=== PATIENT | female | born 1930 | race Caucasian/White ===

== ENCOUNTER 2018-01-08 12:49 | Emergency (ER) | payer OTHER ==
--- NOTE | 2018-01-08 13:39 | RAD REPORT ---
EXAM DESCRIPTION: CT - Head Brain Wo Cont - 01/08/2018 1:32 pm CLINICAL HISTORY: Possible seizure, history of Alzheimer's disease, dementia and hypertension COMPARISON: CT study January 2017 TECHNIQUE: Axial 5 mm thick images of the head were obtained without IV contrast. All CT scans are performed using dose optimization technique as appropriate and may include automated exposure control or mA/KV adjustment according to patient size. FINDINGS: No intracranial hemorrhage, mass, edema or shift of mid-line structures. No acute cortical based infarction identified. Moderate atrophy and chronic ischemic changes are present. Ventricles d o appear to be somewhat out of proportion to the amount of volume loss. 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 No extra-axial fluid collections. Intracranial findings are not substantially differ ent from comparison. Physiologic and arterial calcifications are present. Mastoid air cells and visualized portions of the paranasal sinuses are clear. No acute bony findings. IMPRESSION: No hemorrhage, mass or acute intracranial finding. Prominent atrophy and chronic ischemic change similar to January 2017. The ventricles do appear to be somewhat out of proportion to the amount of volume loss and correlatio n is needed to determine if the patient's symptoms may be related to normal pressure hydrocephalus.
--- NOTE | 2018-01-08 13:51 | RAD REPORT ---
EXAM DESCRIPTION: RAD - Chest Single View - 01/08/2018 1:35 pm CLINICAL HISTORY: Seizure, shortness of breath COMPARISON: September 2012 TECHNIQUE: AP portable chest image was obtained 1318 hours . FINDINGS: Mild chronic interstitial lung disease is present. Pericardial fat pads are present. An ac [place] infiltrate is not seen. No mass, failure or volume overload suspected. Heart size and vasculature within normal limits. No measurable pleural effusion and no pneumothorax. No gross bony abnormality seen. No acute aortic findings suspected. IMPRESSION: No acute cardiopulmonary process.
[2018-01-08 14:00] LABS: Absolute Lymphocytes (CBC) 1.9 K/uL (0.7-4.9); Absolute Monocytes 0.6 K/uL (0.1-1.3); Absolute Neutrophil 5.8 K/uL (1.8-8.0); Eosinophils % 2.1 % (0-4.4); Hematocrit 41.4 % (36.0-45.0); Lymphocytes % 21.7 % (15.3-44.8); MCH 27.9 pg (27.0-35.0); MCV 86.5 fL (80-100); MPV 7.6 fL (7.6-11.3); Monocytes % 6.8 % (3.3-12.3); RBC Red Blood Cell Count 4.79 M/uL (3.86-4.86)
[2018-01-08 14:01] LABS: Potassium 4.2 mEq/L (3.6-5.0)
[2018-01-08 14:04] LABS: Protime INR 0.96
[2018-01-08 14:07] LABS: Albumin 4.2 g/dL (3.2-5.5); Bilirubin Direct 0.1 mg/dL (0-0.2); Bilirubin Total 0.3 mg/dL (0.3-1.2); Magnesium 2.4 mg/dL (1.8-2.5); Protein, Total 7.8 g/dL (6.0-8.3)
--- NOTE | 2018-01-08 16:06 | ER ---
Nurse's Notes [facility] Name: Anel Gauthier Age: 87 yrs Sex: Female : 1930 Arrival Date: 01/08/2018 Time: 12:55 Bed 2 Private MD: Diagnosis: Suspected seizure Presentation: 01/08 12:55 Presenting complaint: Daughter reports "We were eating lunch and she went stiff, eyes jl7 were open and she was staring off, nose was running, she felt cold then got clammy and sweaty.". Transition of care: patient was not received from another setting of care. Onset of symptoms was January 08, 2018. Initial Sepsis Screen: Does the patient meet any 2 criteria? No. Patient's initial sepsis screen is negative. Does the patient have a suspected source of infection? No. Patient's initial sepsis screen is negative. Care prior to arrival: IV initiated. 20 GA, in the right antecubital area. 12:55 Method Of Arrival: EMS: [facility] jl7 12:55 Acuity: JAMES 2 jl7 Triage Assessment: 13:01 General: Appears in no apparent distress. comfortable, Behavior is calm, cooperative, jl7 appropriate for age. Pain: Denies pain. EENT: No signs and/or symptoms were reported regarding the EENT system. Neuro: Level of Consciousness is awake, alert, obeys commands, Oriented to person, place, time, situation, Linotyper are equal bilaterally Moves all extremities. Speech is normal, Facial symmetry appears normal, Reports none. Cardiovascular: Patient's skin is warm and dry. Respiratory: Airway is patent Respiratory effort is even, unlabored, Respiratory pattern is regular, symmetrical. GI: No signs and/or symptoms were reported involving the gastrointestinal system. : No signs and/or symptoms were reported regarding the genitourinary system. Derm: Skin is pink, warm \\T\\ dry. Musculoskeletal: No signs and/or symptoms reported regarding the musculoskeletal system. Historical: - Allergies: 13:01 Eggs; jl7 13:01 Sulfa (Sulfonamide Antibiotics); jl7 - PMHx: 13:01 Alzheimers; Arthritis; Dementia; Hyperlipidemia; Hypertension; TIA; jl7 - Immunization history:: Adult Immunizations up to date. - Social history:: Smoking status: Patient/guardian denies using tobacco, Patient uses alcohol, 2 glasses of wine per day. Screenin:06 Abuse screen: Denies threats or abuse. Denies injuries from another. Nutritional jl7 screening: No deficits noted. Tuberculosis screening: No symptoms or risk factors identified. Fall Risk IV access (20 points). Total Puentes Fall Scale indicates No Risk (0-24 pts). Assessment: 13:06 General: See triage assessment. jl7 13:56 Reassessment: Patient appears in no apparent distress at this time. No changes from [facility] previously documented assessment. Pt laying in bed, denies discomfort, daughter remains at bedside. 15:00 Reassessment: Patient appears in no apparent distress at this time. Patient and/or jl7 family updated on plan of care and expected duration. Pain level reassessed. Patient is alert, oriented x 3, equal unlabored respirations, skin warm/dry/pink. 16:00 Reassessment: provider at bedside discussing plan of care. [facility] Vital Signs: 13:01 BP 129 / 66; Pulse 61; Resp 16 S; Temp 97.7(O); Pulse Ox 97% on R/A; Weight 72.57 kg jl7 (R); Height 5 ft. 1 in. (154.94 cm) (R); Pain 0/10; 13:30 BP 131 / 46; Pulse 57; Resp 16; Pulse Ox 96% ; jl7 13:56 BP 122 / 61; Pulse 55; Resp 19; Pulse Ox 96% ; jl7 15:43 BP 125 / 55; Pulse 65; Resp 16; Pulse Ox 96% on R/A; ae1 16:00 BP 114 / 53; Pulse 53; Resp 16 S; Pulse Ox 97% on R/A; jl7 13:01 Body Mass Index 30.23 (72.57 kg, 154.94 cm) jl7 NIH Stroke Scale Scores: 13:37 NIHSS Score: 0 [facility] ED Course: 12:55 Patient arrived in ED. jl7 12:56 Zion Brady PA is PHCP. jr8 12:56 Srinivasa Roper MD is Attending Physician. 8 13:00 Triage completed. jl7 13:01 Arm band placed on right wrist. jl7 13:06 Patient has correct armband on for positive identification. Bed in low position. Call [facility] light in reach. Side rails up X2. playground attendant on. Pulse ox on. NIBP on. 13:06 Maintain EMS IV. Dressing intact. Good blood return noted. Site clean \\T\\ dry. Gauge \\T\\ jl 7 site: 20 R AC. 13:10 Dank Miller RN is Primary Nurse. jl7 13:31 CT completed. Patient tolerated procedure well. Patient moved back from CT. bq 13:32 CT Head Brain wo Cont In Process Unspecified. EDMS 13:34 X-ray completed. Portable x-ray completed in exam room. Patient tolerated procedure bb2 well. 13:35 XRAY Chest (1 view) In Process Unspecified. EDMS 16:05 Eze Esquivel MD is Referral Physician. jr8 16:17 No provider procedures requiring assistance completed. IV discontinued, intact, jl7 bleeding controlled, No redness/swelling at site. Pressure dressing applied. Administered Medications: No medications were administered Point of Care Testing: Blood Glucose: 13:01 Blood Glucose: 124 mg/dL; jl7 Ranges: Outcome: 16:05 Discharge ordered by . jr8 16:17 Discharged to home via wheelchair, with family. jl7 16:17 Condition: stable 16:17 Discharge instructions given to patient, family, Instructed on discharge instructions, follow up and referral plans. Demonstrated understanding of instructions, follow-up care. 16:24 Patient left the ED. jl7 NIH Stroke Scale - NIH Stroke Score Date: 01/08/2018 Time: 13:37 Total Score = 0 1a. Level of Consciousness (LOC) - 0(Alert) 1b. Level of Consciousness (LOC) (Year \\T\\ Age) - 0(Both) 1c. LOC Commands (Open \\T\\ Closes Eyes/Cost Reduction Engineer) - 0(Both) 2. Best Gaze (Lateral Gaze Paresis) - 0(Normal) 3. Visual Field Loss - 0(No visual loss) 4. Facial Palsy - 0(Normal) 5a. Left Arm: Motor (10-second hold) - 0(No drift) 5b. Right Arm: Motor (10-second hold) - 0(No drift) 6a. Left Leg: Motor (5-second hold - always test supine) - 0(No drift) 6b. Right Leg: Motor (5-second hold - always test supine) - 0(No drift) 7. Limb Ataxia (finger/nose \\T\\ heel/escobar - test with eyes open) - 0(Absent) 8. Sensory Loss (pinprick arms/legs/face) - 0(Normal) 9. Best Language: Aphasia (description/naming/reading) - 0(No aphasia) 10. Dysarthria (speech clarity - read or repeat words) - 0(Normal) 11. Extinction and Inattention (visual/tactile/auditory/spatial/personal) - 0(No abnormality) Initials: jr8 Signatures: Dispatcher [employer] EDPat Ricardo Josh, PA PA jr8 Ramiro Jacobs, RN RN ae1 Dank Miller RN RN jl7 Tonya Mcneal bb2
--- NOTE | 2018-01-08 16:07 | EDPHYS ---
Physician Documentation [facility] Name: Anel Gauthier Age: 87 yrs Sex: Female : 1930 Arrival Date: 01/08/2018 Time: 12:55 Bed 2 Private MD: ED Physician Srinivasa Roper HPI: 01/08 13:37 This 87 yrs old Female presents to ER via EMS with complaints of Probable jr8 Seizure. 13:37 The patient presents after having a single isolated seizure, that lasted 2 minute(s). jr8 Seizure onset: just prior to arrival. Context: the seizure(s) was witnessed, by family, occurred at a intermediate or assisted living facility, occurred while the patient was at rest, sitting, Contributing factors: unknown. Seizure Hx: the patient has no previous seizure history. Associated injury: The patient did not suffer any apparent associated injury. Current symptoms: headache, that is mild. The patient has not experienced similar symptoms in the past. The patient has not recently seen a physician. Daughter of patient stated that they were sitting and eating. Mother had all of a sudden stiffened up and her eyes were fixed. Lasted approximately 2 min. Patient upon arrival A\T\O x3. Complains of mild headache and fatigue feeling . Historical: - Allergies: 13:01 Eggs; jl7 13:01 Sulfa (Sulfonamide Antibiotics); jl7 - PMHx: 13:01 Alzheimers; Arthritis; Dementia; Hyperlipidemia; Hypertension; TIA; jl7 - Immunization history:: Adult Immunizations up to date. - Social history:: Smoking status: Patient/guardian denies using tobacco, Patient uses alcohol, 2 glasses of wine per day. ROS: 13:37 Eyes: Negative for injury, pain, redness, and discharge, ENT: Negative for injury, jr8 pain, and discharge, Neck: Negative for injury, pain, and swelling, Cardiovascular: Negative for chest pain, palpitations, and edema, Respiratory: Negative for shortness of breath, cough, wheezing, and pleuritic chest pain, Abdomen/GI: Negative for abdominal pain, nausea, vomiting, diarrhea, and constipation, Back: Negative for injury and pain, MS/Extremity: Negative for injury and deformity, Skin: Negative for injury, rash, and discoloration. 13:37 Neuro: Positive for headache, Negative for altered mental status, dizziness, gait disturbance, hearing loss, loss of consciousness, numbness, seizure activity, speech changes, syncope, near syncope, tingling, tinnitus, tremor, visual changes, weakness. Exam: 13:37 Head/Face: Normocephalic, atraumatic. Eyes: Pupils equal round and reactive to light, jr8 extra-ocular motions intact. Lids and lashes normal. Conjunctiva and sclera are non-icteric and not injected. Cornea within normal limits. Periorbital areas with no swelling, redness, or edema. ENT: Nares patent. No nasal discharge, no septal abnormalities noted. Tympanic membranes are normal and external auditory canals are clear. Oropharynx with no redness, swelling, or masses, exudates, or evidence of obstruction, uvula midline. Mucous membranes moist. Neck: Trachea midline, no thyromegaly or masses palpated, and no cervical lymphadenopathy. Supple, full range of motion without nuchal rigidity, or vertebral point tenderness. No Meningismus. Cardiovascular: Regular rate and rhythm with a normal S1 and S2. No gallops, murmurs, or rubs. Normal PMI, no JVD. No pulse deficits. Respiratory: Lungs have equal breath sounds bilaterally, clear to auscultation and percussion. No rales, rhonchi or wheezes noted. No increased work of breathing, no retractions or nasal flaring. Abdomen/GI: Soft, non-tender, with normal bowel sounds. No distension or tympany. No guarding or rebound. No evidence of tenderness throughout. Back: No spinal tenderness. No costovertebral tenderness. Full range of motion. Skin: Warm, dry with normal turgor. Normal color with no rashes, no lesions, and no evidence of cellulitis. MS/ Extremity: Pulses equal, no cyanosis. Neurovascular intact. Full, normal range of motion. Neuro: Awake and alert, GCS 15, oriented to person, place, time, and situation. Cranial nerves II-XII grossly intact. Motor strength 5/5 in all extremities. Sensory grossly intact. Cerebellar exam normal. Normal gait. Vital Signs: 13:01 BP 129 / 66; Pulse 61; Resp 16 S; Temp 97.7(O); Pulse Ox 97% on R/A; Weight 72.57 kg jl7 (R); Height 5 ft. 1 in. (154.94 cm) (R); Pain 0/10; 13:30 BP 131 / 46; Pulse 57; Resp 16; Pulse Ox 96% ; jl7 13:56 BP 122 / 61; Pulse 55; Resp 19; Pulse Ox 96% ; jl7 15:43 BP 125 / 55; Pulse 65; Resp 16; Pulse Ox 96% on R/A; ae1 16:00 BP 114 / 53; Pulse 53; Resp 16 S; Pulse Ox 97% on R/A; jl7 13:01 Body Mass Index 30.23 (72.57 kg, 154.94 cm) jl7 NIH Stroke Scale Scores: 13:37 NIHSS Score: 0 jr8 MDM: 12:56 Patient medically screened. jr8 15:44 ED course: Dr. Read called at 15:30 for possible consult. Left message. Awaiting 8 call back . 16:02 Data reviewed: vital signs, nurses notes, lab test result(s), EKG, radiologic studies, jr8 CT scan, plain films. Data interpreted: Pulse oximetry: on room air is 96 %. Interpretation: normal. Counseling: I had a detailed discussion with the patient and/or guardian regarding: the historical points, exam findings, and any diagnostic results supporting the discharge/admit diagnosis, lab results, radiology results. ED course: Cannot get a hold of Dr. Read to see if he is around for consult. Discussed with family that it is my opinion that she should be admitted for observation for neurology and medicine to insure cardiac rhythm remains normal along with labs and to insure neurology sees her for suspected seizure. Family was in agreement but does not want to be transferred since we do not have neurology on. Discussed with family that since patient has remained stable and asymptomatic here that we can let them go home but strict return precautions given to come back if patient has another episode. Patient patient and family happy with this. Family otherwise if patient remains stable with f/u with Dr. Esquivel on Wednesday . 01/08 13:09 Order name: CPK; Complete Time: 14: 01/08 13:09 Order name: Basic Metabolic Panel; Complete Time: 14:01/08 13:09 Order name: BNP; Complete Time: 14:01/08 13:09 Order name: CBC with Diff; Complete Time: 14:03 01/08 13:09 Order name: LFT's; Complete Time: 14:26 01/08 13:09 Order name: Magnesium; Complete Time: 14:01/08 13:09 Order name: PT-INR; Complete Time: 14:01/08 13:09 Order name: Ptt, Activated; Complete Time: 14:26 01/08 13:09 Order name: Troponin (emerg Dept Use Only); Complete Time: 14:10 01/08 13:09 Order name: XRAY Chest (1 view); Complete Time: 14:00 01/08 13:09 Order name: EKG; Complete Time: 13:09 01/08 13:09 Order name: Cardiac monitoring; Complete Time: 13:01/08 13:09 Order name: EKG - Nurse/Tech; Complete Time: 13:56 01/08 13:09 Order name: CT Head Brain wo Cont; Complete Time: 13:41 01/08 13:09 Order name: IV Saline Lock; Complete Time: 13:01/08 13:09 Order name: Labs collected and sent; Complete Time: 13:56 01/08 13:09 Order name: O2 Per Protocol; Complete Time: 13:01/08 13:09 Order name: O2 Sat Monitoring; Complete Time: 13:55 Administered Medications: No medications were administered Point of Care Testing: Blood Glucose: 13:01 Blood Glucose: 124 mg/dL; jl7 Ranges: Critical Glucose Levels:Adult <50 mg/dl or >400 mg/dl <40 mg/dl or >180 mg/dl Disposition: 18:54 Co-signature as Attending Physician, Srinivasa Roper MD. Disposition: 01/08/18 16:05 Discharged to Home. Impression: Suspected seizure . - Condition is Stable. - Discharge Instructions: Nonepileptic Seizures, Seizure, Adult. - Medication Reconciliation Form, Thank You Letter, Antibiotic Education, Prescription Opioid Use form. - Follow up: Eze Esquivel MD; When: 1 - 2 days; Reason: Recheck today's complaints, Continuance of care, Re-evaluation by your physician. - Problem is new. - Symptoms are resolved. NIH Stroke Scale - NIH Stroke Score Date: 01/08/2018 Time: 13:37 Total Score = 0 1a. Level of Consciousness (LOC) - 0(Alert) 1b. Level of Consciousness (LOC) (Year \T\ Age) - 0(Both) 1c. LOC Commands (Open \T\ Closes Eyes/Chute Tapper) - 0(Both) 2. Best Gaze (Lateral Gaze Paresis) - 0(Normal) 3. Visual Field Loss - 0(No visual loss) 4. Facial Palsy - 0(Normal) 5a. Left Arm: Motor (10-second hold) - 0(No drift) 5b. Right Arm: Motor (10-second hold) - 0(No drift) 6a. Left Leg: Motor (5-second hold - always test supine) - 0(No drift) 6b. Right Leg: Motor (5-second hold - always test supine) - 0(No drift) 7. Limb Ataxia (finger/nose \T\ heel/escobar - test with eyes open) - 0(Absent) 8. Sensory Loss (pinprick arms/legs/face) - 0(Normal) 9. Best Language: Aphasia (description/naming/reading) - 0(No aphasia) 10. Dysarthria (speech clarity - read or repeat words) - 0(Normal) 11. Extinction and Inattention (visual/tactile/auditory/spatial/personal) - 0(No abnormality) Initials: tina Signatures: Dispatcher [employer] EDMS Zion Brady PA PA jr8 Dank Miller RN RN jl7 Srinivasa Roper MD MD gs Corrections: (The following items were deleted from the chart) 16:24 16:05 01/08/2018 16:05 Discharged to Home. Impression: Suspected seizure . jl7 Condition is Stable. Forms are Medication Reconciliation Form, Thank You Letter, Antibiotic Education, Prescription Opioid Use. Follow up: Eze Esquivel; When: 1 - 2 days; Reason: Recheck today's complaints, Continuance of care, Re-evaluation by your physician. Problem is new. Symptoms are resolved. jr8
[2018-01-08 16:30] VITALS: TEMP 97.7
[2018-01-08 16:35] VITALS: BP 114/53; O2SAT 97
--- NOTE | 2018-01-09 10:42 | EKG ---
Test Date: 2018-01-08 Test Time: 12:54:10 Fire Sprinkler Service Technician: JAMIE MEASUREMENT RESULTS: Intervals: Rate: 58 DE: QRSD: 76 QT: 420 QTc: 412 [place]: P: DE: QRS: -40 T: 147 INTERPRETIVE STATEMENTS: Atrial fibrillation with slow ventricular response Left axis deviation Septal infarct, age undetermined ST & T wave abnormality, consider lateral ischemia Abnormal ECG Compared to ECG 10/13/2012 18:53:45 Left-axis deviation now present ST (T wave) deviation now present Sinus tachycardia no longer present Electronically Signed On 01-09-18 10:42:17 CDT by Ben Sharp
== END 2018-01-08 16:24 | disposition home or self-care (01) ==
LOC: ER 12:49
DX: R56.9 Unspecified convulsions (principal); I10 Essential (primary) hypertension; Z88.2 Allergy status to sulfonamides; Z91.012 Allergy to eggs
CPT/HCPCS: 36415; 70450; 71045; 80048; 80076; 82550; 82962; 83735; 83880; 84484; 85025; 85610; 85730; 93005; 99285

== ENCOUNTER 2018-01-22 13:14 | Observation (INO) | payer OTHER ==
--- NOTE | 2018-01-22 13:53 | RAD REPORT ---
EXAM DESCRIPTION: CT - [id number] - 01/22/2018 1:42 pm CLINICAL HISTORY: Fall, syncope, posterior skull injury COMPARISON: December 2016 TECHNIQUE: Axial 5 mm thick images of the head were obtained. Axial 2 mm thick images of the cervic al spine were obtained with sagittal and coronal reconstruction images generated and reviewed. All CT scans are performed using dose optimization technique as appropriate and may include automated exposure control or mA/KV adjustment according to patient size. FINDINGS: No intracranial hemorrhage, mass, edema or acute intracranial finding. No acute cortical b ased infarction. Moderate atrophy and advanced chronic ischemic changes are present. Ventricular size is in proportion to the volume loss. Arterial calcifications are present. No extra-axial fluid colle ctions. Mastoid air cells and paranasal sinuses are clear. No globe or orbit abnormality seen. Intrac ranial findings are similar to comparison. Small left occipital scalp hematoma is present. No foreign body. Cervical bodies are normal in height. No fracture or acute cervical body finding. Slight anterior sub luxation of C4 on C5 noted secondary to facet degenerative change. C3-4 and see 5-6 disc space narrow ing present. Bilateral bony foraminal encroachment present at C4-5. Left foraminal encroachment prese nt at C3-4. C2-3 disc space is narrowed. No pathologic bone process. No paraspinal mass or hematoma. IMPRESSION: Prominent atrophy and chronic ischemic change similar to comparison. No acute finding. Prominent cervical spine degenerative change similar to comparison. No acute finding.
[2018-01-22] MEDS ORDERED: NA CHLORIDE 0.9% 1,000 ML ONE (14:10)
[2018-01-22 14:16] LABS: Protime INR 0.96
[2018-01-22 14:23] LABS: Potassium 4.4 mEq/L (3.6-5.0)
[2018-01-22 14:41] LABS: Absolute Lymphocytes (CBC) 1.9 K/uL (0.7-4.9); Absolute Monocytes 0.5 K/uL (0.1-1.3); Absolute Neutrophil 5.1 K/uL (1.8-8.0); Eosinophils % 2.3 % (0-4.4); Hematocrit 44.8 % (36.0-45.0); Lymphocytes % 24.7 % (15.3-44.8); MCH 27.2 pg (27.0-35.0); MCV 87.4 fL (80-100); MPV 8.3 fL (7.6-11.3); Monocytes % 6.7 % (3.3-12.3); RBC Red Blood Cell Count 5.13 M/uL (3.86-4.86)
--- NOTE | 2018-01-22 15:16 | RAD REPORT ---
EXAM DESCRIPTION: RAD - Chest Single View - 01/22/2018 1:56 pm CLINICAL HISTORY: Fall, chest pain, shortness of breath COMPARISON: January 08 TECHNIQUE: AP portable chest image was obtained 1342 hours . FINDINGS: No pulmonary contusion or pneumothorax. No focal lung parenchymal process. Heart size is u pper normal. Vasculature within normal limits. No measurable pleural effusion and no pneumothorax. No gross bony abnormality seen. No acute aortic findings suspected. IMPRESSION: No acute cardiopulmonary process. Chest is not significantly different from comparison.
--- NOTE | 2018-01-22 16:23 | ER ---
Nurse's Notes [facility] Name: Anel Gauthier Age: 87 yrs Sex: Female : 1930 Arrival Date: 01/22/2018 Time: 13:15 Bed 3 Private MD: Diagnosis: Syncope and collapse;Hypotension due to drugs Presentation: 01/22 13:17 Presenting complaint: EMS states: Had just finished eating in dining room and had a ph syncopal episode, fell from standing position, denies memory of event, "apricot" sized hematoma palpated in occipital area, no bleeding noted, no AMS, pt denies use of blood thinners, seen here recently for similar complaint, BGL 143, heart rate sinus caroline w/ 1st degree block \\T\\ 48 bpm. Transition of care: patient was received from another setting of care (long-term care facility), [facility]. Onset of symptoms was January 22, 2018. Risk Assessment: Do you want to hurt yourself or someone else? Patient reports no desire to harm self or others. Initial Sepsis Screen: Does the patient meet any 2 criteria? No. Patient's initial sepsis screen is negative. Does the patient have a suspected source of infection? No. Patient's initial sepsis screen is negative. Care prior to arrival: IV initiated. 20 GA, in the right forearm, Glucose check: 143. 13:17 Method Of Arrival: EMS: [facility] 13:17 Acuity: JAMES 3 ph 13:17 Mechanism of Injury: Fall from standing position. Trauma event details: Injury occurred ss in the [facility], Injury occurred: at home. Injury occurred: January 22, 2018. 14:07 Acuity: JAMES 2 ph Trauma Activation: Alert Physician: ED Physician; Name: Dr. Roper; Notified At: 13:07; Arrived At: 13:07 Physician: General Surgeon; Name: ; Notified At: 13:07; Arrived At: Specialty not needed Physician: Radiology; Name: Valentine (XRAY)Pat (CT); Notified At: 13:07; Arrived At: 13:07 Physician: Respiratory; Name: ; Notified At: 13:07; Arrived At: Specialty not needed Physician: Lab; Name: ; Notified At: 13:07; Arrived At: Specialty not needed Historical: - Allergies: 13:26 Eggs; ph 13:26 Sulfa (Sulfonamide Antibiotics); ph - Home Meds: 13:26 amlodipine 10 mg tab 1 tab once daily [Active]; aspirin 81 mg Oral chew 1 tab once ph daily [Active]; atenolol 100 mg Oral tab 1 tab once daily [Active]; donepezil 10 mg Oral tab 1 tab once daily [Active]; lisinopril 30 mg Oral tab 1 tab once daily [Active]; Myrbetriq 25 mg Oral Tb24 1 tab once daily [Active]; omeprazole 20 mg Oral cpDR 1 cap once daily [Active]; venlafaxine 75 mg Oral cp24 1 cap once daily [Active]; - PMHx: 13:26 Alzheimers; Arthritis; Dementia; Hyperlipidemia; Hypertension; TIA; ph - Immunization history:: Adult Immunizations up to date. - Social history:: Smoking status: Patient/guardian denies using tobacco. - Immunization history: Last tetanus immunization:. - Ebola Screening: : No symptoms or risks identified at this time. Screenin:20 Abuse screen: Denies threats or abuse. Denies injuries from another. Nutritional ph screening: No deficits noted. Tuberculosis screening: No symptoms or risk factors identified. Fall Risk Fall in past 12 months (25 points). Secondary diagnosis (15 points) Alzheimer's, IV access (20 points). Ambulatory Aid- Crutches/Cane/Walker (15 pts). Gait- Weak (10 pts.). Mental Status- Oriented to own ability (0 pts). Total Puentes Fall Scale indicates High Risk Score (45 or more points). Fall prevention measures have been instituted. Side Rails Up X 2 Placed Close to Nursing Station Frequent Obs/Assessments Occuring Family Present and informed to notify staff if the need to leave the bedside As available patient and family educated on Fall Prevention Program and Strategies. Primary Survey: 13:25 A: Airway: patent. ph 13:25 Breathing/Chest: Respiratory pattern: regular, Respiratory effort: spontaneous, ph unlabored. Circulation: Cardiac rhythm: sinus bradycardia Pulses: palpable right radial artery and left radial artery. Skin color: pink, Skin temperature: warm, dry. Disability Alert. 14:15 Reassessment Airway Airway Patent Breathing/Chest Respiratory pattern Regular hb Respiratory effort Spontaneous Unlabored Chest inspection Symmetrical Circulation Color Backus Temperature Warm Dry Disability Alert. 15:15 Reassessment Airway Airway Patent Breathing/Chest Respiratory pattern Regular hb Respiratory effort Spontaneous Unlabored Chest inspection Symmetrical Circulation Color Backus Temperature Warm Dry Disability Alert. 16:15 Reassessment Airway Airway Patent Breathing/Chest Respiratory pattern Regular hb Respiratory effort Spontaneous Unlabored Chest inspection Symmetrical Circulation Color Backus Temperature Warm Dry Disability Alert. 17:15 Reassessment Airway Airway Patent Breathing/Chest Respiratory pattern Regular hb Respiratory effort Spontaneous Unlabored Chest inspection Symmetrical Circulation Color Backus Temperature Warm Dry Disability Alert. 18:15 Reassessment Airway Airway Patent Breathing/Chest Respiratory pattern Regular hb Respiratory effort Spontaneous Unlabored Chest inspection Symmetrical Circulation Color Backus Temperature Warm Dry Disability Alert. Secondary Survey: 13:25 HEENT: Head Other hematoma noted to occipital area. Gastrointestinal: No deficits ph noted. Musculoskeletal: No deficits noted. Injury Description: hematoma to back of head. Assessment: 13:30 General: Appears in no apparent distress. uncomfortable, Behavior is calm, cooperative, ph appropriate for age. Pain: Complains of pain in back of head Pain currently is 5 out of 10 on a pain scale. Neuro: Level of Consciousness is awake, alert, obeys commands, Oriented to person, place, situation, hx of dementia, daughter reports that pt is at baseline mental status. Reports headache occipital area, Denies blurred vision diplopia. Cardiovascular: Reports lightheadedness, syncope, Denies chest pain, nausea, shortness of breath, vomiting, Capillary refill < 3 seconds Patient's skin is warm and dry. Rhythm is sinus bradycardia. Respiratory: Airway is patent Respiratory effort is even, unlabored, Respiratory pattern is regular, symmetrical. GI: No signs and/or symptoms were reported involving the gastrointestinal system. Patient currently denies nausea, vomiting. Derm: Skin is intact, is fragile, is thin, Skin is pink, warm \\T\\ dry. Musculoskeletal: Circulation, motion, and sensation intact. Range of motion: intact in all extremities. 14:15 Reassessment: Patient appears in no apparent distress at this time. Patient and/or ph family updated on plan of care and expected duration. Pain level reassessed. Patient is alert, oriented x 3, equal unlabored respirations, skin warm/dry/pink. BP noted to be low at 94/43, pt reports "feeling fuzzy", ERP notified, see MAR. 15:00 Reassessment: Patient appears in no apparent distress at this time. Patient and/or ph family updated on plan of care and expected duration. Pain level reassessed. Patient is alert, oriented x 3, equal unlabored respirations, skin warm/dry/pink. 16:10 Reassessment: Patient appears in no apparent distress at this time. Patient and/or ph family updated on plan of care and expected duration. Pain level reassessed. Patient is alert, oriented x 3, equal unlabored respirations, skin warm/dry/pink. Pt resting quietly, BP remains low, 90s/40s, ERP aware of vitals, pt currently receiving IV fluid bolus, awaiting room assignment Patient denies pain at this time. 16:35 Reassessment: Patient appears in no apparent distress at this time. No changes from hb previously documented assessment. Patient and/or family updated on plan of care and expected duration. Pain level reassessed. Patient is alert, oriented x 3, equal unlabored respirations, skin warm/dry/pink. 17:25 Reassessment: Patient appears in no apparent distress at this time. Patient and/or ph family updated on plan of care and expected duration. Pain level reassessed. Patient is alert, oriented x 3, equal unlabored respirations, skin warm/dry/pink. Pt resting quietly at this time, assisted onto bedpan w/ no difficulty, urine sample obtained, awaiting room assignment. 18:15 Reassessment: Patient appears in no apparent distress at this time. Patient and/or hb family updated on plan of care and expected duration. Pain level reassessed. Patient is alert, oriented x 3, equal unlabored respirations, skin warm/dry/pink. Admission ordered, awaiting room assignment at this time. Family remains at bedside. 19:04 Reassessment: Patient appears in no apparent distress at this time. Patient and/or ph family updated on plan of care and expected duration. Pain level reassessed. Patient is alert, oriented x 3, equal unlabored respirations, skin warm/dry/pink. PCP at bedside. Vital Signs: 13:23 BP 133 / 47; Pulse 50; Resp 16; Temp 97.9; Pulse Ox 99% on R/A; Weight 72.57 kg; Height ph 5 ft. 1 in. (154.94 cm); Pain 5/10; 14:07 BP 94 / 43; Pulse 52; Resp 12; Pulse Ox 100% on R/A; ph 14:47 BP 93 / 42; Pulse 59; Resp 16; Pulse Ox 98% on R/A; ph 15:05 BP 99 / 59; Pulse 54; Resp 14; Pulse Ox 99% on R/A; ph 15:43 BP 99 / 42; Pulse 53; Resp 16; Pulse Ox 99% on R/A; ph 16:21 BP 93 / 37; Pulse 54; Resp 14; Pulse Ox 97% on R/A; hb 17:26 BP 99 / 36; Pulse 55; Resp 18; Pulse Ox 97% on R/A; ph 17:46 BP 100 / 45; Pulse 56; Resp 17; Pulse Ox 98% on R/A; dh3 18:25 BP 118 / 46; Pulse 67; Resp 14; Temp 97.8(TE); Pulse Ox 100% on R/A; ph 19:04 BP 111 / 35; Pulse 14; Resp 67; Pulse Ox 99% on R/A; ph 19:31 BP 111 / 35; Pulse 74; Resp 16; Pulse Ox 99% on R/A; Pain 0/10; ao 13:23 Body Mass Index 30.23 (72.57 kg, 154.94 cm) ph [place] Coma Score: 13:23 Eye Response: spontaneous(4). Verbal Response: oriented(5). Motor Response: obeys ph commands(6). Total: 15. 14:47 Eye Response: spontaneous(4). Verbal Response: oriented(5). Motor Response: obeys ph commands(6). Total: 15. 15:43 Eye Response: spontaneous(4). Verbal Response: oriented(5). Motor Response: obeys ph commands(6). Total: 15. 18:25 Eye Response: spontaneous(4). Verbal Response: oriented(5). Motor Response: obeys ph commands(6). Total: 15. Trauma Score (Adult): 13:23 Eye Response: spontaneous(1); Verbal Response: oriented(1); Motor Response: obeys ph commands(2); Systolic BP: > 89 mm Hg(4); Respiratory Rate: 10 to 29 per min(4); [place] Score: 15; Trauma Score: 12 14:00 Eye Response: spontaneous(1); Verbal Response: oriented(1); Motor Response: obeys hb commands(2); Systolic BP: > 89 mm Hg(4); Respiratory Rate: 10 to 29 per min(4); Rosie Score: 15; Trauma Score: 12 14:47 Eye Response: spontaneous(1); Verbal Response: oriented(1); Motor Response: obeys ph commands(2); Systolic BP: > 89 mm Hg(4); Respiratory Rate: 10 to 29 per min(4); [place] Score: 15; Trauma Score: 12 15:43 Eye Response: spontaneous(1); Verbal Response: oriented(1); Motor Response: obeys ph commands(2); Systolic BP: > 89 mm Hg(4); Respiratory Rate: 10 to 29 per min(4); Rosie Score: 15; Trauma Score: 12 16:30 Eye Response: spontaneous(1); Verbal Response: oriented(1); Motor Response: obeys hb commands(2); Systolic BP: > 89 mm Hg(4); Respiratory Rate: 10 to 29 per min(4); Rosie Score: 15; Trauma Score: 12 17:30 Eye Response: spontaneous(1); Verbal Response: oriented(1); Motor Response: obeys hb commands(2); Systolic BP: > 89 mm Hg(4); Respiratory Rate: 10 to 29 per min(4); [place] Score: 15; Trauma Score: 12 18:25 Eye Response: spontaneous(1); Verbal Response: oriented(1); Motor Response: obeys ph commands(2); Systolic BP: > 89 mm Hg(4); Respiratory Rate: 10 to 29 per min(4); Rosie Score: 15; Trauma Score: 12 ED Course: 13:15 Patient arrived in ED. em1 13:20 Srinivasa Roper MD is Attending Physician. gs 13:22 Triage completed. ph 13:24 EKG done, by ED staff, reviewed by Srinivasa Roper MD. dh3 13:26 Arm band placed on. ph 13:41 CT completed. Patient moved to CT via stretcher. Patient moved back from CT. cw1 13:42 CT Head C Spine In Process Unspecified. EDMS 13:55 X-ray completed. Patient tolerated procedure well. Patient moved back from radiology. kc2 13:56 XRAY Chest (1 view) In Process Unspecified. EDMS 14:02 Amberly Desai, RN is Primary Nurse. ph 14:24 Patient has correct armband on for positive identification. Placed in gown. Bed in low ph position. Call light in reach. Side rails up X2. manager monitoring on. Pulse ox on. NIBP on. Warm blanket given. 14:25 Patient maintains SpO2 saturation greater than 95% on room air. Thermoregulation: warm ph blanket given to patient. 14:25 Maintain EMS IV. Dressing intact. Good blood return noted. Site clean \\T\\ dry. Gauge \\T\\ ph site: 20 RFA. 16:09 No provider procedures requiring assistance completed. Patient admitted, IV remains in ph place. 16:22 Ned Eastman MD is Hospitalizing Provider. gs Administered Medications: 14:16 Drug: NS 0.9% 500 ml Route: IV; Rate: bolus; Site: right forearm; ph 19:06 Follow up: Response: No adverse reaction; Blood pressure is unchanged; IV Status: ph Completed infusion 14:45 Drug: NS 0.9% 500 ml Route: IV; Rate: bolus; Site: right forearm; ph 19:07 Follow up: Response: No adverse reaction; Blood pressure is unchanged; IV Status: ph Completed infusion 15:45 Drug: NS 0.9% 500 ml Route: IV; Rate: bolus; Site: right forearm; ph 19:08 Follow up: Response: No adverse reaction; IV Status: Completed infusion ph Intake: 14:47 IV: 500ml (IV Fluid); Total: 500ml. ph 15:43 IV: 500ml (IV Fluid); Total: 1000ml. ph 18:25 IV: 500ml (IV Fluid); Total: 1500ml. ph 19:48 PO: 0ml; Total: 1500ml. ao Output: 18:25 Urine: 900ml (Voided); Total: 900ml. ph Outcome: 16:22 Decision to Hospitalize by Provider. gs 18:27 Patient's length of stay in the Emergency Department was greater than 2 hours. pt ph admitted for observation r/t low BPPatient's length of stay extended due to 18:30 Patient's length of stay in the Emergency Department was greater than 2 hours. hb Admission ordered, awaiting room assignment Patient's length of stay extended due to 18:32 Condition: stable ph 18:32 Instructed on the need for admit. 19:47 Admitted to Med/surg accompanied by tech, room 202, with chart, Report called to angel Baker LVN 19:48 Patient left the ED. angel Signatures: Dispatcher [employer] EDKraig Patel em1 Jayne Page RN RN ss Woodley, Clotilde cw1 Amberly Desai RN RN Abdoul Zaragoza RN RN ao Baxter, Heather, RN RN Valentine Wu [facility] Kelly Montoya 3 Srinivasa Roper MD MD Corrections: (The following items were deleted from the chart) 13:33 13:17 Acuity: JAMES 3 ph ph 14:19 14:17 A: Airway: patent, ph ph 18:29 16:21 [place] Score=15, Trauma Score=12, hb hb
--- NOTE | 2018-01-22 16:24 | EDPHYS ---
Physician Documentation [facility] Name: Anel Gauthier Age: 87 yrs Sex: Female : 1930 Arrival Date: 01/22/2018 Time: 13:15 Bed 3 Private MD: ED Physician Srinivasa Roper HPI: 01/22 16:18 This 87 yrs old Female presents to ER via EMS with complaints of Fall Injury. gs 16:18 The patient has experienced syncope, became unresponsive, collapsed. Onset: The gs symptoms/episode began/occurred acutely, just prior to arrival. Duration: This was a single episode. Associated injury: Head/face: Neck:. Associated signs and symptoms: Pertinent negatives: agitation, ataxia, blurred vision, chest pain. Current symptoms: Currently, the patient is not experiencing any symptoms, the patient feels back to baseline. The patient has experienced similar episodes in the past, a few times. Historical: - Allergies: 13:26 Eggs; ph 13:26 Sulfa (Sulfonamide Antibiotics); ph - Home Meds: 13:26 amlodipine 10 mg tab 1 tab once daily [Active]; aspirin 81 mg Oral chew 1 tab once ph daily [Active]; atenolol 100 mg Oral tab 1 tab once daily [Active]; donepezil 10 mg Oral tab 1 tab once daily [Active]; lisinopril 30 mg Oral tab 1 tab once daily [Active]; Myrbetriq 25 mg Oral Tb24 1 tab once daily [Active]; omeprazole 20 mg Oral cpDR 1 cap once daily [Active]; venlafaxine 75 mg Oral cp24 1 cap once daily [Active]; - PMHx: 13:26 Alzheimers; Arthritis; Dementia; Hyperlipidemia; Hypertension; TIA; ph - Immunization history:: Adult Immunizations up to date. - Social history:: Smoking status: Patient/guardian denies using tobacco. - Immunization history: Last tetanus immunization:. - Ebola Screening: : No symptoms or risks identified at this time. ROS: 16:18 All other systems are negative. gs Exam: 16:18 Head/Face: Normocephalic, atraumatic. Eyes: Pupils equal round and reactive to light, gs extra-ocular motions intact. Lids and lashes normal. Conjunctiva and sclera are non-icteric and not injected. Cornea within normal limits. Periorbital areas with no swelling, redness, or edema. ENT: Nares patent. No nasal discharge, no septal abnormalities noted. Tympanic membranes are normal and external auditory canals are clear. Oropharynx with no redness, swelling, or masses, exudates, or evidence of obstruction, uvula midline. Mucous membranes moist. Chest/axilla: Normal chest wall appearance and motion. Nontender with no deformity. No lesions are appreciated. Cardiovascular: Regular rate and rhythm with a normal S1 and S2. No gallops, murmurs, or rubs. Normal PMI, no JVD. No pulse deficits. Respiratory: Lungs have equal breath sounds bilaterally, clear to auscultation and percussion. No rales, rhonchi or wheezes noted. No increased work of breathing, no retractions or nasal flaring. Abdomen/GI: Soft, non-tender, with normal bowel sounds. No distension or tympany. No guarding or rebound. No evidence of tenderness throughout. Back: No spinal tenderness. No costovertebral tenderness. Full range of motion. Skin: Warm, dry with normal turgor. Normal color with no rashes, no lesions, and no evidence of cellulitis. MS/ Extremity: Pulses equal, no cyanosis. Neurovascular intact. Full, normal range of motion. Neuro: Awake and alert, GCS 15, oriented to person, place, time, and situation. Cranial nerves II-XII grossly intact. Motor strength 5/5 in all extremities. Sensory grossly intact. Cerebellar exam normal. Normal gait. 16:18 Neck: C-spine: C-collar placed [employer]. Vital Signs: 13:23 BP 133 / 47; Pulse 50; Resp 16; Temp 97.9; Pulse Ox 99% on R/A; Weight 72.57 kg; Height ph 5 ft. 1 in. (154.94 cm); Pain 5/10; 14:07 BP 94 / 43; Pulse 52; Resp 12; Pulse Ox 100% on R/A; ph 14:47 BP 93 / 42; Pulse 59; Resp 16; Pulse Ox 98% on R/A; ph 15:05 BP 99 / 59; Pulse 54; Resp 14; Pulse Ox 99% on R/A; ph 15:43 BP 99 / 42; Pulse 53; Resp 16; Pulse Ox 99% on R/A; ph 16:21 BP 93 / 37; Pulse 54; Resp 14; Pulse Ox 97% on R/A; hb 17:26 BP 99 / 36; Pulse 55; Resp 18; Pulse Ox 97% on R/A; ph 17:46 BP 100 / 45; Pulse 56; Resp 17; Pulse Ox 98% on R/A; dh3 18:25 BP 118 / 46; Pulse 67; Resp 14; Temp 97.8(TE); Pulse Ox 100% on R/A; ph 19:04 BP 111 / 35; Pulse 14; Resp 67; Pulse Ox 99% on R/A; ph 19:31 BP 111 / 35; Pulse 74; Resp 16; Pulse Ox 99% on R/A; Pain 0/10; ao 13:23 Body Mass Index 30.23 (72.57 kg, 154.94 cm) ph [place] Coma Score: 13:23 Eye Response: spontaneous(4). Verbal Response: oriented(5). Motor Response: obeys ph commands(6). Total: 15. 14:47 Eye Response: spontaneous(4). Verbal Response: oriented(5). Motor Response: obeys ph commands(6). Total: 15. 15:43 Eye Response: spontaneous(4). Verbal Response: oriented(5). Motor Response: obeys ph commands(6). Total: 15. 18:25 Eye Response: spontaneous(4). Verbal Response: oriented(5). Motor Response: obeys ph commands(6). Total: 15. Trauma Score (Adult): 13:23 Eye Response: spontaneous(1); Verbal Response: oriented(1); Motor Response: obeys ph commands(2); Systolic BP: > 89 mm Hg(4); Respiratory Rate: 10 to 29 per min(4); Rosie Score: 15; Trauma Score: 12 14:00 Eye Response: spontaneous(1); Verbal Response: oriented(1); Motor Response: obeys hb commands(2); Systolic BP: > 89 mm Hg(4); Respiratory Rate: 10 to 29 per min(4); Rosie Score: 15; Trauma Score: 12 14:47 Eye Response: spontaneous(1); Verbal Response: oriented(1); Motor Response: obeys ph commands(2); Systolic BP: > 89 mm Hg(4); Respiratory Rate: 10 to 29 per min(4); [place] Score: 15; Trauma Score: 12 15:43 Eye Response: spontaneous(1); Verbal Response: oriented(1); Motor Response: obeys ph commands(2); Systolic BP: > 89 mm Hg(4); Respiratory Rate: 10 to 29 per min(4); Rosie Score: 15; Trauma Score: 12 16:30 Eye Response: spontaneous(1); Verbal Response: oriented(1); Motor Response: obeys hb commands(2); Systolic BP: > 89 mm Hg(4); Respiratory Rate: 10 to 29 per min(4); Rosie Score: 15; Trauma Score: 12 17:30 Eye Response: spontaneous(1); Verbal Response: oriented(1); Motor Response: obeys hb commands(2); Systolic BP: > 89 mm Hg(4); Respiratory Rate: 10 to 29 per min(4); Rosie Score: 15; Trauma Score: 12 18:25 Eye Response: spontaneous(1); Verbal Response: oriented(1); Motor Response: obeys ph commands(2); Systolic BP: > 89 mm Hg(4); Respiratory Rate: 10 to 29 per min(4); [place] Score: 15; Trauma Score: 12 MDM: 13:20 Patient medically screened. 16:18 Differential Diagnosis: cardiac arrhythmia, drug effect, idiopathic syncope, vasovagal gs episode. Data reviewed: vital signs, nurses notes. Physician consultation: Ned Eastman MD and will see patient in inpatient room. 01/22 13:30 Order name: Basic Metabolic Panel 01/22 13:30 Order name: CBC with Diff 01/22 13:30 Order name: PT-INR 01/22 13:30 Order name: Troponin (emerg Dept Use Only); Complete Time: 15:50 01/22 13:31 Order name: Basic Metabolic Panel; Complete Time: 15:50 EDMS 01/22 13:31 Order name: CBC with Automated Diff; Complete Time: 15:50 EDMS 01/22 13:30 Order name: XRAY Chest (1 view); Complete Time: 15:50 01/22 13:30 Order name: EKG; Complete Time: 13:31 01/22 13:30 Order name: CT Head C Spine; Complete Time: 15:50 01/22 13:31 Order name: Protime (+INR); Complete Time: 15:50 EDWV 01/22 16:45 Order name: Urine Dipstick--Ancillary (enter results) em1 01/22 13:30 Order name: Cardiac monitoring; Complete Time: 14:16 01/22 13:30 Order name: EKG - Nurse/Tech; Complete Time: 14:17 01/22 13:30 Order name: IV Saline Lock; Complete Time: 14:17 01/22 13:30 Order name: Labs collected and sent; Complete Time: 14:16 01/22 13:30 Order name: O2 Per Protocol; Complete Time: 14:16 01/22 13:30 Order name: O2 Sat Monitoring; Complete Time: 14:16 01/22 13:30 Order name: Urine Dipstick-Ancillary (obtain specimen); Complete Time: 16:44 01/22 18:08 Order name: Diet Heart Healthy; Complete Time: 18:09 ph Administered Medications: 14:16 Drug: NS 0.9% 500 ml Route: IV; Rate: bolus; Site: right forearm; ph 19:06 Follow up: Response: No adverse reaction; Blood pressure is unchanged; IV Status: ph Completed infusion 14:45 Drug: NS 0.9% 500 ml Route: IV; Rate: bolus; Site: right forearm; ph 19:07 Follow up: Response: No adverse reaction; Blood pressure is unchanged; IV Status: ph Completed infusion 15:45 Drug: NS 0.9% 500 ml Route: IV; Rate: bolus; Site: right forearm; ph 19:08 Follow up: Response: No adverse reaction; IV Status: Completed infusion ph Disposition: 01/22/18 16:22 Hospitalization ordered by Ned Eastman for Observation. Preliminary diagnosis are Syncope and collapse, Hypotension due to drugs. - Bed requested for Telemetry/MedSurg (observation). - Status is Observation. ao - Condition is Stable. - Problem is new. - Symptoms have improved. UTI on Admission? No Signatures: Dispatcher [employer] EDMS Rosamaria Garrett RN RN kl Hall, Patricia, RN RN ph Ortiz, Alex, RN RN ao Starr, Gregory, MD MD Corrections: (The following items were deleted from the chart) 18:52 16:22 Hospitalization Ordered by Ned Eastman MD for Observation. Preliminary diagnosis kl is Syncope and collapse; Hypotension due to drugs. Bed requested for Telemetry/MedSurg (observation). Status is Observation. Condition is Stable. Problem is new. Symptoms have improved. UTI on Admission? No. gs 19:48 18:52 01/22/2018 16:22 Hospitalization Ordered by Ned Eastman MD for Observation. ao Preliminary diagnosis is Syncope and collapse; Hypotension due to drugs. Bed requested for Telemetry/MedSurg (observation). Status is Observation. Condition is Stable. Problem is new. Symptoms have improved. UTI on Admission? No. kl
[2018-01-22 17:02] LABS: Urine Blood NEGATIVE (NEG); Urine Glucose NEGATIVE (NEG); Urine Protein NEGATIVE (NEG); Urine Specific Gravity <1.005 (1.005-1.030); Urine pH 5.5 (5.0-7.0)
[2018-01-22 20:49] VITALS: BMI 30.1
[2018-01-22] MEDS: NA CHLORIDE 0.9% 1,000 ML IV SCH (20:53)
--- NOTE | 2018-01-22 21:11 | P.HP ---
Certification for Inpatient Patient admitted to: Observation With expected LOS: <2 Midnights Practitioner: I am a practitioner with admitting privileges, knowledge of patient current condition, hospital course, and medical plan of care. Services: Services provided to patient in accordance with Admission requirements found in Title 42 Section 412.3 of the Code of Federal Regulations Patient History Date of Service: 01/22/18 Reason for admission: PASSED OUT AND FELL BACKWARDS History of Present Illness: MS. RICHARD WHILE AT DINIING TABLE, STANDING , PASSED OUT AND FELL BACKWARDS. SHE HAS NO CHEST PAIN, NAUSEA OR VOMITING. THIS HAPPEND A FEW DAYS AGO ALSO. Allergies egg Allergy (Unknown, Verified 10/13/12 17:49) UNKNOWN Sulfa (Sulfonamide Antibiotics) Allergy (Unknown, Verified 10/13/12 17:49) UNKNOWN Eggs Allergy (Uncoded 01/05/17 06:00) Unknown Home Medications: Cholecalciferol (Vitamin D3) [Vitamin D 1000 Iu Tab] 2,000 unit PO DAILY Docusate Sodium 1 cap PO DAILY 10/14/12 Donepezil HCl 1 tab PO DAILY 10/14/12 Hydrocodone Bit/Acetaminophen [Hydrocodon-Acetaminophen 5-325] 1 tab PO Q8HR PRN 10/14/12 Lumigan 0.01% Jennie A 1 drop EACHEYE BEDTIME 10/14/12 Potassium Cloride Micro 1 tab PO DAILY 10/14/12 Amlodipine [Norvasc*] 10 mg PO DAILY WITH BREAKFAST 03/31/13 Atenolol 50 mg PO DAILY WITH BREAKFAST 03/31/13 Atenolol [Tenormin] 100 mg PO DAILY WITH BREAKFAST 03/31/13 Brimonidine Tartrate 15 ml OP BID 03/31/13 Calcium 500 mg PO DAILY 03/31/13 Cetirizine HCl [Zyrtec] 10 mg PO DAILY 03/31/13 Folic Acid [Folic Acid*] 1 mg PO DAILY 03/31/13 Lisinopril [Prinivil*] 30 mg PO BID 03/31/13 Mometasone Furoate [Elocon] 60 ml TP DAILY 03/31/13 Pantoprazole [Protonix Tab*] 40 mg PO DAILY 03/31/13 Hydrocodone 5/APAP 325 [[place] 5/325*] 1 tab PO Q4HP PRN #20 tab 04/10/13 - Past Medical/Surgical History Has patient received pneumonia vaccine in the past: No Diabetic: No -: htn -: hysterectomy -: colostomy 09/2012 -: appy - Social History Smoking Status: Never smoker Alcohol use: Yes CD- Drugs: No Caffeine use: Yes Place of Residence: Home Review of Systems 10-point ROS is otherwise unremarkable (SCALP HEMATOMA IN THE BACK) Physical Examination - Vital Signs Temperature: 97.8 F Blood Pressure: 111/35 Pulse: 74 Respirations: 16 - Physical Exam General: Alert, Acute distress, Moderate distress HEENT: Atraumatic, PERRLA, Mucous membr. moist/pink, EOMI, Sclerae nonicteric Neck: Supple, 2+ carotid pulse no bruit, No LAD, Without JVD or thyroid abnormality Respiratory: Clear to auscultation bilaterally, Normal air movement Cardiovascular: Regular rate/rhythm, Normal S1 S2 Gastrointestinal: Normal bowel sounds, No tenderness Musculoskeletal: No tenderness Integumentary: No rashes Neurological: Normal gait, Normal speech, Normal strength at 5/5 x4 extr, Normal tone, Normal affect Lymphatics: No axilla or inguinal lymphadenopathy - Studies Laboratory Data (last 24 hrs) 01/22/18 14:00: PT 11.3, INR 0.96 01/22/18 14:00: WBC 7.8, Hgb 14.0, Hct 44.8, Plt Count 344 01/22/18 14:00: Sodium 135, Potassium 4.4, BUN 19, Creatinine 1.14 H, Glucose 112 Assessment and Plan - Problems (Diagnosis) (1) Syncope and collapse Current Visit: Yes Status: Acute Plan: MOST LIKELY FROM HYPOTENSION- ORTHOSTATIC I WILL REDUCE ATENOLOL AT THIS AGE SHE MAY GET TOO BRADYCARDIC. STOP LISINOPRIL FOR NOW. FU AMBUALTE IN AM. - Advance Directives Does patient have a Living Will: Yes Does patient have a Durable POA for Healthcare: Yes
[2018-01-23] MEDS: NA CHLORIDE 0.9% 1,000 ML IV SCH (04:00)
[2018-01-23] MEDS ORDERED: DONEPEZIL HCL 5 MG TAB PO SCH ×3 (09:00→21:00)
[2018-01-23] MEDS ORDERED: BRIMONIDINE TARTRATE OP SCH (09:00)
[2018-01-23] MEDS: DOCUSATE NA 100 MG CAP PO SCH (09:11)
[2018-01-23] MEDS: ATENOLOL 50 MG TAB PO SCH (09:11)
[2018-01-23] MEDS: FOLIC ACID 1 MG TABLET PO SCH (09:12)
--- NOTE | 2018-01-23 09:51 | P.PN ---
Subjective Date of Service: 01/23/18 Chief Complaint: PASSED OUT AND FELL BACKWARDS Subjective: Improving (NO CHEST PAIN, NO COMPLAINTS) Review of Systems 10-point ROS is otherwise unremarkable Musculoskeletal: Other (WALKS WITH WALKER , NO PAIN, NO TENDERNESS) Physical Examination - Vital Signs Temperature: 97.4 F Blood Pressure: 162/63 Pulse: 59 Respirations: 18 Pulse Ox (%): 96 - Physical Exam General: Alert HEENT: Atraumatic, PERRLA, EOMI Neck: Supple, JVD not distended Respiratory: Clear to auscultation bilaterally, Normal air movement Cardiovascular: Regular rate/rhythm, Normal S1 S2 Gastrointestinal: Normal bowel sounds, No tenderness Musculoskeletal: Other ( ABOVE) Integumentary: No rashes Neurological: Normal speech, Normal tone, Normal affect Lymphatics: No axilla or inguinal lymphadenopathy - Studies Laboratory Data (last 24 hrs) 01/22/18 14:00: PT 11.3, INR 0.96 01/22/18 14:00: WBC 7.8, Hgb 14.0, Hct 44.8, Plt Count 344 01/22/18 14:00: Sodium 135, Potassium 4.4, BUN 19, Creatinine 1.14 H, Glucose 112 Medications List Reviewed: Yes Assessment And Plan - Current Problems (Diagnosis) (1) Syncope and collapse Current Visit: Yes Status: Acute Plan: MOST LIKELY FROM HYPOTENSION- ORTHOSTATIC I WILL REDUCE ATENOLOL AT THIS AGE SHE MAY GET TOO BRADYCARDIC. STOP LISINOPRIL FOR NOW. FU AMBUALTE IN AM. CHECK BP ORTHOSTATICS REDUCED DOSE OF ATENOLOL WATCH TEMELETRY RHYTHM SO FAR OKAY.
--- NOTE | 2018-01-23 10:43 | EKG ---
Test Date: 2018-01-22 Test Time: 13:18:18 Textile Screen Printer: [place] MEASUREMENT RESULTS: Intervals: Rate: 48 SC: 210 QRSD: 82 QT: 470 QTc: 419 Henderson: P: 82 SC: 210 QRS: -32 T: 106 INTERPRETIVE STATEMENTS: Sinus bradycardia with 1st degree AV block Left axis deviation Left ventricular hypertrophy with repolarization abnormality Cannot rule out Septal infarct, age undetermined Abnormal ECG Compared to ECG 01/08/2018 12:54:10 First degree AV block now present Left ventricular hypertrophy now present Atrial fibrillation no longer present yocardial infarct finding still present Electronically Signed On 01-23-18 10:42:53 CDT by Ben Sharp
[2018-01-23] MEDS: ASPIRIN 81 MG CHEWABLE TABLET PO SCH (12:00)
[2018-01-23] MEDS: LISINOPRIL 20 MG TAB PO SCH (13:24)
[2018-01-23] MEDS: AMLODIPINE 10 MG TAB PO SCH (13:24)
[2018-01-23] MEDS ORDERED: BIMATOPROST 0.01% EACHEYE SCH (21:00)
[2018-01-24 06:14] VITALS: O2SAT 94
[2018-01-24] MEDS ORDERED: PANTOPRAZOLE 40MG TABLET PO SCH (07:30)
[2018-01-24 08:16] VITALS: BP 133/59; TEMP 97.5
[2018-01-24] MEDS: DOCUSATE NA 100 MG CAP PO SCH (08:19)
[2018-01-24] MEDS: AMLODIPINE 10 MG TAB PO SCH (08:19)
[2018-01-24] MEDS: FOLIC ACID 1 MG TABLET PO SCH (08:19)
[2018-01-24] MEDS: ASPIRIN 81 MG CHEWABLE TABLET PO SCH (08:19)
[2018-01-24] MEDS: ATENOLOL 50 MG TAB PO SCH (08:19)
[2018-01-24] MEDS: LISINOPRIL 20 MG TAB PO SCH (08:20)
[2018-01-24] MEDS ORDERED: HOME MED 1 EA UNK (Donepezil Hcl [Donepezil Hcl] 10 MG) PO SCH (09:00)
[2018-01-24] MEDS ORDERED: HOME MED 1 EA UNK (Omeprazole [Omeprazole] 20 MG) PO SCH (09:00)
[2018-01-24] MEDS ORDERED: HOME MED 1 EA UNK (Mirabegron [Myrbetriq] 25 MG) PO SCH (09:00)
[2018-01-24] MEDS ORDERED: HOME MED 1 EA UNK (Lisinopril [Lisinopril] 30 MG) PO SCH (09:00)
[2018-01-24] MEDS ORDERED: VENLAFAXINE HCL 75 MG TABLET PO SCH (13:00)
== END 2018-01-24 10:13 | disposition home or self-care (01) ==
LOC: ER 13:14 → ERHOLD 16:22 → 2ND 19:28
PROVIDERS: ADMIT Internal Medicine; ATTEND Internal Medicine
DX: R55 Syncope and collapse (principal); I10 Essential (primary) hypertension; S00.03XA Contusion of scalp, initial encounter; W18.39XA Other fall on same level, initial encounter; Y92.009 Unspecified place in unspecified non-institutional (private) residence as the place of occurrence of the external cause; Z91.012 Allergy to eggs; Z88.2 Allergy status to sulfonamides
CPT/HCPCS: 36415; 70450; 71045; 72125; 80048; 81003; 84484 ×4; 85025; 85610; 93005; 96360; 96361; 97163; 99285; G0378 ×2; J7030 ×3

== ENCOUNTER 2018-05-12 12:14 | Observation (INO) | payer OTHER ==
[2018-05-12] MEDS ORDERED: ALBUTEROL 2.5 MG/3 ML NEB SOL IH PRN (13:24)
[2018-05-12 13:59] VITALS: BMI 29.6
[2018-05-12] MEDS ORDERED: ONDANSETRON 4 MG/2 ML VIAL IV PRN (14:00)
[2018-05-12] MEDS ORDERED: ACETAMINOPHEN 325 MG TABLET PO PRN (14:00)
[2018-05-12] MEDS ORDERED: NACHLORIDE 0.45% 1,000 ML IV SCH (14:00)
[2018-05-12] MEDS ORDERED: IPRATROPIUM BROM 0.5MG/2.5ML IH SCH (14:00)
[2018-05-12] MEDS ORDERED: LOPERAMIDE HCL 2 MG CAPSULE PO PRN (14:00)
[2018-05-12] MEDS ORDERED: DIPHENHYDRAMINE 25 MG TAB/CAP PO PRN (14:00)
[2018-05-12] MEDS ORDERED: POLYETHYL GLY 3350 17 GM/DOSE PO PRN (14:00)
[2018-05-12] MEDS ORDERED: LEVALBUTEROL 1.25 MG/3 ML NEB IH SCH (14:00)
[2018-05-12] MEDS ORDERED: ONDANSETRON 4 MG (ODT) TAB PO PRN (14:00)
[2018-05-12 14:25] LABS: Absolute Lymphocytes (CBC) 2.1 K/uL (0.7-4.9); Absolute Monocytes 0.5 K/uL (0.1-1.3); Absolute Neutrophil 4.5 K/uL (1.8-8.0); Basophils % 1.1 % (0-1.3); Eosinophils % 1.8 % (0-4.4); Hematocrit 38.9 % (36.0-45.0); Lymphocytes % 28.9 % (15.3-44.8); MCH 29.3 pg (27.0-35.0); MPV 7.4 fL (7.6-11.3); Monocytes % 7.4 % (3.3-12.3); RBC Red Blood Cell Count 4.42 M/uL (3.86-4.86)
[2018-05-12 14:39] LABS: Protime INR 1.02
--- NOTE | 2018-05-12 14:47 | RAD REPORT ---
EXAM DESCRIPTION: David Espinal (2 Views)05/12/2018 2:28 pm CLINICAL HISTORY: Shortness of breath COMPARISON: January 2018 FINDINGS: The lungs appear clear of acute infiltrate. The heart is normal size IMPRESSION: No acute abnormalities displayed
[2018-05-12 15:00] LABS: ALT/SGPT 17 U/L (12-78); AST/SGOT 16 U/L (15-37); Albumin 3.6 g/dL (3.4-5.0); Alkaline Phosphatase 99 U/L (45-117); BUN Blood Urea Nitrogen 18 mg/dL (7-18); Bicarbonate 28 mmol/L (21-32); Bilirubin Direct < 0.1 mg/dL (0-0.2); Bilirubin Total 0.3 mg/dL (0.2-1.0); Glucose Level 107 mg/dL (74-106); Magnesium 2.1 mg/dL (1.8-2.4); Phosphorus 3.6 mg/dL (2.5-4.9); Potassium 4.6 mmol/L (3.5-5.1); Protein, Total 7.4 g/dL (6.4-8.2); Sodium Level 139 mmol/L (136-145)
[2018-05-12 15:25] VITALS: O2SAT 96
[2018-05-12 16:22] LABS: Urine Appearance CLEAR; Urine Bilirubin NEGATIVE (NEG); Urine Blood NEGATIVE (NEG); Urine Color YELLOW; Urine Glucose NEGATIVE (NEG); Urine Protein NEGATIVE (NEG); Urine Specific Gravity 1.015 (1.005-1.030); Urine Urobilinogen 0.2 mg/dL (0.2-1.0); Urine pH 5.5 (5.0-7.0)
[2018-05-12] MEDS ORDERED: ENOXAPARIN 40 MG/0.4 ML SQ SCH (17:00)
[2018-05-12 17:02] LABS: Urine Microscopic Reflex ORDER UMIC; Urine RBC <5 /HPF (NONE SEEN)
[2018-05-12 17:03] LABS: Urine Bacteria 20-50 /HPF (<20)
[2018-05-12 17:04] LABS: Urine Culture Reflex Order NOT NEEDED
--- NOTE | 2018-05-12 20:07 | RAD REPORT ---
EXAM DESCRIPTION: MRI - Brain W/Wo Cont - 05/12/2018 7:42 pm CLINICAL HISTORY: Vision loss COMPARISON: 2010 TECHNIQUE: Axial, sagittal, and coronal magnetic resonance images of the brain were obtained. 16 cc Magnevist administered intravenously FINDINGS: 4.5 centimeter area of abnormal signal within the left occipital lobe has the appearance o f cystic encephalomalacia secondary to an old infarction. Moderate to marked abnormal signal within periventricular, deep and subcortical white matter likely r epresents ischemic changes secondary to small vessel disease. A venous angioma is present within the right cerebellum without evidence of prior bleed. Diffusion-weighted/ADC mapping does not reveal evidence of acute infarction. The ventricles are normal caliber. An extra-axial fluid collection is not present The sinuses and mastoids are clear. 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
--- NOTE | 2018-05-12 20:14 | RAD REPORT ---
EXAM DESCRIPTION: MRI - MRA Head Wo Cont - 05/12/2018 7:42 pm CLINICAL HISTORY: Vision loss COMPARISON: None. TECHNIQUE: Magnetic resonance angiogram of the head was performed. 3D MIPS reconstruction was performed FINDINGS: There is signal void within a short segment of the distal left vertebral artery. Narrowing involves the distal basilar artery. Areas of narrowing involves right and left posterior cerebral artery. Anterior cerebral, middle cerebral and internal carotid arteries appear unremarkable IMPRESSION: Signal void within a short segment to the distal left vertebral artery of indeterminate age. Given the lack of an acute abnormality on the MRI brain this is probably more likely to be chron ic Short segment narrowing of the distal basilar artery Mild areas of narrowing involving the posterior cerebral artery likely are chronic
--- NOTE | 2018-05-12 20:18 | RAD REPORT ---
EXAM DESCRIPTION: MRI - MRA Neck W/Wo Cont - 05/12/2018 7:41 pm CLINICAL HISTORY: Vision loss COMPARISON: None. TECHNIQUE: Magnetic resonance angiogram of the neck was performed. 16 cc MultiHance was administered intravenously. . 3D MIPS reconstruction was performed FINDINGS: Mild plaque is present within common carotid, internal carotid and external carotid arteri es An aneurysm is not seen. The proximal and mid vertebral arteries are codominant without visualization of an abnormality. Short segment signal void involves the distal left vertebral artery. Short segment narrowing involves the distal basilar artery IMPRESSION: Short-segment signal void within the distal left vertebral artery. The age is indetermin ate. However given the lack of an acute abnormality on the MRI brain this more likely to be chronic Short segment narrowing of the distal basilar artery probably is chronic.
--- NOTE | 2018-05-12 21:00 | RAD REPORT ---
EXAM DESCRIPTION: USCarotid Artery Bilateral05/12/2018 8:19 pm CLINICAL HISTORY: TIA COMPARISON: None FINDINGS: The velocity of the right internal carotid artery equals 114 cm/sec. The right ICA/CCA rat io 1.2 The velocity of the left internal carotid artery equals 86 cm/sec. The left ICA/CCA ratio point Mild plaque is present within the carotid arteries. The vertebral arteries demonstrate antegrade flow IMPRESSION: Mild plaque within the carotid arteries without evidence of a hemodynamically significan t stenosis
[2018-05-13 05:09] LABS: Absolute Monocytes 0.7 K/uL (0.1-1.3); Absolute Neutrophil 4.1 K/uL (1.8-8.0); Basophils % 0.9 % (0-1.3); Eosinophils % 2.1 % (0-4.4); Lymphocytes % 28.2 % (15.3-44.8); MCH 29.1 pg (27.0-35.0); MCV 86.3 fL (80-100); MPV 7.1 fL (7.6-11.3); Monocytes % 10.6 % (3.3-12.3); RBC Red Blood Cell Count 4.16 M/uL (3.86-4.86)
[2018-05-13 05:25] LABS: Magnesium 2.2 mg/dL (1.8-2.4); Potassium 3.7 mmol/L (3.5-5.1)
--- NOTE | 2018-05-13 06:56 | EKG ---
Test Date: 2018-05-12 Test Time: 14:06:06 Occupational Therapy Aides Teacher: SHWETA MEASUREMENT RESULTS: Intervals: Rate: 73 NC: 192 QRSD: 72 QT: 398 QTc: 438 Bernard: P: 45 NC: 192 QRS: -42 T: 117 INTERPRETIVE STATEMENTS: Normal sinus rhythm Left axis deviation Minimal voltage criteria for LVH, may be normal variant Septal infarct, age undetermined T wave abnormality, consider lateral ischemia Abnormal ECG Compared to ECG 01/22/2018 13:18:18 T-wave abnormality now present Possible ischemia now present Sinus bradycardia no longer present First degree AV block no longer present Early repolarization no longer present Myocardial infarct finding still present Electronically Signed On 05-13-18 06:54:42 CDT by Angel Luis Dawson
[2018-05-13] MEDS ORDERED: POTASSIUM CL SA 10 MEQ TAB PO ONE (07:00)
[2018-05-13] MEDS ORDERED: CLOPIDOGREL 75 MG TABLET PO SCH (09:00)
[2018-05-13 13:45] VITALS: BP 135/61; TEMP 98.1
--- NOTE | 2018-05-14 23:28 | DS ---
Date of Discharge: 05/13/2018 Final Diagnoses: Transient ischemic attack, amaurosis fugax. Secondary Diagnoses: Dementia; history of stroke in the past, occipital region. Hospital Course: Patient is an 87-year-old demented lady who knows that she has dementia, so she has moderate dementia. She is taken care by the son, lives alone. Came to office, was sent by Dr. Carlos abdullahi's office as she had amaurosis fugax about 24 hours ago. I admitted her for further workup on this. An MRI of the brain did not show any new stroke. There is an old right occipital stroke with cysti c changes, which is indicative of old stroke. Carotid Doppler and MR angiogram were negative, except some plaquing. She is discharged home in stable condition. I have added Plavix and discontinued as pirin; everything else remains the same. The patient's son understands this very well. The patient does not want any further intervention, to which he is agreeable. She has significant dementia. She says "I am ready to go and I am ready to go home." In any case, she is stable and comfortable at dis charge. YOSLEYN/MARINA Voice ID: [id number] Report ID: [id number]
== END 2018-05-13 14:20 | disposition home or self-care (01) ==
LOC: 4TH 13:01
PROVIDERS: ADMIT Internal Medicine; ATTEND Internal Medicine
DX: G45.3 Amaurosis fugax (principal); F03.90 Unspecified dementia, unspecified severity, without behavioral disturbance, psychotic disturbance, mood disturbance, and anxiety; Z86.73 Personal history of transient ischemic attack (TIA), and cerebral infarction without residual deficits; I10 Essential (primary) hypertension; E78.5 Hyperlipidemia, unspecified; Z88.2 Allergy status to sulfonamides; Z91.012 Allergy to eggs
CPT/HCPCS: 36415; 70544; 70549; 70553; 71046; 80048; 80076; 81003; 81015; 82306; 82607; 83735; 84100; 84443; 85025; 85610; 85730; 87086; 87088; 93005; 93880; 94640; A9577; G0378; G0379; J1650

== ENCOUNTER 2018-08-06 21:20 | Inpatient (IN) | payer OTHER ==
--- NOTE | 2018-08-06 21:49 | RAD REPORT ---
EXAM DESCRIPTION: CT - Head Brain Wo Cont - 08/06/2018 9:42 pm CLINICAL HISTORY: Slurred speech COMPARISON: April 2018 TECHNIQUE: Computed axial tomography of the head was obtained. IV contrast was not requested. All CT scans are performed using dose optimization technique as appropriate and may include automated exposure control or mA/KV adjustment according to patient size. FINDINGS: An intracranial bleed is not seen . The ventricles are normal in caliber. No extra-axial fluid collection is noted. Old left occipital lobe infarct. Mild to moderate low-density areas within periventricular, deep and subcortical white matter consiste nt with ischemic changes secondary to small vessel disease Fluid within the sinuses/ mastoids is not seen. IMPRESSION: No acute intracranial abnormality is seen. If patient's symptoms persist MRI of the bra in would be recommended.
[2018-08-06 22:00] LABS: Absolute Lymphocytes (CBC) 1.8 K/uL (0.7-4.9); Absolute Monocytes 0.6 K/uL (0.1-1.3); Absolute Neutrophil 4.5 K/uL (1.8-8.0); Basophils % 0.8 % (0-1.3); Eosinophils % 2.4 % (0-4.4); Hematocrit 35.9 % (36.0-45.0); Lymphocytes % 25.4 % (15.3-44.8); MCH 29.1 pg (27.0-35.0); MCV 88.5 fL (80-100); MPV 7.2 fL (7.6-11.3); Monocytes % 8.1 % (3.3-12.3); RBC Red Blood Cell Count 4.05 M/uL (3.86-4.86)
[2018-08-06 22:03] LABS: Protime INR 1.01
[2018-08-06 22:23] LABS: ALT/SGPT 19 U/L (12-78); AST/SGOT 15 U/L (15-37); Albumin 3.2 g/dL (3.4-5.0); Alkaline Phosphatase 98 U/L (45-117); BUN Blood Urea Nitrogen 21 mg/dL (7-18); Bicarbonate 26 mmol/L (21-32); Bilirubin Direct < 0.1 mg/dL (0-0.2); Bilirubin Total 0.2 mg/dL (0.2-1.0); Glucose Level 126 mg/dL (74-106); Magnesium 2.5 mg/dL (1.8-2.4); NT PRO-BNP 135 pg/mL (<450); Potassium 4.4 mmol/L (3.5-5.1); Protein, Total 6.8 g/dL (6.4-8.2); Sodium Level 139 mmol/L (136-145)
[2018-08-06] MEDS ORDERED: NA CHLORIDE 0.9% 1,000 ML ONE (22:30)
--- NOTE | 2018-08-06 22:47 | RAD REPORT ---
EXAM DESCRIPTION: David Single View08/06/2018 10:04 pm CLINICAL HISTORY: Chest pain COMPARISON: April 2018 FINDINGS: The lungs appear clear of acute infiltrate. The heart is normal size IMPRESSION: No acute abnormalities displayed
--- NOTE | 2018-08-06 23:13 | ER ---
Nurse's Notes [facility] Name: Anel Gauthier Age: 87 yrs Sex: Female : 1930 Arrival Date: 08/06/2018 Time: 21:21 Bed 13 Private MD: Diagnosis: Slurred speech;Weakness Presentation: 08/06 21:21 Presenting complaint: EMS states: Pt was complaining of slurred speech and inability to jb4 walk. The slurred speech comes and goes. Facial droop is noted to the left of the face. Weakness is noted to the left side of the body. Child states: She went to bed last night at 2200 (08/05/18) , when she woke up she was having slurred speech and trouble walking. 21:21 Transition of care: patient was not received from another setting of care. Onset of jb4 symptoms was August 06, 2018. Risk Assessment: Do you want to hurt yourself or someone else? Patient reports no desire to harm self or others. Initial Sepsis Screen: Does the patient meet any 2 criteria? No. Patient's initial sepsis screen is negative. Does the patient have a suspected source of infection? No. Patient's initial sepsis screen is negative. Care prior to arrival: Glucose check: 126. 21:21 Method Of Arrival: EMS: [facility] jb4 21:21 Acuity: JAMES 2 jb4 Historical: - Allergies: 21:21 Eggs; jb4 21:21 Sulfa (Sulfonamide Antibiotics); jb4 - Home Meds: 21:21 lisinopril 30 mg Oral tab 1 tab once daily [Active]; amlodipine 10 mg tab 1 tab once jb4 daily [Active]; aspirin 81 mg Oral chew 1 tab once daily [Active]; atenolol 100 mg Oral tab 1 tab once daily [Active]; donepezil 10 mg Oral tab 1 tab once daily [Active]; Myrbetriq 25 mg Oral Tb24 1 tab once daily [Active]; omeprazole 20 mg Oral cpDR 1 cap once daily [Active]; venlafaxine 75 mg Oral cp24 1 cap once daily [Active]; - PMHx: 21:21 Alzheimers; Arthritis; Dementia; Hyperlipidemia; Hypertension; TIA; jb4 - PSHx: 21:21 colonoscopy; Hysterectomy; Eye surgery; Colostomy; jb4 - Immunization history:: Adult Immunizations up to date. - Social history:: Smoking status: Patient/guardian denies using tobacco, Patient uses alcohol, 2 glasses of wine per day. - Ebola Screening: : No symptoms or risks identified at this time. Screenin:21 Abuse screen: Denies threats or abuse. Nutritional screening: No deficits noted. jb4 Tuberculosis screening: No symptoms or risk factors identified. Fall Risk Secondary diagnosis (15 points) TIA, impaired mobility, IV access (20 points). Total Puentes Fall Scale indicates Low Risk Score (25-44 pts). Fall prevention measures have been instituted. Side Rails Up X 2 Placed close to Nursing Station Frequent Obs/Assesments occuring Family Present and informed to notify staff if they need to leave bedside. Assessment: 21:21 General: Appears in no apparent distress. comfortable, Behavior is calm, cooperative, jb4 appropriate for age. Pain: Denies pain. Neuro: Level of Consciousness is awake, alert, obeys commands, Oriented to person, place, time, Ball Maker are weak on left Moves all extremities. Full function Weakness in left hand(s) arm(s) leg(s) foot/feet Speech is slurred, Facial droop on left, Pupils are PERRLA, Intact. Cardiovascular: Heart tones S1 S2 present Patient's skin is warm and dry. Respiratory: Airway is patent Respiratory effort is even, unlabored, Respiratory pattern is regular, symmetrical, Breath sounds are clear bilaterally. GI: No signs and/or symptoms were reported involving the gastrointestinal system. : No signs and/or symptoms were reported regarding the genitourinary system. EENT: No signs and/or symptoms were reported regarding the EENT system. Derm: Skin is intact, Skin is pink, warm \T\ dry. Musculoskeletal: Circulation, motion, and sensation intact. 22:30 Reassessment: Patient appears in no apparent distress at this time. Patient and/or jb4 family updated on plan of care and expected duration. Pain level reassessed. Patient is alert, oriented x 3, equal unlabored respirations, skin warm/dry/pink. 23:30 Reassessment: Patient appears in no apparent distress at this time. Patient and/or jb4 family updated on plan of care and expected duration. Pain level reassessed. Patient is alert, oriented x 3, equal unlabored respirations, skin warm/dry/pink. 12/16 00:30 Reassessment: Patient appears in no apparent distress at this time. Patient and/or jb4 family updated on plan of care and expected duration. Pain level reassessed. Patient is alert, oriented x 3, equal unlabored respirations, skin warm/dry/pink. Vital Signs: 08/06 21:21 BP 139 / 51; Pulse 82; Resp 16; Temp 99.6(O); Pulse Ox 96% on R/A; Weight 70.76 kg (R); jb4 Height 5 ft. 1 in. (154.94 cm) (R); Pain 0/10; 22:30 BP 135 / 51; Pulse 80; Resp 16; Pulse Ox 95% on R/A; jb4 23:30 BP 125 / 50; Pulse 81; Resp 16; Pulse Ox 95% ; jb4 08/07 00:30 BP 103 / 40; Pulse 82; Resp 16; Pulse Ox 95% ; jb4 01:00 BP 128 / 55; Pulse 83; Resp 16; Temp 98.2; Pulse Ox 94% on R/A; jb4 08/06 21:21 Body Mass Index 29.48 (70.76 kg, 154.94 cm) jb4 NIH Stroke Scale Scores: 08/06 21:21 NIHSS Score: 8 jb4 21:36 NIHSS Score: 1 sn ED Course: 21:21 Patient arrived in ED. al2 21:21 Arm band placed on right wrist. jb4 21:21 Patient has correct armband on for positive identification. Bed in low position. Call [facility] light in reach. Side rails up X 1. Pulse ox on. NIBP on. 21:25 Klarissa Ramos FNP-C is PHCP. snw 21:25 Maurice Hooks MD is Attending Physician. snw 21:41 CT Head Brain wo Cont In Process Unspecified. EDMS 21:51 Vince Stovall, RN is Primary Nurse. jb4 21:55 Initial lab(s) drawn, by me, sent to lab. Inserted saline lock: 22 gauge in right jb4 antecubital area, using aseptic technique. Blood collected. 22:05 XRAY Chest (1 view) In Process Unspecified. EDMS 22:30 Triage completed. jb4 22:50 Urine collected: straight cath specimen, clear, saba colored, Amount Returned: 100mL. jp3 23:06 Urine Microscopic Only Sent. jp3 23:06 Urine Culture Sent. jp3 23:06 Urine Dipstick--Ancillary (enter results) Sent. jp3 23:06 Urine Culture Sent. jp3 23:06 Urine Microscopic Only Sent. jp3 23:11 Ned Eastman MD is Hospitalizing Provider. formerly [facility], [facility] 08/07 00:42 No provider procedures requiring assistance completed. 4 01:44 Patient admitted, IV remains in place. jb4 Administered Medications: 08/06 22:30 Drug: NS 0.9% 1000 ml Route: IV; Rate: 75 ml/hr; Site: right antecubital; 4 08/07 01:45 Follow up: Response: No adverse reaction; IV Status: Infusion continued upon admission jb4 00:10 Drug: Rocephin 1 grams Route: IV; Rate: calculated rate; Site: right antecubital; jb4 00:26 Follow up: Response: No adverse reaction; IV Status: Completed infusion; Given IVP per [facility] pharmacy protocol. 00:10 Drug: Tylenol 1000 mg Route: PO; jb4 01:45 Follow up: Response: No adverse reaction; Temperature is decreased; Pain is decreased [facility] Point of Care Testing: Blood Glucose: 08/06 22:28 Blood Glucose: 140 mg/dL; [facility] Ranges: Intake: Outcome: 23:12 Decision to Hospitalize by Provider. formerly [facility], [facility] 08/07 01:43 Admitted to Tele accompanied by nurse, via stretcher, room 408, with chart, Report [facility] called to GERMAIN Danielson Condition: stable Discharge instructions given to patient, family, Instructed on the need for admit, Demonstrated understanding of instructions. 01:46 Patient left the ED. jb4 NIH Stroke Scale - NIH Stroke Score Date: 08/06/2018 Time: 21:21 Total Score = 8 1a. Level of Consciousness (LOC) - 0(Alert) 1b. Level of Consciousness (LOC) (Year \T\ Age) - 0(Both) 1c. LOC Commands (Open \T\ Closes Eyes/Farm Labor Contractor) - 0(Both) 2. Best Gaze (Lateral Gaze Paresis) - 0(Normal) 3. Visual Field Loss - 3(Bilateral hemianopia) 4. Facial Palsy - 1(Minor Paralysis) 5a. Left Arm: Motor (10-second hold) - 1(Drift) 5b. Right Arm: Motor (10-second hold) - 0(No drift) 6a. Left Leg: Motor (5-second hold - always test supine) - 1(Drift) 6b. Right Leg: Motor (5-second hold - always test supine) - 0(No drift) 7. Limb Ataxia (finger/nose \T\ heel/escobar - test with eyes open) - 0(Absent) 8. Sensory Loss (pinprick arms/legs/face) - 0(Normal) 9. Best Language: Aphasia (description/naming/reading) - 1(Mild to moderate aphasia) 10. Dysarthria (speech clarity - read or repeat words) - 1(Mild to Moderate) 11. Extinction and Inattention (visual/tactile/auditory/spatial/personal) - 0(No abnormality) Initials: jb4 NIH Stroke Scale - NIH Stroke Score Date: 08/06/2018 Time: 21:36 Total Score = 1 1a. Level of Consciousness (LOC) - 0(Alert) 1b. Level of Consciousness (LOC) (Year \T\ Age) - 0(Both) 1c. LOC Commands (Open \T\ Closes Eyes/Farm Labor Contractor) - 0(Both) 2. Best Gaze (Lateral Gaze Paresis) - 0(Normal) 3. Visual Field Loss - 0(No visual loss) 4. Facial Palsy - 0(Normal) 5a. Left Arm: Motor (10-second hold) - 0(No drift) 5b. Right Arm: Motor (10-second hold) - 0(No drift) 6a. Left Leg: Motor (5-second hold - always test supine) - 1(Drift) 6b. Right Leg: Motor (5-second hold - always test supine) - 0(No drift) 7. Limb Ataxia (finger/nose \T\ heel/escobar - test with eyes open) - 0(Absent) 8. Sensory Loss (pinprick arms/legs/face) - 0(Normal) 9. Best Language: Aphasia (description/naming/reading) - 0(No aphasia) 10. Dysarthria (speech clarity - read or repeat words) - 0(Normal) 11. Extinction and Inattention (visual/tactile/auditory/spatial/personal) - 0(No abnormality) Initials: snw Signatures: Dispatcher [employer] EDMS Klarissa Ramos FNP-C WELFARE INTERVIEWER-Csnw Vince Stovall, RN RN jb4 Jessika Tiwari al2 Braxton Smith jp3 Corrections: (The following items were deleted from the chart) :08/06 21:21 BP 139 / 51; Pulse 82bpm; Resp 16bpm; Pulse Ox 96% RA; 70.76 kg jb4 Reported; Height 5 ft. 1 in. Reported; BMI: 29.4; Pain 0/10; jb4 08/07 01:13 08/06 21:21 Care prior to arrival: None. jb4 jb4
--- NOTE | 2018-08-06 23:13 | EDPHYS ---
Physician Documentation [facility] Name: Anel Gauthier Age: 87 yrs Sex: Female : 1930 Arrival Date: 08/06/2018 Time: 21:21 Bed 13 Private MD: ED Physician Maurice Hooks HPI: 08/06 21:36 This 87 yrs old Female presents to ER via Unassigned with complaints of snw transient slurred speech. 21:36 The patient's problem is reported as difficulty walking, off balance, transient slurred snw speech. Onset: The symptoms/episode began/occurred suddenly, 6 hour(s) ago. Duration: The episodes are intermittent. Context: the episode(s) was witnessed, by family, daughter, symptoms became apparent on August 06, 2018, at 15:30. occurred at home. The symptoms are alleviated by nothing. The symptoms are aggravated by nothing. Patient's baseline: Neuro: alert and fully oriented, Motor: no deficits, Ambulation: walks with assist only, uses walker, Speech: normal, The patient has a previous history of TIA. The patient has experienced similar episodes in the past. It is unknown whether or not the patient has recently seen a physician. Sees Dr. Eastman. Historical: - Allergies: 21:21 Eggs; jb4 21:21 Sulfa (Sulfonamide Antibiotics); jb4 - Home Meds: 21:21 lisinopril 30 mg Oral tab 1 tab once daily [Active]; amlodipine 10 mg tab 1 tab once jb4 daily [Active]; aspirin 81 mg Oral chew 1 tab once daily [Active]; atenolol 100 mg Oral tab 1 tab once daily [Active]; donepezil 10 mg Oral tab 1 tab once daily [Active]; Myrbetriq 25 mg Oral Tb24 1 tab once daily [Active]; omeprazole 20 mg Oral cpDR 1 cap once daily [Active]; venlafaxine 75 mg Oral cp24 1 cap once daily [Active]; - PMHx: 21:21 Alzheimers; Arthritis; Dementia; Hyperlipidemia; Hypertension; TIA; jb4 - PSHx: 21:21 colonoscopy; Hysterectomy; Eye surgery; Colostomy; jb4 - Immunization history:: Adult Immunizations up to date. - Social history:: Smoking status: Patient/guardian denies using tobacco, Patient uses alcohol, 2 glasses of wine per day. - Ebola Screening: : No symptoms or risks identified at this time. ROS: 21:36 Constitutional: Negative for fever, chills, and weight loss, Eyes: Negative for injury, snw pain, redness, and discharge, ENT: Negative for injury, pain, and discharge, Neck: Negative for injury, pain, and swelling, Cardiovascular: Negative for chest pain, palpitations, and edema, Respiratory: Negative for shortness of breath, cough, wheezing, and pleuritic chest pain, Abdomen/GI: Negative for abdominal pain, nausea, vomiting, diarrhea, and constipation, Back: Negative for injury and pain, : Negative for injury, bleeding, discharge, and swelling, MS/Extremity: Negative for injury and deformity, Skin: Negative for injury, rash, and discoloration, Neuro: Negative for headache, weakness, numbness, tingling, and seizure, intermittent slurred speech Exam: 21:36 Constitutional: This is a well developed, well nourished patient who is awake, alert, snw and in no acute distress. Head/Face: Normocephalic, atraumatic. Eyes: Pupils equal round and reactive to light, extra-ocular motions intact. Lids and lashes normal. Conjunctiva and sclera are non-icteric and not injected. Cornea within normal limits. Periorbital areas with no swelling, redness, or edema. ENT: Nares patent. No nasal discharge, no septal abnormalities noted. Tympanic membranes are normal and external auditory canals are clear. Oropharynx with no redness, swelling, or masses, exudates, or evidence of obstruction, uvula midline. Mucous membranes moist. Neck: Trachea midline, no thyromegaly or masses palpated, and no cervical lymphadenopathy. Supple, full range of motion without nuchal rigidity, or vertebral point tenderness. No Meningismus. Chest/axilla: Normal chest wall appearance and motion. Nontender with no deformity. No lesions are appreciated. Cardiovascular: Regular rate and rhythm with a normal S1 and S2. No gallops, murmurs, or rubs. Normal PMI, no JVD. No pulse deficits. Respiratory: Lungs have equal breath sounds bilaterally, clear to auscultation and percussion. No rales, rhonchi or wheezes noted. No increased work of breathing, no retractions or nasal flaring. Abdomen/GI: Soft, non-tender, with normal bowel sounds. No distension or tympany. No guarding or rebound. No evidence of tenderness throughout. Back: No spinal tenderness. No costovertebral tenderness. Full range of motion. Skin: Warm, dry with normal turgor. Normal color with no rashes, no lesions, and no evidence of cellulitis. MS/ Extremity: Pulses equal, no cyanosis. Neurovascular intact. Full, normal range of motion. Neuro: Awake and alert, GCS 15, oriented to person, place, time, and situation. Cranial nerves II-XII grossly intact. Motor strength 5/5 in all extremities. Sensory grossly intact. Cerebellar exam normal. Normal gait. Psych: Awake, alert, with orientation to person, place and time. Behavior, mood, and affect are within normal limits. 21:36 Special observations: for left leg drift. 21:42 Radiologist reports: no acute snw Vital Signs: 21:21 BP 139 / 51; Pulse 82; Resp 16; Temp 99.6(O); Pulse Ox 96% on R/A; Weight 70.76 kg (R); 4 Height 5 ft. 1 in. (154.94 cm) (R); Pain 0/10; 22:30 BP 135 / 51; Pulse 80; Resp 16; Pulse Ox 95% on R/A; 4 23:30 BP 125 / 50; Pulse 81; Resp 16; Pulse Ox 95% ; [facility] 08/07 00:30 BP 103 / 40; Pulse 82; Resp 16; Pulse Ox 95% ; [facility] 01:00 BP 128 / 55; Pulse 83; Resp 16; Temp 98.2; Pulse Ox 94% on R/A; [facility] 08/06 21:21 Body Mass Index 29.48 (70.76 kg, 154.94 cm) [facility] NIH Stroke Scale Scores: 08/06 21:21 NIHSS Score: 8 jb4 21:36 NIHSS Score: 1 snw MDM: 21:25 Patient medically screened. snw 23:12 Data reviewed: vital signs, nurses notes. Data interpreted: Pulse oximetry: on room air snw is 96 %. Interpretation: acceptable. Counseling: I had a detailed discussion with the patient and/or guardian regarding: the historical points, exam findings, and any diagnostic results supporting the discharge/admit diagnosis, lab results, radiology results, the need for further work-up and treatment in the hospital. Physician consultation: Alton Forrester MD was called at 23:13, was contacted at 23:13, regarding admission, to the telemetry unit. Dr. Forrester sephora product consultant for Dr. Eastman. 08/06 21:27 Order name: Urine Culture sn 08/06 21:27 Order name: Urine Microscopic Only [facility] 08/06 21:27 Order name: Basic Metabolic Panel; Complete Time: 22:29 snw 08/06 21:27 Order name: CBC with Diff; Complete Time: 22:04 snw 08/06 21:27 Order name: LFT's; Complete Time: 22:29 snw 08/06 21:27 Order name: Magnesium; Complete Time: 22:29 snw 08/06 21:27 Order name: CT Head Brain wo Cont; Complete Time: 21:50 snw 08/06 21:27 Order name: NT PRO-BNP; Complete Time: 22:29 snw 08/06 21:27 Order name: PT-INR; Complete Time: 22:07 snw 08/06 21:27 Order name: XRAY Chest (1 view); Complete Time: 22:55 snw 08/06 21:28 Order name: Urine Culture [facility] 08/06 21:28 Order name: Urine Microscopic Only; Complete Time: 23:22 [facility] 08/06 23:04 Order name: Urine Dipstick--Ancillary (enter results); Complete Time: 23:22 ar5 08/06 21:27 Order name: Urine Dipstick-Ancillary (obtain specimen); Complete Time: 23:06 snw 08/06 21:27 Order name: EKG; Complete Time: 21:28 snw 08/06 21:27 Order name: Cardiac monitoring; Complete Time: 22:11 snw 08/06 21:27 Order name: EKG - Nurse/Tech; Complete Time: 22:12 snw 08/06 21:27 Order name: IV Saline Lock; Complete Time: 22:12 snw 08/06 21:27 Order name: Labs collected and sent; Complete Time: 22:12 snw 08/06 21:27 Order name: O2 Per Protocol; Complete Time: 22:12 snw 08/06 21:27 Order name: O2 Sat Monitoring; Complete Time: 22:12 snw 08/06 22:04 Order name: Cath; Complete Time: 23:06 snw Administered Medications: 22:30 Drug: NS 0.9% 1000 ml Route: IV; Rate: 75 ml/hr; Site: right antecubital; [facility] 08/07 01:45 Follow up: Response: No adverse reaction; IV Status: Infusion continued upon admission [facility] 00:10 Drug: Rocephin 1 grams Route: IV; Rate: calculated rate; Site: right antecubital; [facility] 00:26 Follow up: Response: No adverse reaction; IV Status: Completed infusion; Given IVP per [facility] pharmacy protocol. 00:10 Drug: Tylenol 1000 mg Route: PO; [facility] 01:45 Follow up: Response: No adverse reaction; Temperature is decreased; Pain is decreased [facility] Point of Care Testing: Blood Glucose: 08/06 22:28 Blood Glucose: 140 mg/dL; [facility] Ranges: Critical Glucose Levels:Adult <50 mg/dl or >400 mg/dl <40 mg/dl or >180 mg/dl Disposition: 08/07 03:01 Co-signature as Attending Physician, Maurice Hooks MD. ma2 Disposition: 08/06/18 23:12 Hospitalization ordered by Ned Eastman for Observation. Preliminary diagnosis are Slurred speech, Weakness. - Bed requested for Telemetry/MedSurg (observation). - Status is Observation. jb4 - Condition is Stable. - Problem is new. - Symptoms are unchanged. UTI on Admission? Yes NIH Stroke Scale - NIH Stroke Score Date: 08/06/2018 Time: 21:21 Total Score = 8 1a. Level of Consciousness (LOC) - 0(Alert) 1b. Level of Consciousness (LOC) (Year \T\ Age) - 0(Both) 1c. LOC Commands (Open \T\ Closes Eyes/Hauling Contractor) - 0(Both) 2. Best Gaze (Lateral Gaze Paresis) - 0(Normal) 3. Visual Field Loss - 3(Bilateral hemianopia) 4. Facial Palsy - 1(Minor Paralysis) 5a. Left Arm: Motor (10-second hold) - 1(Drift) 5b. Right Arm: Motor (10-second hold) - 0(No drift) 6a. Left Leg: Motor (5-second hold - always test supine) - 1(Drift) 6b. Right Leg: Motor (5-second hold - always test supine) - 0(No drift) 7. Limb Ataxia (finger/nose \T\ heel/escobar - test with eyes open) - 0(Absent) 8. Sensory Loss (pinprick arms/legs/face) - 0(Normal) 9. Best Language: Aphasia (description/naming/reading) - 1(Mild to moderate aphasia) 10. Dysarthria (speech clarity - read or repeat words) - 1(Mild to Moderate) 11. Extinction and Inattention (visual/tactile/auditory/spatial/personal) - 0(No abnormality) Initials: jbAntelmo NIH Stroke Scale - NIH Stroke Score Date: 08/06/2018 Time: 21:36 Total Score = 1 1a. Level of Consciousness (LOC) - 0(Alert) 1b. Level of Consciousness (LOC) (Year \T\ Age) - 0(Both) 1c. LOC Commands (Open \T\ Closes Eyes/Hauling Contractor) - 0(Both) 2. Best Gaze (Lateral Gaze Paresis) - 0(Normal) 3. Visual Field Loss - 0(No visual loss) 4. Facial Palsy - 0(Normal) 5a. Left Arm: Motor (10-second hold) - 0(No drift) 5b. Right Arm: Motor (10-second hold) - 0(No drift) 6a. Left Leg: Motor (5-second hold - always test supine) - 1(Drift) 6b. Right Leg: Motor (5-second hold - always test supine) - 0(No drift) 7. Limb Ataxia (finger/nose \T\ heel/escobar - test with eyes open) - 0(Absent) 8. Sensory Loss (pinprick arms/legs/face) - 0(Normal) 9. Best Language: Aphasia (description/naming/reading) - 0(No aphasia) 10. Dysarthria (speech clarity - read or repeat words) - 0(Normal) 11. Extinction and Inattention (visual/tactile/auditory/spatial/personal) - 0(No abnormality) Initials: snw Signatures: Dispatcher [employer] EDRosamaria Galvez RN RN kl Therrien, Shelly, POPULATION HEALTH COACH-C POPULATION HEALTH COACH-Csnw Vince Stovall RN RN jb4 Maurice Hooks MD MD ma2 Corrections: (The following items were deleted from the chart) 08/06 23:23 23:12 Hospitalization Ordered by Ned Eastman MD for Observation. Preliminary snw diagnosis is Slurred speech; Weakness. Bed requested for Telemetry/MedSurg (observation). Status is Observation. Condition is Stable. Problem is new. Symptoms are unchanged. UTI on Admission? No. snw 23:45 23:23 08/06/2018 23:12 Hospitalization Ordered by Ned Eastman MD for kl Observation. Preliminary diagnosis is Slurred speech; Weakness. Bed requested for Telemetry/MedSurg (observation). Status is Observation. Condition is Stable. Problem is new. Symptoms are unchanged. UTI on Admission? Yes. snw 08/07 00:17 08/06 23:45 08/06/2018 23:12 Hospitalization Ordered by Ned Eastman MD for kl Observation. Preliminary diagnosis is Slurred speech; Weakness. Bed requested for Telemetry/MedSurg (observation). Status is Observation. Condition is Stable. Problem is new. Symptoms are unchanged. UTI on Admission? Yes. 08/07 00:18 00:17 08/06/2018 23:12 Hospitalization Ordered by Ned Eastman MD for kl Observation. Preliminary diagnosis is Slurred speech; Weakness. Bed requested for Telemetry/MedSurg (observation). Status is Observation. Condition is Stable. Problem is new. Symptoms are unchanged. UTI on Admission? Yes. 01:46 00:18 08/06/2018 23:12 Hospitalization Ordered by Ned Eastman MD for jb4 Observation. Preliminary diagnosis is Slurred speech; Weakness. Bed requested for Telemetry/MedSurg (observation). Status is Observation. Condition is Stable. Problem is new. Symptoms are unchanged. UTI on Admission? Yes.
[2018-08-06 23:15] LABS: Urine Blood TRACE (NEG); Urine Glucose NEGATIVE (NEG); Urine Protein NEGATIVE (NEG); Urine pH 5.5 (5.0-7.0)
[2018-08-06 23:20] LABS: Urine Bacteria >50 /HPF (<20); Urine Culture Reflex Order NOT NEEDED; Urine RBC <5 /HPF (NONE SEEN)
[2018-08-07] MEDS ORDERED: CEFTRIAXONE/SWI 1gm 1 GM/10 ML SYR ONE (00:16)
[2018-08-07] MEDS ORDERED: ACETAMINOPHEN 500 MG TAB ONE (00:16)
[2018-08-07] MEDS: NA CHLORIDE 0.9% 1,000 ML IV SCH ×3 (01:45→20:35)
[2018-08-07 01:57] VITALS: BMI 31.4
--- NOTE | 2018-08-07 06:07 | EKG ---
Test Date: 2018-08-06 Test Time: 21:47:22 Account Liaison: MARCIA MEASUREMENT RESULTS: Intervals: Rate: 82 WI: 222 QRSD: 72 QT: 366 QTc: 427 [place]: P: 57 WI: 222 QRS: -38 T: 108 INTERPRETIVE STATEMENTS: Sinus rhythm with 1st degree AV block Left axis deviation Septal infarct, age undetermined T wave abnormality, consider lateral ischemia Abnormal ECG Compared to ECG 05/12/2018 14:06:06 First degree AV block now present Left ventricular hypertrophy no longer present Myocardial infarct finding still present Electronically Signed On 08-07-18 06:06:35 LIVING SKILLS ADVISOR by Ben Sharp
[2018-08-07] MEDS ORDERED: CEFTRIAXONE/SWI 1gm 1 GM/10 ML SYR IVP SCH (09:00)
[2018-08-07] MEDS ORDERED: CEFTRIAXONE 1 GM/NS 50 ML 1 GM/50 ML BAG IV SCH (09:00)
[2018-08-07] MEDS: ASPIRIN EC 81 MG TAB PO SCH (09:51)
--- NOTE | 2018-08-07 12:09 | P.HP ---
Certification for Inpatient Patient admitted to: Inpatient With expected LOS: >2 Midnights Practitioner: I am a practitioner with admitting privileges, knowledge of patient current condition, hospital course, and medical plan of care. Services: Services provided to patient in accordance with Admission requirements found in Title 42 Section 412.3 of the Code of Federal Regulations Patient History Date of Service: 08/07/18 Reason for admission: COULD NOT SPEAK AND GOT WEAKER History of Present Illness: MS RICHARD IS A PREVIOUS STROKE PATIENT WHO IS ON PLAVIX ALREADY COMES WITH SLURRED SPEECH AND WEAKNESS THAT SHE CAN'T LOCALIZE. SHE USED TO BE ABLE TO WALK WITH WALKER BEFORE. Allergies egg Allergy (Unknown, Verified 01/22/18 22:44) UNKNOWN Sulfa (Sulfonamide Antibiotics) Allergy (Unknown, Verified 01/22/18 22:44) UNKNOWN Eggs Allergy (Uncoded 01/22/18 22:44) Unknown Home Medications: Acetaminophen with Codeine [Acetaminophen-Cod #4 Tablet] 1 tab PO BID 05/12/18 Amlodipine Besylate 10 mg PO DAILY 05/12/18 Donepezil HCl 10 mg PO BEDTIME 05/12/18 Lisinopril 30 mg PO DAILY 05/12/18 Loratadine 10 mg PO DAILY 05/12/18 Omeprazole 20 mg PO DAILY 05/12/18 Oxybutynin Chloride 5 mg PO BID 05/12/18 Venlafaxine HCl [Venlafaxine HCl ER] 1 tab PO DAILY 05/12/18 Clopidogrel Bisulfate [Plavix] 75 mg PO DAILY #90 tablet 05/13/18 - Past Medical/Surgical History Diabetic: No -: htn -: TIA -: ALZ -: Dementia -: Arthritis -: HLD -: Glaucoma -: legally blind left eye -: hysterectomy -: colostomy 09/2012 -: appy -: colonscopy -: Kevin cataract removal - Family History Father -: Other (see notes) Notes: of aneurysm Mother -: Stroke - Social History Smoking Status: Never smoker Alcohol use: Yes CD- Drugs: No Caffeine use: Yes Place of Residence: Home Review of Systems 10-point ROS is otherwise unremarkable General: Weakness, Malaise Neurological: Weakness, Incoordination, Change in Speech Physical Examination - Vital Signs Temperature: 98.2 F Blood Pressure: 148/77 Pulse: 80 Respirations: 12 Pulse Ox (%): 97 - Physical Exam General: In no apparent distress, Mild distress HEENT: Atraumatic, PERRLA, Mucous membr. moist/pink, EOMI, Sclerae nonicteric Neck: Supple, 2+ carotid pulse no bruit, No LAD, Without JVD or thyroid abnormality Respiratory: Clear to auscultation bilaterally, Normal air movement Cardiovascular: Regular rate/rhythm, Normal S1 S2 Gastrointestinal: Normal bowel sounds, No tenderness Musculoskeletal: No tenderness Integumentary: No rashes Neurological: Abnormal speech (SLURRED BUT NO APHASIA.), Abnormal strength ( DIFFUSE 3/5 WEAKNESS IN LEGS AND 4/5 UPPER LIMB), Abnormal tone Lymphatics: No axilla or inguinal lymphadenopathy - Studies Laboratory Data (last 24 hrs) 08/06/18 21:49: PT 11.9, INR 1.01 08/06/18 21:49: WBC 7.1, Hgb 11.8 L, Hct 35.9 L, Plt Count 376 08/06/18 21:49: Sodium 139, Potassium 4.4, BUN 21 H, Creatinine 1.30, Glucose 126 H, Magnesium 2.5 H, Total Bilirubin 0.2, AST 15, ALT 19, Alkaline Phosphatase 98 Assessment and Plan - Problems (Diagnosis) (1) CVA (cerebral vascular accident) Current Visit: Yes Status: Acute Plan: PATIENT IS HIGH RISK FOR CVA SHE HAS HAD STROKES BEFORE. I SEE MORE GEN WEAKNESS NOW AND DYSARTHRIA. MRI MAY SHOW BRAINSTEM STROKE. WILL SEE IN AM. RESUME PLAVIX , SHE IS ON ALREADY AND ADD ASPIRIN. WE AT THIS STROKE CENTER DON'T HAVE A NEUROLOGIST AVAILABLE TO SEE THIS PATIENT. I SUSPECT THEY ARE NOT MUCH HELP ANYWAY. (2) HTN (hypertension) Current Visit: Yes Status: Chronic Plan: STABLE. FU, RESUMEMEDS. - Advance Directives Does patient have a Living Will: No Does patient have a Durable POA for Healthcare: Yes
[2018-08-07] MEDS: CLOPIDOGREL 75 MG TABLET PO SCH (12:36)
[2018-08-07] MEDS: AMLODIPINE 10 MG TAB PO SCH (12:36)
[2018-08-07] MEDS: OXYBUTYNIN CHLORIDE 5 MG TAB PO SCH ×2 (12:36→20:35)
[2018-08-07] MEDS: LORATADINE 10 MG TAB PO SCH (13:12)
[2018-08-07] MEDS: PANTOPRAZOLE 40MG TABLET PO SCH (13:12)
[2018-08-07] MEDS: LISINOPRIL 20 MG TAB PO SCH (13:12)
[2018-08-07] MEDS: VENLAFAXINE HCL XR 75 MG CAP PO SCH (13:13)
[2018-08-07 20:03] LABS: Urine Appearance CLEAR; Urine Bilirubin NEGATIVE (NEG); Urine Blood NEGATIVE (NEG); Urine Color YELLOW; Urine Glucose NEGATIVE (NEG); Urine Protein NEGATIVE (NEG); Urine Urobilinogen 0.2 mg/dL (0.2-1.0)
[2018-08-07] MEDS: DONEPEZIL HCL 5 MG TAB PO SCH (20:34)
[2018-08-07] MEDS: ATORVASTATIN 10 MG TAB PO SCH (20:35)
[2018-08-07 20:59] LABS: Urine Bacteria <20 /HPF (<20); Urine Culture Reflex Order NOT NEEDED; Urine RBC <5 /HPF (NONE SEEN)
[2018-08-07] MEDS ORDERED: HOME MED 1 EA UNK (Donepezil Hcl [Donepezil Hcl] 10 MG) PO SCH (21:00)
[2018-08-08] MEDS: NA CHLORIDE 0.9% 1,000 ML IV SCH ×2 (04:25→17:45)
[2018-08-08] MEDS ORDERED: PANTOPRAZOLE 40MG TABLET PO SCH (07:30)
[2018-08-08] MEDS ORDERED: HOME MED 1 EA UNK (Loratadine [Loratadine] 10 MG) PO SCH (09:00)
[2018-08-08] MEDS ORDERED: HOME MED 1 EA UNK (Omeprazole [Omeprazole] 20 MG) PO SCH (09:00)
[2018-08-08] MEDS: BRINZOLAMIDE EYE EACH EYE SCH ×3 (09:00→21:35)
[2018-08-08] MEDS: Brimonidine Tartrate/Timolol (Combigan) 0.2%-0.5% Eye Drops EACH EYE SCH ×2 (09:00→21:35)
[2018-08-08] MEDS ORDERED: HOME MED 1 EA UNK (Lisinopril [Lisinopril] 30 MG) PO SCH (09:00)
--- NOTE | 2018-08-08 09:25 | P.PN ---
Subjective Date of Service: 08/08/18 Chief Complaint: ABOUT THE SAME. Subjective: No new changes SHE HAS NO ACUTE PAIN OR DISTRESS. Review of Systems 10-point ROS is otherwise unremarkable General: Weakness, Malaise Neurological: Weakness, Change in Speech Physical Examination - Vital Signs Temperature: 97 F Blood Pressure: 152/67 Pulse: 69 Respirations: 18 Pulse Ox (%): 96 - Physical Exam General: Alert, Mild distress HEENT: Atraumatic, PERRLA, EOMI Neck: Supple, JVD not distended Respiratory: Clear to auscultation bilaterally, Normal air movement Cardiovascular: Regular rate/rhythm, Normal S1 S2 Gastrointestinal: Normal bowel sounds, No tenderness Musculoskeletal: No tenderness Integumentary: No rashes Neurological: Abnormal speech, Abnormal strength (L SIDE BODY POWER IS 3/5 AND R SIDE 4/5) Lymphatics: No axilla or inguinal lymphadenopathy - Studies Microbiology Data (last 24 hrs): 08/06/18 22:45 Catheterized Urine [place] Count - Final 08/06/18 22:45 Catheterized Urine - Final No growth. Medications List Reviewed: Yes Assessment And Plan - Current Problems (Diagnosis) (1) CVA (cerebral vascular accident) Current Visit: Yes Status: Acute Plan: PATIENT IS HIGH RISK FOR CVA SHE HAS HAD STROKES BEFORE. I SEE MORE GEN WEAKNESS NOW AND DYSARTHRIA. MRI MAY SHOW BRAINSTEM STROKE. WILL SEE IN AM. RESUME PLAVIX , SHE IS ON ALREADY AND ADD ASPIRIN. WE AT THIS STROKE CENTER DON'T HAVE A NEUROLOGIST AVAILABLE TO SEE THIS PATIENT. I SUSPECT THEY ARE NOT MUCH HELP ANYWAY. MRI PENDING TODAY. RESUME ASPIRIN AND PLAVIX. SHE HAS NO SIGNS OF A FIB. (2) HTN (hypertension) Current Visit: Yes Status: Chronic Plan: STABLE. FU, RESUMEMEDS.
[2018-08-08] MEDS: LORATADINE 10 MG TAB PO SCH (09:57)
[2018-08-08] MEDS: CLOPIDOGREL 75 MG TABLET PO SCH (09:57)
[2018-08-08] MEDS: AMLODIPINE 10 MG TAB PO SCH (09:57)
[2018-08-08] MEDS: ASPIRIN EC 81 MG TAB PO SCH (09:57)
[2018-08-08] MEDS: VENLAFAXINE HCL XR 75 MG CAP PO SCH (09:57)
[2018-08-08] MEDS: LISINOPRIL 20 MG TAB PO SCH (09:57)
[2018-08-08] MEDS: OXYBUTYNIN CHLORIDE 5 MG TAB PO SCH ×2 (09:57→21:31)
[2018-08-08] MEDS: PANTOPRAZOLE 40MG TABLET PO SCH (09:57)
--- NOTE | 2018-08-08 12:15 | RAD REPORT ---
EXAM DESCRIPTION: MRI - Brain W/Wo Cont - 08/08/2018 11:52 am CLINICAL HISTORY: Transient alteration of awareness, left-sided weakness, facial droop COMPARISON: CT head August 06, MR brain April 2018 TECHNIQUE: Sagittal and axial T1-weighted images were obtained. Axial PD/heavily T2-weighted and T2- FLAIR images were obtained along with axial DWI/ADC mapping sequences. Coronal heavily T2 weighted s equence obtained. Axial and coronal post-contrast T1-weighted images were also obtained. A ml Multi ayden contrast following utilized. FINDINGS: No intracranial hemorrhage is present. No neoplastic mass lesion identified. Diffusion-jena ghted imaging shows an 8 mm area of abnormal diffusion signal in the posterior right hayder. There is a ssociated diminished signal on ADC mapping. The area is faintly hypointense on T1 imaging and has T2/ IR hyperintense signal abnormality. There may well be additional nonhemorrhagic acute CVA extending m ore anteriorly in the right hayder. This area has motion artifact on diffusion imaging. No other areas of acute infarction identified. The patient has underlying atrophy and chronic ischemic change There is no edema or shift of midline structures. No extra-axial fluid collections. Barr-matter/white matte r junction is preserved. Signal voids are seen as a normal finding in the major intracranial vessels . Ventricles are in proportion to the underlying atrophy. Post-contrast images show normal enhancement. No dural thickening. Mastoid air cells and paranasal sinuses are clear. IMPRESSION: Acute nonhemorrhagic CVA in the right side of the hayder. This measures 8 x 8 mm in the po sterior right hayder and may extend more anteriorly measuring as large as 16 x 8 mm. Patient has underlying prominent atrophy and chronic ischemic change again noted. No additional areas of acute infarction.
--- NOTE | 2018-08-08 12:21 | RAD REPORT ---
EXAM DESCRIPTION: MRI - MRA Head Wo Cont - 08/08/2018 11:53 am CLINICAL HISTORY: Transient alteration of awareness, weakness, facial droop, abnormal MRI COMPARISON: CT head August 06, MRI August 08 TECHNIQUE: Axial and coronal 3D [id number] image acquisition was performed. 3D rotational images were generated with source and reconstruction images reviewed. Horizontal and vertical axis rotation al views generated using MIP protocol. FINDINGS: Major venous sinuses are patent. No aneurysm or vascular malformation. Significant atherosclerotic changes and significant luminal narrowing of the distal left vertebral ar shirley. Mild atherosclerotic changes are present at the vertebrobasilar junction. There significant lum inal narrowing and atherosclerotic change near the tip of the basilar artery. Patient has significant atherosclerotic change and luminal narrowing throughout much of each posterior cerebral artery. Moderate atherosclerotic changes are present in the proximal left middle cerebral artery M1 branch. M oderate severity atherosclerotic changes noted in the far peripheral right MCA branches. No significa nt disease of the anterior cerebral arteries. Distal internal carotid arteries without significant di sease. IMPRESSION: Significant atherosclerotic change with significant high-grade luminal narrowing in the distal left vertebral artery, potentially a source for a brainstem CVA. Patient also has significant luminal narrowing near the tip of the basilar artery. This finding would be distal to the blood supply to the area of infarcted brain stem. Patient has significant bilateral posterior cerebral artery atherosclerotic change with moderate prox imal left MCA and moderate peripheral right MCA atherosclerotic change.
--- NOTE | 2018-08-08 12:26 | RAD REPORT ---
EXAM DESCRIPTION: MRI - MRA Neck W/Wo Cont - 08/08/2018 11:52 am CLINICAL HISTORY: Weakness, facial droop, right brainstem CVA COMPARISON: CT head August 06, MRI August 08 TECHNIQUE: Axial and coronal 3D [id number] image acquisition was performed. 3D rotational images were generated with source and reconstruction images reviewed. Horizontal and vertical axis rotation al views generated using MIP protocol. A 15 milliliter MultiHance contrast volume utilized. FINDINGS: Exam has motion degradation limitations. Aortic arch is bovine configuration with no origins stenosis at the great vessels. Vertebral artery o rigins are not well visualized. Vertebral arteries are codominant. There is a significant short segme nt high-grade stenosis of the distal left vertebral artery approximately 6 mm from the basilar origin . No other significant vertebral finding noted. No significant disease of the right common carotid or right internal carotid artery. No significant d isease of the left common carotid artery. The bulb and proximal left ICA are poorly visualized due to motion. Significant disease at the left carotid bulb is doubtful. Carotid disease would not be assoc iated with the acute brainstem event. Mid and distal left internal carotid artery shows no significan t disease. 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 This is a potential source for a brainstem acute CVA. Limited visualization of the left bulb and proximal left ICA due to motion. From collective imaging s ignificant disease is doubtful in the distal left ICA is clear. No significant bilateral common carotid or right internal carotid disease.
[2018-08-08] MEDS ORDERED: ACETAMINOPHEN 500 MG TAB PO PRN (12:27)
[2018-08-08] MEDS ORDERED: VENLAFAXINE HCL XR 75 MG CAP PO SCH (13:00)
--- NOTE | 2018-08-08 15:34 | ECHO ---
HEIGHT: 5 ft 1 in WEIGHT: 166 lb 1.6 oz DATE OF STUDY: 08/08/[address]: Ned Eastman MD 2-DIMENSIONAL: YES M.MODE: YES DOPPLER: YES COLOR FLOW: YES TDS: NO PORTABLE: NO DEFINITY: NO BUBBLE STUDY: NO DIAGNOSIS: EDEMA, DYSPNEA CARDIAC HISTORY: CATHERIZATION: NO SURGERY: NO PROSTHETIC VALVE: NO PACEMAKER: NO MEASUREMENTS (cm) DIASTOLIC (NORMALS) SYSTOLIC (NORMALS) IVSd 1.0 (0.6-1.2) LA Diam 3.5 (1.9-4.0) LVEF 65% LVIDd 3.2 (3.5-5.7) LVIDs 2.4 (2.0-3.5) %FS 25% LVPWd 1.0 (0.6-1.2) Ao Diam 2.3 (2.0-3.7) 2 DIMENSIONAL ASSESSMENT: RIGHT ATRIUM: NORMAL LEFT ATRIUM: NORMAL RIGHT VENTRICLE: NORMAL LEFT VENTRICLE: NORMAL TRICUSPID VALVE: NORMAL MITRAL VALVE: MINIMAL MITRAL ANNULAR CALCIFICATION PULMONIC VALVE: NORMAL AORTIC VALVE: NORMAL PERICARDIAL EFFUSION: NONE AORTIC ROOT: NORMAL LEFT VENTRICULAR WALL MOTION: NORMAL DOPPLER/COLOR FLOW: NORMAL COMMENTS: NORMAL LEFT VENTRICULAR EJECTION FRACTION. MINIMAL MITRAL ANNULAR CALCIFICATION. OTHERWISE NORMAL 2D ECHOCARDIOGRAM WITH DOPPLER. TECHNOLOGIST: Natalee GUADALUPE
[2018-08-08] MEDS ORDERED: NETARSUDIL MESYLATE EYE EACH EYE SCH (21:00)
[2018-08-08] MEDS: DONEPEZIL HCL 5 MG TAB PO SCH (21:31)
[2018-08-08] MEDS: ATORVASTATIN 10 MG TAB PO SCH (21:31)
[2018-08-09] MEDS: NA CHLORIDE 0.9% 1,000 ML IV SCH (06:13)
[2018-08-09 08:40] VITALS: O2SAT 92
[2018-08-09] MEDS: PANTOPRAZOLE 40MG TABLET PO SCH (09:42)
[2018-08-09] MEDS: VENLAFAXINE HCL XR 75 MG CAP PO SCH (09:42)
[2018-08-09] MEDS: LISINOPRIL 20 MG TAB PO SCH (09:42)
[2018-08-09] MEDS: LORATADINE 10 MG TAB PO SCH (09:42)
[2018-08-09] MEDS: CLOPIDOGREL 75 MG TABLET PO SCH (09:42)
[2018-08-09] MEDS: OXYBUTYNIN CHLORIDE 5 MG TAB PO SCH (09:43)
[2018-08-09] MEDS: Brimonidine Tartrate/Timolol (Combigan) 0.2%-0.5% Eye Drops EACH EYE SCH (09:44)
[2018-08-09] MEDS: BRINZOLAMIDE EYE EACH EYE SCH ×2 (09:44→14:00)
[2018-08-09] MEDS: AMLODIPINE 10 MG TAB PO SCH (09:45)
[2018-08-09] MEDS: ASPIRIN EC 81 MG TAB PO SCH (09:45)
[2018-08-09] MEDS ORDERED: POLYETHYL GLY 3350 17 GM/DOSE PO PRN (15:15)
--- NOTE | 2018-08-09 18:02 | P.DS ---
Admission Date: 08/08/18 Discharge Date: 08/09/18 Disposition: TRANSFER TO INPATIENT REHAB Discharge Condition: FAIR Reason for Admission: ABOUT THE SAME. - Problems (1) CVA (cerebral vascular accident) Onset Date: 08/08/18 Status: Acute (2) HTN (hypertension) Onset Date: 08/08/18 Status: Chronic Brief History of Present Illness: MS RICHARD IS A PREVIOUS STROKE PATIENT WHO IS ON PLAVIX ALREADY COMES WITH SLURRED SPEECH AND WEAKNESS THAT SHE CAN'T LOCALIZE. SHE USED TO BE ABLE TO WALK WITH WALKER BEFORE. MS RICHARD IS SENT TO REHAB FOR STROKE. I HAD STARTED HER ON LIPITOR 10 MG THAT SHOULD BE ENOUGH FOR 87 YO LADY WITH MILD LDL ELEVATION BUT STROKE PROTOCOL ASKED FOR HIGHER DOSE. Vital Signs/Physical Exam: Temp Pulse Resp BP Pulse Ox 97.3 F 73 18 122/78 94 08/09/18 12:00 08/09/18 12:00 08/09/18 12:00 08/09/18 12:00 08/09/18 12:00 Laboratory Data at Discharge: WBC 7.1 K/uL (4.3-10.9) 08/06/18 21:49 Hgb 11.8 g/dL (12.0-15.0) L 08/06/18 21:49 Hct 35.9 % (36.0-45.0) L 08/06/18 21:49 Plt Count 376 K/uL (152-406) 08/06/18 21:49 PT 11.9 SECONDS (9.5-12.5) 08/06/18 21:49 INR 1.01 08/06/18 21:49 Sodium 139 mmol/L (136-145) 08/06/18 21:49 Potassium 4.4 mmol/L (3.5-5.1) 08/06/18 21:49 BUN 21 mg/dL (7-18) H 08/06/18 21:49 Creatinine 1.30 mg/dL (0.55-1.3) 08/06/18 21:49 Glucose 126 mg/dL (74-106) H 08/06/18 21:49 Magnesium 2.5 mg/dL (1.8-2.4) H 08/06/18 21:49 Total Bilirubin 0.2 mg/dL (0.2-1.0) 08/06/18 21:49 AST 15 U/L (15-37) 08/06/18 21:49 ALT 19 U/L (12-78) 08/06/18 21:49 Alkaline Phosphatase 98 U/L (45-117) 08/06/18 21:49 Triglycerides 163 mg/dL (<150) H 08/07/18 12:36 Cholesterol 263 mg/dL (<200) H 08/07/18 12:36 HDL Cholesterol 60 mg/dL (40-60) 08/07/18 12:36 Cholesterol/HDL Ratio 4.38 08/07/18 12:36 Home Medications: Acetaminophen with Codeine [Acetaminophen-Cod #4 Tablet] 1 tab PO BID 05/12/18 Amlodipine Besylate 10 mg PO DAILY 05/12/18 Donepezil HCl 10 mg PO BEDTIME 05/12/18 Lisinopril 30 mg PO DAILY 05/12/18 Loratadine 10 mg PO DAILY 05/12/18 Omeprazole 20 mg PO DAILY 05/12/18 Oxybutynin Chloride 5 mg PO BID 05/12/18 Venlafaxine HCl [Venlafaxine HCl ER] 1 tab PO DAILY 05/12/18 Clopidogrel Bisulfate [Plavix*] 75 mg PO DAILY #90 tablet 05/13/18 Bimatoprost [Lumigan] 1 drop EACH EYE BEDTIME 08/07/18 Brimonidine Tartrate/Timolol [Combigan 0.2%-0.5% Eye Drops] 1 drop EACH EYE BID 08/07/18 Brinzolamide [Azopt] 1 drop EACH EYE TID 08/07/18 Netarsudil Mesylate [Rhopressa] 1 drop EACH EYE BEDTIME 08/07/18 Diet: AHA Activity: Fall precautions Followup: Avinash Read MD [ASSOCIATE-ACTIVE - CAN ADMIT] -
[2018-08-09 18:50] VITALS: BP 115/55; TEMP 97.8
[2018-08-09] MEDS ORDERED: ATORVASTATIN 40 MG TAB PO SCH (21:00)
[2018-08-11 12:49] LABS: Protein C Antigen 138 % (70-140)
== END 2018-08-09 17:00 | DRG 66 ==
LOC: ER 21:20 → ERHOLD 23:16 → 4TH 08-07 01:17 → OBSVTOIN 08-08 17:57
PROVIDERS: ADMIT Internal Medicine; ATTEND Internal Medicine
DX: I63.9 Cerebral infarction, unspecified (principal); I10 Essential (primary) hypertension; Z88.2 Allergy status to sulfonamides; Z91.012 Allergy to eggs; G30.9 Alzheimer's disease, unspecified; F02.80 Dementia in other diseases classified elsewhere, unspecified severity, without behavioral disturbance, psychotic disturbance, mood disturbance, and anxiety; M19.90 Unspecified osteoarthritis, unspecified site; E78.5 Hyperlipidemia, unspecified; R47.81 Slurred speech; R53.1 Weakness
CPT/HCPCS: 36415; 70450; 70544; 70549; 70553; 71045; 80048; 80061; 80076; 81001; 81003; 81015; 81241; 82962; 83735; 83880; 85025; 85302; 85305; 85306; 85610; 87086; 87088; 92610; 93005; 93306; 94760; 96361; 96365; 97112; 97163; 97530; 99285; A9577; G0378; J0696; J7030

== ENCOUNTER 2018-08-09 09:00 | Inpatient (IN) | payer OTHER ==
--- NOTE | 2018-08-09 12:18 | R.PREADM ---
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 ACUTE BOILER CONTROL TECHNICIAN/DC MAINFRAME ARCHITECT Inocencia Enriquez REFERRING PHYSICIAN Ned Eastman REHAB FACILITY [facility] CLINICAL LIAISON Valencia Colmenares PHYSICIAN REVIEWER Dr. Avinash Read M.D. MR# [id number] NAME ANEL GAUTHIER ADDRESS [address] [place] [address] PHONE [facility] [id number] DATE OF 1930 AGE 87 SSN# [id number] GENDER female MARITAL STATUS RACE white ADMIT FROM 02 - [facility] PRE-HOSPITAL LIVING SETTING 01 - Home (private home/apt. board/care, assisted living, long-term, transitional living) HOME TYPE AND DETAILS Type of home: apartment # of levels in the residence: 1 # of steps within the residence: 0 # of steps to enter the residence: 0 PRE-HOSPITAL LIVING WITH Alone FAMILY SUPPORT No PRIMARY FAMILY CONTACT NAME CHRISTIAN GAUTHIER PRIMARY FAMILY CONTACT PHONE PHONE PRIMARY FAMILY CONTACT ON ADM.? no IS PRIMARY FAMILY CONTACT AUTH. REP.? no 1ST EMERGENCY CONTACT CHRISTIAN GAUTHIER 1ST CONTACT PHONE PHONE 1ST CONTACT ON ADM. no IS 1ST CONTACT AUTH. REP.? no PHONE 2ND CONTACT ON ADM.? no PATIENT EMPLOYMENT STATUS Retired (for age) PATIENT EMPLOYER No Employer PAYOR INFORMATION: 1ST PAYOR NAME MEDICARE 1ST PAYOR PHONE [phone] 1ST PAYOR INJURY/ILLNESS DUE TO ACCIDENT? No ANOTHER GREEN PARTY RESPONSIBLE? No PRIMARY REHAB/ACUTE DIAGNOSIS: ACUTE NONHEMORRHAGIC CVA RIGHT NAHEED ONSET DATE 08/08/2018 REHAB IMPAIRMENT CATEGORY ([place]): 01 Stroke (STR) MEETS 60% rule AFFECTED EXTREMITIES: LLE, and LUE PRIMARY DIAGNOSIS-RELATED SURGERIES: N/A COMORBID REHAB/ACUTE DIAGNOSES: - N/A HYPERTENSION TIA ALZ DEMENTIA ARTHRITIS HLD GLAUCOMA LEGALLY BLIND LEFT EYE INTERVENTIONS: - Hypertension Fluid management Medications VS RISK FOR COMPLICATIONS: - Hypertension CVA Hypotension [place] TIA SUMMARY OF ACUTE HOSPITALIZATION: Pt. is a 87 yo Right-handed white female. On 08/08/2018 Pt. presented to [facility] with sudden onset of left-side weakne ss. On 08/08/2018 she was admitted to [facility] with diagnosis ACUTE NONHEMORRHAGI C CVA RIGHT NAHEED. Her impairment category is Stroke 01 - Left Body (Right Brain) (01.1). Pre-morbidly, Pt. was independent/mod-I in Sphincter Control, Transfers Control, Communication, Socia l Cognition, Self-Care, and Locomotion; and she had good Endurance, Sphincter Control, Safety Awarene ss, and Balance. Currently, she has deficits of Transfers Control, Self-Care, and Locomotion. Pt. is now referred to [facility] for acute in-patient rehabilitation in order to maximize patient's functional independence in activities of daily living, strength, ROM, and mobi lity. Patient has realistic goal of being discharged at assistance level 2-maxA to reside at Home with Fam catrachito/Relatives. Ms Anel Gauthier is an 87 year old female that lives in a [facility]. She was ambulatory with a rollator and ambulates to the clubhouse for meals. On 08/08/2018, she had a slurred speech and weakness and was admitted to [facility] and treated. She is now medically stable but in need of 24-hour nursing, doctor supervision and oversite while receiving active and The patient is reasonably expected to participate in 3hours of therapy a day/15 hours per week and receive care with an intensive interdisciplinary approach. PAST MEDICAL HISTORY ALZ ARTHRITIS DEMENTIA GLAUCOMA HLD HYPERTENSION LEGALLY BLIND LEFT EYE TIA PAST SURGICAL HISTORY: HYSTERECTOMY COLOSTOMY APPENDECTOMY Colonoscopy BILATERAL CATARACT REMOVAL MEDICATION ALLERGIES: Sulfa ENVIRONMENTAL ALLERGIES: Eggs - Substance Allergies None Known - Other Allergies None Known CODE STATUS: Full code WEIGHT/HEIGHT/BMI: WEIGHT 166 lbs HEIGHT 5' 1" BMI 31.4 DIET: - Diet Type Regular - Diet - Solid Texture Mechanical Soft - Diet - Liquid Texture Regular - Tube Feed N/A REVIEW OF SYSTEMS: - Gen Alert and awake Lying in bed No apparent distress Oriented to: person, time, and place - Vital Signs Temperature: 97.3 F SBP/DBP: 122/68 Pulse: 65 Resp: 18 Vital signs stable, afebrile - CVS RRR VITAL SIGNS Temperature: 97.3 F SBP/DBP: 122/68 Pulse: 65 Resp: 18 Vital signs stable, afebrile CURRENT SPHINCTER CONTROL: Pre-hospital bladder status: continent # of bladder accidents in the last 7 days prior to screenin Pre-hospital bowel status: continent # of bowel accidents in the last 7 days prior to screenin Last Bowel Movement Date: DETAILED CURRENT FUNCTIONAL STATUS: - Bladder accident frequency: Ind - No accidents in the past 7 days - Bowel accident frequency: Ind - No accidents in the past 7 days - Walking score based on distance walked: 0(N/A) - Wheelchair score based on distance traveled: 0(N/A) FUNCTIONAL STATUS: - Self-Care A. Eating Ind sup B. Grooming Ind Ind C. Bathing Ind sup D. Dressing - Upper Ind sup E. Dressing - Lower Ind sup F. Toileting Ind sup - Sphincter Control G: Bladder control Ind Ind H: Bowel control Ind Ind - Transfers Control I. Bed/Chair/Wheelchair Ind maxA J. Toilet Ind maxA K. Tub/Shower Ind ADNO - Locomotion L. Walk/Wheelchair (C) Ind maxA L. Walk/Wheelchair (W) Ind maxA M. Stairs Ind ADNO - Communication N. Comprehension (B) Ind Ind O. Expression (B) Ind Ind - Social Cognition P. Social Interaction Ind Ind Q. Problem Solving Ind Ind R. Memory Ind Ind - Endurance Good - Balance Good - Safety Awareness Good CURRENT FUNC. DEFICITS: Transfers Control, Self-Care, and Locomotion THERAPY NOTES FROM ACUTE CARE: Attached. SPECIAL NEEDS: - Safety Concerns Skin breakdown precautions needed due to skin breakdown risk PATIENT NEEDS ACTIVE AND ONGOING THERAPEUTIC INTERVENTION OF MULTIPLE THERAPY DISCIPLINES, INCLUDING: - Occupational Therapy Evaluate and Treat. Visual Perceptual Training. Cognitive Retraining. - Speech Therapy Cognitive Training. Memory Strategies. Speech Intelligibility Training. Expressive Language Skills. R eceptive Language Skills. - Physical Therapy Evaluate and Treat. PATIENT NEEDS CLOSE MEDICAL SUPERVISION BY A REHABILITATION PHYSICIAN FOR: Bowel and Bladder Management Coordination of Treatment Team Medical and Co-Morbidity Management DVT Management Pain Management PATIENT REQUIRES 24X7 REHAB NURSING FOR MEDICAL AND FUNCTIONAL MGT. OF THE FOLLOWING DEFICITS: ADL's Ambulation Bowel and Bladder Management Communication Disease Management Medication Management Patient/Family Education Providing Safe Environment Transfers PATIENT REQUIRES INTENSIVE, COORDINATED INTERDISCIPLINARY APPROACH TO REHAB: Arranging Home Equipment/Services Discharge Planning Family Intervention/Training Geophysical Operator/Case Management PATIENT REHAB POTENTIAL: Expected level of measurable improvement will be of a practical value to patient's functional capacit y or adaptations to impairments Has a viable Discharge Plan Medically appropriate; condition is sufficiently stable to participate in intensive rehab program Patient is able and expected to receive 3 hours of individualized therapy daily on at least 5 of ever y 7 days Patient's prognosis for significant practical improvement within a reasonable period of time appears Good DISCHARGE PLAN: - Estimated Length of Stay (days) 17. - Consensus on plan Discharge plan has been discussed with primary caregiver. Patient/Family is in agreement with the roberta n. Primary caregiver is in agreement with the plan. - Patient/Family Goals Return home with assistance. - Planned Living Setting Upon Discharge Home, to live with Family/Relatives. RECOMMENDED CARE LEVEL: IRF RECOMMENDATION DETAILS: Recommended Admission to Comprehensive Rehabilitation Program to Increase Functional [place] SCREENER'S COMPLETENESS CONFIRMATION: - Screening Confirmation The patient data collection on this preadmission screening form is finished - Ms. Gauthier has multiple active medical problems which require close medical observation, supervision an d management as provided by our inpatient rehabilitation unit. Furthermore, she requires acute medica l management following her moderate brain stem stroke with left sided numbness, weakness, mild dyspha stephanie and aphasia, to minimize her risk of deep vein thrombosis while performing aggressive daily inpat ient physical, occupational and speech therapy. Admission to the acute inpatient rehabilitation unit is necessary and appropriate. PHYSICIANS REVIEW AND ADMISSION DETERMINATION Admit - Based on my review of the Pre-Admission Screening results, in my medical judgment and experie nce, I concur with the findings and recommend admission to [facility], as this patient requires an IRF level of care. SIGNATURE PANEL: Clinical Liaison - [electronically] signed by Valencia Colmenares on 08/09/2018 at 10:17 (EDGE TRIMMER MECHANIC) Physician Reviewer - [electronically] signed by Dr. Avinash Read M.D. on 08/09/2018 at 12:17 (EDGE TRIMMER MECHANIC )
[2018-08-09] MEDS: CLOPIDOGREL 75 MG TABLET PO SCH (17:45)
[2018-08-09] MEDS ORDERED: LORATADINE 10 MG TAB PO PRN (17:45)
[2018-08-09] MEDS: ASPIRIN EC 81 MG TAB PO SCH (18:00)
[2018-08-09] MEDS: ENOXAPARIN 30 MG/0.3 ML SQ SCH (18:00)
--- NOTE | 2018-08-09 18:55 | R.HP ---
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 board/care, assisted living, correction, transitional living) PRE-HOSPITAL LIVING WITH Alone ENCOUNTER PHYSICIAN: Dr. Avinash Read M.D. REFERRING DOCTOR: iban Eastman DATE OF ADMISSION: 08/09/2018 16:39 (HAND EMBROIDERER) REFERRING FACILITY [facility] HOME TYPE AND DETAILS: Type of home: apartment # of levels in the residence: 1 # of steps within the residence: 0 # of steps to enter the residence: 0 ADMISSION DIAGNOSIS: ACUTE NONHEMORRHAGIC CVA RIGHT NAHEED ONSET DATE: 08/08/2018 PRIMARY DIAGNOSIS-RELATED SURGERIES: N/A SECONDARY/COMORBID DIAGNOSES (TIERED): - N/A HYPERTENSION TIA ALZ DEMENTIA ARTHRITIS HLD GLAUCOMA LEGALLY BLIND LEFT EYE HISTORY OF PRESENT ILLNESS (HPI): Pt. is a 87 yo Right-handed white female. On 08/08/2018 Pt. presented to [facility] with sudden onset of left-side weakne ss. On 08/08/2018 she was admitted to [facility] with diagnosis ACUTE NONHEMORRHAGI C CVA RIGHT NAHEED. Her impairment category is Stroke 01 - Left Body (Right Brain) (01.1). Pre-morbidly, Pt. was independent/mod-I in Sphincter Control, Transfers Control, Communication, Socia l Cognition, Self-Care, and Locomotion; and she had good Endurance, Sphincter Control, Safety Awarene ss, and Balance. Currently, she has deficits of Transfers Control, Self-Care, and Locomotion. Pt. is now referred to [facility] for acute in-patient rehabilitation in order to maximize patient's functional independence in activities of daily living, strength, ROM, and mobi lity. Patient has realistic goal of being discharged at assistance level 2-maxA to reside at Home with Fam catrachito/Relatives. Ms Anel Richard is an 87 year old female that lives in a [facility]. She was ambulatory with a rollator and ambulates to the clubhouse for meals. On 08/08/2018, she had a slurred speech and weakness and was admitted to [facility] and treated. She is now medically stable but in need of 24-hour nursing, doctor supervision and oversite while receiving active and The patient is reasonably expected to participate in 3hours of therapy a day/15 hours per week and receive care with an intensive interdisciplinary approach. MEDICATION ALLERGIES: Sulfa ENVIRONMENTAL ALLERGIES: Eggs - Substance Allergies None Known - Other Allergies None Known PAST MEDICAL HISTORY: ALZ ARTHRITIS DEMENTIA GLAUCOMA HLD HYPERTENSION LEGALLY BLIND LEFT EYE TIA PAST SURGICAL HISTORY: HYSTERECTOMY COLOSTOMY APPENDECTOMY Colonoscopy BILATERAL CATARACT REMOVAL FAMILY HISTORY: Family history is not contributory. SOCIAL HISTORY: - Home Living Alone REVIEW OF SYSTEMS: - Gen No Chills Fatigue No Fever - Eyes No Double Vision No itchiness - ENMT Difficulty Swallowing - CVS No Chest Discomfort No Chest Pain Fatigue No Weight Gain - Resp No Cough No Shortness of Breath - GI Continent No Abdominal Pain No Constipation No Diarrhea - Continent No Kidney Pain No Painful Urination No Urinary Urgency - MSK No Joint Pain Muscle Cramps Stiffness - Skin No Itching No Rash No Suspicious Lesions - Neuro Coordination Difficulty No Difficulty with Concentration No Memory Loss No Seizures Weakness - Psych No Anxiety No Depression No HIV Exposure No Persistent Infections No Seasonal Allergies - Endo No Cold/Heat Intolerance No Excessive Hunger No Excessive Thirst No Excessive Urination PHYSICAL EXAM - Gen Alert and awake Lying in bed No apparent distress Oriented to: person, time, and place - Skin No breakdown No numbness - Eyes No abnormalities - ENMT No abnormalities - Neck No abnormalities - CVS RRR - Chest No abnormalities - Abd + bowel sounds - GI Soft Deferred - No abnormalities - Ext No significant edema - MSK 4+/5 weakness in left upper and lower extremities. - Neuro 4+/5 weakness in left upper and lower extremities. - Psych No abnormalities VITAL SIGNS Temperature: 97.3 F SBP/DBP: 122/68 Pulse: 65 Resp: 18 NURSING: - Shower allowing shower - Bladder care per protocol - Skin care per protocol PRECAUTIONS: - Weight Bearing Precaution WBAT left LE ACTIVITIES OOB only with supervision FUNCTIONAL STATUS: - Self-Care A. Eating Ind sup B. Grooming Ind Ind C. Bathing Ind sup D. Dressing - Upper Ind sup E. Dressing - Lower Ind sup F. Toileting Ind sup - Sphincter Control G: Bladder control Ind Ind H: Bowel control Ind Ind - Transfers Control I. Bed/Chair/Wheelchair Ind maxA J. Toilet Ind maxA K. Tub/Shower Ind ADNO - Locomotion L. Walk/Wheelchair (C) Ind maxA L. Walk/Wheelchair (W) Ind maxA M. Stairs Ind ADNO - Communication N. Comprehension (B) Ind Ind O. Expression (B) Ind Ind - Social Cognition P. Social Interaction Ind Ind Q. Problem Solving Ind Ind R. Memory Ind Ind - Endurance Good - Balance Good - Safety Awareness Good CURRENT FUNC. DEFICITS: Transfers Control, Self-Care, and Locomotion ASSESSMENT: Pt. is a 87 yo Right-handed white female.On 08/08/2018 Pt. presented to [facility] with sudden onset of left-side weakness.On 08/08/2018 she was admitted to [facility] with diagnosis ACUTE NONHEMORRHAGIC CVA RIGHT NAHEED.Her impairment category is Stroke 01 - Left Body (Right Brain) (01.1).Pre-morbidly, Pt. was independent/mod-I in Sphincter Control, Transfe rs Control, Communication, Social Cognition, Self-Care, and Locomotion; and she had good Endurance, S phincter Control, Safety Awareness, and Balance.Currently, she has deficits of Transfers Control, Do f-Care, and Locomotion.Pt. is now referred to [facility] for acute in-patient rehabilitation in order to maximize patient's functional independence in activities of daily living, strength, ROM, and mobility.- Rehab Goal Patient has realistic goal of being discharged at assistance level 2-maxA to reside at Home with Fam catrachito/Relatives. Ms Anel Richard is an 87 year old female that lives in a [facility]. She was ambulatory with a rollator and ambulates to the clubhouse for meals. On 08/08/2018, she had a slurred speech and weakness and was admitted to [facility] and treated. She is now medically stable but in need of 24-hour nursing, doctor supervision and oversite while receiving active and The patient is reasonably expected to participate in 3hours of therapy a day/15 hours per week and receive care with an intensive interdisciplinary approach.REHAB PLAN: for Dementia, TBI, Stroke, or others - Physical Therapy Gait dysfunction - to improve, our physical therapists will perform initial evaluation of pt's status upon admission and devise an individualized program for Gait Training, and Wheel Chair mobility Inability to transfer - to improve, our physical therapists will perform initial evaluation of pt's s tatus upon admission and devise an individualized program for Bed mobility Need for home safety evaluation - to improve, our physical therapists will perform initial evaluation of pt's status upon admission and devise an individualized program for Home Evaluation Edema - to improve, our physical therapists will perform initial evaluation of pt's status upon admi ssion and devise an individualized program for Elevation Training, and Lymphedema Therapy Need in caregiver upon discharge - to improve, our physical therapists will perform initial evaluatio n of pt's status upon admission and devise an individualized program for Caregiver Training New precaution - to improve, our physical therapists will perform initial evaluation of pt's status u garett admission and devise an individualized program for Patient precaution education Achieving independence - to improve, our physical therapists will perform initial evaluation of pt's status upon admission and devise an individualized program for Community Reintegration Activities - Occupational Therapy ADL deficits - to improve, our occupation therapists will perform initial evaluation of pt's status u garett admission and devise an individualized program for Bathing, Bed mobility, Community Reintegration , Cooking, Dressing, Eating, Fine Motor Skills, Grooming, Homemaking, Kitchen Mobility, Laundry, Vi ent Education, Safety Awareness, Splinting - Positioning, Transfers(Toilet, Tub, Shower), and Wheel C hair Management Need for wild animal caretaker - to improve, our occupation therapists will perform initial evaluation of pt's s tatus upon admission and devise an individualized program for Caregiver Training MEDICAL PLAN: - Diet Type Regular - Diet - Liquid Texture Regular - Tube Feed N/A - Bladder care per protocol - Weight Bearing Precaution WBAT LE - Skin care per protocol - Diet - Solid Texture Mechanical Soft - Shower shower DISCHARGE PLAN: - Estimated Length of Stay (days) 17. - Consensus on plan Discharge plan has been discussed with primary caregiver. Patient/Family is in agreement with the roberta n. Primary caregiver is in agreement with the plan. - Patient/Family Goals Return home with assistance. - Planned Living Setting Upon Discharge Home, to live with Family/Relatives. SIGNATURE PANEL: (HAND EMBROIDERER)
--- NOTE | 2018-08-09 18:58 | PAPE ---
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 Avinash Read M.D. ADMISSION DIAGNOSIS: ACUTE NONHEMORRHAGIC CVA RIGHT NAHEED ONSET DATE 08/08/2018 SECONDARY/COMORBID DIAGNOSES TIERED: - N/A HYPERTENSION TIA ALZ DEMENTIA ARTHRITIS HLD GLAUCOMA LEGALLY BLIND LEFT EYE POST-ADMISSION FUNCTIONAL/MEDICAL STATUS: - Bladder Same accident frequency: Ind - No accidents in the past 7 days - Bowel Same accident frequency: Ind - No accidents in the past 7 days - Walking Same score based on distance walked: 0(N/A) - Wheelchair Same score based on distance traveled: 0(N/A) STATUS CHANGE EVALUATION: No change in Functional or Medical Status is identified compared with Pre-Admission screening. PATIENT NEEDS CLOSE MEDICAL SUPERVISION BY A REHABILITATION PHYSICIAN FOR: Bowel and Bladder Management Coordination of Treatment Team Medical and Co-Morbidity Management DVT Management Pain Management PATIENT REQUIRES 24X7 REHAB NURSING FOR MEDICAL AND FUNCTIONAL MGT. OF THE FOLLOWING DEFICITS: ADL's Ambulation Bowel and Bladder Management Communication Disease Management Medication Management Patient/Family Education Providing Safe Environment Transfers PATIENT REQUIRES INTENSIVE, COORDINATED INTERDISCIPLINARY APPROACH TO REHAB: Arranging Home Equipment/Services Discharge Planning Family Intervention/Training Assessment Manager/Case Management LIST OF IDENTIFIED AND POTENTIAL PROBLEMS: Alteration in leisure activities Bladder, Incontinence Blood Pressure, Hypertension/hypotension Issues Bowel, Incontinence Infection, Actual or Potential Mobility Impaired Pain, Alteration in Comfort Self Care Deficit Skin Integrity, Actual or Potential Urinary Tract Infection (UTI), Actual or Potential RISK FOR COMPLICATIONS - Hypertension CVA. Hypotension. MA. TIA. INTERVENTIONS - Hypertension PATIENT COULD BE AT RISK FOR COMPLICATIONS FROM ADVERSE MEDICAL CONDITIONS DUE TO HIS/HER COMORBIDITI ES AND THE RIGORS OF THE INTENSIVE REHABILLITATION PROGRAM. METHODS OR INTERVENTIONS TO AVOID COMPLIC ATIONS INCLUDE: - Deep Vein Thrombosis (DVT) Prophylaxis therapy for prevention . Sequential Compression Device (SCD). TE D Hose. - Bleeding Stroke patients assessed for lethargy or change in status. - Infection Clinical staff to assess and manage the signs and symptoms of infection including fever, redness, war mth, etc. - Urinary Tract Infection - Aspiration Clinical staff will assess and manage coughing, drooling, congestion. - Falls Patient will be evaluated for Fall Precautions and will be placed on Fall Precautions as indicated pe r protocol. - Skin Breakdown Nursing will assess skin daily using assessment tool and will place on Skin Breakdown Precautions as indicated per protocol. - Pain Clinical staff may employ non-medication methods such as massage, distraction, decrease stimulus, etc . as needed. Clinical staff will assess patient's pain level every shift per protocol to assess and e nsure pain management effectiveness. Medications will be given and the pain level re-assessed. PRELIMINARY PLAN OF CARE: - Physical Therapy Patient needs Physical Therapy for a daily minimum of 1.5 hours at least 5 out of 7 days, to improve: Mobility, Strengthening, Transfers, Stretching, ROM, Endurance, Ability to manage stairs, Gait, and Balance. - Speech Therapy Patient needs Speech Therapy for a daily minimum of 0.5 hours at least 5 out of 7 days, to improve: S wallowing, Cognition, Language Skills, and Compensatory Strategies. - Rehabilitation Nursing Patient requires 24x7 Rehabilitation Nursing for: Pain Issues, Identifying and preventing risk factor s, Monitoring and reporting current medical conditions, Assisting with ambulation and transfer, Giuliano ting with all ADL-s, Teaching patients about disease process and medications, Family teaching, Provid ing safe environment, Bowel and Bladder Issues, Skin Integrity, and Medication Management. Patient needs Assessment Manager and/or Case Management for: Discharge Planning, Arranging Home Equipmen t or Services, and Family Interventions. - Dietary and Nutrition Services Patient needs Dietary and Nutrition Services for: Adequate Nutrition, Nutritional Supplements, and Nu tritional Education. - Occupational Therapy Patient needs Occupational Therapy for a daily minimum of 1.5 hours at least 5 out of 7 days, to impr ove Activities of Daily Living, including: Eating, Grooming, Bathing, Dressing, Toileting, Toilet Tra nsfers, Community Reintegration, Higher functional activities, Adaptive Equipment, Splinting, Househo ld Tasks, and Other activities as determined. POTENTIAL FUNCTIONAL GOALS FOR PATIENT TO ACHIEVE BY DISCHARGE: - Safety Precaution Patient will remain free from falls or injury at time of discharge. - Bed Mobility Patient will perform bed mobility at 4-Bogdan level of assistance. - Transfers Patient will complete transfers from bed to chair at 4-Bogdan level of assistance. - Mobility Patient will ambulate 150 ft with 4-Bogdan level of assistance with RW. PATIENT REHAB POTENTIAL Expected level of measurable improvement will be of a practical value to patient's functional capacit y or adaptations to impairments Has a viable Discharge Plan Medically appropriate; condition is sufficiently stable to participate in intensive rehab program Patient is able and expected to receive 3 hours of individualized therapy daily on at least 5 of ever y 7 days Patient's prognosis for significant practical improvement within a reasonable period of time appears Good DISCHARGE PLAN: - Estimated Length of Stay (days) 17. - Consensus on plan Discharge plan has been discussed with primary caregiver. Patient/Family is in agreement with the roberta n. Primary caregiver is in agreement with the plan. - Patient/Family Goals Return home with assistance. - Planned Living Setting Upon Discharge Home, to live with Family/Relatives. CONCLUSION ON REHABILITATION NECESSITY: I have evaluated patient's pre-admission functional status and, comparing it to the patient's post-ad mission functional status now, I conclude that the pre-admission assessment was accurate. Patient's c ondition on admission supports the medical necessity of admission to IRF. It is safe to proceed with patient's therapy program. 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
[2018-08-09 19:34] VITALS: BMI 31.6
[2018-08-09] MEDS: VENLAFAXINE HCL XR 75 MG CAP PO SCH (19:51)
[2018-08-09] MEDS: AMLODIPINE 10 MG TAB PO SCH (19:51)
[2018-08-09] MEDS: OXYBUTYNIN CHLORIDE 5 MG TAB PO SCH (19:52)
[2018-08-09] MEDS: LISINOPRIL 20 MG TAB PO SCH (19:52)
[2018-08-09] MEDS: PANTOPRAZOLE 40MG TABLET PO SCH (19:52)
[2018-08-09] MEDS: DONEPEZIL HCL 5 MG TAB PO SCH (19:53)
[2018-08-09] MEDS: NETARSUDIL OPTH SCH (19:55)
[2018-08-10 06:12] LABS: Absolute Lymphocytes (CBC) 1.8 K/uL (0.7-4.9); Absolute Monocytes 0.7 K/uL (0.1-1.3); Absolute Neutrophil 3.4 K/uL (1.8-8.0); Basophils % 1.2 % (0-1.3); Hematocrit 34.7 % (36.0-45.0); Lymphocytes % 28.9 % (15.3-44.8); MPV 7.2 fL (7.6-11.3); Monocytes % 11.9 % (3.3-12.3); RBC Red Blood Cell Count 3.96 M/uL (3.86-4.86)
[2018-08-10 07:15] LABS: Potassium 3.9 mmol/L (3.5-5.1); Prealbumin 21.1 mg/dL (20-40)
[2018-08-10] MEDS: ENOXAPARIN 30 MG/0.3 ML SQ SCH (07:24)
[2018-08-10] MEDS: PANTOPRAZOLE 40MG TABLET PO SCH (08:30)
[2018-08-10] MEDS: LISINOPRIL 20 MG TAB PO SCH (08:31)
[2018-08-10] MEDS: AMLODIPINE 10 MG TAB PO SCH (08:33)
[2018-08-10] MEDS: VENLAFAXINE HCL XR 75 MG CAP PO SCH (08:33)
[2018-08-10] MEDS: OXYBUTYNIN CHLORIDE 5 MG TAB PO SCH ×2 (08:33→20:23)
[2018-08-10] MEDS: CLOPIDOGREL 75 MG TABLET PO SCH (08:34)
[2018-08-10] MEDS: ASPIRIN EC 81 MG TAB PO SCH (08:35)
[2018-08-10] MEDS: CODEINE 30MG/APAP 300MG TAB PO PRN (10:13)
--- NOTE | 2018-08-10 15:47 | FAST ---
SHIFT START DATE/TIME: 08/10/2018 07:00 (CLIENT EXECUTIVE) SHIFT END DATE/TIME: 08/10/2018 19:00 (CLIENT EXECUTIVE) NAME JAIDA RICHARD DATE OF : 1930 DATE OF ADMISSION: 08/09/2018 16:39 (CLIENT EXECUTIVE) PHONE: AGE: 87 SSN# [id number] GENDER: Female ENCOUNTER PHYSICIAN: Dr. Avinash Read M.D. ADMISSION DIAGNOSIS: - Stroke 01 - Left Body (Right Brain) (01.1) ACUTE NONHEMORRHAGIC CVA RIGHT NAHEED. EATING: EATING - STEP 1: Does the patient require the assistance of a person or device, or need extra time when eating? Yes. EATING - STEP 2: Does the patient require the assistance of a helper? Yes. EATING - STEP 3: Does the patient perform half or more of the eating tasks? Yes. EATING - STEP 4: Does the patient need only supervision, cuing, coaxing OR help to apply an orthosis OR help to cut fo od, open containers, pour liquids, or butter bread? Yes. EATING - SCORE: 5-SUP GROOMING: Activity did not occur on this shift GROOMING - SCORE: 0-UNK BATHING: Activity did not occur on this shift BATHING - SCORE: 0-UNK DRESSING - UPPER BODY: Activity did not occur on this shift ARTICLES SCORE Total number of steps: 0 DRESSING - UPPER BODY - SCORE: 0-UNK DRESSING - LOWER BODY: Activity did not occur on this shift ARTICLES SCORE Total number of steps: 0 DRESSING - LOWER BODY - SCORE: 0-UNK TOILETING: TOILETING - STEP 1: Does the patient require the assistance of a person or device, or need extra time with toileting? Yes . TOILETING - STEP 2: Does the patient require the assistance of a helper? Yes. TOILETING - STEP 3: How much assistance does the patient require from the helper? Hands-on assistance from the helper TOILETING - STEP 4: Of the 3 tasks: 1) Adjusting clothing prior to use, 2) Cleansing of perineal area, 3) Adjusting clot braulio after use; How many tasks does the patient perform WITHOUT assistance of the helper? No tasks; h elper performs all three tasks TOILETING - SCORE: 1-DEP BLADDER MANAGEMENT: [place] removes incontinent device (Depends, pull ups, etc.); cleans the patient after accident / inco ntinent episode; and, applies new incontinent device. BLADDER MANAGEMENT - SCORE: 1-DEP BLADDER MANAGEMENT - FREQUENCY OF ACCIDENTS: BLADDER MANAGEMENT(FA) - STEP 1: How many accidents has the patient had during the current shift? 3 BOWEL MANAGEMENT: Activity did not occur on this shift BOWEL MANAGEMENT - SCORE: 7-IND TRANSFERS: BED, CHAIR, WHEELCHAIR: Patient requires more than one helper and/or the use of a mechanical lift is utilized TRANSFERS: BED, CHAIR, WHEELCHAIR - SCORE: 1-DEP TRANSFERS: TOILET: Patient requires more than one helper and/or the use of a mechanical lift is utilized TRANSFERS: TOILET - SCORE: 1-DEP TRANSFERS: SHOWER: Activity did not occur on this shift TRANSFERS: SHOWER - SCORE: 0-UNK TRANSFERS: TUB: Activity did not occur on this shift TRANSFERS: TUB - SCORE: 0-UNK LOCOMOTION: WALK: Activity did not occur on this shift LOCOMOTION: WALK - SCORE: 0-UNK LOCOMOTION: WHEELCHAIR: Activity did not occur on this shift LOCOMOTION: WHEELCHAIR - SCORE: 0-UNK COMPREHENSION: COMPREHENSION: TYPE: Both COMPREHENSION - STEP 1: Does the patient require help from a person or device, or need extra time to understand complex and a bstract ideas (such as current events, finances, discharge planning, medical issues, relationships, e tc)? No. COMPREHENSION - STEP 2: Does the patient need extra time, require an assistive device (such as glasses for visual comprehensi on or a hearing aid for auditory comprehension) or does s/he have mild difficulty understanding compl ex and abstract information? Yes. COMPREHENSION - SCORE: 6-LIZZ EXPRESSION EXPRESSION: TYPE: Both EXPRESSION - STEP 1: Does the patient require help from a person or device, or need extra time expressing complex and abst ract ideas (such as current events, finances, discharge planning, medical issues, relationships, etc) ? No. EXPRESSION - STEP 2: Does the patient need extra time, require an assistive device (such as augmentive communication syste m or a communication board), OR does s/he have mild difficulty expressing complex and abstract ideas (including mild dysarthria or mild word-find problems)? Yes. EXPRESSION - SCORE: 6-LIZZ SOCIAL INTERACTION: SOCIAL INTERACTION - STEP 1: Does the patient require a helper to interact with others in social and therapeutic situations? No. SOCIAL INTERACTION - STEP 2: Does the patient need extra time in social situations, OR does s/he interact with staff, other patien ts, and family members ONLY in structured environments, OR does s/he require medication for social in teraction? Yes, patient needs extra time SOCIAL INTERACTION - SCORE: 6-LIZZ PROBLEM SOLVING: PROBLEM SOLVING - STEP 1: Does the patient need help from a person or device, or need extra time to solve complex problems such as managing a checking account or confronting interpersonal problems? Yes. PROBLEM SOLVING - STEP 2: Does the patient solve basic routine problems half or more of the time? Yes. PROBLEM SOLVING - STEP 3: How often does the patient need help to solve basic routine problems? Less than 10% of the time PROBLEM SOLVING - SCORE: 5-SUP MEMORY: MEMORY - STEP 1: Does the patient need help from a person or device, or need extra time to remember frequently encount ered people, daily routines, and executing requests? Yes. MEMORY - STEP 2: How often does the patient need help to remember frequently encountered people, daily routines, and e xecuting requests? Less than 10% of the time MEMORY - SCORE: 5-SUP SIGNATURE PANEL: The following modified sections: Eating - Score, Grooming - Score, Dressing - Upper Body - Score, Mendoza ssing - Lower Body - Score, Toileting - Score, Bladder Management - Score, Bowel Management - Score, Transfers: Bed, Chair, Wheelchair - Score, Transfers: Toilet - Score, Transfers: Shower - Score, Alvarez sfers: Tub - Score, Locomotion: Walk - Score, Locomotion: Wheelchair - Score, Comprehension - Score, Expression - Score, Social Interaction - Score, Problem Solving - Score, Memory - Score, Bathing - Sc ore were [electronically] signed by Roosevelt Velasquez on WedAug 10 2018 15:47:11 GMT-0600 (Central Standard Time)
--- NOTE | 2018-08-10 16:41 | R.PN ---
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 Pt denied any Shortness of Breath. Ambulated in parallel bars with maximum assistance. VITAL SIGNS Temperature: 97.3 F SBP/DBP: 140/54 Pulse: 69 Resp: 18 MEDICATION ALLERGIES: Sulfa ENVIRONMENTAL ALLERGIES: Eggs - Substance Allergies None Known - Other Allergies None Known NURSING: - Shower allowing shower - Bladder care per protocol - Skin care per protocol PRECAUTIONS: - Weight Bearing Precaution WBAT left LE ACTIVITIES OOB only with supervision THERAPIES: - Occupational Therapy Evaluate and Treat. Visual Perceptual Training. Cognitive Retraining. - Speech Therapy Cognitive Training. Memory Strategies. Speech Intelligibility Training. Expressive Language Skills. R eceptive Language Skills. - Physical Therapy Evaluate and Treat. PHYSICAL EXAM - Gen Alert and awake Lying in bed No apparent distress Oriented to: person, time, and place - Skin No breakdown No numbness - Eyes No abnormalities - ENMT No abnormalities - Neck No abnormalities - CVS RRR - Chest No abnormalities - Abd + bowel sounds - GI Soft Deferred - No abnormalities - Ext No significant edema - MSK 4+/5 weakness in left upper and lower extremities. - Neuro 4+/5 weakness in left upper and lower extremities. - Psych No abnormalities ASSESSMENT: Pt. is a 87 yo Right-handed white female.On 08/08/2018 Pt. presented to [facility] with sudden onset of left-side weakness.On 08/08/2018 she was admitted to [facility] with diagnosis ACUTE NONHEMORRHAGIC CVA RIGHT HAYDER.Her impairment category is Stroke 01 - Left Body (Right Brain) (01.1).Pre-morbidly, Pt. was independent/mod-I in Sphincter Control, Transfe rs Control, Communication, Social Cognition, Self-Care, and Locomotion; and she had good Endurance, S phincter Control, Safety Awareness, and Balance.Currently, she has deficits of Transfers Control, Do f-Care, and Locomotion.Pt. is now referred to [facility] for acute in-patient rehabilitation in order to maximize patient's functional independence in activities of daily living, strength, ROM, and mobility.- Rehab Goal Patient has realistic goal of being discharged at assistance level 2-maxA to reside at Home with Fam catrachito/Relatives. MDM/PLAN: - Physical Therapy Gait dysfunction - to improve, our physical therapists will perform initial evaluation of pt's statu s upon admission and devise an individualized program for Gait Training, and Wheel Chair mobility Inability to transfer - to improve, our physical therapists will perform initial evaluation of pt's status upon admission and devise an individualized program for Bed mobility Need for home safety evaluation - to improve, our physical therapists will perform initial evaluatio n of pt's status upon admission and devise an individualized program for Home Evaluation Edema - to improve, our physical therapists will perform initial evaluation of pt's status upon admis emmett and devise an individualized program for Elevation Training, and Lymphedema Therapy Need in caregiver upon discharge - to improve, our physical therapists will perform initial evaluati on of pt's status upon admission and devise an individualized program for Caregiver Training New precaution - to improve, our physical therapists will perform initial evaluation of pt's status upon admission and devise an individualized program for Patient precaution education Achieving independence - to improve, our physical therapists will perform initial evaluation of pt's status upon admission and devise an individualized program for Community Reintegration Activities - Occupational Therapy ADL deficits - to improve, our occupation therapists will perform initial evaluation of pt's status upon admission and devise an individualized program for Bathing, Bed mobility, Community Reintegratio n, Cooking, Dressing, Eating, Fine Motor Skills, Grooming, Homemaking, Kitchen Mobility, Laundry, Pat ient Education, Safety Awareness, Splinting - Positioning, Transfers(Toilet, Tub, Shower), and Wheel Chair Management Need for child care lead teacher - to improve, our occupation therapists will perform initial evaluation of pt's status upon admission and devise an individualized program for Caregiver Training - Diet Type Continue Regular - Diet - Liquid Texture Continue Regular - Tube Feed Continue N/A - Bladder care per protocol - Weight Bearing Precaution WBAT left LE - Skin care per protocol - Diet - Solid Texture Continue Mechanical Soft - Shower allowing shower for Dementia, TBI, Stroke, or others FUNCTIONAL STATUS: UPDATED AT WEEKLY TEAM CONFERENCE - Bladder Same accident frequency: 7-Ind - No accidents in the past 7 days - Bowel Same accident frequency: 7-Ind - No accidents in the past 7 days - Walking Same score based on distance walked: 0(N/A) - Wheelchair Same score based on distance traveled: 0(N/A) FUNCTIONAL STATUS: - Self-Care A. Eating sup B. Grooming Ind C. Bathing sup D. Dressing - Upper sup E. Dressing - Lower sup F. Toileting sup - Sphincter Control G: Bladder control Ind H: Bowel control Ind - Transfers Control I. Bed/Chair/Wheelchair maxA J. Toilet maxA K. Tub/Shower ADNO - Locomotion L. Walk/Wheelchair (C) maxA L. Walk/Wheelchair (W) maxA M. Stairs ADNO - Communication N. Comprehension (B) Ind O. Expression (B) Ind - Social Cognition P. Social Interaction Ind Q. Problem Solving Ind R. Memory Ind - Endurance Good - Balance Good - Safety Awareness Good CURRENT FUNC. 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
--- NOTE | 2018-08-10 17:04 | FAST ---
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 Avinash Read M.D. ADMISSION DIAGNOSIS: - Stroke 01 - Left Body (Right Brain) (01.1) ACUTE NONHEMORRHAGIC CVA RIGHT NAHEED. EATING: Activity did not occur on this shift EATING - SCORE: 0-UNK GROOMING: Activity did not occur on this shift GROOMING - SCORE: 0-UNK BATHING: Activity did not occur on this shift BATHING - SCORE: 0-UNK DRESSING - UPPER BODY: Activity did not occur on this shift Patient is not dressing in public clothing ARTICLES SCORE Total number of steps: 0 DRESSING - UPPER BODY - SCORE: 0-UNK DRESSING - LOWER BODY: Activity did not occur on this shift Patient is not dressing in public clothing ARTICLES SCORE Total number of steps: 0 DRESSING - LOWER BODY - SCORE: 0-UNK TOILETING: Activity did not occur on this shift TOILETING - SCORE: 0-UNK BLADDER MANAGEMENT: Activity did not occur on this shift BLADDER MANAGEMENT - SCORE: 7-IND BOWEL MANAGEMENT: Activity did not occur on this shift BOWEL MANAGEMENT - SCORE: 7-IND TRANSFERS: BED, CHAIR, WHEELCHAIR: Patient requires more than one helper and/or the use of a mechanical lift is utilized TRANSFERS: BED, CHAIR, WHEELCHAIR - SCORE: 1-DEP TRANSFERS: TOILET: Activity did not occur on this shift TRANSFERS: TOILET - SCORE: 0-UNK TRANSFERS: SHOWER: Activity did not occur on this shift TRANSFERS: SHOWER - SCORE: 0-UNK TRANSFERS: TUB: Activity did not occur on this shift TRANSFERS: TUB - SCORE: 0-UNK LOCOMOTION: WALK: Patient walks less than 50 feet LOCOMOTION: WALK - SCORE: 1-DEP LOCOMOTION: WHEELCHAIR: Patient propels wheelchair less than 50 ft LOCOMOTION: WHEELCHAIR - SCORE: 1-DEP LOCOMOTION: STAIRS: Activity did not occur on this shift LOCOMOTION: STAIRS - SCORE: 0-UNK COMPREHENSION: COMPREHENSION - SCORE: 0-UNK EXPRESSION EXPRESSION - SCORE: 0-UNK SOCIAL INTERACTION: SOCIAL INTERACTION - SCORE: 0-UNK PROBLEM SOLVING: PROBLEM SOLVING - SCORE: 0-UNK MEMORY: MEMORY - SCORE: 0-UNK SIGNATURE PANEL: The following modified sections: Transfers: Bed, Chair, Wheelchair - Score, Transfers: Toilet - Score , Locomotion: Walk - Score, Locomotion: Wheelchair - Score, Locomotion: Stairs - Score were [electron ically] signed by Gerald Ibrahim PT on WedAug 10 2018 17:04:25 GMT-0600 (Central Standard Time)
--- NOTE | 2018-08-10 18:11 | P.PN ---
Subjective Date of Service: 08/10/18 Chief Complaint: STABLE, NO CHANGES. Subjective: No new changes WEAK NOT ABLE TO COMPLAIN MUCH. Review of Systems 10-point ROS is otherwise unremarkable General: Weakness Neurological: Weakness ( L), Confusion Physical Examination - Vital Signs Temperature: 97.4 F Blood Pressure: 140/54 Pulse: 69 Respirations: 16 Pulse Ox (%): 97 - Physical Exam General: Alert, Mild distress HEENT: Atraumatic, PERRLA, EOMI Neck: Supple, JVD not distended Respiratory: Clear to auscultation bilaterally, Normal air movement Cardiovascular: Regular rate/rhythm, Normal S1 S2 Gastrointestinal: Normal bowel sounds, No tenderness Musculoskeletal: No tenderness Integumentary: No rashes Neurological: Normal speech, Normal tone, Normal affect Lymphatics: No axilla or inguinal lymphadenopathy - Studies Laboratory Data (last 24 hrs) 08/10/18 05:56: Sodium 140, Potassium 3.9, BUN 16, Creatinine 0.90, Glucose 114 H, Magnesium 2.0 D 08/10/18 05:56: WBC 6.2, Hgb 11.6 L, Hct 34.7 L, Plt Count 322 Medications List Reviewed: Yes Assessment And Plan - Current Problems (Diagnosis) (1) CVA (cerebral vascular accident) Onset Date: 08/08/18 Current Visit: No Status: Acute Plan: PT NOT ABLE TO TAKE 3 HOURS OF THERAPY. [facility] ADVISED. Qualifiers: Precerebral and cerebral artery: other cerebral artery (2) HTN (hypertension) Onset Date: 08/08/18 Current Visit: No Status: Chronic
[2018-08-10] MEDS: NYSTATIN PWDR 100000 UNIT/GM TOP SCH (20:22)
[2018-08-10] MEDS: NETARSUDIL OPTH SCH (20:23)
[2018-08-10] MEDS: DONEPEZIL HCL 5 MG TAB PO SCH (20:23)
--- NOTE | 2018-08-11 01:06 | FAST ---
SHIFT START DATE/TIME: 08/10/2018 19:00 (RPG PROGRAMMER ANALYST) SHIFT END DATE/TIME: 08/11/2018 07:00 (RPG PROGRAMMER ANALYST) NAME JAIDA RICHARD DATE OF : 1930 DATE OF ADMISSION: 08/09/2018 16:39 (RPG PROGRAMMER ANALYST) PHONE: AGE: 87 SSN# [id number] GENDER: Female ENCOUNTER PHYSICIAN: Dr. Avinash Read M.D. ADMISSION DIAGNOSIS: - Stroke 01 - Left Body (Right Brain) (01.1) ACUTE NONHEMORRHAGIC CVA RIGHT NAHEED. EATING: Activity did not occur on this shift EATING - SCORE: 0-UNK GROOMING: Activity did not occur on this shift GROOMING - SCORE: 0-UNK BATHING: Activity did not occur on this shift BATHING - SCORE: 0-UNK DRESSING - UPPER BODY: Patient is not dressing in public clothing ARTICLES SCORE Total number of steps: 0 DRESSING - UPPER BODY - SCORE: 0-UNK DRESSING - LOWER BODY: Patient is not dressing in public clothing ARTICLES SCORE Total number of steps: 0 DRESSING - LOWER BODY - SCORE: 0-UNK TOILETING: Activity did not occur on this shift TOILETING - SCORE: 0-UNK BLADDER MANAGEMENT: [place] removes incontinent device (Depends, pull ups, etc.); cleans the patient after accident / inco ntinent episode; and, applies new incontinent device. BLADDER MANAGEMENT - SCORE: 1-DEP BOWEL MANAGEMENT: Activity did not occur on this shift BOWEL MANAGEMENT - SCORE: 7-IND TRANSFERS: BED, CHAIR, WHEELCHAIR: TRANSFERS: BED, CHAIR, WHEELCHAIR - STEP 1: Does the patient require assistance of a person or device, or need extra time with bed, chair, or whe elchair transfers? Yes. TRANSFERS: BED, CHAIR, WHEELCHAIR - STEP 2: Does the patient require the assistance of a helper? Yes. TRANSFERS: BED, CHAIR, WHEELCHAIR - STEP 3: How much assistance does the patient require from the helper? Lifting of the patient TRANSFERS: BED, CHAIR, WHEELCHAIR - STEP 4: Does the helper lift the patient ONLY up? ONLY down? Up AND Down? Patient needs help with all lifting TRANSFERS: BED, CHAIR, WHEELCHAIR - SCORE: 1-DEP TRANSFERS: TOILET: Activity did not occur on this shift TRANSFERS: TOILET - SCORE: 0-UNK TRANSFERS: SHOWER: Activity did not occur on this shift TRANSFERS: SHOWER - SCORE: 0-UNK TRANSFERS: TUB: Activity did not occur on this shift TRANSFERS: TUB - SCORE: 0-UNK LOCOMOTION: WALK: Activity did not occur on this shift LOCOMOTION: WALK - SCORE: 0-UNK LOCOMOTION: WHEELCHAIR: Activity did not occur on this shift LOCOMOTION: WHEELCHAIR - SCORE: 0-UNK COMPREHENSION: COMPREHENSION: TYPE: Both COMPREHENSION - STEP 1: Does the patient require help from a person or device, or need extra time to understand complex and a bstract ideas (such as current events, finances, discharge planning, medical issues, relationships, e tc)? No. COMPREHENSION - STEP 2: Does the patient need extra time, require an assistive device (such as glasses for visual comprehensi on or a hearing aid for auditory comprehension) or does s/he have mild difficulty understanding compl ex and abstract information? Yes. COMPREHENSION - SCORE: 6-LIZZ EXPRESSION EXPRESSION: TYPE: Both EXPRESSION - STEP 1: Does the patient require help from a person or device, or need extra time expressing complex and abst ract ideas (such as current events, finances, discharge planning, medical issues, relationships, etc) ? No. EXPRESSION - STEP 2: Does the patient need extra time, require an assistive device (such as augmentive communication syste m or a communication board), OR does s/he have mild difficulty expressing complex and abstract ideas (including mild dysarthria or mild word-find problems)? Yes. EXPRESSION - SCORE: 6-LIZZ SOCIAL INTERACTION: SOCIAL INTERACTION - STEP 1: Does the patient require a helper to interact with others in social and therapeutic situations? No. SOCIAL INTERACTION - STEP 2: Does the patient need extra time in social situations, OR does s/he interact with staff, other patien ts, and family members ONLY in structured environments, OR does s/he require medication for social in teraction? Yes, patient needs extra time SOCIAL INTERACTION - SCORE: 6-LIZZ PROBLEM SOLVING: PROBLEM SOLVING - STEP 1: Does the patient need help from a person or device, or need extra time to solve complex problems such as managing a checking account or confronting interpersonal problems? Yes. PROBLEM SOLVING - STEP 2: Does the patient solve basic routine problems half or more of the time? Yes. PROBLEM SOLVING - STEP 3: How often does the patient need help to solve basic routine problems? 10%-24% of the time PROBLEM SOLVING - SCORE: 4-MIN MEMORY: MEMORY - STEP 1: Does the patient need help from a person or device, or need extra time to remember frequently encount ered people, daily routines, and executing requests? No. MEMORY - STEP 2: Does the patient have slight difficulty recognizing frequently encountered people, daily routines, or executing requests without the need for repetition or using self-initiated or environmental cues to remember? Yes. MEMORY - SCORE: 6-LIZZ SIGNATURE PANEL: The following modified sections: Eating - Score, Grooming - Score, Dressing - Upper Body - Score, Mendoza ssing - Lower Body - Score, Toileting - Score, Bladder Management - Score, Bowel Management - Score, Transfers: Bed, Chair, Wheelchair - Score, Transfers: Toilet - Score, Transfers: Shower - Score, Alvarez sfers: Tub - Score, Locomotion: Walk - Score, Locomotion: Wheelchair - Score, Comprehension - Score, Expression - Score, Social Interaction - Score, Problem Solving - Score, Memory - Score were [electro nically] signed by Nhung Corley CNA on WedAug 11 2018 00:58:09 GMT-0600 (Central Standard Time)
[2018-08-11 06:44] LABS: Absolute Lymphocytes (CBC) 1.6 K/uL (0.7-4.9); Absolute Monocytes 0.6 K/uL (0.1-1.3); Absolute Neutrophil 3.6 K/uL (1.8-8.0); Basophils % 1.1 % (0-1.3); Eosinophils % 3.4 % (0-4.4); Lymphocytes % 26.2 % (15.3-44.8); MPV 7.5 fL (7.6-11.3); Monocytes % 10.6 % (3.3-12.3); RBC Red Blood Cell Count 3.92 M/uL (3.86-4.86)
[2018-08-11 06:52] LABS: Potassium 3.7 mmol/L (3.5-5.1); Prealbumin 18.9 mg/dL (20-40)
[2018-08-11] MEDS: ENOXAPARIN 30 MG/0.3 ML SQ SCH (07:30)
[2018-08-11] MEDS: NYSTATIN PWDR 100000 UNIT/GM TOP SCH ×2 (07:31→20:40)
[2018-08-11] MEDS: PANTOPRAZOLE 40MG TABLET PO SCH (08:26)
[2018-08-11] MEDS: OXYBUTYNIN CHLORIDE 5 MG TAB PO SCH ×2 (08:26→20:41)
[2018-08-11] MEDS: CLOPIDOGREL 75 MG TABLET PO SCH (08:27)
[2018-08-11] MEDS: LISINOPRIL 20 MG TAB PO SCH (08:27)
[2018-08-11] MEDS: ASPIRIN EC 81 MG TAB PO SCH (08:27)
[2018-08-11] MEDS: AMLODIPINE 10 MG TAB PO SCH (08:29)
[2018-08-11] MEDS: VENLAFAXINE HCL XR 75 MG CAP PO SCH (08:29)
[2018-08-11] MEDS: CODEINE 30MG/APAP 300MG TAB PO PRN (09:54)
[2018-08-11] MEDS ORDERED: DOCUSATE NA/SENNA CONC 1 TAB PO PRN (10:18)
--- NOTE | 2018-08-11 16:06 | FAST ---
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 Avinash Read M.D. ADMISSION DIAGNOSIS: - Stroke 01 - Left Body (Right Brain) (01.1) ACUTE NONHEMORRHAGIC CVA RIGHT NAHEED. EATING: EATING - STEP 1: Does the patient require the assistance of a person or device, or need extra time when eating? Yes. EATING - STEP 2: Does the patient require the assistance of a helper? Yes. EATING - STEP 3: Does the patient perform half or more of the eating tasks? Yes. EATING - STEP 4: Does the patient need only supervision, cuing, coaxing OR help to apply an orthosis OR help to cut fo od, open containers, pour liquids, or butter bread? Yes. EATING - SCORE: 5-SUP GROOMING: Activity did not occur on this shift GROOMING - SCORE: 0-UNK BATHING: Activity did not occur on this shift BATHING - SCORE: 0-UNK DRESSING - UPPER BODY: T-shirt/pullover shirt (four steps) ARTICLES SCORE Total number of steps: 4 DRESSING - UPPER BODY - STEP 1: Does the patient require help from a person or device, or need extra time when dressing above the jaziel st? Yes. DRESSING - UPPER BODY - STEP 2: Does the patient require the assistance of a helper? Yes. DRESSING - UPPER BODY - STEP 3: Does the helper touch the patient while dressing? Yes. DRESSING - UPPER BODY - STEP 4: How many of the total steps does the patient complete on his/her own? 1 DRESSING - UPPER BODY - STEP 5: Does Patient require total assistance for dressing above the waist such as the helper holding clothin g and performing basically all the activities? No. DRESSING - UPPER BODY - SCORE: 2-MAX DRESSING - LOWER BODY: ARTICLES SCORE Total number of steps: 6 DRESSING - LOWER BODY - STEP 1: Does the patient require help from a person or device, or need extra time when dressing below the jaziel st? Yes. DRESSING - LOWER BODY - STEP 2: Does the patient require the assistance of a helper? Yes. DRESSING - LOWER BODY - STEP 3: Does the helper touch the patient while dressing? Yes. DRESSING - LOWER BODY - STEP 4: How many of the total steps does the patient complete on his/her own? 0 DRESSING - LOWER BODY - STEP 5: Does patient require total assistance for dressing below the waist such as the helper holding clothin g and performing basically all the activities? No. DRESSING - LOWER BODY - SCORE: 2-MAX TOILETING: TOILETING - STEP 1: Does the patient require the assistance of a person or device, or need extra time with toileting? Yes . TOILETING - STEP 2: Does the patient require the assistance of a helper? Yes. TOILETING - STEP 3: How much assistance does the patient require from the helper? Hands-on assistance from the helper TOILETING - STEP 4: Of the 3 tasks: 1) Adjusting clothing prior to use, 2) Cleansing of perineal area, 3) Adjusting clot braulio after use; How many tasks does the patient perform WITHOUT assistance of the helper? No tasks; h elper performs all three tasks TOILETING - SCORE: 1-DEP BLADDER MANAGEMENT: [place] removes incontinent device (Depends, pull ups, etc.); cleans the patient after accident / inco ntinent episode; and, applies new incontinent device. BLADDER MANAGEMENT - SCORE: 1-DEP BLADDER MANAGEMENT - FREQUENCY OF ACCIDENTS: BLADDER MANAGEMENT(FA) - STEP 1: How many accidents has the patient had during the current shift? 2 BOWEL MANAGEMENT: Activity did not occur on this shift BOWEL MANAGEMENT - SCORE: 7-IND TRANSFERS: BED, CHAIR, WHEELCHAIR: TRANSFERS: BED, CHAIR, WHEELCHAIR - STEP 1: Does the patient require assistance of a person or device, or need extra time with bed, chair, or whe elchair transfers? Yes. TRANSFERS: BED, CHAIR, WHEELCHAIR - STEP 2: Does the patient require the assistance of a helper? Yes. TRANSFERS: BED, CHAIR, WHEELCHAIR - STEP 3: How much assistance does the patient require from the helper? Lifting of the patient TRANSFERS: BED, CHAIR, WHEELCHAIR - STEP 4: Does the helper lift the patient ONLY up? ONLY down? Up AND Down? Up AND Down. TRANSFERS: BED, CHAIR, WHEELCHAIR - SCORE: 2-MAX TRANSFERS: TOILET: TRANSFERS: TOILET - STEP 1: Does the patient require the assistance of a person or device, or need extra time with toilet transfe rs? Yes. TRANSFERS: TOILET - STEP 2: Does the patient require the assistance of a helper? Yes. TRANSFERS: TOILET - STEP 3: How much assistance does the patient require from the helper? Patient performs less than half of the transferring tasks TRANSFERS: TOILET - STEP 4: Does the patient require total assistance for the toilet transfer such as the helper doing basically all the lifting? No. TRANSFERS: TOILET - SCORE: 2-MAX TRANSFERS: SHOWER: Activity did not occur on this shift TRANSFERS: SHOWER - SCORE: 0-UNK TRANSFERS: TUB: Activity did not occur on this shift TRANSFERS: TUB - SCORE: 0-UNK LOCOMOTION: WALK: Activity did not occur on this shift LOCOMOTION: WALK - SCORE: 0-UNK LOCOMOTION: WHEELCHAIR: Activity did not occur on this shift LOCOMOTION: WHEELCHAIR - SCORE: 0-UNK COMPREHENSION: COMPREHENSION: TYPE: Both COMPREHENSION - STEP 1: Does the patient require help from a person or device, or need extra time to understand complex and a bstract ideas (such as current events, finances, discharge planning, medical issues, relationships, e tc)? Yes. COMPREHENSION - STEP 2: Does the patient require help to understand questions or statements about basic needs or ideas (such as hunger, thirst, sleep, safety, daily schedule, room location, or discomfort) half or more of the t kei? No. COMPREHENSION - STEP 3: How often does the patient need help to understand directions and conversation about basic needs? Les s than 10% of the time COMPREHENSION - SCORE: 5-SUP EXPRESSION EXPRESSION: TYPE: Both EXPRESSION - STEP 1: Does the patient require help from a person or device, or need extra time expressing complex and abst ract ideas (such as current events, finances, discharge planning, medical issues, relationships, etc) ? No. EXPRESSION - STEP 2: Does the patient need extra time, require an assistive device (such as augmentive communication syste m or a communication board), OR does s/he have mild difficulty expressing complex and abstract ideas (including mild dysarthria or mild word-find problems)? Yes. EXPRESSION - SCORE: 6-LIZZ SOCIAL INTERACTION: SOCIAL INTERACTION - STEP 1: Does the patient require a helper to interact with others in social and therapeutic situations? No. SOCIAL INTERACTION - STEP 2: Does the patient need extra time in social situations, OR does s/he interact with staff, other patien ts, and family members ONLY in structured environments, OR does s/he require medication for social in teraction? Yes, patient needs extra time SOCIAL INTERACTION - SCORE: 6-LIZZ PROBLEM SOLVING: PROBLEM SOLVING - STEP 1: Does the patient need help from a person or device, or need extra time to solve complex problems such as managing a checking account or confronting interpersonal problems? No. PROBLEM SOLVING - STEP 2: Does the patient require extra time to make decisions or solve problems, OR does s/he have slight dif ficulty reading, initiating, or self-correcting in unfamiliar situations? Yes, patient needs extra ti me. PROBLEM SOLVING - SCORE: 6-LIZZ MEMORY: MEMORY - STEP 1: Does the patient need help from a person or device, or need extra time to remember frequently encount ered people, daily routines, and executing requests? No. MEMORY - STEP 2: Does the patient have slight difficulty recognizing frequently encountered people, daily routines, or executing requests without the need for repetition or using self-initiated or environmental cues to remember? Yes. MEMORY - SCORE: 6-LIZZ SIGNATURE PANEL: The following modified sections: Eating - Score, Grooming - Score, Bathing - Score, Dressing - Upper Body - Score, Dressing - Lower Body - Score, Toileting - Score, Bladder Management - Score, Bowel Man agement - Score, Transfers: Bed, Chair, Wheelchair - Score, Transfers: Toilet - Score, Transfers: Tub - Score, Locomotion: Walk - Score, Transfers: Shower - Score, Locomotion: Wheelchair - Score, Compre hension - Score, Expression - Score, Social Interaction - Score, Problem Solving - Score, Memory - Sc ore were [electronically] signed by Roosevelt Velasquez on WedAug 11 2018 16:06:27 GMT-0600 (Central Standard Time)
--- NOTE | 2018-08-11 16:08 | CON ---
Reason For Consultation: Consultation called by emergency room physician because of slurred speech and difficulty walking with left-sided weakness. History Of Present Illness: Ms. Gauthier is an 87-year-old patient who developed more slurred speech and left-sided weakness last Wednesday. Today is Wednesday. She was not seen immediately at [facility], but became in subsequently on , where she was found to have a slurred speech with some left facial drooping, weakness on the left side of body including arm and leg. She was ambulating with a walker from a prior stroke and from prior left foot surgery, which left her with difficulty to flex the left foot that is to move with dorsally and she is ambulating with a walker there. The workup at [facility] in the emergency room included a head CT scan which showed no acute ischemic or hemorrhagic change; however, subsequent brain MRI identifying acute nonhemorrhagic stroke in the right hayder measuring up to 16 x 8 mm in the right posterior hayder. This did correspond to the patient's difficulty with ambulation involving the left side arm and leg along with some slurred speech. She was evaluated by the speech pathologist and found to not be aspirating various consistencies and she is being evaluated by Physical, Occupational Therapy for the need for inpatient rehabilitation to help improve her gait, balance, coordination, endurance, and mobilization using a walker. 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 There is also a significant luminal narrowing at the tip of basal artery which is also suspected to potentially infarcting the area of the brainstem. There was moderate proximal left middle cerebral artery and moderate peripheral right middle cerebral artery arthrosclerotic change identified. 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 Since her admission, the patient says that she has had some slight improvement in the left arm and leg strength. The additional stroke workup did include an echocardiogram showing ejection fraction 65% with minimal mitral annular calcification, otherwise unremarkable. She at home was taking Plavix. Aspirin was added to her regimen in the emergency room. Past Medical History: Alzheimer disease, dementia, currently vascular dementia along with possibly Alzheimer disease. She did see Dr. Esquivle in the past and said he was treating her for dementia. In addition hypertension, dyslipidemia, prior stroke, and transient ischemic attack. Surgical History: Colonoscopy, hysterectomy, left foot surgery, eye surgery, colostomy. Allergies: EGGS AND SULFA ANTIBIOTICS. Medications At Home: Lisinopril 20 mg daily, amlodipine 10 mg daily, aspirin 81 mg daily, atenolol 100 mg daily, donepezil 10 mg daily, Myrbetriq 25 mg daily , and omeprazole 20 mg daily, venlafaxine 75 mg daily. Social History: No tobacco or IV drug use. However, the patient does drink 2 glasses of wine daily. Family History: Noncontributory. Review of Systems: No recent fevers, chills, myalgias, arthralgias, rash, headache, weight change. No active psychiatric complaints. Patient does report the chronic memory loss , but can give a very coherent story. Physical Examination: Vital Signs: Blood pressure 140/54, pulse of 71, respiratory rate 16, temperature 98.3, and saturation 95%. Weight 166 pounds. Height 5 feet 1 inch , BMI 31.4. General: Ms. Gauthier is resting in bed comfortably. She is eating lunch. She is in no acute distress. HEENT: She is normocephalic, atraumatic. Sclerae anicteric. Oropharynx is moist and pink. Neck: Supple. Chest: Clear. Heart: Regular. Extremities: Show no significant edema, cyanosis, or clubbing. The left foot is in a more plantar flexed and she has inability to fully flex the left foot. Neurological: She is alert and oriented to situation, place, time. She does follow all commands appropriately despite the report of a stroke. She actually has symmetric face with good excursions and smiling. She does have good pronunciation of labile, lingual, and guttural sounds. Tongue and palate appear midline. Rest of cranial nerves show no focal deficits. In terms of motor examination in the left upper extremity, she has 4/5 strength. She was able to hold her hand up on the left to a count of 10, but there was some drift noted. The right side fully strong. No weakness noted on a count of 10. On the left side, she is able to keep the heel of the left foot off the bed for a count of 5, but there was some drift without touching the bed on the right side. She denied any loss of sensation to left or right side. She did have some incoordination in the left compared to the right side. There is no dysmetria. Her gait, she ambulated with physical therapy staff. Reflexes depressed in upper and lower extremities. NIH Stroke Scale Emergency Room 8. My finding is NIH Stroke Scale of 6 at this point. Laboratory Studies: Complete blood count with differential showed a slightly low hemoglobin of 11.8, otherwise essentially unremarkable. Coagulation panel is normal. She does have a pending stroke workup panel. Her electrolyte panel essentially unremarkable. Slightly elevated BUN of 21. Creatinine was slightly elevated at 1.3. Glucose ranged from 114-129, calcium slightly low at 8.3, magnesium high at 2.5. Total cholesterol 263, LDL cholesterol 170, HDL cholesterol 60, cholesterol HDL ratio 4.38. Urinalysis showed greater than 50 white blood cells, greater than 50 bacteria, 1+ esterase, trace of blood in the urine. Electrocardiogram shows sinus rhythm with first-degree AV block, septal infarct, age undetermined. Chest x-ray shows no acute abnormalities. Assessment: Ms. Gauthier is an 87-year-old patient with brainstem stroke affecting right side and producing some left-sided symptoms of arm and leg weakness, incoordination, some difficulty with balance, coordination, and gait. Her speech and swallowing are good, although she could still benefit from speech therapy. She has stroke risk factors of hypertension, dyslipidemia, prior stroke, transient ischemic attack, and mild dehydration. Comorbid conditions are managed by Dr. Eastman including possibility of urinary tract infection. Plan: 1. Aspirin along with Plavix and folate 1 mg daily. 2. May allow for some permissive hypertension during this acute phase of stroke up to about 1 week from the acute stroke. 3. The patient should be evaluated by the Physical Therapy staff or need for acute inpatient rehabilitation to improve her gait, balance, coordination, endurance, performance of activities of daily living. 4. Aggressive management of dyslipidemia. 5. Potential management of urinary tract infection treated by Dr. Eastman. 6. This was discussed with the patient and she is in agreement. BRAYDEN Voice ID: [id number] Report ID: [id number] SLIM
--- NOTE | 2018-08-11 16:14 | FAST ---
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 Avinash Read M.D. ADMISSION DIAGNOSIS: - Stroke 01 - Left Body (Right Brain) (01.1) ACUTE NONHEMORRHAGIC CVA RIGHT NAHEED. EATING: Activity did not occur on this shift EATING - SCORE: 0-UNK GROOMING: Activity did not occur on this shift GROOMING - SCORE: 0-UNK BATHING: Activity did not occur on this shift BATHING - SCORE: 0-UNK DRESSING - UPPER BODY: Activity did not occur on this shift Patient is not dressing in public clothing ARTICLES SCORE Total number of steps: 0 DRESSING - UPPER BODY - SCORE: 0-UNK DRESSING - LOWER BODY: Activity did not occur on this shift Patient is not dressing in public clothing ARTICLES SCORE Total number of steps: 0 DRESSING - LOWER BODY - SCORE: 0-UNK TOILETING: Activity did not occur on this shift TOILETING - SCORE: 0-UNK BLADDER MANAGEMENT: Activity did not occur on this shift BLADDER MANAGEMENT - SCORE: 7-IND BOWEL MANAGEMENT: Activity did not occur on this shift BOWEL MANAGEMENT - SCORE: 7-IND TRANSFERS: BED, CHAIR, WHEELCHAIR: TRANSFERS: BED, CHAIR, WHEELCHAIR - STEP 1: Does the patient require assistance of a person or device, or need extra time with bed, chair, or whe elchair transfers? Yes. TRANSFERS: BED, CHAIR, WHEELCHAIR - STEP 2: Does the patient require the assistance of a helper? Yes. TRANSFERS: BED, CHAIR, WHEELCHAIR - STEP 3: How much assistance does the patient require from the helper? Lifting of the patient TRANSFERS: BED, CHAIR, WHEELCHAIR - STEP 4: Does the helper lift the patient ONLY up? ONLY down? Up AND Down? ONLY up. TRANSFERS: BED, CHAIR, WHEELCHAIR - SCORE: 3-MOD TRANSFERS: TOILET: Activity did not occur on this shift TRANSFERS: TOILET - SCORE: 0-UNK TRANSFERS: SHOWER: Activity did not occur on this shift TRANSFERS: SHOWER - SCORE: 0-UNK TRANSFERS: TUB: Activity did not occur on this shift TRANSFERS: TUB - SCORE: 0-UNK LOCOMOTION: WALK: Patient walks less than 50 feet LOCOMOTION: WALK - SCORE: 1-DEP LOCOMOTION: WHEELCHAIR: Activity did not occur on this shift LOCOMOTION: WHEELCHAIR - SCORE: 0-UNK LOCOMOTION: STAIRS: Activity did not occur on this shift LOCOMOTION: STAIRS - SCORE: 0-UNK COMPREHENSION: COMPREHENSION - SCORE: 0-UNK EXPRESSION EXPRESSION - SCORE: 0-UNK SOCIAL INTERACTION: SOCIAL INTERACTION - SCORE: 0-UNK PROBLEM SOLVING: PROBLEM SOLVING - SCORE: 0-UNK MEMORY: MEMORY - SCORE: 0-UNK SIGNATURE PANEL: The following modified sections: Transfers: Bed, Chair, Wheelchair - Score, Transfers: Toilet - Score , Locomotion: Walk - Score, Locomotion: Wheelchair - Score, Locomotion: Stairs - Score were [electron icakian] signed by Gerald Ibrahim PT on WedAug 11 2018 16:14:04 GMT-0600 (Central Standard Time)
--- NOTE | 2018-08-11 17:16 | R.PN ---
ENCOUNTER DATE AND TIME: 08/11/2018 17:13 (TYRE BUILDER) NAME JAIDA RICHARD DATE OF : 1930 DATE OF ADMISSION: 08/09/2018 16:39 (TYRE BUILDER) ACUTE NONHEMORRHAGIC CVA RIGHT PONSCHIEF COMPLAINT: Right hayder stroke with left arm and leg weakness, incoordination and unsteady gait SUBJECTIVE: Pt denied any depression. Pt denied any Shortness of Breath. Ambulated 40' in parallel bars with minimum to moderate assistance. VITAL SIGNS Temperature: 97.6 F SBP/DBP: 154/67 Pulse: 81 Resp: 18 MEDICATION ALLERGIES: Sulfa ENVIRONMENTAL ALLERGIES: Eggs - Substance Allergies None Known - Other Allergies None Known NURSING: - Shower allowing shower - Bladder care per protocol - Skin care per protocol PRECAUTIONS: - Weight Bearing Precaution WBAT left LE ACTIVITIES OOB only with supervision THERAPIES: - Occupational Therapy Evaluate and Treat. Visual Perceptual Training. Cognitive Retraining. - Speech Therapy Cognitive Training. Memory Strategies. Speech Intelligibility Training. Expressive Language Skills. R eceptive Language Skills. - Physical Therapy Evaluate and Treat. PHYSICAL EXAM - Gen Alert and awake Lying in bed No apparent distress Oriented to: person, time, and place - Skin No breakdown No numbness - Eyes No abnormalities - ENMT No abnormalities - Neck No abnormalities - CVS RRR - Chest No abnormalities - Abd + bowel sounds - GI Soft Deferred - No abnormalities - Ext No significant edema - MSK 4+/5 weakness in left upper and lower extremities. - Neuro 4+/5 weakness in left upper and lower extremities. - Psych No abnormalities ASSESSMENT: Pt. is a 87 yo Right-handed white female.On 08/08/2018 Pt. presented to [facility] with sudden onset of left-side weakness.On 08/08/2018 she was admitted to [facility] with diagnosis ACUTE NONHEMORRHAGIC CVA RIGHT HAYDER.Her impairment category is Stroke 01 - Left Body (Right Brain) (01.1).Pre-morbidly, Pt. was independent/mod-I in Sphincter Control, Transfe rs Control, Communication, Social Cognition, Self-Care, and Locomotion; and she had good Endurance, S phincter Control, Safety Awareness, and Balance.Currently, she has deficits of Transfers Control, Do f-Care, and Locomotion.Pt. is now referred to [facility] for acute in-patient rehabilitation in order to maximize patient's functional independence in activities of daily living, strength, ROM, and mobility.- Rehab Goal Patient has realistic goal of being discharged at assistance level 2-maxA to reside at Home with Fam catrachito/Relatives. MDM/PLAN: - Physical Therapy Gait dysfunction - to improve, our physical therapists will perform initial evaluation of pt's statu s upon admission and devise an individualized program for Gait Training, and Wheel Chair mobility Inability to transfer - to improve, our physical therapists will perform initial evaluation of pt's status upon admission and devise an individualized program for Bed mobility Need for home safety evaluation - to improve, our physical therapists will perform initial evaluatio n of pt's status upon admission and devise an individualized program for Home Evaluation Edema - to improve, our physical therapists will perform initial evaluation of pt's status upon admi ssion and devise an individualized program for Elevation Training, and Lymphedema Therapy Need in caregiver upon discharge - to improve, our physical therapists will perform initial evaluati on of pt's status upon admission and devise an individualized program for Caregiver Training New precaution - to improve, our physical therapists will perform initial evaluation of pt's status upon admission and devise an individualized program for Patient precaution education Achieving independence - to improve, our physical therapists will perform initial evaluation of pt's status upon admission and devise an individualized program for Community Reintegration Activities - Occupational Therapy ADL deficits - to improve, our occupation therapists will perform initial evaluation of pt's status upon admission and devise an individualized program for Bathing, Bed mobility, Community Reintegratio n, Cooking, Dressing, Eating, Fine Motor Skills, Grooming, Homemaking, Kitchen Mobility, Laundry, Pat ient Education, Safety Awareness, Splinting - Positioning, Transfers(Toilet, Tub, Shower), and Wheel Chair Management Need for patient care - to improve, our occupation therapists will perform initial evaluation of pt's status upon admission and devise an individualized program for Caregiver Training - Diet Type Continue Regular - Diet - Liquid Texture Continue Regular - Tube Feed Continue N/A - Bladder care per protocol - Weight Bearing Precaution WBAT left LE - Skin care per protocol - Diet - Solid Texture Continue Mechanical Soft - Shower allowing shower for Dementia, TBI, Stroke, or others FUNCTIONAL STATUS: UPDATED AT WEEKLY TEAM CONFERENCE - Bladder Same accident frequency: 7-Ind - No accidents in the past 7 days - Bowel Same accident frequency: 7-Ind - No accidents in the past 7 days - Walking Same score based on distance walked: 0(N/A) - Wheelchair Same score based on distance traveled: 0(N/A) FUNCTIONAL STATUS: - Self-Care A. Eating sup B. Grooming Ind C. Bathing sup D. Dressing - Upper sup E. Dressing - Lower sup F. Toileting sup - Sphincter Control G: Bladder control Ind H: Bowel control Ind - Transfers Control I. Bed/Chair/Wheelchair maxA J. Toilet maxA K. Tub/Shower ADNO - Locomotion L. Walk/Wheelchair (C) maxA L. Walk/Wheelchair (W) maxA M. Stairs ADNO - Communication N. Comprehension (B) Ind O. Expression (B) Ind - Social Cognition P. Social Interaction Ind Q. Problem Solving Ind R. Memory Ind - Endurance Good - Balance Good - Safety Awareness Good CURRENT FUNC. DEFICITS: Transfers Control, Self-Care, and Locomotion SIGNATURE PANEL: (TYRE BUILDER)
[2018-08-11] MEDS: DONEPEZIL HCL 5 MG TAB PO SCH (20:40)
[2018-08-11] MEDS: NETARSUDIL OPTH SCH (20:42)
[2018-08-11] MEDS ORDERED: POLYETHYL GLY 3350 17 GM/DOSE PO PRN (20:57)
--- NOTE | 2018-08-11 21:07 | P.PN ---
Subjective Date of Service: 08/11/18 Chief Complaint: STABLE, NO CHANGES. Subjective: No new changes WEAK NOT ABLE TO COMPLAIN MUCH. STILL VERY WEAK AND WILL NOT ABLE TO GO HOME. I RECOMMEND NH. Review of Systems 10-point ROS is otherwise unremarkable General: Weakness, Malaise Physical Examination - Vital Signs Temperature: 97.9 F Blood Pressure: 104/54 Pulse: 79 Respirations: 16 Pulse Ox (%): 96 - Physical Exam General: Alert, Mild distress HEENT: Atraumatic, PERRLA, EOMI Neck: Supple, JVD not distended Respiratory: Clear to auscultation bilaterally, Normal air movement Cardiovascular: Regular rate/rhythm, Normal S1 S2 Gastrointestinal: Normal bowel sounds, No tenderness Musculoskeletal: No tenderness Integumentary: No rashes Neurological: Abnormal speech, Abnormal strength (L HEMIPARESIS.) Lymphatics: No axilla or inguinal lymphadenopathy - Studies Laboratory Data (last 24 hrs) 08/11/18 05:53: Sodium 141, Potassium 3.7, BUN 17, Creatinine 0.80, Glucose 108 H 08/11/18 05:53: WBC 6.1, Hgb 11.6 L, Hct 34.0 L, Plt Count 340 Medications List Reviewed: Yes Assessment And Plan - Current Problems (Diagnosis) (1) CVA (cerebral vascular accident) Onset Date: 08/08/18 Current Visit: No Status: Acute Plan: PT NOT ABLE TO TAKE 3 HOURS OF THERAPY. NH ADVISED. Qualifiers: Precerebral and cerebral artery: other cerebral artery (2) HTN (hypertension) Onset Date: 08/08/18 Current Visit: No Status: Chronic Plan: REDUCE NORVASC BP IS LOW NORMAL NOW.
[2018-08-11 22:53] LABS: Thyroid Stimulating Hormone 4.73 uIU/mL (0.360-3.740)
--- NOTE | 2018-08-12 02:20 | FAST ---
SHIFT START DATE/TIME: 08/11/2018 19:00 (REPEATER OPERATOR) SHIFT END DATE/TIME: 08/12/2018 07:00 (REPEATER OPERATOR) NAME JAIDA RICHARD DATE OF : 1930 DATE OF ADMISSION: 08/09/2018 16:39 (REPEATER OPERATOR) PHONE: AGE: 87 SSN# [id number] GENDER: Female ENCOUNTER PHYSICIAN: Dr. Avinash Read M.D. ADMISSION DIAGNOSIS: - Stroke 01 - Left Body (Right Brain) (01.1) ACUTE NONHEMORRHAGIC CVA RIGHT NAHEED. EATING: Activity did not occur on this shift EATING - SCORE: 0-UNK GROOMING: Activity did not occur on this shift GROOMING - SCORE: 0-UNK BATHING: Activity did not occur on this shift BATHING - SCORE: 0-UNK DRESSING - UPPER BODY: Patient is not dressing in public clothing ARTICLES SCORE Total number of steps: 0 DRESSING - UPPER BODY - SCORE: 0-UNK DRESSING - LOWER BODY: Patient is not dressing in public clothing ARTICLES SCORE Total number of steps: 0 DRESSING - LOWER BODY - SCORE: 0-UNK TOILETING: Activity did not occur on this shift TOILETING - SCORE: 0-UNK BLADDER MANAGEMENT: Sheldon removes incontinent device (Depends, pull ups, etc.); cleans the patient after accident / inco ntinent episode; and, applies new incontinent device. BLADDER MANAGEMENT - SCORE: 1-DEP BOWEL MANAGEMENT: Activity did not occur on this shift BOWEL MANAGEMENT - SCORE: 7-IND TRANSFERS: BED, CHAIR, WHEELCHAIR: Activity did not occur on this shift TRANSFERS: BED, CHAIR, WHEELCHAIR - SCORE: 0-UNK TRANSFERS: TOILET: Activity did not occur on this shift TRANSFERS: TOILET - SCORE: 0-UNK TRANSFERS: SHOWER: Activity did not occur on this shift TRANSFERS: SHOWER - SCORE: 0-UNK TRANSFERS: TUB: Activity did not occur on this shift TRANSFERS: TUB - SCORE: 0-UNK LOCOMOTION: WALK: Activity did not occur on this shift LOCOMOTION: WALK - SCORE: 0-UNK LOCOMOTION: WHEELCHAIR: Activity did not occur on this shift LOCOMOTION: WHEELCHAIR - SCORE: 0-UNK COMPREHENSION: COMPREHENSION: TYPE: Both COMPREHENSION - STEP 1: Does the patient require help from a person or device, or need extra time to understand complex and a bstract ideas (such as current events, finances, discharge planning, medical issues, relationships, e tc)? No. COMPREHENSION - STEP 2: Does the patient need extra time, require an assistive device (such as glasses for visual comprehensi on or a hearing aid for auditory comprehension) or does s/he have mild difficulty understanding compl ex and abstract information? Yes. COMPREHENSION - SCORE: 6-LIZZ EXPRESSION EXPRESSION: TYPE: Both EXPRESSION - STEP 1: Does the patient require help from a person or device, or need extra time expressing complex and abst ract ideas (such as current events, finances, discharge planning, medical issues, relationships, etc) ? No. EXPRESSION - STEP 2: Does the patient need extra time, require an assistive device (such as augmentive communication syste m or a communication board), OR does s/he have mild difficulty expressing complex and abstract ideas (including mild dysarthria or mild word-find problems)? Yes. EXPRESSION - SCORE: 6-LIZZ SOCIAL INTERACTION: SOCIAL INTERACTION - STEP 1: Does the patient require a helper to interact with others in social and therapeutic situations? No. SOCIAL INTERACTION - STEP 2: Does the patient need extra time in social situations, OR does s/he interact with staff, other patien ts, and family members ONLY in structured environments, OR does s/he require medication for social in teraction? Yes, patient needs extra time SOCIAL INTERACTION - SCORE: 6-LIZZ PROBLEM SOLVING: PROBLEM SOLVING - STEP 1: Does the patient need help from a person or device, or need extra time to solve complex problems such as managing a checking account or confronting interpersonal problems? Yes. PROBLEM SOLVING - STEP 2: Does the patient solve basic routine problems half or more of the time? Yes. PROBLEM SOLVING - STEP 3: How often does the patient need help to solve basic routine problems? 10%-24% of the time PROBLEM SOLVING - SCORE: 4-MIN MEMORY: MEMORY - STEP 1: Does the patient need help from a person or device, or need extra time to remember frequently encount ered people, daily routines, and executing requests? Yes. MEMORY - STEP 2: How often does the patient need help to remember frequently encountered people, daily routines, and e xecuting requests? Less than 10% of the time MEMORY - SCORE: 5-SUP
[2018-08-12] MEDS: NYSTATIN PWDR 100000 UNIT/GM TOP SCH ×2 (08:00→20:00)
[2018-08-12] MEDS: ENOXAPARIN 30 MG/0.3 ML SQ SCH (08:28)
[2018-08-12] MEDS: AMLODIPINE 5 MG TAB PO SCH (08:28)
[2018-08-12] MEDS: ASPIRIN EC 81 MG TAB PO SCH (08:29)
[2018-08-12] MEDS: LISINOPRIL 20 MG TAB PO SCH (08:29)
[2018-08-12] MEDS: PANTOPRAZOLE 40MG TABLET PO SCH (08:30)
[2018-08-12] MEDS: CLOPIDOGREL 75 MG TABLET PO SCH (08:30)
[2018-08-12] MEDS: OXYBUTYNIN CHLORIDE 5 MG TAB PO SCH ×2 (08:30→20:00)
[2018-08-12] MEDS: VENLAFAXINE HCL XR 75 MG CAP PO SCH (08:30)
--- NOTE | 2018-08-12 09:55 | P.RH.PN ---
Estimated Length of Stay: 20 Expected Discharge Date: 08/28/18 Discharge Disposition Plan: Home Family Support: Yes Assisted Goal: Mobility, Transfers, Self Care Vital Signs: Last Vital Signs Temp 97.0 F 08/12/18 09:20 Pulse 71 08/12/18 09:20 Resp 16 08/12/18 09:20 BP 124/59 L 08/12/18 09:20 Pulse Ox 95 08/12/18 09:20 Laboratory: Laboratory Last Values WBC 6.1 K/uL (4.3-10.9) 08/11/18 05:53 RBC 3.92 M/uL (3.86-4.86) 08/11/18 05:53 Hgb 11.6 g/dL (12.0-15.0) L 08/11/18 05:53 Hct 34.0 % (36.0-45.0) L 08/11/18 05:53 MCV 86.6 fL (80-100) 08/11/18 05:53 MCH 29.5 pg (27.0-35.0) 08/11/18 05:53 MCHC 34.1 g/dL (32.0-36.0) 08/11/18 05:53 RDW 13.5 % (12.1-15.2) 08/11/18 05:53 Plt Count 340 K/uL (152-406) 08/11/18 05:53 MPV 7.5 fL (7.6-11.3) L 08/11/18 05:53 Neutrophils % 58.7 % (41.7-73.7) 08/11/18 05:53 Lymphocytes % 26.2 % (15.3-44.8) 08/11/18 05:53 Monocytes % 10.6 % (3.3-12.3) 08/11/18 05:53 Eosinophils % 3.4 % (0-4.4) 08/11/18 05:53 Basophils % 1.1 % (0-1.3) 08/11/18 05:53 Absolute Neutrophils 3.6 K/uL (1.8-8.0) 08/11/18 05:53 Absolute Lymphocytes 1.6 K/uL (0.7-4.9) 08/11/18 05:53 Absolute Monocytes 0.6 K/uL (0.1-1.3) 08/11/18 05:53 Absolute Eosinophils 0.2 K/uL (0-0.5) 08/11/18 05:53 Absolute Basophils 0.1 K/uL (0-0.5) 08/11/18 05:53 ESR Westergren 38 mm/HR (0-30) H 08/11/18 21:56 Sodium 141 mmol/L (136-145) 08/11/18 05:53 Potassium 3.7 mmol/L (3.5-5.1) 08/11/18 05:53 Chloride 108 mmol/L (98-107) H 08/11/18 05:53 Carbon Dioxide 27 mmol/L (21-32) 08/11/18 05:53 BUN 17 mg/dL (7-18) 08/11/18 05:53 Creatinine 0.80 mg/dL (0.55-1.3) 08/11/18 05:53 Estimated GFR 68 mL/min (=/>90) L 08/11/18 05:53 Glucose 108 mg/dL (74-106) H 08/11/18 05:53 Calcium 8.6 mg/dL (8.5-10.1) 08/11/18 05:53 Magnesium 2.0 mg/dL (1.8-2.4) D 08/10/18 05:56 Albumin 3.0 g/dL (3.4-5.0) L 08/11/18 05:53 Prealbumin 18.9 mg/dL (20-40) L 08/11/18 05:53 Vitamin B12 313 pg/mL (193-986) 08/11/18 21:56 TSH 4.730 uIU/mL (0.360-3.740) H 08/11/18 21:56 Free T4 1.05 ng/dL (0.76-1.46) 08/11/18 21:56 Weight: 167 lb 4 oz Wound Present: No Closed Surgical Incision Present: No Negative Pressure Wound Therapy Present: No Physician Update: Labs have been reviewed and are stable. She is doing OK with physical and occupational therapy but she has retropulsion on standing and in ambulating short distance in parallel bars with minimum assistance. She walked 20' with moderate assistance using a walker. She has mild delay in oral phase. She is on mechanical soft diet without aspiration. Medical Issues: DVT Prophylaxis - Lovenox 30mg SQ Daily Functional Improvement: pt is demonstrating functional progress. She does fatigue rapidly. pt continues to require skilled PT services to enhance functional performance and safety. Functional Improvement Occupational Therapy: Fatigues quickly, however, great participation during therapy. Speech Therapy Update: Patient is at MIN A for auditory comprehension, MIN A for verbal expression, MOD I for social interaction, MIN A for problem solving, and MOD A for memory. Patient is 85% intelligible in conversational speech. She exhibits occasional word-finding deficits which are usually relieved by circumlocution or allowing extra time. 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 However, overall pt's cognition is a relative strength. Patient is currently tolerating mechanical soft solids and regular thin liquids without difficulty; no clinical s/s of aspiration have been observed or reported. Summary: Patient's care plan and retirement goals have been reviewed and revised as necessary. Please see the Rehabilitation Signature page for all necessary signatures.
--- NOTE | 2018-08-12 11:19 | FAST ---
SHIFT START DATE/TIME: 08/12/2018 07:00 (SYSTEMS COORDINATOR) SHIFT END DATE/TIME: 08/12/2018 19:00 (SYSTEMS COORDINATOR) NAME JAIDA RICHARD DATE OF : 1930 DATE OF ADMISSION: 08/09/2018 16:39 (SYSTEMS COORDINATOR) PHONE: AGE: 87 SSN# [id number] GENDER: Female ENCOUNTER PHYSICIAN: Dr. Avinash Read M.D. ADMISSION DIAGNOSIS: - Stroke 01 - Left Body (Right Brain) (01.1) ACUTE NONHEMORRHAGIC CVA RIGHT NAHEED. EATING: EATING - STEP 1: Does the patient require the assistance of a person or device, or need extra time when eating? Yes. EATING - STEP 2: Does the patient require the assistance of a helper? No, patient only requires an assistive device, O R s/he takes more than reasonable time to eat, OR there is a safety concern, OR s/he requires modifie d food consistency EATING - SCORE: 6-LIZZ GROOMING: Activity did not occur on this shift GROOMING - SCORE: 0-UNK BATHING: Activity did not occur on this shift BATHING - SCORE: 0-UNK DRESSING - UPPER BODY: T-shirt/pullover shirt (four steps) ARTICLES SCORE Total number of steps: 4 DRESSING - UPPER BODY - STEP 1: Does the patient require help from a person or device, or need extra time when dressing above the j[address]? Yes. DRESSING - UPPER BODY - STEP 2: Does the patient require the assistance of a helper? Yes. DRESSING - UPPER BODY - STEP 3: Does the helper touch the patient while dressing? Yes. DRESSING - UPPER BODY - STEP 4: How many of the total steps does the patient complete on his/her own? 4 DRESSING - UPPER BODY - SCORE: 4-MIN DRESSING - LOWER BODY: Elastic waist pants (three steps) ARTICLES SCORE Total number of steps: 3 DRESSING - LOWER BODY - STEP 1: Does the patient require help from a person or device, or need extra time when dressing below the jaz[address]? Yes. DRESSING - LOWER BODY - STEP 2: Does the patient require the assistance of a helper? Yes. DRESSING - LOWER BODY - STEP 3: Does the helper touch the patient while dressing? Yes. DRESSING - LOWER BODY - STEP 4: How many of the total steps does the patient complete on his/her own? 1 DRESSING - LOWER BODY - STEP 5: Does patient require total assistance for dressing below the waist such as the helper holding clothin g and performing basically all the activities? No. DRESSING - LOWER BODY - SCORE: 2-MAX TOILETING: Activity did not occur on this shift TOILETING - SCORE: 0-UNK BLADDER MANAGEMENT: [place] removes incontinent device (Depends, pull ups, etc.); cleans the patient after accident / inco ntinent episode; and, applies new incontinent device. BLADDER MANAGEMENT - SCORE: 1-DEP BLADDER MANAGEMENT - FREQUENCY OF ACCIDENTS: BLADDER MANAGEMENT(FA) - STEP 1: How many accidents has the patient had during the current shift? 1 BOWEL MANAGEMENT: Activity did not occur on this shift BOWEL MANAGEMENT - SCORE: 7-IND BOWEL MANAGEMENT - FREQUENCY OF ACCIDENTS: BOWEL MANAGEMENT(FA) - STEP 1: How many accidents has the patient had during the current shift? 0 TRANSFERS: BED, CHAIR, WHEELCHAIR: TRANSFERS: BED, CHAIR, WHEELCHAIR - STEP 1: Does the patient require assistance of a person or device, or need extra time with bed, chair, or whe elchair transfers? Yes. TRANSFERS: BED, CHAIR, WHEELCHAIR - STEP 2: Does the patient require the assistance of a helper? Yes. TRANSFERS: BED, CHAIR, WHEELCHAIR - STEP 3: How much assistance does the patient require from the helper? Lifting of the legs TRANSFERS: BED, CHAIR, WHEELCHAIR - STEP 4: How many legs does the patient require the helper to lift? both legs TRANSFERS: BED, CHAIR, WHEELCHAIR - SCORE: 3-MOD TRANSFERS: TOILET: Activity did not occur on this shift TRANSFERS: TOILET - SCORE: 0-UNK TRANSFERS: SHOWER: Activity did not occur on this shift TRANSFERS: SHOWER - SCORE: 0-UNK TRANSFERS: TUB: Activity did not occur on this shift TRANSFERS: TUB - SCORE: 0-UNK LOCOMOTION: WALK: Activity did not occur on this shift LOCOMOTION: WALK - SCORE: 0-UNK LOCOMOTION: WHEELCHAIR: Activity did not occur on this shift LOCOMOTION: WHEELCHAIR - SCORE: 0-UNK COMPREHENSION: COMPREHENSION - SCORE: 0-UNK EXPRESSION EXPRESSION - SCORE: 0-UNK SOCIAL INTERACTION: SOCIAL INTERACTION - SCORE: 0-UNK PROBLEM SOLVING: PROBLEM SOLVING - SCORE: 0-UNK MEMORY: MEMORY - SCORE: 0-UNK SIGNATURE PANEL: The following modified sections: Eating - Score, Grooming - Score, Bathing - Score, Dressing - Upper Body - Score, Dressing - Lower Body - Score, Toileting - Score, Bladder Management - Score, Bowel Man agement - Score, Transfers: Bed, Chair, Wheelchair - Score, Transfers: Toilet - Score, Transfers: Ol[place] wer - Score, Transfers: Tub - Score, Locomotion: Walk - Score, Locomotion: Wheelchair - Score, Compre hension - Score, Expression - Score, Social Interaction - Score, Problem Solving - Score, Memory - Sc ore were [electronically] signed by Jessika Soares CNA on WedAug 12 2018 11:18:52 GMT-0600 ([facility])
--- NOTE | 2018-08-12 14:12 | FAST ---
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 Avinash Read M.D. ADMISSION DIAGNOSIS: - Stroke 01 - Left Body (Right Brain) (01.1) ACUTE NONHEMORRHAGIC CVA RIGHT NAHEED. EATING: Activity did not occur on this shift EATING - SCORE: 0-UNK GROOMING: Comb/brush hair Wash, rinse, and dry face Wash, rinse, and dry hands GROOMING - STEP 1: Does the patient require the assistance of a person or device, or need extra time when grooming? Yes. GROOMING - STEP 2: Does the patient require the assistance of a helper? Yes. GROOMING - STEP 3: How much assistance does the patient require from the helper? Only prior equipment preparation/set up from the helper GROOMING - SCORE: 5-SUP BATHING: Abdomen Buttocks Chest Left arm Left lower leg and foot Left upper leg Perineal area Right arm Right upper leg BATHING - STEP 1: Does the patient require the assistance of a person or device, or need extra time when bathing? Yes. BATHING - STEP 2: Does the patient require the assistance of a helper? Yes. BATHING - STEP 3: How much assistance does the patient require from the helper? More than just incidental help BATHING - STEP 4: What percent of the body parts did the patient bathe WITHOUT the helper? Half or more of the body par ts BATHING - SCORE: 3-MOD DRESSING - UPPER BODY: T-shirt/pullover shirt (four steps) ARTICLES SCORE Total number of steps: 4 DRESSING - UPPER BODY - STEP 1: Does the patient require help from a person or device, or need extra time when dressing above the jaz[address] st? Yes. DRESSING - UPPER BODY - STEP 2: Does the patient require the assistance of a helper? Yes. DRESSING - UPPER BODY - STEP 3: Does the helper touch the patient while dressing? Yes. DRESSING - UPPER BODY - STEP 4: How many of the total steps does the patient complete on his/her own? 2 DRESSING - UPPER BODY - SCORE: 3-MOD DRESSING - LOWER BODY: Elastic waist pants (three steps) Sock - Left foot (one step) Sock - Right foot (one step) Underwear (three steps) ARTICLES SCORE Total number of steps: 8 DRESSING - LOWER BODY - STEP 1: Does the patient require help from a person or device, or need extra time when dressing below the jaziel st? Yes. DRESSING - LOWER BODY - STEP 2: Does the patient require the assistance of a helper? Yes. DRESSING - LOWER BODY - STEP 3: Does the helper touch the patient while dressing? Yes. DRESSING - LOWER BODY - STEP 4: How many of the total steps does the patient complete on his/her own? 5 DRESSING - LOWER BODY - SCORE: 3-MOD TOILETING: Activity did not occur on this shift TOILETING - SCORE: 0-UNK BLADDER MANAGEMENT: Activity did not occur on this shift BLADDER MANAGEMENT - SCORE: 7-IND BOWEL MANAGEMENT: Activity did not occur on this shift BOWEL MANAGEMENT - SCORE: 7-IND TRANSFERS: BED, CHAIR, WHEELCHAIR: TRANSFERS: BED, CHAIR, WHEELCHAIR - STEP 1: Does the patient require assistance of a person or device, or need extra time with bed, chair, or whe elchair transfers? Yes. TRANSFERS: BED, CHAIR, WHEELCHAIR - STEP 2: Does the patient require the assistance of a helper? Yes. TRANSFERS: BED, CHAIR, WHEELCHAIR - STEP 3: How much assistance does the patient require from the helper? Lifting of the patient TRANSFERS: BED, CHAIR, WHEELCHAIR - STEP 4: Does the helper lift the patient ONLY up? ONLY down? Up AND Down? Up AND Down. TRANSFERS: BED, CHAIR, WHEELCHAIR - SCORE: 2-MAX TRANSFERS: TOILET: Activity did not occur on this shift TRANSFERS: TOILET - SCORE: 0-UNK TRANSFERS: SHOWER: Activity did not occur on this shift TRANSFERS: SHOWER - SCORE: 0-UNK TRANSFERS: TUB: Activity did not occur on this shift TRANSFERS: TUB - SCORE: 0-UNK LOCOMOTION: WALK: Activity did not occur on this shift LOCOMOTION: WALK - SCORE: 0-UNK LOCOMOTION: WHEELCHAIR: Activity did not occur on this shift LOCOMOTION: WHEELCHAIR - SCORE: 0-UNK LOCOMOTION: STAIRS: Activity did not occur on this shift LOCOMOTION: STAIRS - SCORE: 0-UNK COMPREHENSION: COMPREHENSION: TYPE: Both COMPREHENSION - STEP 1: Does the patient require help from a person or device, or need extra time to understand complex and a bstract ideas (such as current events, finances, discharge planning, medical issues, relationships, e tc)? Yes. COMPREHENSION - STEP 2: Does the patient require help to understand questions or statements about basic needs or ideas (such as hunger, thirst, sleep, safety, daily schedule, room location, or discomfort) half or more of the t kei? No. COMPREHENSION - STEP 3: How often does the patient need help to understand directions and conversation about basic needs? 10% - 24% of the time COMPREHENSION - SCORE: 4-MIN EXPRESSION EXPRESSION: TYPE: Both EXPRESSION - STEP 1: Does the patient require help from a person or device, or need extra time expressing complex and abst ract ideas (such as current events, finances, discharge planning, medical issues, relationships, etc) ? Yes. EXPRESSION - STEP 2: Does the patient require help to express basic necessities or ideas (such as hunger, thirst, sleep, s afety, daily schedule, room location, or discomfort) half or more of the time? No. EXPRESSION - STEP 3: How often does the patient need help to express directions and conversation about basic needs? Less t naidu 10% of the time EXPRESSION - SCORE: 5-SUP SOCIAL INTERACTION: SOCIAL INTERACTION - STEP 1: Does the patient require a helper to interact with others in social and therapeutic situations? No. SOCIAL INTERACTION - STEP 2: Does the patient need extra time in social situations, OR does s/he interact with staff, other patien ts, and family members ONLY in structured environments, OR does s/he require medication for social in teraction? Yes, patient needs extra time SOCIAL INTERACTION - SCORE: 6-LIZZ PROBLEM SOLVING: PROBLEM SOLVING - STEP 1: Does the patient need help from a person or device, or need extra time to solve complex problems such as managing a checking account or confronting interpersonal problems? Yes. PROBLEM SOLVING - STEP 2: Does the patient solve basic routine problems half or more of the time? Yes. PROBLEM SOLVING - STEP 3: How often does the patient need help to solve basic routine problems? 25%-49% of the time PROBLEM SOLVING - SCORE: 3-MOD MEMORY: MEMORY - STEP 1: Does the patient need help from a person or device, or need extra time to remember frequently encount ered people, daily routines, and executing requests? Yes. MEMORY - STEP 2: How often does the patient need help to remember frequently encountered people, daily routines, and e xecuting requests? 25% - 49% of the time MEMORY - SCORE: 3-MOD SIGNATURE PANEL: The following modified sections: Eating - Score, Grooming - Score, Bathing - Score, Dressing - Upper Body - Score, Dressing - Lower Body - Score, Toileting - Score, Transfers: Bed, Chair, Wheelchair - S core, Transfers: Toilet - Score, Transfers: Shower - Score, Transfers: Tub - Score, Comprehension - S core, Expression - Score, Social Interaction - Score, Problem Solving - Score, Memory - Score were [e lectronically] signed by Naomi Stapleton OT on WedAug 12 2018 14:11:24 T-0600 ([facility])
[2018-08-12] MEDS: DONEPEZIL HCL 5 MG TAB PO SCH (21:10)
[2018-08-12] MEDS: NETARSUDIL OPTH SCH (21:11)
--- NOTE | 2018-08-13 02:07 | FAST ---
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 Avinash Read M.D. ADMISSION DIAGNOSIS: - Stroke 01 - Left Body (Right Brain) (01.1) ACUTE NONHEMORRHAGIC CVA RIGHT NAHEED. EATING: Activity did not occur on this shift EATING - SCORE: 0-UNK GROOMING: Activity did not occur on this shift GROOMING - SCORE: 0-UNK BATHING: Activity did not occur on this shift BATHING - SCORE: 0-UNK DRESSING - UPPER BODY: Patient is not dressing in public clothing ARTICLES SCORE Total number of steps: 0 DRESSING - UPPER BODY - SCORE: 0-UNK DRESSING - LOWER BODY: Patient is not dressing in public clothing ARTICLES SCORE Total number of steps: 0 DRESSING - LOWER BODY - SCORE: 0-UNK TOILETING: Activity did not occur on this shift TOILETING - SCORE: 0-UNK BLADDER MANAGEMENT: [place] removes incontinent device (Depends, pull ups, etc.); cleans the patient after accident / inco ntinent episode; and, applies new incontinent device. BLADDER MANAGEMENT - SCORE: 1-DEP BOWEL MANAGEMENT: [place] removes incontinent device (depends, pull ups, etc.); cleans the patient after accident / inco ntinent episode; and, applies new device (depends, pull-ups, padding, etc.). BOWEL MANAGEMENT - SCORE: 1-DEP TRANSFERS: BED, CHAIR, WHEELCHAIR: TRANSFERS: BED, CHAIR, WHEELCHAIR - STEP 1: Does the patient require assistance of a person or device, or need extra time with bed, chair, or whe elchair transfers? Yes. TRANSFERS: BED, CHAIR, WHEELCHAIR - STEP 2: Does the patient require the assistance of a helper? Yes. TRANSFERS: BED, CHAIR, WHEELCHAIR - STEP 3: How much assistance does the patient require from the helper? Lifting of the patient TRANSFERS: BED, CHAIR, WHEELCHAIR - STEP 4: Does the helper lift the patient ONLY up? ONLY down? Up AND Down? ONLY up. TRANSFERS: BED, CHAIR, WHEELCHAIR - SCORE: 3-MOD TRANSFERS: TOILET: Activity did not occur on this shift TRANSFERS: TOILET - SCORE: 0-UNK TRANSFERS: SHOWER: Activity did not occur on this shift TRANSFERS: SHOWER - SCORE: 0-UNK TRANSFERS: TUB: Activity did not occur on this shift TRANSFERS: TUB - SCORE: 0-UNK LOCOMOTION: WALK: Activity did not occur on this shift LOCOMOTION: WALK - SCORE: 0-UNK LOCOMOTION: WHEELCHAIR: Activity did not occur on this shift LOCOMOTION: WHEELCHAIR - SCORE: 0-UNK COMPREHENSION: COMPREHENSION: TYPE: Both COMPREHENSION - STEP 1: Does the patient require help from a person or device, or need extra time to understand complex and a bstract ideas (such as current events, finances, discharge planning, medical issues, relationships, e tc)? No. COMPREHENSION - STEP 2: Does the patient need extra time, require an assistive device (such as glasses for visual comprehensi on or a hearing aid for auditory comprehension) or does s/he have mild difficulty understanding compl ex and abstract information? Yes. COMPREHENSION - SCORE: 6-LIZZ EXPRESSION EXPRESSION: TYPE: Both EXPRESSION - STEP 1: Does the patient require help from a person or device, or need extra time expressing complex and abst ract ideas (such as current events, finances, discharge planning, medical issues, relationships, etc) ? No. EXPRESSION - STEP 2: Does the patient need extra time, require an assistive device (such as augmentive communication syste m or a communication board), OR does s/he have mild difficulty expressing complex and abstract ideas (including mild dysarthria or mild word-find problems)? Yes. EXPRESSION - SCORE: 6-LIZZ SOCIAL INTERACTION: SOCIAL INTERACTION - STEP 1: Does the patient require a helper to interact with others in social and therapeutic situations? No. SOCIAL INTERACTION - STEP 2: Does the patient need extra time in social situations, OR does s/he interact with staff, other patien ts, and family members ONLY in structured environments, OR does s/he require medication for social in teraction? Yes, patient needs extra time SOCIAL INTERACTION - SCORE: 6-LIZZ PROBLEM SOLVING: PROBLEM SOLVING - STEP 1: Does the patient need help from a person or device, or need extra time to solve complex problems such as managing a checking account or confronting interpersonal problems? Yes. PROBLEM SOLVING - STEP 2: Does the patient solve basic routine problems half or more of the time? Yes. PROBLEM SOLVING - STEP 3: How often does the patient need help to solve basic routine problems? 10%-24% of the time PROBLEM SOLVING - SCORE: 4-MIN MEMORY: MEMORY - STEP 1: Does the patient need help from a person or device, or need extra time to remember frequently encount ered people, daily routines, and executing requests? No. MEMORY - STEP 2: Does the patient have slight difficulty recognizing frequently encountered people, daily routines, or executing requests without the need for repetition or using self-initiated or environmental cues to remember? Yes. MEMORY - SCORE: 6-LIZZ
[2018-08-13] MEDS: ASPIRIN EC 81 MG TAB PO SCH (08:11)
[2018-08-13] MEDS: PANTOPRAZOLE 40MG TABLET PO SCH (08:11)
[2018-08-13] MEDS: AMLODIPINE 5 MG TAB PO SCH (08:12)
[2018-08-13] MEDS: LISINOPRIL 20 MG TAB PO SCH (08:12)
[2018-08-13] MEDS: VENLAFAXINE HCL XR 75 MG CAP PO SCH (08:12)
[2018-08-13] MEDS: CLOPIDOGREL 75 MG TABLET PO SCH (08:13)
[2018-08-13] MEDS: OXYBUTYNIN CHLORIDE 5 MG TAB PO SCH ×2 (08:22→19:11)
[2018-08-13] MEDS: ENOXAPARIN 30 MG/0.3 ML SQ SCH (09:02)
[2018-08-13] MEDS: NYSTATIN PWDR 100000 UNIT/GM TOP SCH ×2 (09:02→19:14)
--- NOTE | 2018-08-13 10:47 | P.PN ---
Subjective Date of Service: 08/13/18 Chief Complaint: STABLE, NO CHANGES. Subjective: Improving WEAK NOT ABLE TO COMPLAIN MUCH. STILL VERY WEAK AND WILL NOT ABLE TO GO HOME. I RECOMMEND NH. SHE IS DOING LOT BETTER. SHE MAY IMPROVE ENOUGH FOR HOME. Review of Systems 10-point ROS is otherwise unremarkable General: Weakness Physical Examination - Vital Signs Temperature: 96.6 F Blood Pressure: 158/70 Pulse: 79 Respirations: 16 Pulse Ox (%): 96 - Physical Exam General: Alert HEENT: Atraumatic, PERRLA, EOMI Neck: Supple, JVD not distended Respiratory: Clear to auscultation bilaterally, Normal air movement Cardiovascular: Regular rate/rhythm, Normal S1 S2 Gastrointestinal: Normal bowel sounds, No tenderness Musculoskeletal: No tenderness Integumentary: No rashes Neurological: Normal speech, Abnormal strength (L HEMIPARESIS) Lymphatics: No axilla or inguinal lymphadenopathy - Studies Medications List Reviewed: Yes Assessment And Plan - Current Problems (Diagnosis) (1) CVA (cerebral vascular accident) Onset Date: 08/08/18 Current Visit: No Status: Acute Plan: PT NOT ABLE TO TAKE 3 HOURS OF THERAPY. [facility] ADVISED. RESUME PT SHE IS IMPROVING. RESUME ANTIPLATELET AGENTS. Qualifiers: Precerebral and cerebral artery: other cerebral artery (2) HTN (hypertension) Onset Date: 08/08/18 Current Visit: No Status: Chronic Plan: REDUCE NORVASC BP IS LOW NORMAL NOW. (3) Hypothyroid Current Visit: Yes Status: Acute Plan: SMALL DOSE OF LEVOXYL. (4) B12 deficiency Current Visit: Yes Status: Acute Plan: ONE INJECTON AND SHE CAN TAKE ONCE A MONTH.
[2018-08-13] MEDS ORDERED: CYANOCOBALAMIN 1000MCG/ML INJ IM ONE (12:00)
[2018-08-13] MEDS: DOCUSATE NA/SENNA CONC 1 TAB PO SCH (19:09)
[2018-08-13] MEDS: DONEPEZIL HCL 5 MG TAB PO SCH (19:09)
[2018-08-13] MEDS: NETARSUDIL OPTH SCH (20:44)
[2018-08-14] MEDS: LEVOTHYROXINE SOD 0.025 MG TAB PO SCH (05:09)
[2018-08-14] MEDS: ASPIRIN EC 81 MG TAB PO SCH (08:24)
[2018-08-14] MEDS: VENLAFAXINE HCL XR 75 MG CAP PO SCH (08:25)
[2018-08-14] MEDS: OXYBUTYNIN CHLORIDE 5 MG TAB PO SCH ×2 (08:25→20:04)
[2018-08-14] MEDS: PANTOPRAZOLE 40MG TABLET PO SCH (08:25)
[2018-08-14] MEDS: AMLODIPINE 5 MG TAB PO SCH (08:25)
[2018-08-14] MEDS: LISINOPRIL 20 MG TAB PO SCH (08:25)
[2018-08-14] MEDS: CLOPIDOGREL 75 MG TABLET PO SCH (08:25)
--- NOTE | 2018-08-14 08:36 | FAST ---
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 Avinash Read M.D. ADMISSION DIAGNOSIS: - Stroke 01 - Left Body (Right Brain) (01.1) ACUTE NONHEMORRHAGIC CVA RIGHT NAHEED. EATING: Activity did not occur on this shift EATING - SCORE: 0-UNK GROOMING: Comb/brush hair Wash, rinse, and dry face Wash, rinse, and dry hands GROOMING - STEP 1: Does the patient require the assistance of a person or device, or need extra time when grooming? Yes. GROOMING - STEP 2: Does the patient require the assistance of a helper? Yes. GROOMING - STEP 3: How much assistance does the patient require from the helper? More than incidental help GROOMING - STEP 4: How many grooming tasks does the patient perform WITHOUT the assistance of the helper? Half or more o f the grooming tasks GROOMING - SCORE: 3-MOD BATHING: Abdomen Buttocks Chest Left arm Left lower leg and foot Left upper leg Perineal area Right arm Right lower leg and foot Right upper leg BATHING - STEP 1: Does the patient require the assistance of a person or device, or need extra time when bathing? Yes. BATHING - STEP 2: Does the patient require the assistance of a helper? Yes. BATHING - STEP 3: How much assistance does the patient require from the helper? More than just incidental help BATHING - STEP 4: What percent of the body parts did the patient bathe WITHOUT the helper? None. All work was performed by the helper BATHING - SCORE: 1-DEP DRESSING - UPPER BODY: T-shirt/pullover shirt (four steps) ARTICLES SCORE Total number of steps: 4 DRESSING - UPPER BODY - STEP 1: Does the patient require help from a person or device, or need extra time when dressing above the [address]? Yes. DRESSING - UPPER BODY - STEP 2: Does the patient require the assistance of a helper? Yes. DRESSING - UPPER BODY - STEP 3: Does the helper touch the patient while dressing? Yes. DRESSING - UPPER BODY - STEP 4: How many of the total steps does the patient complete on his/her own? 0 DRESSING - UPPER BODY - STEP 5: Does Patient require total assistance for dressing above the waist such as the helper holding clothin g and performing basically all the activities? Yes. DRESSING - UPPER BODY - SCORE: 1-DEP DRESSING - LOWER BODY: Elastic waist pants (three steps) Sock - Left foot (one step) Sock - Right foot (one step) Underwear (three steps) ARTICLES SCORE Total number of steps: 8 DRESSING - LOWER BODY - STEP 1: Does the patient require help from a person or device, or need extra time when dressing below the j[address]? Yes. DRESSING - LOWER BODY - STEP 2: Does the patient require the assistance of a helper? Yes. DRESSING - LOWER BODY - STEP 3: Does the helper touch the patient while dressing? Yes. DRESSING - LOWER BODY - STEP 4: How many of the total steps does the patient complete on his/her own? 0 DRESSING - LOWER BODY - STEP 5: Does patient require total assistance for dressing below the waist such as the helper holding clothin g and performing basically all the activities? Yes. DRESSING - LOWER BODY - SCORE: 1-DEP TOILETING: TOILETING - STEP 1: Does the patient require the assistance of a person or device, or need extra time with toileting? Yes . TOILETING - STEP 2: Does the patient require the assistance of a helper? Yes. TOILETING - STEP 3: How much assistance does the patient require from the helper? Hands-on assistance from the helper TOILETING - STEP 4: Of the 3 tasks: 1) Adjusting clothing prior to use, 2) Cleansing of perineal area, 3) Adjusting clot braulio after use; How many tasks does the patient perform WITHOUT assistance of the helper? No tasks; h treva performs all three tasks TOILETING - SCORE: 1-DEP BLADDER MANAGEMENT: Activity did not occur on this shift BLADDER MANAGEMENT - SCORE: 7-IND BOWEL MANAGEMENT: Activity did not occur on this shift BOWEL MANAGEMENT - SCORE: 7-IND TRANSFERS: BED, CHAIR, WHEELCHAIR: Activity did not occur on this shift TRANSFERS: BED, CHAIR, WHEELCHAIR - SCORE: 0-UNK TRANSFERS: TOILET: TRANSFERS: TOILET - STEP 1: Does the patient require the assistance of a person or device, or need extra time with toilet transfe rs? Yes. TRANSFERS: TOILET - STEP 2: Does the patient require the assistance of a helper? Yes. TRANSFERS: TOILET - STEP 3: How much assistance does the patient require from the helper? Patient performs less than half of the transferring tasks TRANSFERS: TOILET - STEP 4: Does the patient require total assistance for the toilet transfer such as the helper doing basically all the lifting? Yes. TRANSFERS: TOILET - SCORE: 1-DEP TRANSFERS: SHOWER: More than one helper is required for shower transfer TRANSFERS: SHOWER - SCORE: 1-DEP TRANSFERS: TUB: Activity did not occur on this shift TRANSFERS: TUB - SCORE: 0-UNK LOCOMOTION: WALK: Activity did not occur on this shift LOCOMOTION: WALK - SCORE: 0-UNK LOCOMOTION: WHEELCHAIR: Activity did not occur on this shift LOCOMOTION: WHEELCHAIR - SCORE: 0-UNK LOCOMOTION: STAIRS: Activity did not occur on this shift LOCOMOTION: STAIRS - SCORE: 0-UNK COMPREHENSION: COMPREHENSION: TYPE: Both COMPREHENSION - STEP 1: Does the patient require help from a person or device, or need extra time to understand complex and a bstract ideas (such as current events, finances, discharge planning, medical issues, relationships, e tc)? Yes. COMPREHENSION - STEP 2: Does the patient require help to understand questions or statements about basic needs or ideas (such as hunger, thirst, sleep, safety, daily schedule, room location, or discomfort) half or more of the t kei? No. COMPREHENSION - STEP 3: How often does the patient need help to understand directions and conversation about basic needs? Les s than 10% of the time COMPREHENSION - SCORE: 5-SUP EXPRESSION EXPRESSION: TYPE: Both EXPRESSION - STEP 1: Does the patient require help from a person or device, or need extra time expressing complex and abst ract ideas (such as current events, finances, discharge planning, medical issues, relationships, etc) ? Yes. EXPRESSION - STEP 2: Does the patient require help to express basic necessities or ideas (such as hunger, thirst, sleep, s afety, daily schedule, room location, or discomfort) half or more of the time? No. EXPRESSION - STEP 3: How often does the patient need help to express directions and conversation about basic needs? Less t naidu 10% of the time EXPRESSION - SCORE: 5-SUP SOCIAL INTERACTION: SOCIAL INTERACTION - STEP 1: Does the patient require a helper to interact with others in social and therapeutic situations? No. SOCIAL INTERACTION - STEP 2: Does the patient need extra time in social situations, OR does s/he interact with staff, other patien ts, and family members ONLY in structured environments, OR does s/he require medication for social in teraction? Yes, patient needs extra time SOCIAL INTERACTION - SCORE: 6-LIZZ PROBLEM SOLVING: PROBLEM SOLVING - STEP 1: Does the patient need help from a person or device, or need extra time to solve complex problems such as managing a checking account or confronting interpersonal problems? Yes. PROBLEM SOLVING - STEP 2: Does the patient solve basic routine problems half or more of the time? Yes. PROBLEM SOLVING - STEP 3: How often does the patient need help to solve basic routine problems? Less than 10% of the time PROBLEM SOLVING - SCORE: 5-SUP MEMORY: MEMORY - STEP 1: Does the patient need help from a person or device, or need extra time to remember frequently encount ered people, daily routines, and executing requests? Yes. MEMORY - STEP 2: How often does the patient need help to remember frequently encountered people, daily routines, and e xecuting requests? Less than 10% of the time MEMORY - SCORE: 5-SUP SIGNATURE PANEL: The following modified sections: Eating - Score, Grooming - Score, Bathing - Score, Dressing - Upper Body - Score, Dressing - Lower Body - Score, Toileting - Score, Transfers: Bed, Chair, Wheelchair - S core, Transfers: Toilet - Score, Transfers: Tub - Score, Transfers: Shower - Score, Comprehension - S core, Expression - Score, Social Interaction - Score, Problem Solving - Score, Memory - Score were [e lectronically] signed by Maria E Esposito OT on WedAug 14 2018 08:35:58 GMT-0600 (Central Standard T kei)
[2018-08-14] MEDS: ENOXAPARIN 30 MG/0.3 ML SQ SCH (11:04)
[2018-08-14] MEDS: NYSTATIN PWDR 100000 UNIT/GM TOP SCH ×2 (11:07→20:05)
--- NOTE | 2018-08-14 16:57 | FAST ---
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 Avinash Read M.D. ADMISSION DIAGNOSIS: - Stroke 01 - Left Body (Right Brain) (01.1) ACUTE NONHEMORRHAGIC CVA RIGHT NAHEED. EATING: EATING - STEP 1: Does the patient require the assistance of a person or device, or need extra time when eating? Yes. EATING - STEP 2: Does the patient require the assistance of a helper? No, patient only requires an assistive device, O R s/he takes more than reasonable time to eat, OR there is a safety concern, OR s/he requires modifie d food consistency EATING - SCORE: 6-LIZZ GROOMING: Comb/brush hair Wash, rinse, and dry face Wash, rinse, and dry hands GROOMING - STEP 1: Does the patient require the assistance of a person or device, or need extra time when grooming? Yes. GROOMING - STEP 2: Does the patient require the assistance of a helper? No. The patient only requires an assistive devic e, OR takes more than reasonable time to groom, OR there is a concern for safety as the patient groom s GROOMING - SCORE: 6-LIZZ BATHING: Activity did not occur on this shift BATHING - SCORE: 0-UNK DRESSING - UPPER BODY: T-shirt/pullover shirt (four steps) ARTICLES SCORE Total number of steps: 4 DRESSING - UPPER BODY - STEP 1: Does the patient require help from a person or device, or need extra time when dressing above the j[address]? Yes. DRESSING - UPPER BODY - STEP 2: Does the patient require the assistance of a helper? Yes. DRESSING - UPPER BODY - STEP 3: Does the helper touch the patient while dressing? Yes. DRESSING - UPPER BODY - STEP 4: How many of the total steps does the patient complete on his/her own? 3 DRESSING - UPPER BODY - SCORE: 4-MIN DRESSING - LOWER BODY: Sock - Left foot (one step) Sock - Right foot (one step) Underwear (three steps) ARTICLES SCORE Total number of steps: 5 DRESSING - LOWER BODY - STEP 1: Does the patient require help from a person or device, or need extra time when dressing below the jaz[address] st? Yes. DRESSING - LOWER BODY - STEP 2: Does the patient require the assistance of a helper? Yes. DRESSING - LOWER BODY - STEP 3: Does the helper touch the patient while dressing? Yes. DRESSING - LOWER BODY - STEP 4: How many of the total steps does the patient complete on his/her own? 0 DRESSING - LOWER BODY - STEP 5: Does patient require total assistance for dressing below the waist such as the helper holding clothin g and performing basically all the activities? Yes. DRESSING - LOWER BODY - SCORE: 1-DEP TOILETING: Activity did not occur on this shift TOILETING - SCORE: 0-UNK TOILETING - COMMENTS: Incontinent BLADDER MANAGEMENT: [place] removes incontinent device (Depends, pull ups, etc.); cleans the patient after accident / inco ntinent episode; and, applies new incontinent device. BLADDER MANAGEMENT - SCORE: 1-DEP BLADDER MANAGEMENT - FREQUENCY OF ACCIDENTS: BLADDER MANAGEMENT(FA) - STEP 1: How many accidents has the patient had during the current shift? 1 BOWEL MANAGEMENT: [place] removes incontinent device (depends, pull ups, etc.); cleans the patient after accident / inco ntinent episode; and, applies new device (depends, pull-ups, padding, etc.). BOWEL MANAGEMENT - SCORE: 1-DEP BOWEL MANAGEMENT - FREQUENCY OF ACCIDENTS: BOWEL MANAGEMENT(FA) - STEP 1: How many accidents has the patient had during the current shift? 1 TRANSFERS: BED, CHAIR, WHEELCHAIR: TRANSFERS: BED, CHAIR, WHEELCHAIR - STEP 1: Does the patient require assistance of a person or device, or need extra time with bed, chair, or whe elchair transfers? Yes. TRANSFERS: BED, CHAIR, WHEELCHAIR - STEP 2: Does the patient require the assistance of a helper? Yes. TRANSFERS: BED, CHAIR, WHEELCHAIR - STEP 3: How much assistance does the patient require from the helper? Lifting of the patient TRANSFERS: BED, CHAIR, WHEELCHAIR - STEP 4: Does the helper lift the patient ONLY up? ONLY down? Up AND Down? Up AND Down. TRANSFERS: BED, CHAIR, WHEELCHAIR - SCORE: 2-MAX TRANSFERS: TOILET: Activity did not occur on this shift TRANSFERS: TOILET - SCORE: 0-UNK TRANSFERS: TOILET - COMMENTS: Pt incontinent TRANSFERS: SHOWER: Activity did not occur on this shift TRANSFERS: SHOWER - SCORE: 0-UNK TRANSFERS: TUB: Activity did not occur on this shift TRANSFERS: TUB - SCORE: 0-UNK LOCOMOTION: WALK: Activity did not occur on this shift LOCOMOTION: WALK - SCORE: 0-UNK LOCOMOTION: WHEELCHAIR: Activity did not occur on this shift LOCOMOTION: WHEELCHAIR - SCORE: 0-UNK COMPREHENSION: COMPREHENSION: TYPE: Both COMPREHENSION - STEP 1: Does the patient require help from a person or device, or need extra time to understand complex and a bstract ideas (such as current events, finances, discharge planning, medical issues, relationships, e tc)? No. COMPREHENSION - STEP 2: Does the patient need extra time, require an assistive device (such as glasses for visual comprehensi on or a hearing aid for auditory comprehension) or does s/he have mild difficulty understanding compl ex and abstract information? Yes. COMPREHENSION - SCORE: 6-LIZZ EXPRESSION EXPRESSION: TYPE: Both EXPRESSION - STEP 1: Does the patient require help from a person or device, or need extra time expressing complex and abst ract ideas (such as current events, finances, discharge planning, medical issues, relationships, etc) ? Yes. EXPRESSION - STEP 2: Does the patient require help to express basic necessities or ideas (such as hunger, thirst, sleep, s afety, daily schedule, room location, or discomfort) half or more of the time? No. EXPRESSION - STEP 3: How often does the patient need help to express directions and conversation about basic needs? Less t naidu 10% of the time EXPRESSION - SCORE: 5-SUP SOCIAL INTERACTION: SOCIAL INTERACTION - STEP 1: Does the patient require a helper to interact with others in social and therapeutic situations? No. SOCIAL INTERACTION - STEP 2: Does the patient need extra time in social situations, OR does s/he interact with staff, other patien ts, and family members ONLY in structured environments, OR does s/he require medication for social in teraction? Yes, patient needs extra time SOCIAL INTERACTION - SCORE: 6-LIZZ PROBLEM SOLVING: PROBLEM SOLVING - STEP 1: Does the patient need help from a person or device, or need extra time to solve complex problems such as managing a checking account or confronting interpersonal problems? Yes. PROBLEM SOLVING - STEP 2: Does the patient solve basic routine problems half or more of the time? Yes. PROBLEM SOLVING - STEP 3: How often does the patient need help to solve basic routine problems? Less than 10% of the time PROBLEM SOLVING - SCORE: 5-SUP MEMORY: MEMORY - STEP 1: Does the patient need help from a person or device, or need extra time to remember frequently encount ered people, daily routines, and executing requests? Yes. MEMORY - STEP 2: How often does the patient need help to remember frequently encountered people, daily routines, and e xecuting requests? Less than 10% of the time MEMORY - SCORE: 5-SUP SIGNATURE PANEL: The following modified sections: Eating - Score, Grooming - Score, Bathing - Score, Dressing - Upper Body - Score, Dressing - Lower Body - Score, Toileting - Score, Toileting - Comments:, Bladder Manage ment - Score, Bowel Management - Score, Transfers: Bed, Chair, Wheelchair - Score, Transfers: Toilet - Score, Transfers: Toilet - Comments:, Transfers: Shower - Score, Transfers: Tub - Score, Locomotion : Walk - Score, Locomotion: Wheelchair - Score, Comprehension - Score, Expression - Score, Social Int eraction - Score, Problem Solving - Score, Memory - Score were [electronically] signed by Belkys bryan [email or web address] on WedAug 14 2018 15:25:50 GMT-0600 (Central Standard Time)
--- NOTE | 2018-08-14 16:57 | FAST ---
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 Avinash Read M.D. ADMISSION DIAGNOSIS: - Stroke 01 - Left Body (Right Brain) (01.1) ACUTE NONHEMORRHAGIC CVA RIGHT NAHEED. EATING: EATING - STEP 1: Does the patient require the assistance of a person or device, or need extra time when eating? Yes. EATING - STEP 2: Does the patient require the assistance of a helper? Yes. EATING - STEP 3: Does the patient perform half or more of the eating tasks? Yes. EATING - STEP 4: Does the patient need only supervision, cuing, coaxing OR help to apply an orthosis OR help to cut fo od, open containers, pour liquids, or butter bread? Yes. EATING - SCORE: 5-SUP GROOMING: Comb/brush hair Wash, rinse, and dry face Wash, rinse, and dry hands GROOMING - STEP 1: Does the patient require the assistance of a person or device, or need extra time when grooming? Yes. GROOMING - STEP 2: Does the patient require the assistance of a helper? No. The patient only requires an assistive devic e, OR takes more than reasonable time to groom, OR there is a concern for safety as the patient groom s GROOMING - SCORE: 6-LIZZ BATHING: Activity did not occur on this shift BATHING - SCORE: 0-UNK DRESSING - UPPER BODY: T-shirt/pullover shirt (four steps) ARTICLES SCORE Total number of steps: 4 DRESSING - UPPER BODY - STEP 1: Does the patient require help from a person or device, or need extra time when dressing above the jaziel st? Yes. DRESSING - UPPER BODY - STEP 2: Does the patient require the assistance of a helper? Yes. DRESSING - UPPER BODY - STEP 3: Does the helper touch the patient while dressing? Yes. DRESSING - UPPER BODY - STEP 4: How many of the total steps does the patient complete on his/her own? 3 DRESSING - UPPER BODY - SCORE: 4-MIN DRESSING - LOWER BODY: Elastic waist pants (three steps) Sock - Left foot (one step) Sock - Right foot (one step) Underwear (three steps) ARTICLES SCORE Total number of steps: 8 DRESSING - LOWER BODY - STEP 1: Does the patient require help from a person or device, or need extra time when dressing below the jaz[address] st? Yes. DRESSING - LOWER BODY - STEP 2: Does the patient require the assistance of a helper? Yes. DRESSING - LOWER BODY - STEP 3: Does the helper touch the patient while dressing? Yes. DRESSING - LOWER BODY - STEP 4: How many of the total steps does the patient complete on his/her own? 0 DRESSING - LOWER BODY - STEP 5: Does patient require total assistance for dressing below the waist such as the helper holding clothin g and performing basically all the activities? Yes. DRESSING - LOWER BODY - SCORE: 1-DEP TOILETING: Activity did not occur on this shift TOILETING - SCORE: 0-UNK TOILETING - COMMENTS: Pt incontinent BLADDER MANAGEMENT: [place] removes incontinent device (Depends, pull ups, etc.); cleans the patient after accident / inco ntinent episode; and, applies new incontinent device. BLADDER MANAGEMENT - SCORE: 1-DEP BLADDER MANAGEMENT - FREQUENCY OF ACCIDENTS: BLADDER MANAGEMENT(FA) - STEP 1: How many accidents has the patient had during the current shift? 4 BOWEL MANAGEMENT: [place] removes incontinent device (depends, pull ups, etc.); cleans the patient after accident / inco ntinent episode; and, applies new device (depends, pull-ups, padding, etc.). BOWEL MANAGEMENT - SCORE: 1-DEP BOWEL MANAGEMENT - FREQUENCY OF ACCIDENTS: BOWEL MANAGEMENT(FA) - STEP 1: How many accidents has the patient had during the current shift? 1 TRANSFERS: BED, CHAIR, WHEELCHAIR: TRANSFERS: BED, CHAIR, WHEELCHAIR - STEP 1: Does the patient require assistance of a person or device, or need extra time with bed, chair, or whe elchair transfers? Yes. TRANSFERS: BED, CHAIR, WHEELCHAIR - STEP 2: Does the patient require the assistance of a helper? Yes. TRANSFERS: BED, CHAIR, WHEELCHAIR - STEP 3: How much assistance does the patient require from the helper? Lifting of the legs TRANSFERS: BED, CHAIR, WHEELCHAIR - STEP 4: How many legs does the patient require the helper to lift? both legs TRANSFERS: BED, CHAIR, WHEELCHAIR - SCORE: 3-MOD TRANSFERS: TOILET: Activity did not occur on this shift TRANSFERS: TOILET - SCORE: 0-UNK TRANSFERS: TOILET - COMMENTS: Pt incontinent TRANSFERS: SHOWER: Activity did not occur on this shift TRANSFERS: SHOWER - SCORE: 0-UNK TRANSFERS: TUB: Activity did not occur on this shift TRANSFERS: TUB - SCORE: 0-UNK LOCOMOTION: WALK: Activity did not occur on this shift LOCOMOTION: WALK - SCORE: 0-UNK LOCOMOTION: WHEELCHAIR: Activity did not occur on this shift LOCOMOTION: WHEELCHAIR - SCORE: 0-UNK COMPREHENSION: COMPREHENSION: TYPE: Both COMPREHENSION - STEP 1: Does the patient require help from a person or device, or need extra time to understand complex and a bstract ideas (such as current events, finances, discharge planning, medical issues, relationships, e tc)? No. COMPREHENSION - STEP 2: Does the patient need extra time, require an assistive device (such as glasses for visual comprehensi on or a hearing aid for auditory comprehension) or does s/he have mild difficulty understanding compl ex and abstract information? Yes. COMPREHENSION - SCORE: 6-LIZZ EXPRESSION EXPRESSION: TYPE: Both EXPRESSION - STEP 1: Does the patient require help from a person or device, or need extra time expressing complex and abst ract ideas (such as current events, finances, discharge planning, medical issues, relationships, etc) ? Yes. EXPRESSION - STEP 2: Does the patient require help to express basic necessities or ideas (such as hunger, thirst, sleep, s afety, daily schedule, room location, or discomfort) half or more of the time? No. EXPRESSION - STEP 3: How often does the patient need help to express directions and conversation about basic needs? Less t naidu 10% of the time EXPRESSION - SCORE: 5-SUP SOCIAL INTERACTION: SOCIAL INTERACTION - STEP 1: Does the patient require a helper to interact with others in social and therapeutic situations? No. SOCIAL INTERACTION - STEP 2: Does the patient need extra time in social situations, OR does s/he interact with staff, other patien ts, and family members ONLY in structured environments, OR does s/he require medication for social in teraction? Yes, patient needs extra time SOCIAL INTERACTION - SCORE: 6-LIZZ PROBLEM SOLVING: PROBLEM SOLVING - STEP 1: Does the patient need help from a person or device, or need extra time to solve complex problems such as managing a checking account or confronting interpersonal problems? Yes. PROBLEM SOLVING - STEP 2: Does the patient solve basic routine problems half or more of the time? Yes. PROBLEM SOLVING - STEP 3: How often does the patient need help to solve basic routine problems? Less than 10% of the time PROBLEM SOLVING - SCORE: 5-SUP MEMORY: MEMORY - STEP 1: Does the patient need help from a person or device, or need extra time to remember frequently encount ered people, daily routines, and executing requests? Yes. MEMORY - STEP 2: How often does the patient need help to remember frequently encountered people, daily routines, and e xecuting requests? Less than 10% of the time MEMORY - SCORE: 5-SUP SIGNATURE PANEL: The following modified sections: Eating - Score, Grooming - Score, Bathing - Score, Dressing - Upper Body - Score, Dressing - Lower Body - Score, Toileting - Score, Toileting - Comments:, Bladder Manage ment - Score, Bowel Management - Score, Transfers: Bed, Chair, Wheelchair - Score, Transfers: Toilet - Score, Transfers: Toilet - Comments:, Transfers: Shower - Score, Transfers: Tub - Score, Locomotion : Walk - Score, Locomotion: Wheelchair - Score, Comprehension - Score, Expression - Score, Social Int eraction - Score, Problem Solving - Score, Memory - Score were [electronically] signed by Belkys bryan [email or web address] on WedAug 14 2018 15:14:02 GMT-0600 (Central Standard Time)
[2018-08-14] MEDS: DOCUSATE NA/SENNA CONC 1 TAB PO SCH (20:04)
[2018-08-14] MEDS: DONEPEZIL HCL 5 MG TAB PO SCH (20:04)
[2018-08-14] MEDS: NETARSUDIL OPTH SCH (20:28)
--- NOTE | 2018-08-14 21:08 | P.PN ---
Subjective Date of Service: 08/14/18 Chief Complaint: STABLE, NO CHANGES. Subjective: No new changes WEAK NOT ABLE TO COMPLAIN MUCH. STILL VERY WEAK AND WILL NOT ABLE TO GO HOME. I RECOMMEND NH. SHE IS DOING LOT BETTER. SHE MAY IMPROVE ENOUGH FOR HOME. Review of Systems 10-point ROS is otherwise unremarkable General: Weakness, Malaise Physical Examination - Vital Signs Temperature: 96.6 F Blood Pressure: 125/56 Pulse: 73 Respirations: 18 Pulse Ox (%): 97 - Physical Exam General: Alert, Mild distress HEENT: Atraumatic, PERRLA, EOMI Neck: Supple, JVD not distended Respiratory: Clear to auscultation bilaterally, Normal air movement Cardiovascular: Regular rate/rhythm, Normal S1 S2 Gastrointestinal: Normal bowel sounds, No tenderness Musculoskeletal: No tenderness Integumentary: No rashes Neurological: Abnormal strength Lymphatics: No axilla or inguinal lymphadenopathy - Studies Medications List Reviewed: Yes Assessment And Plan - Current Problems (Diagnosis) (1) CVA (cerebral vascular accident) Onset Date: 08/08/18 Current Visit: No Status: Acute Plan: PT NOT ABLE TO TAKE 3 HOURS OF THERAPY. NH ADVISED. RESUME PT SHE IS IMPROVING. RESUME ANTIPLATELET AGENTS. STABLE, NO NEW CHANGES. RESUME MEDS. Qualifiers: Precerebral and cerebral artery: other cerebral artery (2) HTN (hypertension) Onset Date: 08/08/18 Current Visit: No Status: Chronic Plan: REDUCE NORVASC BP IS LOW NORMAL NOW. (3) Hypothyroid Current Visit: Yes Status: Acute Plan: SMALL DOSE OF LEVOXYL. (4) B12 deficiency Current Visit: Yes Status: Acute Plan: ONE INJECTON AND SHE CAN TAKE ONCE A MONTH.
[2018-08-15] MEDS: LEVOTHYROXINE SOD 0.025 MG TAB PO SCH (05:25)
[2018-08-15] MEDS: ENOXAPARIN 30 MG/0.3 ML SQ SCH (07:10)
[2018-08-15] MEDS: NYSTATIN PWDR 100000 UNIT/GM TOP SCH ×2 (08:00→19:38)
[2018-08-15] MEDS: AMLODIPINE 5 MG TAB PO SCH (08:39)
[2018-08-15] MEDS: PANTOPRAZOLE 40MG TABLET PO SCH (08:40)
[2018-08-15] MEDS: ASPIRIN EC 81 MG TAB PO SCH (08:40)
[2018-08-15] MEDS: CLOPIDOGREL 75 MG TABLET PO SCH (08:40)
[2018-08-15] MEDS: OXYBUTYNIN CHLORIDE 5 MG TAB PO SCH ×2 (08:40→19:38)
[2018-08-15] MEDS: VENLAFAXINE HCL XR 75 MG CAP PO SCH (08:40)
[2018-08-15] MEDS: LISINOPRIL 20 MG TAB PO SCH (08:40)
--- NOTE | 2018-08-15 11:01 | P.PN ---
Subjective Date of Service: 08/15/18 Chief Complaint: STABLE, NO CHANGES. Subjective: Improving WEAK NOT ABLE TO COMPLAIN MUCH. STILL VERY WEAK AND WILL NOT ABLE TO GO HOME. I RECOMMEND NH. SHE IS DOING LOT BETTER. SHE MAY IMPROVE ENOUGH FOR HOME. NO COMPLAINTS. SHE IS IN GOOD MOOD. Review of Systems 10-point ROS is otherwise unremarkable General: Weakness Physical Examination - Vital Signs Temperature: 97.6 F Blood Pressure: 166/68 Pulse: 71 Respirations: 14 Pulse Ox (%): 97 - Physical Exam General: Alert, Mild distress HEENT: Atraumatic, PERRLA, EOMI Neck: Supple, JVD not distended Respiratory: Clear to auscultation bilaterally, Normal air movement Cardiovascular: Regular rate/rhythm, Normal S1 S2 Gastrointestinal: Normal bowel sounds, No tenderness Musculoskeletal: No tenderness Integumentary: No rashes Neurological: Normal speech, Normal affect, Abnormal strength (HEMIPARESIS- 4/ 5 POWER ON L SIDE.) Lymphatics: No axilla or inguinal lymphadenopathy - Studies Medications List Reviewed: Yes Assessment And Plan - Current Problems (Diagnosis) (1) CVA (cerebral vascular accident) Onset Date: 08/08/18 Current Visit: No Status: Acute Plan: PT NOT ABLE TO TAKE 3 HOURS OF THERAPY. NH ADVISED. RESUME PT SHE IS IMPROVING. RESUME ANTIPLATELET AGENTS. STABLE, NO NEW CHANGES. RESUME MEDS. CONT PT STABLE. Qualifiers: Precerebral and cerebral artery: other cerebral artery (2) HTN (hypertension) Onset Date: 08/08/18 Current Visit: No Status: Chronic Plan: REDUCE NORVASC BP IS LOW NORMAL NOW. (3) Hypothyroid Current Visit: Yes Status: Acute Plan: SMALL DOSE OF LEVOXYL. (4) B12 deficiency Current Visit: Yes Status: Acute Plan: ONE INJECTON AND SHE CAN TAKE ONCE A MONTH.
--- NOTE | 2018-08-15 12:13 | R.PN ---
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 Pt denied any Shortness of Breath. Ambulated 100' using rolling walker with minimum assistance. VITAL SIGNS Temperature: 97.6 F SBP/DBP: 166/68 Pulse: 71 Resp: 14 MEDICATION ALLERGIES: Sulfa ENVIRONMENTAL ALLERGIES: Eggs - Substance Allergies None Known - Other Allergies None Known NURSING: - Shower allowing shower - Bladder care per protocol - Skin care per protocol PRECAUTIONS: - Weight Bearing Precaution WBAT left LE ACTIVITIES OOB only with supervision THERAPIES: - Occupational Therapy Evaluate and Treat. Visual Perceptual Training. Cognitive Retraining. - Speech Therapy Cognitive Training. Memory Strategies. Speech Intelligibility Training. Expressive Language Skills. R eceptive Language Skills. - Physical Therapy Evaluate and Treat. PHYSICAL EXAM - Gen Alert and awake Lying in bed No apparent distress Oriented to: person, time, and place - Skin No breakdown No numbness - Eyes No abnormalities - ENMT No abnormalities - Neck No abnormalities - CVS RRR - Chest No abnormalities - Abd + bowel sounds - GI Soft Deferred - No abnormalities - Ext No significant edema - MSK 4+/5 weakness in left upper and lower extremities. - Neuro 4+/5 weakness in left upper and lower extremities. - Psych No abnormalities ASSESSMENT: Pt. is a 87 yo Right-handed white female.On 08/08/2018 Pt. presented to [facility] with sudden onset of left-side weakness.On 08/08/2018 she was admitted to [facility] with diagnosis ACUTE NONHEMORRHAGIC CVA RIGHT HAYDER.Her impairment category is Stroke 01 - Left Body (Right Brain) (01.1).Pre-morbidly, Pt. was independent/mod-I in Sphincter Control, Transfe rs Control, Communication, Social Cognition, Self-Care, and Locomotion; and she had good Endurance, S phincter Control, Safety Awareness, and Balance.Currently, she has deficits of Transfers Control, Do f-Care, and Locomotion.Pt. is now referred to [facility] for acute in-patient rehabilitation in order to maximize patient's functional independence in activities of daily living, strength, ROM, and mobility.- Rehab Goal Patient has realistic goal of being discharged at assistance level 2-maxA to reside at Home with Fam catrachito/Relatives. MDM/PLAN: - Physical Therapy Gait dysfunction - to improve, our physical therapists will perform initial evaluation of pt's statu s upon admission and devise an individualized program for Gait Training, and Wheel Chair mobility Inability to transfer - to improve, our physical therapists will perform initial evaluation of pt's status upon admission and devise an individualized program for Bed mobility Need for home safety evaluation - to improve, our physical therapists will perform initial evaluatio n of pt's status upon admission and devise an individualized program for Home Evaluation Edema - to improve, our physical therapists will perform initial evaluation of pt's status upon admi ssion and devise an individualized program for Elevation Training, and Lymphedema Therapy Need in caregiver upon discharge - to improve, our physical therapists will perform initial evaluati on of pt's status upon admission and devise an individualized program for Caregiver Training New precaution - to improve, our physical therapists will perform initial evaluation of pt's status upon admission and devise an individualized program for Patient precaution education Achieving independence - to improve, our physical therapists will perform initial evaluation of pt's status upon admission and devise an individualized program for Community Reintegration Activities - Occupational Therapy ADL deficits - to improve, our occupation therapists will perform initial evaluation of pt's status upon admission and devise an individualized program for Bathing, Bed mobility, Community Reintegratio n, Cooking, Dressing, Eating, Fine Motor Skills, Grooming, Homemaking, Kitchen Mobility, Laundry, Pat ient Education, Safety Awareness, Splinting - Positioning, Transfers(Toilet, Tub, Shower), and Wheel Chair Management Need for healthcare representative - to improve, our occupation therapists will perform initial evaluation of pt's status upon admission and devise an individualized program for Caregiver Training - Diet Type Continue Regular - Diet - Liquid Texture Continue Regular - Tube Feed Continue N/A - Bladder care per protocol - Weight Bearing Precaution WBAT left LE - Skin care per protocol - Diet - Solid Texture Continue Mechanical Soft - Shower allowing shower for Dementia, TBI, Stroke, or others FUNCTIONAL STATUS: UPDATED AT WEEKLY TEAM CONFERENCE - Bladder Same accident frequency: 7-Ind - No accidents in the past 7 days - Bowel Same accident frequency: 7-Ind - No accidents in the past 7 days - Walking Same score based on distance walked: 0(N/A) - Wheelchair Same score based on distance traveled: 0(N/A) FUNCTIONAL STATUS: - Self-Care A. Eating sup B. Grooming Ind C. Bathing sup D. Dressing - Upper sup E. Dressing - Lower sup F. Toileting sup - Sphincter Control G: Bladder control Ind H: Bowel control Ind - Transfers Control I. Bed/Chair/Wheelchair maxA J. Toilet maxA K. Tub/Shower ADNO - Locomotion L. Walk/Wheelchair (C) maxA L. Walk/Wheelchair (W) maxA M. Stairs ADNO - Communication N. Comprehension (B) Ind O. Expression (B) Ind - Social Cognition P. Social Interaction Ind Q. Problem Solving Ind R. Memory Ind - Endurance Good - Balance Good - Safety Awareness Good CURRENT FUNC. 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
--- NOTE | 2018-08-15 14:50 | FAST ---
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 Avinash Read M.D. ADMISSION DIAGNOSIS: - Stroke 01 - Left Body (Right Brain) (01.1) ACUTE NONHEMORRHAGIC CVA RIGHT NAHEED. EATING: EATING - STEP 1: Does the patient require the assistance of a person or device, or need extra time when eating? Yes. EATING - STEP 2: Does the patient require the assistance of a helper? Yes. EATING - STEP 3: Does the patient perform half or more of the eating tasks? Yes. EATING - STEP 4: Does the patient need only supervision, cuing, coaxing OR help to apply an orthosis OR help to cut fo od, open containers, pour liquids, or butter bread? Yes. EATING - SCORE: 5-SUP GROOMING: Comb/brush hair Oral care Wash, rinse, and dry face Wash, rinse, and dry hands GROOMING - STEP 1: Does the patient require the assistance of a person or device, or need extra time when grooming? Yes. GROOMING - STEP 2: Does the patient require the assistance of a helper? Yes. GROOMING - STEP 3: How much assistance does the patient require from the helper? Cuing, coaxing, instructions, or encour agement for completion of grooming GROOMING - SCORE: 5-SUP BATHING: Activity did not occur on this shift BATHING - SCORE: 0-UNK DRESSING - UPPER BODY: Patient is not dressing in public clothing ARTICLES SCORE Total number of steps: 0 DRESSING - UPPER BODY - SCORE: 0-UNK DRESSING - LOWER BODY: Patient is not dressing in public clothing ARTICLES SCORE Total number of steps: 0 DRESSING - LOWER BODY - SCORE: 0-UNK TOILETING: TOILETING - STEP 1: Does the patient require the assistance of a person or device, or need extra time with toileting? Yes . TOILETING - STEP 2: Does the patient require the assistance of a helper? Yes. TOILETING - STEP 3: How much assistance does the patient require from the helper? Hands-on assistance from the helper TOILETING - STEP 4: Of the 3 tasks: 1) Adjusting clothing prior to use, 2) Cleansing of perineal area, 3) Adjusting clot braulio after use; How many tasks does the patient perform WITHOUT assistance of the helper? One task TOILETING - SCORE: 2-MAX BLADDER MANAGEMENT: [place] removes incontinent device (Depends, pull ups, etc.); cleans the patient after accident / inco ntinent episode; and, applies new incontinent device. BLADDER MANAGEMENT - SCORE: 1-DEP BLADDER MANAGEMENT - FREQUENCY OF ACCIDENTS: BLADDER MANAGEMENT(FA) - STEP 1: How many accidents has the patient had during the current shift? 2 BOWEL MANAGEMENT: BOWEL MANAGEMENT - STEP 1: Does the patient control bowels completely and intentionally without equipment devices or medications AND is always continent? No. BOWEL MANAGEMENT - STEP 2: Does the patient require the assistance of a helper? No, patient requires medication for control such as stool softeners, suppositories, laxatives, enemas, or OTC medications BOWEL MANAGEMENT - SCORE: 6-LIZZ BOWEL MANAGEMENT - FREQUENCY OF ACCIDENTS: BOWEL MANAGEMENT(FA) - STEP 1: How many accidents has the patient had during the current shift? 1 TRANSFERS: BED, CHAIR, WHEELCHAIR: TRANSFERS: BED, CHAIR, WHEELCHAIR - STEP 1: Does the patient require assistance of a person or device, or need extra time with bed, chair, or whe elchair transfers? Yes. TRANSFERS: BED, CHAIR, WHEELCHAIR - STEP 2: Does the patient require the assistance of a helper? Yes. TRANSFERS: BED, CHAIR, WHEELCHAIR - STEP 3: How much assistance does the patient require from the helper? Lifting of the patient TRANSFERS: BED, CHAIR, WHEELCHAIR - STEP 4: Does the helper lift the patient ONLY up? ONLY down? Up AND Down? ONLY up. TRANSFERS: BED, CHAIR, WHEELCHAIR - SCORE: 3-MOD TRANSFERS: TOILET: TRANSFERS: TOILET - STEP 1: Does the patient require the assistance of a person or device, or need extra time with toilet transfe rs? Yes. TRANSFERS: TOILET - STEP 2: Does the patient require the assistance of a helper? Yes. TRANSFERS: TOILET - STEP 3: How much assistance does the patient require from the helper? Patient performs half or more of the tr ansferring tasks TRANSFERS: TOILET - STEP 4: Does the patient need only incidental help such as contact guard or steadying during toilet transfer? Yes. TRANSFERS: TOILET - SCORE: 4-MIN TRANSFERS: SHOWER: Activity did not occur on this shift TRANSFERS: SHOWER - SCORE: 0-UNK TRANSFERS: TUB: Activity did not occur on this shift TRANSFERS: TUB - SCORE: 0-UNK LOCOMOTION: WALK: Activity did not occur on this shift LOCOMOTION: WALK - SCORE: 0-UNK LOCOMOTION: WHEELCHAIR: Activity did not occur on this shift LOCOMOTION: WHEELCHAIR - SCORE: 0-UNK COMPREHENSION: COMPREHENSION: TYPE: Both COMPREHENSION - STEP 1: Does the patient require help from a person or device, or need extra time to understand complex and a bstract ideas (such as current events, finances, discharge planning, medical issues, relationships, e tc)? No. COMPREHENSION - STEP 2: Does the patient need extra time, require an assistive device (such as glasses for visual comprehensi on or a hearing aid for auditory comprehension) or does s/he have mild difficulty understanding compl ex and abstract information? Yes. COMPREHENSION - SCORE: 6-LIZZ EXPRESSION EXPRESSION: TYPE: Both EXPRESSION - STEP 1: Does the patient require help from a person or device, or need extra time expressing complex and abst ract ideas (such as current events, finances, discharge planning, medical issues, relationships, etc) ? No. EXPRESSION - STEP 2: Does the patient need extra time, require an assistive device (such as augmentive communication syste m or a communication board), OR does s/he have mild difficulty expressing complex and abstract ideas (including mild dysarthria or mild word-find problems)? Yes. EXPRESSION - SCORE: 6-LIZZ SOCIAL INTERACTION: SOCIAL INTERACTION - STEP 1: Does the patient require a helper to interact with others in social and therapeutic situations? No. SOCIAL INTERACTION - STEP 2: Does the patient need extra time in social situations, OR does s/he interact with staff, other patien ts, and family members ONLY in structured environments, OR does s/he require medication for social in teraction? Yes, patient needs extra time SOCIAL INTERACTION - SCORE: 6-LIZZ PROBLEM SOLVING: PROBLEM SOLVING - STEP 1: Does the patient need help from a person or device, or need extra time to solve complex problems such as managing a checking account or confronting interpersonal problems? No. PROBLEM SOLVING - STEP 2: Does the patient require extra time to make decisions or solve problems, OR does s/he have slight dif ficulty reading, initiating, or self-correcting in unfamiliar situations? Yes, patient needs extra ti me. PROBLEM SOLVING - SCORE: 6-LIZZ MEMORY: MEMORY - STEP 1: Does the patient need help from a person or device, or need extra time to remember frequently encount ered people, daily routines, and executing requests? Yes. MEMORY - STEP 2: How often does the patient need help to remember frequently encountered people, daily routines, and e xecuting requests? Less than 10% of the time MEMORY - SCORE: 5-SUP SIGNATURE PANEL: The following modified sections: Eating - Score, Grooming - Score, Bathing - Score, Dressing - Upper Body - Score, Dressing - Lower Body - Score, Toileting - Score, Bladder Management - Score, Bowel Man agement - Score, Transfers: Bed, Chair, Wheelchair - Score, Transfers: Toilet - Score, Transfers: Olga wer - Score, Transfers: Tub - Score, Locomotion: Walk - Score, Locomotion: Wheelchair - Score, Compre hension - Score, Expression - Score, Social Interaction - Score, Problem Solving - Score, Memory - Sc ore were [electronically] signed by Roosevelt Velasquez on WedAug 15 2018 14:49:55 GMT-0600 (Central Standard Time)
--- NOTE | 2018-08-15 14:56 | FAST ---
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 Avinash Read M.D. ADMISSION DIAGNOSIS: - Stroke 01 - Left Body (Right Brain) (01.1) ACUTE NONHEMORRHAGIC CVA RIGHT NAHEED. EATING: Activity did not occur on this shift EATING - SCORE: 0-UNK GROOMING: Comb/brush hair Wash, rinse, and dry face Wash, rinse, and dry hands GROOMING - STEP 1: Does the patient require the assistance of a person or device, or need extra time when grooming? Yes. GROOMING - STEP 2: Does the patient require the assistance of a helper? Yes. GROOMING - STEP 3: How much assistance does the patient require from the helper? Cuing, coaxing, instructions, or encour agement for completion of grooming GROOMING - SCORE: 5-SUP BATHING: Abdomen Buttocks Chest Left arm Left lower leg and foot Left upper leg Perineal area Right arm Right lower leg and foot Right upper leg BATHING - STEP 1: Does the patient require the assistance of a person or device, or need extra time when bathing? Yes. BATHING - STEP 2: Does the patient require the assistance of a helper? Yes. BATHING - STEP 3: How much assistance does the patient require from the helper? Only incidental help such as placement of a wash cloth in his/her hand a few times as s/he bathes OR help to bathe just one or two areas of the body BATHING - SCORE: 4-MIN DRESSING - UPPER BODY: Patient is not dressing in public clothing ARTICLES SCORE Total number of steps: 0 DRESSING - UPPER BODY - SCORE: 0-UNK DRESSING - LOWER BODY: Sock - Left foot (one step) Sock - Right foot (one step) Underwear (three steps) ARTICLES SCORE Total number of steps: 5 DRESSING - LOWER BODY - STEP 1: Does the patient require help from a person or device, or need extra time when dressing below the jaziel st? Yes. DRESSING - LOWER BODY - STEP 2: Does the patient require the assistance of a helper? Yes. DRESSING - LOWER BODY - STEP 3: Does the helper touch the patient while dressing? Yes. DRESSING - LOWER BODY - STEP 4: How many of the total steps does the patient complete on his/her own? 1 DRESSING - LOWER BODY - STEP 5: Does patient require total assistance for dressing below the waist such as the helper holding clothin g and performing basically all the activities? No. DRESSING - LOWER BODY - SCORE: 2-MAX TOILETING: Activity did not occur on this shift TOILETING - SCORE: 0-UNK BLADDER MANAGEMENT: Activity did not occur on this shift BLADDER MANAGEMENT - SCORE: 7-IND BOWEL MANAGEMENT: Activity did not occur on this shift BOWEL MANAGEMENT - SCORE: 7-IND TRANSFERS: BED, CHAIR, WHEELCHAIR: Activity did not occur on this shift TRANSFERS: BED, CHAIR, WHEELCHAIR - SCORE: 0-UNK TRANSFERS: TOILET: Activity did not occur on this shift TRANSFERS: TOILET - SCORE: 0-UNK TRANSFERS: SHOWER: TRANSFERS: SHOWER - STEP 1: Does the patient require the assistance of a person or device, or need extra time with shower transfe rs? Yes. TRANSFERS: SHOWER - STEP 2: Does the patient require the assistance of a helper? Yes. TRANSFERS: SHOWER - STEP 3: How much assistance does the patient require from the helper? More than incidental help TRANSFERS: SHOWER - STEP 4: How much more help does the patient require from the helper? Lifting the patient either up OR down fr om the wheelchair onto the shower chair TRANSFERS: SHOWER - SCORE: 3-MOD TRANSFERS: TUB: Activity did not occur on this shift TRANSFERS: TUB - SCORE: 0-UNK LOCOMOTION: WALK: Activity did not occur on this shift LOCOMOTION: WALK - SCORE: 0-UNK LOCOMOTION: WHEELCHAIR: Activity did not occur on this shift LOCOMOTION: WHEELCHAIR - SCORE: 0-UNK LOCOMOTION: STAIRS: Activity did not occur on this shift LOCOMOTION: STAIRS - SCORE: 0-UNK COMPREHENSION: COMPREHENSION: TYPE: Visual COMPREHENSION - STEP 1: Does the patient require help from a person or device, or need extra time to understand complex and a bstract ideas (such as current events, finances, discharge planning, medical issues, relationships, e tc)? Yes. COMPREHENSION - STEP 2: Does the patient require help to understand questions or statements about basic needs or ideas (such as hunger, thirst, sleep, safety, daily schedule, room location, or discomfort) half or more of the t kei? No. COMPREHENSION - STEP 3: How often does the patient need help to understand directions and conversation about basic needs? Les s than 10% of the time COMPREHENSION - SCORE: 5-SUP EXPRESSION EXPRESSION: TYPE: Non-Vocal EXPRESSION - STEP 1: Does the patient require help from a person or device, or need extra time expressing complex and abst ract ideas (such as current events, finances, discharge planning, medical issues, relationships, etc) ? No. EXPRESSION - STEP 2: Does the patient need extra time, require an assistive device (such as augmentive communication syste m or a communication board), OR does s/he have mild difficulty expressing complex and abstract ideas (including mild dysarthria or mild word-find problems)? No. EXPRESSION - SCORE: 7-IND SOCIAL INTERACTION: SOCIAL INTERACTION - STEP 1: Does the patient require a helper to interact with others in social and therapeutic situations? No. SOCIAL INTERACTION - STEP 2: Does the patient need extra time in social situations, OR does s/he interact with staff, other patien ts, and family members ONLY in structured environments, OR does s/he require medication for social in teraction? No. SOCIAL INTERACTION - SCORE: 7-IND PROBLEM SOLVING: PROBLEM SOLVING - STEP 1: Does the patient need help from a person or device, or need extra time to solve complex problems such as managing a checking account or confronting interpersonal problems? Yes. PROBLEM SOLVING - STEP 2: Does the patient solve basic routine problems half or more of the time? Yes. PROBLEM SOLVING - STEP 3: How often does the patient need help to solve basic routine problems? Less than 10% of the time PROBLEM SOLVING - SCORE: 5-SUP MEMORY: MEMORY - STEP 1: Does the patient need help from a person or device, or need extra time to remember frequently encount ered people, daily routines, and executing requests? Yes. MEMORY - STEP 2: How often does the patient need help to remember frequently encountered people, daily routines, and e xecuting requests? Less than 10% of the time MEMORY - SCORE: 5-SUP SIGNATURE PANEL: The following modified sections: Eating - Score, Grooming - Score, Bathing - Score, Dressing - Upper Body - Score, Dressing - Lower Body - Score, Toileting - Score, Transfers: Bed, Chair, Wheelchair - S core, Transfers: Toilet - Score, Transfers: Shower - Score, Transfers: Tub - Score, Comprehension - S core, Expression - Score, Social Interaction - Score, Problem Solving - Score, Memory - Score were [e lectronically] signed by LEEANN Baldwin on WedAug 15 2018 14:55:47 T-0600 ([place] Time)
--- NOTE | 2018-08-15 15:34 | FAST ---
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 Avinash Read M.D. ADMISSION DIAGNOSIS: - Stroke 01 - Left Body (Right Brain) (01.1) ACUTE NONHEMORRHAGIC CVA RIGHT NAHEED. EATING: Activity did not occur on this shift EATING - SCORE: 0-UNK GROOMING: Activity did not occur on this shift GROOMING - SCORE: 0-UNK BATHING: Activity did not occur on this shift BATHING - SCORE: 0-UNK DRESSING - UPPER BODY: Activity did not occur on this shift Patient is not dressing in public clothing ARTICLES SCORE Total number of steps: 0 DRESSING - UPPER BODY - SCORE: 0-UNK DRESSING - LOWER BODY: Activity did not occur on this shift Patient is not dressing in public clothing ARTICLES SCORE Total number of steps: 0 DRESSING - LOWER BODY - SCORE: 0-UNK TOILETING: Activity did not occur on this shift TOILETING - SCORE: 0-UNK BLADDER MANAGEMENT: Activity did not occur on this shift BLADDER MANAGEMENT - SCORE: 7-IND BOWEL MANAGEMENT: Activity did not occur on this shift BOWEL MANAGEMENT - SCORE: 7-IND TRANSFERS: BED, CHAIR, WHEELCHAIR: TRANSFERS: BED, CHAIR, WHEELCHAIR - STEP 1: Does the patient require assistance of a person or device, or need extra time with bed, chair, or whe elchair transfers? Yes. TRANSFERS: BED, CHAIR, WHEELCHAIR - STEP 2: Does the patient require the assistance of a helper? Yes. TRANSFERS: BED, CHAIR, WHEELCHAIR - STEP 3: How much assistance does the patient require from the helper? Steadying/guiding assistance TRANSFERS: BED, CHAIR, WHEELCHAIR - SCORE: 4-MIN TRANSFERS: TOILET: TRANSFERS: TOILET - STEP 1: Does the patient require the assistance of a person or device, or need extra time with toilet transfe rs? Yes. TRANSFERS: TOILET - STEP 2: Does the patient require the assistance of a helper? Yes. TRANSFERS: TOILET - STEP 3: How much assistance does the patient require from the helper? Patient performs half or more of the tr ansferring tasks TRANSFERS: TOILET - STEP 4: Does the patient need only incidental help such as contact guard or steadying during toilet transfer? Yes. TRANSFERS: TOILET - SCORE: 4-MIN TRANSFERS: SHOWER: Activity did not occur on this shift TRANSFERS: SHOWER - SCORE: 0-UNK TRANSFERS: TUB: Activity did not occur on this shift TRANSFERS: TUB - SCORE: 0-UNK LOCOMOTION: WALK: LOCOMOTION: WALK - STEP 1: Does the patient need help from a person or device, or need extra time to walk 150 feet? Yes. LOCOMOTION: WALK - STEP 2: How much assistance does the patient require to walk a minimum of 150 feet? Patient walks less than 1 50 feet - but more than 50 feet - with the assistance of only one helper LOCOMOTION: WALK - SCORE: 2-MAX LOCOMOTION: WHEELCHAIR: Activity did not occur on this shift LOCOMOTION: WHEELCHAIR - SCORE: 0-UNK LOCOMOTION: STAIRS: Activity did not occur on this shift LOCOMOTION: STAIRS - SCORE: 0-UNK COMPREHENSION: COMPREHENSION - SCORE: 0-UNK EXPRESSION EXPRESSION - SCORE: 0-UNK SOCIAL INTERACTION: SOCIAL INTERACTION - SCORE: 0-UNK PROBLEM SOLVING: PROBLEM SOLVING - SCORE: 0-UNK MEMORY: MEMORY - SCORE: 0-UNK SIGNATURE PANEL: The following modified sections: Transfers: Bed, Chair, Wheelchair - Score, Transfers: Toilet - Score , Locomotion: Walk - Score, Locomotion: Wheelchair - Score, Locomotion: Stairs - Score were [electron [email or web address]] signed by Gerald Ibrahim PT on WedAug 15 2018 15:33:36 GMT-0600 (Central Standard Time)
[2018-08-15] MEDS: DOCUSATE NA/SENNA CONC 1 TAB PO SCH (19:37)
[2018-08-15] MEDS: DONEPEZIL HCL 5 MG TAB PO SCH (19:38)
[2018-08-15] MEDS: NETARSUDIL OPTH SCH (20:09)
[2018-08-16] MEDS: LEVOTHYROXINE SOD 0.025 MG TAB PO SCH (05:10)
[2018-08-16] MEDS: NYSTATIN PWDR 100000 UNIT/GM TOP SCH ×2 (08:00→20:11)
[2018-08-16] MEDS: VENLAFAXINE HCL XR 75 MG CAP PO SCH (08:41)
[2018-08-16] MEDS: CLOPIDOGREL 75 MG TABLET PO SCH (08:42)
[2018-08-16] MEDS: OXYBUTYNIN CHLORIDE 5 MG TAB PO SCH ×2 (08:43→20:12)
[2018-08-16] MEDS: AMLODIPINE 5 MG TAB PO SCH (08:43)
[2018-08-16] MEDS: LISINOPRIL 20 MG TAB PO SCH (08:44)
[2018-08-16] MEDS: ASPIRIN EC 81 MG TAB PO SCH (08:44)
[2018-08-16] MEDS: PANTOPRAZOLE 40MG TABLET PO SCH (08:44)
[2018-08-16] MEDS: ENOXAPARIN 30 MG/0.3 ML SQ SCH (08:45)
--- NOTE | 2018-08-16 14:19 | FAST ---
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 Avinash Read M.D. ADMISSION DIAGNOSIS: - Stroke 01 - Left Body (Right Brain) (01.1) ACUTE NONHEMORRHAGIC CVA RIGHT NAHEED. EATING: EATING - STEP 1: Does the patient require the assistance of a person or device, or need extra time when eating? Yes. EATING - STEP 2: Does the patient require the assistance of a helper? Yes. EATING - STEP 3: Does the patient perform half or more of the eating tasks? Yes. EATING - STEP 4: Does the patient need only supervision, cuing, coaxing OR help to apply an orthosis OR help to cut fo od, open containers, pour liquids, or butter bread? Yes. EATING - SCORE: 5-SUP GROOMING: Comb/brush hair GROOMING - STEP 1: Does the patient require the assistance of a person or device, or need extra time when grooming? Yes. GROOMING - STEP 2: Does the patient require the assistance of a helper? No. The patient only requires an assistive devic e, OR takes more than reasonable time to groom, OR there is a concern for safety as the patient groom s GROOMING - SCORE: 6-LIZZ BATHING: Activity did not occur on this shift BATHING - SCORE: 0-UNK DRESSING - UPPER BODY: Patient is not dressing in public clothing ARTICLES SCORE Total number of steps: 0 DRESSING - UPPER BODY - SCORE: 0-UNK DRESSING - LOWER BODY: Patient is not dressing in public clothing ARTICLES SCORE Total number of steps: 0 DRESSING - LOWER BODY - SCORE: 0-UNK TOILETING: TOILETING - STEP 1: Does the patient require the assistance of a person or device, or need extra time with toileting? Yes . TOILETING - STEP 2: Does the patient require the assistance of a helper? Yes. TOILETING - STEP 3: How much assistance does the patient require from the helper? Hands-on assistance from the helper TOILETING - STEP 4: Of the 3 tasks: 1) Adjusting clothing prior to use, 2) Cleansing of perineal area, 3) Adjusting clot braulio after use; How many tasks does the patient perform WITHOUT assistance of the helper? One task TOILETING - SCORE: 2-MAX BLADDER MANAGEMENT: [place] removes incontinent device (Depends, pull ups, etc.); cleans the patient after accident / inco ntinent episode; and, applies new incontinent device. BLADDER MANAGEMENT - SCORE: 1-DEP BLADDER MANAGEMENT - FREQUENCY OF ACCIDENTS: BLADDER MANAGEMENT(FA) - STEP 1: How many accidents has the patient had during the current shift? 2 BOWEL MANAGEMENT: Activity did not occur on this shift BOWEL MANAGEMENT - SCORE: 7-IND TRANSFERS: BED, CHAIR, WHEELCHAIR: TRANSFERS: BED, CHAIR, WHEELCHAIR - STEP 1: Does the patient require assistance of a person or device, or need extra time with bed, chair, or whe elchair transfers? Yes. TRANSFERS: BED, CHAIR, WHEELCHAIR - STEP 2: Does the patient require the assistance of a helper? Yes. TRANSFERS: BED, CHAIR, WHEELCHAIR - STEP 3: How much assistance does the patient require from the helper? Lifting of the legs TRANSFERS: BED, CHAIR, WHEELCHAIR - STEP 4: How many legs does the patient require the helper to lift? both legs TRANSFERS: BED, CHAIR, WHEELCHAIR - SCORE: 3-MOD TRANSFERS: TOILET: TRANSFERS: TOILET - STEP 1: Does the patient require the assistance of a person or device, or need extra time with toilet transfe rs? Yes. TRANSFERS: TOILET - STEP 2: Does the patient require the assistance of a helper? Yes. TRANSFERS: TOILET - STEP 3: How much assistance does the patient require from the helper? Patient performs half or more of the tr ansferring tasks TRANSFERS: TOILET - STEP 4: Does the patient need only incidental help such as contact guard or steadying during toilet transfer? No. Patient needs more than incidental help TRANSFERS: TOILET - SCORE: 3-MOD TRANSFERS: SHOWER: Activity did not occur on this shift TRANSFERS: SHOWER - SCORE: 0-UNK TRANSFERS: TUB: Activity did not occur on this shift TRANSFERS: TUB - SCORE: 0-UNK LOCOMOTION: WALK: Activity did not occur on this shift LOCOMOTION: WALK - SCORE: 0-UNK LOCOMOTION: WHEELCHAIR: Activity did not occur on this shift LOCOMOTION: WHEELCHAIR - SCORE: 0-UNK COMPREHENSION: COMPREHENSION: TYPE: Both COMPREHENSION - STEP 1: Does the patient require help from a person or device, or need extra time to understand complex and a bstract ideas (such as current events, finances, discharge planning, medical issues, relationships, e tc)? No. COMPREHENSION - STEP 2: Does the patient need extra time, require an assistive device (such as glasses for visual comprehensi on or a hearing aid for auditory comprehension) or does s/he have mild difficulty understanding compl ex and abstract information? Yes. COMPREHENSION - SCORE: 6-LIZZ EXPRESSION EXPRESSION: TYPE: Both EXPRESSION - STEP 1: Does the patient require help from a person or device, or need extra time expressing complex and abst ract ideas (such as current events, finances, discharge planning, medical issues, relationships, etc) ? No. EXPRESSION - STEP 2: Does the patient need extra time, require an assistive device (such as augmentive communication syste m or a communication board), OR does s/he have mild difficulty expressing complex and abstract ideas (including mild dysarthria or mild word-find problems)? Yes. EXPRESSION - SCORE: 6-LIZZ SOCIAL INTERACTION: SOCIAL INTERACTION - STEP 1: Does the patient require a helper to interact with others in social and therapeutic situations? No. SOCIAL INTERACTION - STEP 2: Does the patient need extra time in social situations, OR does s/he interact with staff, other patien ts, and family members ONLY in structured environments, OR does s/he require medication for social in teraction? Yes, patient needs extra time SOCIAL INTERACTION - SCORE: 6-LIZZ PROBLEM SOLVING: PROBLEM SOLVING - STEP 1: Does the patient need help from a person or device, or need extra time to solve complex problems such as managing a checking account or confronting interpersonal problems? Yes. PROBLEM SOLVING - STEP 2: Does the patient solve basic routine problems half or more of the time? Yes. PROBLEM SOLVING - STEP 3: How often does the patient need help to solve basic routine problems? Less than 10% of the time PROBLEM SOLVING - SCORE: 5-SUP MEMORY: MEMORY - STEP 1: Does the patient need help from a person or device, or need extra time to remember frequently encount ered people, daily routines, and executing requests? Yes. MEMORY - STEP 2: How often does the patient need help to remember frequently encountered people, daily routines, and e xecuting requests? Less than 10% of the time MEMORY - SCORE: 5-SUP SIGNATURE PANEL: The following modified sections: Eating - Score, Grooming - Score, Bathing - Score, Dressing - Upper Body - Score, Dressing - Lower Body - Score, Toileting - Score, Bladder Management - Score, Bowel Man agement - Score, Transfers: Bed, Chair, Wheelchair - Score, Transfers: Toilet - Score, Transfers: Olga wer - Score, Transfers: Tub - Score, Locomotion: Walk - Score, Locomotion: Wheelchair - Score, Compre hension - Score, Expression - Score, Social Interaction - Score, Problem Solving - Score, Memory - Sc ore were [electronically] signed by Roosevelt Velasquez on WedAug 16 2018 14:18:25 GMT-0600 (Central Standard Time)
[2018-08-16] MEDS: DOCUSATE NA/SENNA CONC 1 TAB PO SCH (20:10)
[2018-08-16] MEDS: NETARSUDIL OPTH SCH (20:11)
[2018-08-16] MEDS: DONEPEZIL HCL 5 MG TAB PO SCH (20:11)
--- NOTE | 2018-08-17 02:04 | FAST ---
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 Avinash Read M.D. ADMISSION DIAGNOSIS: - Stroke 01 - Left Body (Right Brain) (01.1) ACUTE NONHEMORRHAGIC CVA RIGHT NAHEED. EATING: Activity did not occur on this shift EATING - SCORE: 0-UNK GROOMING: Activity did not occur on this shift GROOMING - SCORE: 0-UNK BATHING: Activity did not occur on this shift BATHING - SCORE: 0-UNK DRESSING - UPPER BODY: Patient is not dressing in public clothing ARTICLES SCORE Total number of steps: 0 DRESSING - UPPER BODY - SCORE: 0-UNK DRESSING - LOWER BODY: Patient is not dressing in public clothing ARTICLES SCORE Total number of steps: 0 DRESSING - LOWER BODY - SCORE: 0-UNK TOILETING: Activity did not occur on this shift TOILETING - SCORE: 0-UNK BLADDER MANAGEMENT: [place] removes incontinent device (Depends, pull ups, etc.); cleans the patient after accident / inco ntinent episode; and, applies new incontinent device. BLADDER MANAGEMENT - SCORE: 1-DEP BLADDER MANAGEMENT - FREQUENCY OF ACCIDENTS: BLADDER MANAGEMENT(FA) - STEP 1: How many accidents has the patient had during the current shift? 1 BOWEL MANAGEMENT: Activity did not occur on this shift BOWEL MANAGEMENT - SCORE: 7-IND TRANSFERS: BED, CHAIR, WHEELCHAIR: Activity did not occur on this shift TRANSFERS: BED, CHAIR, WHEELCHAIR - SCORE: 0-UNK TRANSFERS: TOILET: Activity did not occur on this shift TRANSFERS: TOILET - SCORE: 0-UNK TRANSFERS: SHOWER: Activity did not occur on this shift TRANSFERS: SHOWER - SCORE: 0-UNK TRANSFERS: TUB: Activity did not occur on this shift TRANSFERS: TUB - SCORE: 0-UNK LOCOMOTION: WALK: Activity did not occur on this shift LOCOMOTION: WALK - SCORE: 0-UNK LOCOMOTION: WHEELCHAIR: Activity did not occur on this shift LOCOMOTION: WHEELCHAIR - SCORE: 0-UNK COMPREHENSION: COMPREHENSION: TYPE: Both COMPREHENSION - STEP 1: Does the patient require help from a person or device, or need extra time to understand complex and a bstract ideas (such as current events, finances, discharge planning, medical issues, relationships, e tc)? Yes. COMPREHENSION - STEP 2: Does the patient require help to understand questions or statements about basic needs or ideas (such as hunger, thirst, sleep, safety, daily schedule, room location, or discomfort) half or more of the t kei? No. COMPREHENSION - STEP 3: How often does the patient need help to understand directions and conversation about basic needs? 10% - 24% of the time COMPREHENSION - SCORE: 4-MIN EXPRESSION EXPRESSION: TYPE: Both EXPRESSION - STEP 1: Does the patient require help from a person or device, or need extra time expressing complex and abst ract ideas (such as current events, finances, discharge planning, medical issues, relationships, etc) ? No. EXPRESSION - STEP 2: Does the patient need extra time, require an assistive device (such as augmentive communication syste m or a communication board), OR does s/he have mild difficulty expressing complex and abstract ideas (including mild dysarthria or mild word-find problems)? Yes. EXPRESSION - SCORE: 6-LIZZ SOCIAL INTERACTION: SOCIAL INTERACTION - STEP 1: Does the patient require a helper to interact with others in social and therapeutic situations? No. SOCIAL INTERACTION - STEP 2: Does the patient need extra time in social situations, OR does s/he interact with staff, other patien ts, and family members ONLY in structured environments, OR does s/he require medication for social in teraction? Yes, patient needs extra time SOCIAL INTERACTION - SCORE: 6-LIZZ PROBLEM SOLVING: PROBLEM SOLVING - STEP 1: Does the patient need help from a person or device, or need extra time to solve complex problems such as managing a checking account or confronting interpersonal problems? Yes. PROBLEM SOLVING - STEP 2: Does the patient solve basic routine problems half or more of the time? Yes. PROBLEM SOLVING - STEP 3: How often does the patient need help to solve basic routine problems? 10%-24% of the time PROBLEM SOLVING - SCORE: 4-MIN MEMORY: MEMORY - STEP 1: Does the patient need help from a person or device, or need extra time to remember frequently encount ered people, daily routines, and executing requests? No. MEMORY - STEP 2: Does the patient have slight difficulty recognizing frequently encountered people, daily routines, or executing requests without the need for repetition or using self-initiated or environmental cues to remember? Yes. MEMORY - SCORE: 6-LIZZ SIGNATURE PANEL: The following modified sections: Eating - Score, Grooming - Score, Dressing - Upper Body - Score, Mendoza ssing - Lower Body - Score, Toileting - Score, Bladder Management - Score, Bowel Management - Score, Transfers: Bed, Chair, Wheelchair - Score, Transfers: Toilet - Score, Transfers: Shower - Score, Alvarez sfers: Tub - Score, Locomotion: Walk - Score, Locomotion: Wheelchair - Score, Comprehension - Score, Expression - Score, Social Interaction - Score, Problem Solving - Score, Memory - Score were [electro nically] signed by Nhung Corley CNA on WedAug 17 2018 01:54:16 GMT-0600 (Central Standard Time)
[2018-08-17] MEDS: LEVOTHYROXINE SOD 0.025 MG TAB PO SCH (05:04)
[2018-08-17 06:08] LABS: Absolute Lymphocytes (CBC) 1.6 K/uL (0.7-4.9); Absolute Monocytes 0.6 K/uL (0.1-1.3); Absolute Neutrophil 3.4 K/uL (1.8-8.0); Basophils % 1.3 % (0-1.3); Eosinophils % 3.2 % (0-4.4); Hematocrit 34.5 % (36.0-45.0); Lymphocytes % 27.3 % (15.3-44.8); MPV 7.7 fL (7.6-11.3); Monocytes % 10.2 % (3.3-12.3); RBC Red Blood Cell Count 3.95 M/uL (3.86-4.86)
[2018-08-17 06:22] LABS: Albumin 3.3 g/dL (3.4-5.0); Prealbumin 21.7 mg/dL (20-40)
[2018-08-17] MEDS: ENOXAPARIN 30 MG/0.3 ML SQ SCH (07:14)
[2018-08-17] MEDS: OXYBUTYNIN CHLORIDE 5 MG TAB PO SCH ×2 (08:00→20:03)
[2018-08-17] MEDS: LISINOPRIL 20 MG TAB PO SCH (08:15)
[2018-08-17] MEDS: VENLAFAXINE HCL XR 75 MG CAP PO SCH (08:15)
[2018-08-17] MEDS: PANTOPRAZOLE 40MG TABLET PO SCH (08:15)
[2018-08-17] MEDS: ASPIRIN EC 81 MG TAB PO SCH (08:16)
[2018-08-17] MEDS: CLOPIDOGREL 75 MG TABLET PO SCH (08:16)
[2018-08-17] MEDS: AMLODIPINE 5 MG TAB PO SCH (08:18)
[2018-08-17] MEDS: NYSTATIN PWDR 100000 UNIT/GM TOP SCH ×2 (08:18→20:03)
--- NOTE | 2018-08-17 10:28 | P.RH.PN ---
Estimated Length of Stay: 20 Expected Discharge Date: 08/28/18 Discharge Disposition Plan: Home Family Support: Yes Halfway Goal: Mobility, Transfers, Self Care Vital Signs: Last Vital Signs Temp 96.2 F L 08/17/18 06:56 Pulse 67 08/17/18 08:18 Resp 16 08/17/18 06:56 BP 143/60 H 08/17/18 08:18 Pulse Ox 97 08/17/18 06:56 Laboratory: Laboratory Last Values WBC 5.8 K/uL (4.3-10.9) 08/17/18 05:41 RBC 3.95 M/uL (3.86-4.86) 08/17/18 05:41 Hgb 11.7 g/dL (12.0-15.0) L 08/17/18 05:41 Hct 34.5 % (36.0-45.0) L 08/17/18 05:41 MCV 87.2 fL (80-100) 08/17/18 05:41 MCH 29.7 pg (27.0-35.0) 08/17/18 05:41 MCHC 34.0 g/dL (32.0-36.0) 08/17/18 05:41 RDW 13.5 % (12.1-15.2) 08/17/18 05:41 Plt Count 364 K/uL (152-406) 08/17/18 05:41 MPV 7.7 fL (7.6-11.3) 08/17/18 05:41 Neutrophils % 58.0 % (41.7-73.7) 08/17/18 05:41 Lymphocytes % 27.3 % (15.3-44.8) 08/17/18 05:41 Monocytes % 10.2 % (3.3-12.3) 08/17/18 05:41 Eosinophils % 3.2 % (0-4.4) 08/17/18 05:41 Basophils % 1.3 % (0-1.3) 08/17/18 05:41 Absolute Neutrophils 3.4 K/uL (1.8-8.0) 08/17/18 05:41 Absolute Lymphocytes 1.6 K/uL (0.7-4.9) 08/17/18 05:41 Absolute Monocytes 0.6 K/uL (0.1-1.3) 08/17/18 05:41 Absolute Eosinophils 0.2 K/uL (0-0.5) 08/17/18 05:41 Absolute Basophils 0.1 K/uL (0-0.5) 08/17/18 05:41 ESR Westergren 38 mm/HR (0-30) H 08/11/18 21:56 Sodium 140 mmol/L (136-145) 08/17/18 05:41 Potassium 4.0 mmol/L (3.5-5.1) 08/17/18 05:41 Chloride 106 mmol/L (98-107) 08/17/18 05:41 Carbon Dioxide 26 mmol/L (21-32) 08/17/18 05:41 BUN 25 mg/dL (7-18) H 08/17/18 05:41 Creatinine 1.07 mg/dL (0.55-1.3) 08/17/18 05:41 Estimated GFR 49 mL/min (=/>90) L 08/17/18 05:41 Glucose 111 mg/dL (74-106) H 08/17/18 05:41 Calcium 8.9 mg/dL (8.5-10.1) 08/17/18 05:41 Magnesium 2.0 mg/dL (1.8-2.4) D 08/10/18 05:56 Albumin 3.3 g/dL (3.4-5.0) L 08/17/18 05:41 Prealbumin 21.7 mg/dL (20-40) 08/17/18 05:41 Vitamin B12 313 pg/mL (193-986) 08/11/18 21:56 TSH 4.730 uIU/mL (0.360-3.740) H 08/11/18 21:56 Free T4 1.05 ng/dL (0.76-1.46) 08/11/18 21:56 Weight: 168 lb 4.8 oz Wound Present: No Closed Surgical Incision Present: No Negative Pressure Wound Therapy Present: No Physician Update: She is making very good progress with physical and occupational therapy. She is eating with a mechaincal soft diet and her speech has improved. She is at minimum assistance. Labs have been reviewed. Mildly increased BUN. Will increase water intake. Medical Issues: DVT Prophylaxis - Lovenox 30mg SQ Daily Pain Issues: Tylenol #3 Q4H PRN Functional Improvement: pt is demonstrating functional progress. She does fatigue rapidly. pt continues to require skilled PT services to enhance functional performance and safety. Functional Improvement Occupational Therapy: Fatigues quickly, however, great participation during therapy. Speech Therapy Update: Patient is at MIN A for auditory comprehension, MIN A for verbal expression, MOD I for social interaction, MIN A for problem solving, and MOD A for memory. Patient is 85% intelligible in conversational speech. She exhibits occasional word-finding deficits which are usually relieved by circumlocution or allowing extra time. 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 However, overall pt's cognition is a relative strength. Patient is currently tolerating mechanical soft solids and regular thin liquids without difficulty; no clinical s/s of aspiration have been observed or reported. Summary: Patient's care plan and intermediate frame tender goals have been reviewed and revised as necessary. Please see the Rehabilitation Signature page for all necessary signatures.
--- NOTE | 2018-08-17 10:48 | FAST ---
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 Avinash Read M.D. ADMISSION DIAGNOSIS: - Stroke 01 - Left Body (Right Brain) (01.1) ACUTE NONHEMORRHAGIC CVA RIGHT NAHEED. EATING: EATING - STEP 1: Does the patient require the assistance of a person or device, or need extra time when eating? Yes. EATING - STEP 2: Does the patient require the assistance of a helper? Yes. EATING - STEP 3: Does the patient perform half or more of the eating tasks? Yes. EATING - STEP 4: Does the patient need only supervision, cuing, coaxing OR help to apply an orthosis OR help to cut fo od, open containers, pour liquids, or butter bread? Yes. EATING - SCORE: 5-SUP GROOMING: Comb/brush hair Wash, rinse, and dry face Wash, rinse, and dry hands GROOMING - STEP 1: Does the patient require the assistance of a person or device, or need extra time when grooming? Yes. GROOMING - STEP 2: Does the patient require the assistance of a helper? No. The patient only requires an assistive devic e, OR takes more than reasonable time to groom, OR there is a concern for safety as the patient groom s GROOMING - SCORE: 6-LIZZ BATHING: Activity did not occur on this shift BATHING - SCORE: 0-UNK DRESSING - UPPER BODY: T-shirt/pullover shirt (four steps) ARTICLES SCORE Total number of steps: 4 DRESSING - UPPER BODY - STEP 1: Does the patient require help from a person or device, or need extra time when dressing above the jaz[address] st? Yes. DRESSING - UPPER BODY - STEP 2: Does the patient require the assistance of a helper? Yes. DRESSING - UPPER BODY - STEP 3: Does the helper touch the patient while dressing? Yes. DRESSING - UPPER BODY - STEP 4: How many of the total steps does the patient complete on his/her own? 0 DRESSING - UPPER BODY - STEP 5: Does Patient require total assistance for dressing above the waist such as the helper holding clothin g and performing basically all the activities? Yes. DRESSING - UPPER BODY - SCORE: 1-DEP DRESSING - LOWER BODY: Elastic waist pants (three steps) Sock - Left foot (one step) Sock - Right foot (one step) Underwear (three steps) ARTICLES SCORE Total number of steps: 8 DRESSING - LOWER BODY - STEP 1: Does the patient require help from a person or device, or need extra time when dressing below the jaziel st? Yes. DRESSING - LOWER BODY - STEP 2: Does the patient require the assistance of a helper? Yes. DRESSING - LOWER BODY - STEP 3: Does the helper touch the patient while dressing? Yes. DRESSING - LOWER BODY - STEP 4: How many of the total steps does the patient complete on his/her own? 0 DRESSING - LOWER BODY - STEP 5: Does patient require total assistance for dressing below the waist such as the helper holding clothin g and performing basically all the activities? Yes. DRESSING - LOWER BODY - SCORE: 1-DEP TOILETING: Activity did not occur on this shift TOILETING - SCORE: 0-UNK TOILETING - COMMENTS: Pt incontinent BLADDER MANAGEMENT: [place] removes incontinent device (Depends, pull ups, etc.); cleans the patient after accident / inco ntinent episode; and, applies new incontinent device. BLADDER MANAGEMENT - SCORE: 1-DEP BLADDER MANAGEMENT - FREQUENCY OF ACCIDENTS: BLADDER MANAGEMENT(FA) - STEP 1: How many accidents has the patient had during the current shift? 3 BOWEL MANAGEMENT: Activity did not occur on this shift BOWEL MANAGEMENT - SCORE: 7-IND BOWEL MANAGEMENT - FREQUENCY OF ACCIDENTS: BOWEL MANAGEMENT(FA) - STEP 1: How many accidents has the patient had during the current shift? 0 TRANSFERS: BED, CHAIR, WHEELCHAIR: TRANSFERS: BED, CHAIR, WHEELCHAIR - STEP 1: Does the patient require assistance of a person or device, or need extra time with bed, chair, or whe elchair transfers? Yes. TRANSFERS: BED, CHAIR, WHEELCHAIR - STEP 2: Does the patient require the assistance of a helper? Yes. TRANSFERS: BED, CHAIR, WHEELCHAIR - STEP 3: How much assistance does the patient require from the helper? Lifting of the patient TRANSFERS: BED, CHAIR, WHEELCHAIR - STEP 4: Does the helper lift the patient ONLY up? ONLY down? Up AND Down? Up AND Down. TRANSFERS: BED, CHAIR, WHEELCHAIR - SCORE: 2-MAX TRANSFERS: TOILET: Activity did not occur on this shift TRANSFERS: TOILET - SCORE: 0-UNK TRANSFERS: TOILET - COMMENTS: Pt incontinent TRANSFERS: SHOWER: Activity did not occur on this shift TRANSFERS: SHOWER - SCORE: 0-UNK TRANSFERS: TUB: Activity did not occur on this shift TRANSFERS: TUB - SCORE: 0-UNK LOCOMOTION: WALK: Activity did not occur on this shift LOCOMOTION: WALK - SCORE: 0-UNK LOCOMOTION: WHEELCHAIR: Activity did not occur on this shift LOCOMOTION: WHEELCHAIR - SCORE: 0-UNK COMPREHENSION: COMPREHENSION: TYPE: Both COMPREHENSION - STEP 1: Does the patient require help from a person or device, or need extra time to understand complex and a bstract ideas (such as current events, finances, discharge planning, medical issues, relationships, e tc)? No. COMPREHENSION - STEP 2: Does the patient need extra time, require an assistive device (such as glasses for visual comprehensi on or a hearing aid for auditory comprehension) or does s/he have mild difficulty understanding compl ex and abstract information? Yes. COMPREHENSION - SCORE: 6-LIZZ EXPRESSION EXPRESSION: TYPE: Both EXPRESSION - STEP 1: Does the patient require help from a person or device, or need extra time expressing complex and abst ract ideas (such as current events, finances, discharge planning, medical issues, relationships, etc) ? No. EXPRESSION - STEP 2: Does the patient need extra time, require an assistive device (such as augmentive communication syste m or a communication board), OR does s/he have mild difficulty expressing complex and abstract ideas (including mild dysarthria or mild word-find problems)? Yes. EXPRESSION - SCORE: 6-LIZZ SOCIAL INTERACTION: SOCIAL INTERACTION - STEP 1: Does the patient require a helper to interact with others in social and therapeutic situations? No. SOCIAL INTERACTION - STEP 2: Does the patient need extra time in social situations, OR does s/he interact with staff, other patien ts, and family members ONLY in structured environments, OR does s/he require medication for social in teraction? Yes, patient needs extra time SOCIAL INTERACTION - SCORE: 6-LIZZ PROBLEM SOLVING: PROBLEM SOLVING - STEP 1: Does the patient need help from a person or device, or need extra time to solve complex problems such as managing a checking account or confronting interpersonal problems? Yes. PROBLEM SOLVING - STEP 2: Does the patient solve basic routine problems half or more of the time? Yes. PROBLEM SOLVING - STEP 3: How often does the patient need help to solve basic routine problems? Less than 10% of the time PROBLEM SOLVING - SCORE: 5-SUP MEMORY: MEMORY - STEP 1: Does the patient need help from a person or device, or need extra time to remember frequently encount ered people, daily routines, and executing requests? Yes. MEMORY - STEP 2: How often does the patient need help to remember frequently encountered people, daily routines, and e xecuting requests? Less than 10% of the time MEMORY - SCORE: 5-SUP SIGNATURE PANEL: The following modified sections: Eating - Score, Grooming - Score, Bathing - Score, Dressing - Upper Body - Score, Dressing - Lower Body - Score, Toileting - Score, Toileting - Comments:, Bladder Manage ment - Score, Bowel Management - Score, Transfers: Bed, Chair, Wheelchair - Score, Transfers: Toilet - Score, Transfers: Toilet - Comments:, Transfers: Shower - Score, Transfers: Tub - Score, Locomotion : Walk - Score, Locomotion: Wheelchair - Score, Comprehension - Score, Expression - Score, Social Int eraction - Score, Problem Solving - Score, Memory - Score were [electronically] signed by Vinicio [email or web address] on WedAug 17 2018 10:47:26 GMT-0600 (Central Standard Time)
--- NOTE | 2018-08-17 15:46 | FAST ---
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 Avinash Read M.D. ADMISSION DIAGNOSIS: - Stroke 01 - Left Body (Right Brain) (01.1) ACUTE NONHEMORRHAGIC CVA RIGHT NAHEED. EATING: Activity did not occur on this shift EATING - SCORE: 0-UNK GROOMING: Comb/brush hair Wash, rinse, and dry face Wash, rinse, and dry hands GROOMING - STEP 1: Does the patient require the assistance of a person or device, or need extra time when grooming? Yes. GROOMING - STEP 2: Does the patient require the assistance of a helper? No. The patient only requires an assistive devic e, OR takes more than reasonable time to groom, OR there is a concern for safety as the patient groom s GROOMING - SCORE: 6-LIZZ BATHING: Abdomen Buttocks Chest Left arm Left lower leg and foot Left upper leg Perineal area Right arm Right lower leg and foot Right upper leg BATHING - STEP 1: Does the patient require the assistance of a person or device, or need extra time when bathing? Yes. BATHING - STEP 2: Does the patient require the assistance of a helper? Yes. BATHING - STEP 3: How much assistance does the patient require from the helper? Only incidental help such as placement of a wash cloth in his/her hand a few times as s/he bathes OR help to bathe just one or two areas of the body BATHING - SCORE: 4-MIN DRESSING - UPPER BODY: T-shirt/pullover shirt (four steps) ARTICLES SCORE Total number of steps: 4 DRESSING - UPPER BODY - STEP 1: Does the patient require help from a person or device, or need extra time when dressing above the jaziel st? Yes. DRESSING - UPPER BODY - STEP 2: Does the patient require the assistance of a helper? Yes. DRESSING - UPPER BODY - STEP 3: Does the helper touch the patient while dressing? No. DRESSING - UPPER BODY - SCORE: 5-SUP DRESSING - LOWER BODY: Elastic waist pants (three steps) Slip-on shoe - Left foot (one step) Slip-on shoe - Right foot (one step) Sock - Left foot (one step) Sock - Right foot (one step) Underwear (three steps) ARTICLES SCORE Total number of steps: 10 DRESSING - LOWER BODY - STEP 1: Does the patient require help from a person or device, or need extra time when dressing below the jaziel st? Yes. DRESSING - LOWER BODY - STEP 2: Does the patient require the assistance of a helper? Yes. DRESSING - LOWER BODY - STEP 3: Does the helper touch the patient while dressing? Yes. DRESSING - LOWER BODY - STEP 4: How many of the total steps does the patient complete on his/her own? 7 DRESSING - LOWER BODY - SCORE: 3-MOD TOILETING: TOILETING - STEP 1: Does the patient require the assistance of a person or device, or need extra time with toileting? Yes . TOILETING - STEP 2: Does the patient require the assistance of a helper? Yes. TOILETING - STEP 3: How much assistance does the patient require from the helper? Hands-on assistance from the helper TOILETING - STEP 4: Of the 3 tasks: 1) Adjusting clothing prior to use, 2) Cleansing of perineal area, 3) Adjusting clot braulio after use; How many tasks does the patient perform WITHOUT assistance of the helper? Two tasks TOILETING - SCORE: 3-MOD BLADDER MANAGEMENT: Activity did not occur on this shift BLADDER MANAGEMENT - SCORE: 7-IND BOWEL MANAGEMENT: Activity did not occur on this shift BOWEL MANAGEMENT - SCORE: 7-IND TRANSFERS: BED, CHAIR, WHEELCHAIR: Activity did not occur on this shift TRANSFERS: BED, CHAIR, WHEELCHAIR - SCORE: 0-UNK TRANSFERS: TOILET: TRANSFERS: TOILET - STEP 1: Does the patient require the assistance of a person or device, or need extra time with toilet transfe rs? Yes. TRANSFERS: TOILET - STEP 2: Does the patient require the assistance of a helper? Yes. TRANSFERS: TOILET - STEP 3: How much assistance does the patient require from the helper? Patient performs half or more of the tr ansferring tasks TRANSFERS: TOILET - STEP 4: Does the patient need only incidental help such as contact guard or steadying during toilet transfer? No. Patient needs more than incidental help TRANSFERS: TOILET - SCORE: 3-MOD TRANSFERS: SHOWER: TRANSFERS: SHOWER - STEP 1: Does the patient require the assistance of a person or device, or need extra time with shower transfe rs? Yes. TRANSFERS: SHOWER - STEP 2: Does the patient require the assistance of a helper? Yes. TRANSFERS: SHOWER - STEP 3: How much assistance does the patient require from the helper? More than incidental help TRANSFERS: SHOWER - STEP 4: How much more help does the patient require from the helper? Lifting the patient either up OR down fr om the wheelchair onto the shower chair TRANSFERS: SHOWER - SCORE: 3-MOD TRANSFERS: TUB: Activity did not occur on this shift TRANSFERS: TUB - SCORE: 0-UNK LOCOMOTION: WALK: Activity did not occur on this shift LOCOMOTION: WALK - SCORE: 0-UNK LOCOMOTION: WHEELCHAIR: Activity did not occur on this shift LOCOMOTION: WHEELCHAIR - SCORE: 0-UNK LOCOMOTION: STAIRS: Activity did not occur on this shift LOCOMOTION: STAIRS - SCORE: 0-UNK COMPREHENSION: COMPREHENSION: TYPE: Visual COMPREHENSION - SCORE: 0-UNK EXPRESSION EXPRESSION - SCORE: 0-UNK SOCIAL INTERACTION: SOCIAL INTERACTION - SCORE: 0-UNK PROBLEM SOLVING: PROBLEM SOLVING - SCORE: 0-UNK MEMORY: MEMORY - SCORE: 0-UNK SIGNATURE PANEL: The following modified sections: Eating - Score, Grooming - Score, Bathing - Score, Dressing - Upper Body - Score, Dressing - Lower Body - Score, Toileting - Score, Transfers: Bed, Chair, Wheelchair - S core, Transfers: Toilet - Score, Transfers: Shower - Score, Transfers: Tub - Score, Comprehension - S core, Expression - Score, Social Interaction - Score, Problem Solving - Score, Memory - Score were [e lectronically] signed by LEEANN Baldwin on WedAug 17 2018 15:45:00 GMT-0600 ([place] Time)
--- NOTE | 2018-08-17 16:39 | FAST ---
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 Avinash Read M.D. ADMISSION DIAGNOSIS: - Stroke 01 - Left Body (Right Brain) (01.1) ACUTE NONHEMORRHAGIC CVA RIGHT NAHEED. EATING: Activity did not occur on this shift EATING - SCORE: 0-UNK GROOMING: Activity did not occur on this shift GROOMING - SCORE: 0-UNK BATHING: Activity did not occur on this shift BATHING - SCORE: 0-UNK DRESSING - UPPER BODY: Activity did not occur on this shift Patient is not dressing in public clothing ARTICLES SCORE Total number of steps: 0 DRESSING - UPPER BODY - SCORE: 0-UNK DRESSING - LOWER BODY: Activity did not occur on this shift Patient is not dressing in public clothing ARTICLES SCORE Total number of steps: 0 DRESSING - LOWER BODY - SCORE: 0-UNK TOILETING: Activity did not occur on this shift TOILETING - SCORE: 0-UNK BLADDER MANAGEMENT: Activity did not occur on this shift BLADDER MANAGEMENT - SCORE: 7-IND BOWEL MANAGEMENT: Activity did not occur on this shift BOWEL MANAGEMENT - SCORE: 7-IND TRANSFERS: BED, CHAIR, WHEELCHAIR: TRANSFERS: BED, CHAIR, WHEELCHAIR - STEP 1: Does the patient require assistance of a person or device, or need extra time with bed, chair, or whe elchair transfers? Yes. TRANSFERS: BED, CHAIR, WHEELCHAIR - STEP 2: Does the patient require the assistance of a helper? Yes. TRANSFERS: BED, CHAIR, WHEELCHAIR - STEP 3: How much assistance does the patient require from the helper? Steadying/guiding assistance TRANSFERS: BED, CHAIR, WHEELCHAIR - SCORE: 4-MIN TRANSFERS: TOILET: Activity did not occur on this shift TRANSFERS: TOILET - SCORE: 0-UNK TRANSFERS: SHOWER: Activity did not occur on this shift TRANSFERS: SHOWER - SCORE: 0-UNK TRANSFERS: TUB: Activity did not occur on this shift TRANSFERS: TUB - SCORE: 0-UNK LOCOMOTION: WALK: LOCOMOTION: WALK - STEP 1: Does the patient need help from a person or device, or need extra time to walk 150 feet? Yes. LOCOMOTION: WALK - STEP 2: How much assistance does the patient require to walk a minimum of 150 feet? Patient walks less than 1 50 feet - but more than 50 feet - with the assistance of only one helper LOCOMOTION: WALK - SCORE: 2-MAX LOCOMOTION: WHEELCHAIR: Activity did not occur on this shift LOCOMOTION: WHEELCHAIR - SCORE: 0-UNK LOCOMOTION: STAIRS: Activity did not occur on this shift LOCOMOTION: STAIRS - SCORE: 0-UNK COMPREHENSION: COMPREHENSION - SCORE: 0-UNK EXPRESSION EXPRESSION - SCORE: 0-UNK SOCIAL INTERACTION: SOCIAL INTERACTION - SCORE: 0-UNK PROBLEM SOLVING: PROBLEM SOLVING - SCORE: 0-UNK MEMORY: MEMORY - SCORE: 0-UNK SIGNATURE PANEL: The following modified sections: Transfers: Bed, Chair, Wheelchair - Score, Transfers: Toilet - Score , Locomotion: Walk - Score, Locomotion: Wheelchair - Score, Locomotion: Stairs - Score were [electron ically] signed by Gerald Ibrahim PT on WedAug 17 2018 16:38:59 GMT-0600 (Central Standard Time)
[2018-08-17] MEDS: CRANBERRY FRUIT EXTRACT 200 MG CAP PO SCH (20:03)
[2018-08-17] MEDS: DONEPEZIL HCL 5 MG TAB PO SCH (20:03)
[2018-08-17] MEDS: NETARSUDIL OPTH SCH (20:08)
[2018-08-17] MEDS: DOCUSATE NA/SENNA CONC 1 TAB PO SCH (20:10)
--- NOTE | 2018-08-17 21:49 | P.PN ---
Subjective Date of Service: 08/17/18 Chief Complaint: STABLE, NO CHANGES. Subjective: Improving WEAK NOT ABLE TO COMPLAIN MUCH. STILL VERY WEAK AND WILL NOT ABLE TO GO HOME. I RECOMMEND NH. SHE IS DOING LOT BETTER. SHE MAY IMPROVE ENOUGH FOR HOME. NO COMPLAINTS. SHE IS IN GOOD MOOD. DOING PT DAILY. DC ON Aug. Review of Systems 10-point ROS is otherwise unremarkable General: Weakness, Malaise Neurological: Incoordination, As per HPI Physical Examination - Vital Signs Temperature: 98.2 F Blood Pressure: 146/64 Pulse: 68 Respirations: 16 Pulse Ox (%): 99 - Physical Exam General: Alert, Mild distress, Obese HEENT: Atraumatic, PERRLA, EOMI Neck: Supple, JVD not distended Respiratory: Clear to auscultation bilaterally, Normal air movement Cardiovascular: Regular rate/rhythm, Normal S1 S2 Gastrointestinal: Normal bowel sounds, No tenderness Musculoskeletal: No tenderness Integumentary: No rashes Neurological: Normal speech, Normal tone, Normal affect, Abnormal strength (L HEMIPARESIS.) Lymphatics: No axilla or inguinal lymphadenopathy - Studies Laboratory Data (last 24 hrs) 08/17/18 05:41: Sodium 140, Potassium 4.0, BUN 25 H, Creatinine 1.07, Glucose 111 H 08/17/18 05:41: WBC 5.8, Hgb 11.7 L, Hct 34.5 L, Plt Count 364 Medications List Reviewed: Yes Assessment And Plan - Current Problems (Diagnosis) (1) CVA (cerebral vascular accident) Onset Date: 08/08/18 Current Visit: No Status: Acute Plan: PT NOT ABLE TO TAKE 3 HOURS OF THERAPY. [facility] ADVISED. RESUME PT SHE IS IMPROVING. RESUME ANTIPLATELET AGENTS. STABLE, NO NEW CHANGES. RESUME MEDS. CONT PT STABLE. Qualifiers: Precerebral and cerebral artery: other cerebral artery (2) HTN (hypertension) Onset Date: 08/08/18 Current Visit: No Status: Chronic Plan: REDUCE NORVASC BP IS LOW NORMAL NOW. (3) Hypothyroid Current Visit: Yes Status: Acute Plan: SMALL DOSE OF LEVOXYL. (4) B12 deficiency Current Visit: Yes Status: Acute Plan: ONE INJECTON AND SHE CAN TAKE ONCE A MONTH.
--- NOTE | 2018-08-18 01:19 | FAST ---
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 Avinash Read M.D. ADMISSION DIAGNOSIS: - Stroke 01 - Left Body (Right Brain) (01.1) ACUTE NONHEMORRHAGIC CVA RIGHT NAHEED. EATING: Activity did not occur on this shift EATING - SCORE: 0-UNK GROOMING: Activity did not occur on this shift GROOMING - SCORE: 0-UNK BATHING: Activity did not occur on this shift BATHING - SCORE: 0-UNK DRESSING - UPPER BODY: Patient is not dressing in public clothing ARTICLES SCORE Total number of steps: 0 DRESSING - UPPER BODY - SCORE: 0-UNK DRESSING - LOWER BODY: Patient is not dressing in public clothing ARTICLES SCORE Total number of steps: 0 DRESSING - LOWER BODY - SCORE: 0-UNK TOILETING: Activity did not occur on this shift TOILETING - SCORE: 0-UNK BLADDER MANAGEMENT: [place] removes incontinent device (Depends, pull ups, etc.); cleans the patient after accident / inco ntinent episode; and, applies new incontinent device. BLADDER MANAGEMENT - SCORE: 1-DEP BOWEL MANAGEMENT: Activity did not occur on this shift BOWEL MANAGEMENT - SCORE: 7-IND TRANSFERS: BED, CHAIR, WHEELCHAIR: Activity did not occur on this shift TRANSFERS: BED, CHAIR, WHEELCHAIR - SCORE: 0-UNK TRANSFERS: TOILET: Activity did not occur on this shift TRANSFERS: TOILET - SCORE: 0-UNK TRANSFERS: SHOWER: Activity did not occur on this shift TRANSFERS: SHOWER - SCORE: 0-UNK TRANSFERS: TUB: Activity did not occur on this shift TRANSFERS: TUB - SCORE: 0-UNK LOCOMOTION: WALK: Activity did not occur on this shift LOCOMOTION: WALK - SCORE: 0-UNK LOCOMOTION: WHEELCHAIR: Activity did not occur on this shift LOCOMOTION: WHEELCHAIR - SCORE: 0-UNK COMPREHENSION: COMPREHENSION: TYPE: Both COMPREHENSION - STEP 1: Does the patient require help from a person or device, or need extra time to understand complex and a bstract ideas (such as current events, finances, discharge planning, medical issues, relationships, e tc)? No. COMPREHENSION - STEP 2: Does the patient need extra time, require an assistive device (such as glasses for visual comprehensi on or a hearing aid for auditory comprehension) or does s/he have mild difficulty understanding compl ex and abstract information? Yes. COMPREHENSION - SCORE: 6-LIZZ EXPRESSION EXPRESSION: TYPE: Both EXPRESSION - STEP 1: Does the patient require help from a person or device, or need extra time expressing complex and abst ract ideas (such as current events, finances, discharge planning, medical issues, relationships, etc) ? No. EXPRESSION - STEP 2: Does the patient need extra time, require an assistive device (such as augmentive communication syste m or a communication board), OR does s/he have mild difficulty expressing complex and abstract ideas (including mild dysarthria or mild word-find problems)? Yes. EXPRESSION - SCORE: 6-LIZZ SOCIAL INTERACTION: SOCIAL INTERACTION - STEP 1: Does the patient require a helper to interact with others in social and therapeutic situations? No. SOCIAL INTERACTION - STEP 2: Does the patient need extra time in social situations, OR does s/he interact with staff, other patien ts, and family members ONLY in structured environments, OR does s/he require medication for social in teraction? Yes, patient needs extra time SOCIAL INTERACTION - SCORE: 6-LIZZ PROBLEM SOLVING: PROBLEM SOLVING - STEP 1: Does the patient need help from a person or device, or need extra time to solve complex problems such as managing a checking account or confronting interpersonal problems? Yes. PROBLEM SOLVING - STEP 2: Does the patient solve basic routine problems half or more of the time? Yes. PROBLEM SOLVING - STEP 3: How often does the patient need help to solve basic routine problems? 10%-24% of the time PROBLEM SOLVING - SCORE: 4-MIN MEMORY: MEMORY - STEP 1: Does the patient need help from a person or device, or need extra time to remember frequently encount ered people, daily routines, and executing requests? No. MEMORY - STEP 2: Does the patient have slight difficulty recognizing frequently encountered people, daily routines, or executing requests without the need for repetition or using self-initiated or environmental cues to remember? Yes. MEMORY - SCORE: 6-LIZZ SIGNATURE PANEL: The following modified sections: Eating - Score, Grooming - Score, Dressing - Upper Body - Score, [place] ssing - Lower Body - Score, Toileting - Score, Bladder Management - Score, Bowel Management - Score, Transfers: Bed, Chair, Wheelchair - Score, Transfers: Toilet - Score, Transfers: Shower - Score, [place] sfers: Tub - Score, Locomotion: Walk - Score, Locomotion: Wheelchair - Score, Comprehension - Score, Expression - Score, Social Interaction - Score, Problem Solving - Score, Memory - Score were [electro nically] signed by Nhung Corley CNA on WedAug 18 2018 01:19:17 GMT-0600 (Central Standard Time)
[2018-08-18] MEDS: LEVOTHYROXINE SOD 0.025 MG TAB PO SCH (05:05)
[2018-08-18] MEDS: ENOXAPARIN 30 MG/0.3 ML SQ SCH (07:01)
[2018-08-18] MEDS: NYSTATIN PWDR 100000 UNIT/GM TOP SCH ×2 (07:11→19:30)
[2018-08-18] MEDS: CLOPIDOGREL 75 MG TABLET PO SCH (07:47)
[2018-08-18] MEDS: ASPIRIN EC 81 MG TAB PO SCH (07:47)
[2018-08-18] MEDS: CRANBERRY FRUIT EXTRACT 200 MG CAP PO SCH ×2 (07:47→19:29)
[2018-08-18] MEDS: PANTOPRAZOLE 40MG TABLET PO SCH (07:48)
[2018-08-18] MEDS: AMLODIPINE 5 MG TAB PO SCH (07:48)
[2018-08-18] MEDS: VENLAFAXINE HCL XR 75 MG CAP PO SCH (07:48)
[2018-08-18] MEDS: LISINOPRIL 20 MG TAB PO SCH (07:48)
[2018-08-18] MEDS: OXYBUTYNIN CHLORIDE 5 MG TAB PO SCH ×2 (07:50→19:29)
--- NOTE | 2018-08-18 15:31 | FAST ---
ENCOUNTER DATE AND TIME: 08/18/2018 08:00 (ARGON TESTER) NAME JAIDA RICHARD DATE OF : 1930 DATE OF ADMISSION: 08/09/2018 16:39 (ARGON TESTER) PHONE: AGE: 87 SSN# [id number] GENDER: Female ENCOUNTER PHYSICIAN: Dr. Avinash Read M.D. ADMISSION DIAGNOSIS: - Stroke 01 - Left Body (Right Brain) (01.1) ACUTE NONHEMORRHAGIC CVA RIGHT NAHEED. EATING: Activity did not occur on this shift EATING - SCORE: 0-UNK GROOMING: Activity did not occur on this shift GROOMING - SCORE: 0-UNK BATHING: Activity did not occur on this shift BATHING - SCORE: 0-UNK DRESSING - UPPER BODY: Activity did not occur on this shift Patient is not dressing in public clothing ARTICLES SCORE Total number of steps: 0 DRESSING - UPPER BODY - SCORE: 0-UNK DRESSING - LOWER BODY: Activity did not occur on this shift Patient is not dressing in public clothing ARTICLES SCORE Total number of steps: 0 DRESSING - LOWER BODY - SCORE: 0-UNK TOILETING: Activity did not occur on this shift TOILETING - SCORE: 0-UNK BLADDER MANAGEMENT: Activity did not occur on this shift BLADDER MANAGEMENT - SCORE: 7-IND BOWEL MANAGEMENT: Activity did not occur on this shift BOWEL MANAGEMENT - SCORE: 7-IND TRANSFERS: BED, CHAIR, WHEELCHAIR: TRANSFERS: BED, CHAIR, WHEELCHAIR - STEP 1: Does the patient require assistance of a person or device, or need extra time with bed, chair, or whe elchair transfers? Yes. TRANSFERS: BED, CHAIR, WHEELCHAIR - STEP 2: Does the patient require the assistance of a helper? Yes. TRANSFERS: BED, CHAIR, WHEELCHAIR - STEP 3: How much assistance does the patient require from the helper? Only supervision TRANSFERS: BED, CHAIR, WHEELCHAIR - SCORE: 5-SUP TRANSFERS: TOILET: Activity did not occur on this shift TRANSFERS: TOILET - SCORE: 0-UNK TRANSFERS: SHOWER: Activity did not occur on this shift TRANSFERS: SHOWER - SCORE: 0-UNK TRANSFERS: TUB: Activity did not occur on this shift TRANSFERS: TUB - SCORE: 0-UNK LOCOMOTION: WALK: LOCOMOTION: WALK - STEP 1: Does the patient need help from a person or device, or need extra time to walk 150 feet? Yes. LOCOMOTION: WALK - STEP 2: How much assistance does the patient require to walk a minimum of 150 feet? Patient walks less than 1 50 feet - but more than 50 feet - with the assistance of only one helper LOCOMOTION: WALK - SCORE: 2-MAX LOCOMOTION: WHEELCHAIR: LOCOMOTION: WHEELCHAIR - STEP 1: Does the patient need help to go 150 feet in a wheelchair? Yes. LOCOMOTION: WHEELCHAIR - STEP 2: How much assistance does the patient need from the helper? Only supervision, cuing, or coaxing LOCOMOTION: WHEELCHAIR - SCORE: 5-SUP LOCOMOTION: STAIRS: Activity did not occur on this shift LOCOMOTION: STAIRS - SCORE: 0-UNK COMPREHENSION: COMPREHENSION - SCORE: 0-UNK EXPRESSION EXPRESSION - SCORE: 0-UNK SOCIAL INTERACTION: SOCIAL INTERACTION - SCORE: 0-UNK PROBLEM SOLVING: PROBLEM SOLVING - SCORE: 0-UNK MEMORY: MEMORY - SCORE: 0-UNK SIGNATURE PANEL: The following modified sections: Transfers: Bed, Chair, Wheelchair - Score, Transfers: Toilet - Score , Locomotion: Walk - Score, Locomotion: Wheelchair - Score, Locomotion: Stairs - Score were [electron [email or web address]] signed by Gerald Ibrahim PT on WedAug 18 2018 15:30:47 GMT-0600 (Central Standard Time)
--- NOTE | 2018-08-18 15:41 | FAST ---
SHIFT START DATE/TIME: 08/18/2018 07:00 (MEAT TRIMMER) SHIFT END DATE/TIME: 08/18/2018 19:00 (MEAT TRIMMER) NAME JAIDA RICHARD DATE OF : 1930 DATE OF ADMISSION: 08/09/2018 16:39 (MEAT TRIMMER) PHONE: AGE: 87 SSN# [id number] GENDER: Female ENCOUNTER PHYSICIAN: Dr. Avinash Read M.D. ADMISSION DIAGNOSIS: - Stroke 01 - Left Body (Right Brain) (01.1) ACUTE NONHEMORRHAGIC CVA RIGHT NAHEED. EATING: EATING - STEP 1: Does the patient require the assistance of a person or device, or need extra time when eating? Yes. EATING - STEP 2: Does the patient require the assistance of a helper? Yes. EATING - STEP 3: Does the patient perform half or more of the eating tasks? Yes. EATING - STEP 4: Does the patient need only supervision, cuing, coaxing OR help to apply an orthosis OR help to cut fo od, open containers, pour liquids, or butter bread? Yes. EATING - SCORE: 5-SUP GROOMING: Comb/brush hair Wash, rinse, and dry face Wash, rinse, and dry hands GROOMING - STEP 1: Does the patient require the assistance of a person or device, or need extra time when grooming? Yes. GROOMING - STEP 2: Does the patient require the assistance of a helper? No. The patient only requires an assistive devic e, OR takes more than reasonable time to groom, OR there is a concern for safety as the patient groom s GROOMING - SCORE: 6-LIZZ BATHING: Activity did not occur on this shift BATHING - SCORE: 0-UNK DRESSING - UPPER BODY: T-shirt/pullover shirt (four steps) ARTICLES SCORE Total number of steps: 4 DRESSING - UPPER BODY - STEP 1: Does the patient require help from a person or device, or need extra time when dressing above the jaziel st? Yes. DRESSING - UPPER BODY - STEP 2: Does the patient require the assistance of a helper? Yes. DRESSING - UPPER BODY - STEP 3: Does the helper touch the patient while dressing? Yes. DRESSING - UPPER BODY - STEP 4: How many of the total steps does the patient complete on his/her own? 3 DRESSING - UPPER BODY - SCORE: 4-MIN DRESSING - LOWER BODY: Underwear (three steps) ARTICLES SCORE Total number of steps: 3 DRESSING - LOWER BODY - STEP 1: Does the patient require help from a person or device, or need extra time when dressing below the jaziel st? Yes. DRESSING - LOWER BODY - STEP 2: Does the patient require the assistance of a helper? Yes. DRESSING - LOWER BODY - STEP 3: Does the helper touch the patient while dressing? Yes. DRESSING - LOWER BODY - STEP 4: How many of the total steps does the patient complete on his/her own? 0 DRESSING - LOWER BODY - STEP 5: Does patient require total assistance for dressing below the waist such as the helper holding clothin g and performing basically all the activities? Yes. DRESSING - LOWER BODY - SCORE: 1-DEP TOILETING: TOILETING - STEP 1: Does the patient require the assistance of a person or device, or need extra time with toileting? Yes . TOILETING - STEP 2: Does the patient require the assistance of a helper? Yes. TOILETING - STEP 3: How much assistance does the patient require from the helper? Hands-on assistance from the helper TOILETING - STEP 4: Of the 3 tasks: 1) Adjusting clothing prior to use, 2) Cleansing of perineal area, 3) Adjusting clot braulio after use; How many tasks does the patient perform WITHOUT assistance of the helper? One task TOILETING - SCORE: 2-MAX BLADDER MANAGEMENT: Vance removes incontinent device (Depends, pull ups, etc.); cleans the patient after accident / inco ntinent episode; and, applies new incontinent device. BLADDER MANAGEMENT - SCORE: 1-DEP BLADDER MANAGEMENT - FREQUENCY OF ACCIDENTS: BLADDER MANAGEMENT(FA) - STEP 1: How many accidents has the patient had during the current shift? 2 BOWEL MANAGEMENT: Activity did not occur on this shift BOWEL MANAGEMENT - STEP 1: Does the patient control bowels completely and intentionally without equipment devices or medications AND is always continent? No. BOWEL MANAGEMENT - SCORE: 7-IND BOWEL MANAGEMENT - FREQUENCY OF ACCIDENTS: BOWEL MANAGEMENT(FA) - STEP 1: How many accidents has the patient had during the current shift? 0 TRANSFERS: BED, CHAIR, WHEELCHAIR: TRANSFERS: BED, CHAIR, WHEELCHAIR - STEP 1: Does the patient require assistance of a person or device, or need extra time with bed, chair, or whe elchair transfers? Yes. TRANSFERS: BED, CHAIR, WHEELCHAIR - STEP 2: Does the patient require the assistance of a helper? Yes. TRANSFERS: BED, CHAIR, WHEELCHAIR - STEP 3: How much assistance does the patient require from the helper? Steadying/guiding assistance TRANSFERS: BED, CHAIR, WHEELCHAIR - SCORE: 4-MIN TRANSFERS: TOILET: TRANSFERS: TOILET - STEP 1: Does the patient require the assistance of a person or device, or need extra time with toilet transfe rs? Yes. TRANSFERS: TOILET - STEP 2: Does the patient require the assistance of a helper? Yes. TRANSFERS: TOILET - STEP 3: How much assistance does the patient require from the helper? Patient performs less than half of the transferring tasks TRANSFERS: TOILET - STEP 4: Does the patient require total assistance for the toilet transfer such as the helper doing basically all the lifting? Yes. TRANSFERS: TOILET - SCORE: 1-DEP TRANSFERS: SHOWER: Activity did not occur on this shift TRANSFERS: SHOWER - SCORE: 0-UNK TRANSFERS: TUB: Activity did not occur on this shift TRANSFERS: TUB - SCORE: 0-UNK LOCOMOTION: WALK: Activity did not occur on this shift LOCOMOTION: WALK - SCORE: 0-UNK LOCOMOTION: WHEELCHAIR: Activity did not occur on this shift LOCOMOTION: WHEELCHAIR - SCORE: 0-UNK COMPREHENSION: COMPREHENSION: TYPE: Both COMPREHENSION - STEP 1: Does the patient require help from a person or device, or need extra time to understand complex and a bstract ideas (such as current events, finances, discharge planning, medical issues, relationships, e tc)? No. COMPREHENSION - STEP 2: Does the patient need extra time, require an assistive device (such as glasses for visual comprehensi on or a hearing aid for auditory comprehension) or does s/he have mild difficulty understanding compl ex and abstract information? Yes. COMPREHENSION - SCORE: 6-LIZZ EXPRESSION EXPRESSION: TYPE: Both EXPRESSION - STEP 1: Does the patient require help from a person or device, or need extra time expressing complex and abst ract ideas (such as current events, finances, discharge planning, medical issues, relationships, etc) ? No. EXPRESSION - STEP 2: Does the patient need extra time, require an assistive device (such as augmentive communication syste m or a communication board), OR does s/he have mild difficulty expressing complex and abstract ideas (including mild dysarthria or mild word-find problems)? Yes. EXPRESSION - SCORE: 6-LIZZ SOCIAL INTERACTION: SOCIAL INTERACTION - STEP 1: Does the patient require a helper to interact with others in social and therapeutic situations? No. SOCIAL INTERACTION - STEP 2: Does the patient need extra time in social situations, OR does s/he interact with staff, other patien ts, and family members ONLY in structured environments, OR does s/he require medication for social in teraction? Yes, patient needs extra time SOCIAL INTERACTION - SCORE: 6-LIZZ PROBLEM SOLVING: PROBLEM SOLVING - STEP 1: Does the patient need help from a person or device, or need extra time to solve complex problems such as managing a checking account or confronting interpersonal problems? Yes. PROBLEM SOLVING - STEP 2: Does the patient solve basic routine problems half or more of the time? Yes. PROBLEM SOLVING - STEP 3: How often does the patient need help to solve basic routine problems? Less than 10% of the time PROBLEM SOLVING - SCORE: 5-SUP MEMORY: MEMORY - STEP 1: Does the patient need help from a person or device, or need extra time to remember frequently encount ered people, daily routines, and executing requests? Yes. MEMORY - STEP 2: How often does the patient need help to remember frequently encountered people, daily routines, and e xecuting requests? Less than 10% of the time MEMORY - SCORE: 5-SUP SIGNATURE PANEL: The following modified sections: Eating - Score, Grooming - Score, Bathing - Score, Dressing - Upper Body - Score, Dressing - Lower Body - Score, Toileting - Score, Bladder Management - Score, Bowel Man agement - Score, Transfers: Bed, Chair, Wheelchair - Score, Transfers: Toilet - Score, Transfers: Olga wer - Score, Transfers: Tub - Score, Locomotion: Walk - Score, Locomotion: Wheelchair - Score, Compre hension - Score, Expression - Score, Social Interaction - Score, Problem Solving - Score, Memory - Sc ore were [electronically] signed by Vinicio TyNGarrett on WedAug 18 2018 15:30:55 GMT-0600 (Centra l Standard Time)
[2018-08-18] MEDS: DONEPEZIL HCL 5 MG TAB PO SCH (19:59)
[2018-08-18] MEDS: DOCUSATE NA/SENNA CONC 1 TAB PO SCH (19:59)
[2018-08-18] MEDS: NETARSUDIL OPTH SCH (19:59)
--- NOTE | 2018-08-19 01:28 | FAST ---
SHIFT START DATE/TIME: 08/18/2018 19:00 (CLINICAL WRITER) SHIFT END DATE/TIME: 08/19/2018 07:00 (CLINICAL WRITER) NAME JAIDA RICHARD DATE OF : 1930 DATE OF ADMISSION: 08/09/2018 16:39 (CLINICAL WRITER) PHONE: AGE: 87 SSN# [id number] GENDER: Female ENCOUNTER PHYSICIAN: Dr. Avinash Read M.D. ADMISSION DIAGNOSIS: - Stroke 01 - Left Body (Right Brain) (01.1) ACUTE NONHEMORRHAGIC CVA RIGHT NAHEED. EATING: Activity did not occur on this shift EATING - SCORE: 0-UNK GROOMING: Activity did not occur on this shift GROOMING - SCORE: 0-UNK BATHING: Activity did not occur on this shift BATHING - SCORE: 0-UNK DRESSING - UPPER BODY: Patient is not dressing in public clothing ARTICLES SCORE Total number of steps: 0 DRESSING - UPPER BODY - SCORE: 0-UNK DRESSING - LOWER BODY: Patient is not dressing in public clothing ARTICLES SCORE Total number of steps: 0 DRESSING - LOWER BODY - SCORE: 0-UNK TOILETING: Activity did not occur on this shift TOILETING - SCORE: 0-UNK BLADDER MANAGEMENT: Hibbs removes incontinent device (Depends, pull ups, etc.); cleans the patient after accident / inco ntinent episode; and, applies new incontinent device. BLADDER MANAGEMENT - SCORE: 1-DEP BLADDER MANAGEMENT - FREQUENCY OF ACCIDENTS: BLADDER MANAGEMENT(FA) - STEP 1: How many accidents has the patient had during the current shift? 1 BOWEL MANAGEMENT: Activity did not occur on this shift BOWEL MANAGEMENT - SCORE: 7-IND TRANSFERS: BED, CHAIR, WHEELCHAIR: Activity did not occur on this shift TRANSFERS: BED, CHAIR, WHEELCHAIR - SCORE: 0-UNK TRANSFERS: TOILET: Activity did not occur on this shift TRANSFERS: TOILET - SCORE: 0-UNK TRANSFERS: SHOWER: Activity did not occur on this shift TRANSFERS: SHOWER - SCORE: 0-UNK TRANSFERS: TUB: Activity did not occur on this shift TRANSFERS: TUB - SCORE: 0-UNK LOCOMOTION: WALK: Activity did not occur on this shift LOCOMOTION: WALK - SCORE: 0-UNK LOCOMOTION: WHEELCHAIR: Activity did not occur on this shift LOCOMOTION: WHEELCHAIR - SCORE: 0-UNK COMPREHENSION: COMPREHENSION: TYPE: Both COMPREHENSION - STEP 1: Does the patient require help from a person or device, or need extra time to understand complex and a bstract ideas (such as current events, finances, discharge planning, medical issues, relationships, e tc)? Yes. COMPREHENSION - STEP 2: Does the patient require help to understand questions or statements about basic needs or ideas (such as hunger, thirst, sleep, safety, daily schedule, room location, or discomfort) half or more of the t kei? No. COMPREHENSION - STEP 3: How often does the patient need help to understand directions and conversation about basic needs? Les s than 10% of the time COMPREHENSION - SCORE: 5-SUP EXPRESSION EXPRESSION: TYPE: Both EXPRESSION - STEP 1: Does the patient require help from a person or device, or need extra time expressing complex and abst ract ideas (such as current events, finances, discharge planning, medical issues, relationships, etc) ? No. EXPRESSION - STEP 2: Does the patient need extra time, require an assistive device (such as augmentive communication syste m or a communication board), OR does s/he have mild difficulty expressing complex and abstract ideas (including mild dysarthria or mild word-find problems)? Yes. EXPRESSION - SCORE: 6-LIZZ SOCIAL INTERACTION: SOCIAL INTERACTION - STEP 1: Does the patient require a helper to interact with others in social and therapeutic situations? No. SOCIAL INTERACTION - STEP 2: Does the patient need extra time in social situations, OR does s/he interact with staff, other patien ts, and family members ONLY in structured environments, OR does s/he require medication for social in teraction? Yes, patient needs extra time SOCIAL INTERACTION - SCORE: 6-LIZZ PROBLEM SOLVING: PROBLEM SOLVING - STEP 1: Does the patient need help from a person or device, or need extra time to solve complex problems such as managing a checking account or confronting interpersonal problems? Yes. PROBLEM SOLVING - STEP 2: Does the patient solve basic routine problems half or more of the time? Yes. PROBLEM SOLVING - STEP 3: How often does the patient need help to solve basic routine problems? 10%-24% of the time PROBLEM SOLVING - SCORE: 4-MIN MEMORY: MEMORY - STEP 1: Does the patient need help from a person or device, or need extra time to remember frequently encount ered people, daily routines, and executing requests? No. MEMORY - STEP 2: Does the patient have slight difficulty recognizing frequently encountered people, daily routines, or executing requests without the need for repetition or using self-initiated or environmental cues to remember? Yes. MEMORY - SCORE: 6-LIZZ SIGNATURE PANEL: The following modified sections: Eating - Score, Grooming - Score, Dressing - Upper Body - Score, Mendoza ssing - Lower Body - Score, Toileting - Score, Bladder Management - Score, Bowel Management - Score, Transfers: Bed, Chair, Wheelchair - Score, Transfers: Toilet - Score, Transfers: Shower - Score, Alvarez sfers: Tub - Score, Locomotion: Walk - Score, Locomotion: Wheelchair - Score, Comprehension - Score, Expression - Score, Social Interaction - Score, Problem Solving - Score, Memory - Score were [electro nically] signed by Nhung Corley CNA on WedAug 19 2018 01:27:11 GMT-0600 (Central Standard Time)
[2018-08-19] MEDS: LEVOTHYROXINE SOD 0.025 MG TAB PO SCH (05:01)
[2018-08-19] MEDS: ENOXAPARIN 30 MG/0.3 ML SQ SCH (07:01)
[2018-08-19] MEDS: NYSTATIN PWDR 100000 UNIT/GM TOP SCH ×2 (07:01→20:40)
[2018-08-19] MEDS: PANTOPRAZOLE 40MG TABLET PO SCH (07:30)
[2018-08-19] MEDS: ASPIRIN EC 81 MG TAB PO SCH (07:30)
[2018-08-19] MEDS: CLOPIDOGREL 75 MG TABLET PO SCH (07:31)
[2018-08-19] MEDS: VENLAFAXINE HCL XR 75 MG CAP PO SCH (07:31)
[2018-08-19] MEDS: OXYBUTYNIN CHLORIDE 5 MG TAB PO SCH ×2 (07:31→20:39)
[2018-08-19] MEDS: CRANBERRY FRUIT EXTRACT 200 MG CAP PO SCH ×2 (07:31→20:38)
[2018-08-19] MEDS: LISINOPRIL 20 MG TAB PO SCH (07:31)
[2018-08-19] MEDS: AMLODIPINE 5 MG TAB PO SCH (07:31)
--- NOTE | 2018-08-19 13:34 | P.PN ---
Subjective Date of Service: 08/19/18 Chief Complaint: STABLE, NO CHANGES. Subjective: Improving WEAK NOT ABLE TO COMPLAIN MUCH. STILL VERY WEAK AND WILL NOT ABLE TO GO HOME. I RECOMMEND NH. SHE IS DOING LOT BETTER. SHE MAY IMPROVE ENOUGH FOR HOME. NO COMPLAINTS. SHE IS IN GOOD MOOD. DOING PT DAILY. DC ON Aug.\ FEELS WELL. Review of Systems 10-point ROS is otherwise unremarkable General: Weakness, Malaise Physical Examination - Vital Signs Temperature: 96.4 F Blood Pressure: 166/78 Pulse: 80 Respirations: 16 Pulse Ox (%): 96 - Physical Exam General: Oriented x3, Mild distress, Obese HEENT: Atraumatic, PERRLA, EOMI Neck: Supple, JVD not distended Respiratory: Clear to auscultation bilaterally, Normal air movement Cardiovascular: Regular rate/rhythm, Normal S1 S2 Gastrointestinal: Normal bowel sounds, No tenderness Musculoskeletal: No tenderness Integumentary: No rashes Neurological: Normal speech, Abnormal strength (GETTING BETTER , SHE HAS BEEN ABLE TO LIFT HANDS ABOVE HEAD NOW.) Lymphatics: No axilla or inguinal lymphadenopathy - Studies Medications List Reviewed: Yes Assessment And Plan - Current Problems (Diagnosis) (1) CVA (cerebral vascular accident) Onset Date: 08/08/18 Current Visit: No Status: Acute Plan: PT NOT ABLE TO TAKE 3 HOURS OF THERAPY. NH ADVISED. RESUME PT SHE IS IMPROVING. RESUME ANTIPLATELET AGENTS. STABLE, NO NEW CHANGES. RESUME MEDS. CONT PT STABLE. Qualifiers: Precerebral and cerebral artery: other cerebral artery (2) HTN (hypertension) Onset Date: 08/08/18 Current Visit: No Status: Chronic Plan: REDUCE NORVASC BP IS LOW NORMAL NOW. (3) Hypothyroid Current Visit: Yes Status: Acute Plan: SMALL DOSE OF LEVOXYL. (4) B12 deficiency Current Visit: Yes Status: Acute Plan: ONE INJECTON AND SHE CAN TAKE ONCE A MONTH.
--- NOTE | 2018-08-19 13:49 | FAST ---
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 Avinash Read M.D. ADMISSION DIAGNOSIS: - Stroke 01 - Left Body (Right Brain) (01.1) ACUTE NONHEMORRHAGIC CVA RIGHT NAHEED. EATING: EATING - STEP 1: Does the patient require the assistance of a person or device, or need extra time when eating? Yes. EATING - STEP 2: Does the patient require the assistance of a helper? Yes. EATING - STEP 3: Does the patient perform half or more of the eating tasks? Yes. EATING - STEP 4: Does the patient need only supervision, cuing, coaxing OR help to apply an orthosis OR help to cut fo od, open containers, pour liquids, or butter bread? Yes. EATING - SCORE: 5-SUP GROOMING: Comb/brush hair Wash, rinse, and dry face Wash, rinse, and dry hands GROOMING - STEP 1: Does the patient require the assistance of a person or device, or need extra time when grooming? Yes. GROOMING - STEP 2: Does the patient require the assistance of a helper? No. The patient only requires an assistive devic e, OR takes more than reasonable time to groom, OR there is a concern for safety as the patient groom s GROOMING - SCORE: 6-LIZZ BATHING: Activity did not occur on this shift BATHING - SCORE: 0-UNK DRESSING - UPPER BODY: T-shirt/pullover shirt (four steps) ARTICLES SCORE Total number of steps: 4 DRESSING - UPPER BODY - STEP 1: Does the patient require help from a person or device, or need extra time when dressing above the jaziel st? Yes. DRESSING - UPPER BODY - STEP 2: Does the patient require the assistance of a helper? Yes. DRESSING - UPPER BODY - STEP 3: Does the helper touch the patient while dressing? Yes. DRESSING - UPPER BODY - STEP 4: How many of the total steps does the patient complete on his/her own? 3 DRESSING - UPPER BODY - SCORE: 4-MIN DRESSING - LOWER BODY: Elastic waist pants (three steps) Slip-on shoe - Left foot (one step) Slip-on shoe - Right foot (one step) ARTICLES SCORE Total number of steps: 5 DRESSING - LOWER BODY - STEP 1: Does the patient require help from a person or device, or need extra time when dressing below the jaziel st? Yes. DRESSING - LOWER BODY - STEP 2: Does the patient require the assistance of a helper? Yes. DRESSING - LOWER BODY - STEP 3: Does the helper touch the patient while dressing? Yes. DRESSING - LOWER BODY - STEP 4: How many of the total steps does the patient complete on his/her own? 4 DRESSING - LOWER BODY - SCORE: 4-MIN TOILETING: TOILETING - STEP 1: Does the patient require the assistance of a person or device, or need extra time with toileting? Yes . TOILETING - STEP 2: Does the patient require the assistance of a helper? Yes. TOILETING - STEP 3: How much assistance does the patient require from the helper? Hands-on assistance from the helper TOILETING - STEP 4: Of the 3 tasks: 1) Adjusting clothing prior to use, 2) Cleansing of perineal area, 3) Adjusting clot braulio after use; How many tasks does the patient perform WITHOUT assistance of the helper? Two tasks TOILETING - SCORE: 3-MOD BLADDER MANAGEMENT: [place] removes incontinent device (Depends, pull ups, etc.); cleans the patient after accident / inco ntinent episode; and, applies new incontinent device. BLADDER MANAGEMENT - SCORE: 1-DEP BLADDER MANAGEMENT - FREQUENCY OF ACCIDENTS: BLADDER MANAGEMENT(FA) - STEP 1: How many accidents has the patient had during the current shift? 3 BOWEL MANAGEMENT: Activity did not occur on this shift BOWEL MANAGEMENT - SCORE: 7-IND BOWEL MANAGEMENT - FREQUENCY OF ACCIDENTS: BOWEL MANAGEMENT(FA) - STEP 1: How many accidents has the patient had during the current shift? 0 TRANSFERS: BED, CHAIR, WHEELCHAIR: TRANSFERS: BED, CHAIR, WHEELCHAIR - STEP 1: Does the patient require assistance of a person or device, or need extra time with bed, chair, or whe elchair transfers? Yes. TRANSFERS: BED, CHAIR, WHEELCHAIR - STEP 2: Does the patient require the assistance of a helper? Yes. TRANSFERS: BED, CHAIR, WHEELCHAIR - STEP 3: How much assistance does the patient require from the helper? Lifting of the legs TRANSFERS: BED, CHAIR, WHEELCHAIR - STEP 4: How many legs does the patient require the helper to lift? both legs TRANSFERS: BED, CHAIR, WHEELCHAIR - SCORE: 3-MOD TRANSFERS: TOILET: TRANSFERS: TOILET - STEP 1: Does the patient require the assistance of a person or device, or need extra time with toilet transfe rs? Yes. TRANSFERS: TOILET - STEP 2: Does the patient require the assistance of a helper? Yes. TRANSFERS: TOILET - STEP 3: How much assistance does the patient require from the helper? Patient performs half or more of the tr ansferring tasks TRANSFERS: TOILET - STEP 4: Does the patient need only incidental help such as contact guard or steadying during toilet transfer? No. Patient needs more than incidental help TRANSFERS: TOILET - SCORE: 3-MOD TRANSFERS: SHOWER: Activity did not occur on this shift TRANSFERS: SHOWER - SCORE: 0-UNK TRANSFERS: TUB: Activity did not occur on this shift TRANSFERS: TUB - SCORE: 0-UNK LOCOMOTION: WALK: Activity did not occur on this shift LOCOMOTION: WALK - SCORE: 0-UNK LOCOMOTION: WHEELCHAIR: Activity did not occur on this shift LOCOMOTION: WHEELCHAIR - SCORE: 0-UNK COMPREHENSION: COMPREHENSION: TYPE: Both COMPREHENSION - STEP 1: Does the patient require help from a person or device, or need extra time to understand complex and a bstract ideas (such as current events, finances, discharge planning, medical issues, relationships, e tc)? No. COMPREHENSION - STEP 2: Does the patient need extra time, require an assistive device (such as glasses for visual comprehensi on or a hearing aid for auditory comprehension) or does s/he have mild difficulty understanding compl ex and abstract information? Yes. COMPREHENSION - SCORE: 6-LIZZ EXPRESSION EXPRESSION: TYPE: Both EXPRESSION - STEP 1: Does the patient require help from a person or device, or need extra time expressing complex and abst ract ideas (such as current events, finances, discharge planning, medical issues, relationships, etc) ? No. EXPRESSION - STEP 2: Does the patient need extra time, require an assistive device (such as augmentive communication syste m or a communication board), OR does s/he have mild difficulty expressing complex and abstract ideas (including mild dysarthria or mild word-find problems)? Yes. EXPRESSION - SCORE: 6-LIZZ SOCIAL INTERACTION: SOCIAL INTERACTION - STEP 1: Does the patient require a helper to interact with others in social and therapeutic situations? No. SOCIAL INTERACTION - STEP 2: Does the patient need extra time in social situations, OR does s/he interact with staff, other patien ts, and family members ONLY in structured environments, OR does s/he require medication for social in teraction? Yes, patient needs extra time SOCIAL INTERACTION - SCORE: 6-LIZZ PROBLEM SOLVING: PROBLEM SOLVING - STEP 1: Does the patient need help from a person or device, or need extra time to solve complex problems such as managing a checking account or confronting interpersonal problems? Yes. PROBLEM SOLVING - STEP 2: Does the patient solve basic routine problems half or more of the time? Yes. PROBLEM SOLVING - STEP 3: How often does the patient need help to solve basic routine problems? Less than 10% of the time PROBLEM SOLVING - SCORE: 5-SUP MEMORY: MEMORY - STEP 1: Does the patient need help from a person or device, or need extra time to remember frequently encount ered people, daily routines, and executing requests? Yes. MEMORY - STEP 2: How often does the patient need help to remember frequently encountered people, daily routines, and e xecuting requests? Less than 10% of the time MEMORY - SCORE: 5-SUP SIGNATURE PANEL: The following modified sections: Eating - Score, Grooming - Score, Bathing - Score, Dressing - Upper Body - Score, Dressing - Lower Body - Score, Toileting - Score, Bladder Management - Score, Bowel Man agement - Score, Transfers: Bed, Chair, Wheelchair - Score, Transfers: Toilet - Score, Transfers: Olga wer - Score, Transfers: Tub - Score, Locomotion: Walk - Score, Locomotion: Wheelchair - Score, Compre hension - Score, Expression - Score, Social Interaction - Score, Problem Solving - Score, Memory - Sc ore were [electronically] signed by Belkys Carrillo C.N.A. on WedAug 19 2018 13:49:27 GMT-0600 ([facility] Time)
--- NOTE | 2018-08-19 15:51 | FAST ---
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 Avinash Read M.D. ADMISSION DIAGNOSIS: - Stroke 01 - Left Body (Right Brain) (01.1) ACUTE NONHEMORRHAGIC CVA RIGHT NAHEED. EATING: Activity did not occur on this shift EATING - SCORE: 0-UNK GROOMING: Comb/brush hair Wash, rinse, and dry face Wash, rinse, and dry hands GROOMING - STEP 1: Does the patient require the assistance of a person or device, or need extra time when grooming? Yes. GROOMING - STEP 2: Does the patient require the assistance of a helper? No. The patient only requires an assistive devic e, OR takes more than reasonable time to groom, OR there is a concern for safety as the patient groom s GROOMING - SCORE: 6-LIZZ BATHING: Abdomen Buttocks Chest Left arm Left lower leg and foot Left upper leg Perineal area Right arm Right lower leg and foot Right upper leg BATHING - STEP 1: Does the patient require the assistance of a person or device, or need extra time when bathing? Yes. BATHING - STEP 2: Does the patient require the assistance of a helper? Yes. BATHING - STEP 3: How much assistance does the patient require from the helper? Only incidental help such as placement of a wash cloth in his/her hand a few times as s/he bathes OR help to bathe just one or two areas of the body BATHING - SCORE: 4-MIN DRESSING - UPPER BODY: T-shirt/pullover shirt (four steps) ARTICLES SCORE Total number of steps: 4 DRESSING - UPPER BODY - STEP 1: Does the patient require help from a person or device, or need extra time when dressing above the jaziel st? Yes. DRESSING - UPPER BODY - STEP 2: Does the patient require the assistance of a helper? Yes. DRESSING - UPPER BODY - STEP 3: Does the helper touch the patient while dressing? No. DRESSING - UPPER BODY - SCORE: 5-SUP DRESSING - LOWER BODY: Elastic waist pants (three steps) Slip-on shoe - Left foot (one step) Slip-on shoe - Right foot (one step) Underwear (three steps) ARTICLES SCORE Total number of steps: 8 DRESSING - LOWER BODY - STEP 1: Does the patient require help from a person or device, or need extra time when dressing below the jaziel st? Yes. DRESSING - LOWER BODY - STEP 2: Does the patient require the assistance of a helper? Yes. DRESSING - LOWER BODY - STEP 3: Does the helper touch the patient while dressing? Yes. DRESSING - LOWER BODY - STEP 4: How many of the total steps does the patient complete on his/her own? 6 DRESSING - LOWER BODY - SCORE: 4-MIN TOILETING: Activity did not occur on this shift TOILETING - SCORE: 0-UNK BLADDER MANAGEMENT: Activity did not occur on this shift BLADDER MANAGEMENT - SCORE: 7-IND BOWEL MANAGEMENT: Activity did not occur on this shift BOWEL MANAGEMENT - SCORE: 7-IND TRANSFERS: BED, CHAIR, WHEELCHAIR: Activity did not occur on this shift TRANSFERS: BED, CHAIR, WHEELCHAIR - SCORE: 0-UNK TRANSFERS: TOILET: Activity did not occur on this shift TRANSFERS: TOILET - SCORE: 0-UNK TRANSFERS: SHOWER: TRANSFERS: SHOWER - STEP 1: Does the patient require the assistance of a person or device, or need extra time with shower transfe rs? Yes. TRANSFERS: SHOWER - STEP 2: Does the patient require the assistance of a helper? Yes. TRANSFERS: SHOWER - STEP 3: How much assistance does the patient require from the helper? More than incidental help TRANSFERS: SHOWER - STEP 4: How much more help does the patient require from the helper? Lifting the patient either up OR down fr om the wheelchair onto the shower chair TRANSFERS: SHOWER - SCORE: 3-MOD TRANSFERS: TUB: Activity did not occur on this shift TRANSFERS: TUB - SCORE: 0-UNK LOCOMOTION: WALK: Activity did not occur on this shift LOCOMOTION: WALK - SCORE: 0-UNK LOCOMOTION: WHEELCHAIR: Activity did not occur on this shift LOCOMOTION: WHEELCHAIR - SCORE: 0-UNK LOCOMOTION: STAIRS: Activity did not occur on this shift LOCOMOTION: STAIRS - SCORE: 0-UNK COMPREHENSION: COMPREHENSION - SCORE: 0-UNK EXPRESSION EXPRESSION - SCORE: 0-UNK SOCIAL INTERACTION: SOCIAL INTERACTION - SCORE: 0-UNK PROBLEM SOLVING: PROBLEM SOLVING - SCORE: 0-UNK MEMORY: MEMORY - SCORE: 0-UNK SIGNATURE PANEL: The following modified sections: Eating - Score, Grooming - Score, Bathing - Score, Dressing - Upper Body - Score, Dressing - Lower Body - Score, Toileting - Score, Transfers: Bed, Chair, Wheelchair - S core, Transfers: Toilet - Score, Transfers: Shower - Score, Transfers: Tub - Score, Comprehension - S core, Expression - Score, Social Interaction - Score, Problem Solving - Score, Memory - Score were [e lectronically] signed by LEEANN Baldwin on WedAug 19 2018 15:50:50 T-0600 ([place] Time)
--- NOTE | 2018-08-19 18:32 | R.PN ---
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 Pt denied any Shortness of Breath. Ambulated 100' using rolling walker with minimum assistance. Doing well no new complaints. Her left sided strength and incoordination are improving well. VITAL SIGNS Temperature: 97.6 F SBP/DBP: 166/68 Pulse: 71 Resp: 14 MEDICATION ALLERGIES: Sulfa ENVIRONMENTAL ALLERGIES: Eggs - Substance Allergies None Known - Other Allergies None Known NURSING: - Shower allowing shower - Bladder care per protocol - Skin care per protocol PRECAUTIONS: - Weight Bearing Precaution WBAT left LE ACTIVITIES OOB only with supervision THERAPIES: - Occupational Therapy Evaluate and Treat. Visual Perceptual Training. Cognitive Retraining. - Speech Therapy Cognitive Training. Memory Strategies. Speech Intelligibility Training. Expressive Language Skills. R eceptive Language Skills. - Physical Therapy Evaluate and Treat. PHYSICAL EXAM - Gen Alert and awake Lying in bed No apparent distress Oriented to: person, time, and place - Skin No breakdown No numbness - Eyes No abnormalities - ENMT No abnormalities - Neck No abnormalities - CVS RRR - Chest No abnormalities - Abd + bowel sounds - GI Soft Deferred - No abnormalities - Ext No significant edema - MSK 4+/5 weakness in left upper and lower extremities. - Neuro 4+/5 weakness in left upper and lower extremities. - Psych No abnormalities ASSESSMENT: Pt. is a 87 yo Right-handed white female.On 08/08/2018 Pt. presented to [facility] with sudden onset of left-side weakness.On 08/08/2018 she was admitted to [facility] with diagnosis ACUTE NONHEMORRHAGIC CVA RIGHT HAYDER.Her impairment category is Stroke 01 - Left Body (Right Brain) (01.1).Pre-morbidly, Pt. was independent/mod-I in Sphincter Control, Transfe rs Control, Communication, Social Cognition, Self-Care, and Locomotion; and she had good Endurance, S phincter Control, Safety Awareness, and Balance.Currently, she has deficits of Transfers Control, Do f-Care, and Locomotion.Pt. is now [facility] to [facility] for acute in-patient rehabilitation in order to maximize patient's functional independence in activities of daily living, strength, ROM, and mobility.- Rehab Goal Patient has realistic goal of being discharged at assistance level 2-maxA to reside at Home with Fam catrachito/Relatives. MDM/PLAN: - Physical Therapy Gait dysfunction - to improve, our physical therapists will perform initial evaluation of pt's statu s upon admission and devise an individualized program for Gait Training, and Wheel Chair mobility Inability to transfer - to improve, our physical therapists will perform initial evaluation of pt's status upon admission and devise an individualized program for Bed mobility Need for home safety evaluation - to improve, our physical therapists will perform initial evaluatio n of pt's status upon admission and devise an individualized program for Home Evaluation Edema - to improve, our physical therapists will perform initial evaluation of pt's status upon admi ssion and devise an individualized program for Elevation Training, and Lymphedema Therapy Need in caregiver upon discharge - to improve, our physical therapists will perform initial evaluati on of pt's status upon admission and devise an individualized program for Caregiver Training New precaution - to improve, our physical therapists will perform initial evaluation of pt's status upon admission and devise an individualized program for Patient precaution education Achieving independence - to improve, our physical therapists will perform initial evaluation of pt's status upon admission and devise an individualized program for Community Reintegration Activities - Occupational Therapy ADL deficits - to improve, our occupation therapists will perform initial evaluation of pt's status upon admission and devise an individualized program for Bathing, Bed mobility, Community Reintegratio n, Cooking, Dressing, Eating, Fine Motor Skills, Grooming, Homemaking, Kitchen Mobility, Laundry, Pat ient Education, Safety Awareness, Splinting - Positioning, Transfers(Toilet, Tub, Shower), and Wheel Chair Management Need for professional healthcare representative - to improve, our occupation therapists will perform initial evaluation of pt's status upon admission and devise an individualized program for Caregiver Training - Diet Type Continue Regular - Diet - Liquid Texture Continue Regular - Tube Feed Continue N/A - Bladder care per protocol - Weight Bearing Precaution WBAT left LE - Skin care per protocol - Diet - Solid Texture Continue Mechanical Soft - Shower allowing shower for Dementia, TBI, Stroke, or others FUNCTIONAL STATUS: UPDATED AT WEEKLY TEAM CONFERENCE - Bladder Same accident frequency: 7-Ind - No accidents in the past 7 days - Bowel Same accident frequency: 7-Ind - No accidents in the past 7 days - Walking Same score based on distance walked: 0(N/A) - Wheelchair Same score based on distance traveled: 0(N/A) FUNCTIONAL STATUS: - Self-Care A. Eating sup B. Grooming Ind C. Bathing sup D. Dressing - Upper sup E. Dressing - Lower sup F. Toileting sup - Sphincter Control G: Bladder control Ind H: Bowel control Ind - Transfers Control I. Bed/Chair/Wheelchair maxA J. Toilet maxA K. Tub/Shower ADNO - Locomotion L. Walk/Wheelchair (C) maxA L. Walk/Wheelchair (W) maxA M. Stairs ADNO - Communication N. Comprehension (B) Ind O. Expression (B) Ind - Social Cognition P. Social Interaction Ind Q. Problem Solving Ind R. Memory Ind - Endurance Good - Balance Good - Safety Awareness Good CURRENT FUNC. 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
[2018-08-19] MEDS: DOCUSATE NA/SENNA CONC 1 TAB PO SCH (20:38)
[2018-08-19] MEDS: DONEPEZIL HCL 5 MG TAB PO SCH (20:39)
[2018-08-19] MEDS: NETARSUDIL OPTH SCH (20:41)
[2018-08-20] MEDS: LEVOTHYROXINE SOD 0.025 MG TAB PO SCH (05:12)
[2018-08-20] MEDS: OXYBUTYNIN CHLORIDE 5 MG TAB PO SCH ×2 (08:00→20:00)
[2018-08-20] MEDS: VENLAFAXINE HCL XR 75 MG CAP PO SCH (08:40)
[2018-08-20] MEDS: CRANBERRY FRUIT EXTRACT 200 MG CAP PO SCH ×2 (08:40→20:42)
[2018-08-20] MEDS: ENOXAPARIN 30 MG/0.3 ML SQ SCH (08:40)
[2018-08-20] MEDS: CLOPIDOGREL 75 MG TABLET PO SCH (08:40)
[2018-08-20] MEDS: AMLODIPINE 5 MG TAB PO SCH (08:41)
[2018-08-20] MEDS: PANTOPRAZOLE 40MG TABLET PO SCH (08:41)
[2018-08-20] MEDS: ASPIRIN EC 81 MG TAB PO SCH (08:41)
[2018-08-20] MEDS: LISINOPRIL 20 MG TAB PO SCH (08:45)
[2018-08-20] MEDS: NYSTATIN PWDR 100000 UNIT/GM TOP SCH ×2 (08:46→20:46)
--- NOTE | 2018-08-20 10:01 | P.PN ---
Subjective Date of Service: 08/20/18 Chief Complaint: STABLE, NO CHANGES. Subjective: Improving WEAK NOT ABLE TO COMPLAIN MUCH. STILL VERY WEAK AND WILL NOT ABLE TO GO HOME. I RECOMMEND NH. SHE IS DOING LOT BETTER. SHE MAY IMPROVE ENOUGH FOR HOME. NO COMPLAINTS. SHE IS IN GOOD MOOD. DOING PT DAILY. DC ON Aug.\ FEELS WELL. NO ISSUES. NO PAIN DC DATE IS NEXT WEEK. Review of Systems 10-point ROS is otherwise unremarkable Physical Examination - Vital Signs Temperature: 97.1 F Blood Pressure: 154/74 Pulse: 76 Respirations: 18 Pulse Ox (%): 96 - Physical Exam General: Alert, In no apparent distress HEENT: Atraumatic, PERRLA, EOMI Neck: Supple, JVD not distended Respiratory: Clear to auscultation bilaterally, Normal air movement Cardiovascular: Regular rate/rhythm, Normal S1 S2 Gastrointestinal: Normal bowel sounds, No tenderness Musculoskeletal: No tenderness Integumentary: No rashes Neurological: Normal speech, Abnormal strength (BUT LOT BETTER, NOW ABLE TO STAND AND WALK WITH WALKER.) Lymphatics: No axilla or inguinal lymphadenopathy - Studies Medications List Reviewed: Yes Assessment And Plan - Current Problems (Diagnosis) (1) CVA (cerebral vascular accident) Onset Date: 08/08/18 Current Visit: No Status: Acute Plan: PT NOT ABLE TO TAKE 3 HOURS OF THERAPY. [facility] ADVISED. RESUME PT SHE IS IMPROVING. RESUME ANTIPLATELET AGENTS. STABLE, NO NEW CHANGES. RESUME MEDS. CONT PT STABLE. Qualifiers: Precerebral and cerebral artery: other cerebral artery (2) HTN (hypertension) Onset Date: 08/08/18 Current Visit: No Status: Chronic Plan: REDUCE NORVASC BP IS LOW NORMAL NOW. (3) Hypothyroid Current Visit: Yes Status: Acute Plan: SMALL DOSE OF LEVOXYL. (4) B12 deficiency Current Visit: Yes Status: Acute Plan: ONE INJECTON AND SHE CAN TAKE ONCE A MONTH.
--- NOTE | 2018-08-20 14:43 | FAST ---
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 Avinash Read M.D. ADMISSION DIAGNOSIS: - Stroke 01 - Left Body (Right Brain) (01.1) ACUTE NONHEMORRHAGIC CVA RIGHT NAHEED. EATING: EATING - STEP 1: Does the patient require the assistance of a person or device, or need extra time when eating? Yes. EATING - STEP 2: Does the patient require the assistance of a helper? Yes. EATING - STEP 3: Does the patient perform half or more of the eating tasks? Yes. EATING - STEP 4: Does the patient need only supervision, cuing, coaxing OR help to apply an orthosis OR help to cut fo od, open containers, pour liquids, or butter bread? Yes. EATING - SCORE: 5-SUP GROOMING: Comb/brush hair Oral care Wash, rinse, and dry face Wash, rinse, and dry hands GROOMING - STEP 1: Does the patient require the assistance of a person or device, or need extra time when grooming? Yes. GROOMING - STEP 2: Does the patient require the assistance of a helper? No. The patient only requires an assistive devic e, OR takes more than reasonable time to groom, OR there is a concern for safety as the patient groom s GROOMING - SCORE: 6-LIZZ BATHING: Activity did not occur on this shift BATHING - SCORE: 0-UNK DRESSING - UPPER BODY: T-shirt/pullover shirt (four steps) ARTICLES SCORE Total number of steps: 4 DRESSING - UPPER BODY - STEP 1: Does the patient require help from a person or device, or need extra time when dressing above the jaz[address]? Yes. DRESSING - UPPER BODY - STEP 2: Does the patient require the assistance of a helper? Yes. DRESSING - UPPER BODY - STEP 3: Does the helper touch the patient while dressing? Yes. DRESSING - UPPER BODY - STEP 4: How many of the total steps does the patient complete on his/her own? 4 DRESSING - UPPER BODY - SCORE: 4-MIN DRESSING - LOWER BODY: ARTICLES SCORE Total number of steps: 8 DRESSING - LOWER BODY - STEP 1: Does the patient require help from a person or device, or need extra time when dressing below the jaziel st? Yes. DRESSING - LOWER BODY - STEP 2: Does the patient require the assistance of a helper? Yes. DRESSING - LOWER BODY - STEP 3: Does the helper touch the patient while dressing? Yes. DRESSING - LOWER BODY - STEP 4: How many of the total steps does the patient complete on his/her own? 4 DRESSING - LOWER BODY - SCORE: 3-MOD TOILETING: TOILETING - STEP 1: Does the patient require the assistance of a person or device, or need extra time with toileting? Yes . TOILETING - STEP 2: Does the patient require the assistance of a helper? Yes. TOILETING - STEP 3: How much assistance does the patient require from the helper? Only supervision TOILETING - SCORE: 5-SUP BLADDER MANAGEMENT: [place] removes incontinent device (Depends, pull ups, etc.); cleans the patient after accident / inco ntinent episode; and, applies new incontinent device. BLADDER MANAGEMENT - SCORE: 1-DEP BLADDER MANAGEMENT - FREQUENCY OF ACCIDENTS: BLADDER MANAGEMENT(FA) - STEP 1: How many accidents has the patient had during the current shift? 2 BOWEL MANAGEMENT: BOWEL MANAGEMENT - STEP 1: Does the patient control bowels completely and intentionally without equipment devices or medications AND is always continent? No. BOWEL MANAGEMENT - STEP 2: Does the patient require the assistance of a helper? No, patient requires medication for control such as stool softeners, suppositories, laxatives, enemas, or OTC medications BOWEL MANAGEMENT - SCORE: 6-LIZZ TRANSFERS: BED, CHAIR, WHEELCHAIR: TRANSFERS: BED, CHAIR, WHEELCHAIR - STEP 1: Does the patient require assistance of a person or device, or need extra time with bed, chair, or whe elchair transfers? Yes. TRANSFERS: BED, CHAIR, WHEELCHAIR - STEP 2: Does the patient require the assistance of a helper? Yes. TRANSFERS: BED, CHAIR, WHEELCHAIR - STEP 3: How much assistance does the patient require from the helper? Steadying/guiding assistance TRANSFERS: BED, CHAIR, WHEELCHAIR - SCORE: 4-MIN TRANSFERS: TOILET: TRANSFERS: TOILET - STEP 1: Does the patient require the assistance of a person or device, or need extra time with toilet transfe rs? Yes. TRANSFERS: TOILET - STEP 2: Does the patient require the assistance of a helper? Yes. TRANSFERS: TOILET - STEP 3: How much assistance does the patient require from the helper? Patient performs half or more of the tr ansferring tasks TRANSFERS: TOILET - STEP 4: Does the patient need only incidental help such as contact guard or steadying during toilet transfer? Yes. TRANSFERS: TOILET - SCORE: 4-MIN TRANSFERS: SHOWER: Activity did not occur on this shift TRANSFERS: SHOWER - SCORE: 0-UNK TRANSFERS: TUB: Activity did not occur on this shift TRANSFERS: TUB - SCORE: 0-UNK LOCOMOTION: WALK: Activity did not occur on this shift LOCOMOTION: WALK - SCORE: 0-UNK LOCOMOTION: WHEELCHAIR: Activity did not occur on this shift LOCOMOTION: WHEELCHAIR - SCORE: 0-UNK COMPREHENSION: COMPREHENSION: TYPE: Both COMPREHENSION - STEP 1: Does the patient require help from a person or device, or need extra time to understand complex and a bstract ideas (such as current events, finances, discharge planning, medical issues, relationships, e tc)? No. COMPREHENSION - STEP 2: Does the patient need extra time, require an assistive device (such as glasses for visual comprehensi on or a hearing aid for auditory comprehension) or does s/he have mild difficulty understanding compl ex and abstract information? Yes. COMPREHENSION - SCORE: 6-LIZZ EXPRESSION EXPRESSION: TYPE: Both EXPRESSION - STEP 1: Does the patient require help from a person or device, or need extra time expressing complex and abst ract ideas (such as current events, finances, discharge planning, medical issues, relationships, etc) ? No. EXPRESSION - STEP 2: Does the patient need extra time, require an assistive device (such as augmentive communication syste m or a communication board), OR does s/he have mild difficulty expressing complex and abstract ideas (including mild dysarthria or mild word-find problems)? Yes. EXPRESSION - SCORE: 6-LIZZ SOCIAL INTERACTION: SOCIAL INTERACTION - STEP 1: Does the patient require a helper to interact with others in social and therapeutic situations? No. SOCIAL INTERACTION - STEP 2: Does the patient need extra time in social situations, OR does s/he interact with staff, other patien ts, and family members ONLY in structured environments, OR does s/he require medication for social in teraction? Yes, patient needs extra time SOCIAL INTERACTION - SCORE: 6-LIZZ PROBLEM SOLVING: PROBLEM SOLVING - STEP 1: Does the patient need help from a person or device, or need extra time to solve complex problems such as managing a checking account or confronting interpersonal problems? No. PROBLEM SOLVING - STEP 2: Does the patient require extra time to make decisions or solve problems, OR does s/he have slight dif ficulty reading, initiating, or self-correcting in unfamiliar situations? Yes, patient needs extra ti me. PROBLEM SOLVING - SCORE: 6-LIZZ MEMORY: MEMORY - STEP 1: Does the patient need help from a person or device, or need extra time to remember frequently encount ered people, daily routines, and executing requests? Yes. MEMORY - STEP 2: How often does the patient need help to remember frequently encountered people, daily routines, and e xecuting requests? Less than 10% of the time MEMORY - SCORE: 5-SUP SIGNATURE PANEL: The following modified sections: Eating - Score, Grooming - Score, Bathing - Score, Dressing - Upper Body - Score, Dressing - Lower Body - Score, Toileting - Score, Bladder Management - Score, Bowel Man agement - Score, Transfers: Bed, Chair, Wheelchair - Score, Transfers: Toilet - Score, Transfers: Olga wer - Score, Transfers: Tub - Score, Locomotion: Walk - Score, Locomotion: Wheelchair - Score, Compre hension - Score, Expression - Score, Social Interaction - Score, Problem Solving - Score, Memory - Sc ore were [electronically] signed by Roosevelt Velasquez on Sat Aug 20 2018 14:42:59 GMT-0600 (Central Standard Time)
--- NOTE | 2018-08-20 16:11 | FAST ---
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 Avinash Read M.D. ADMISSION DIAGNOSIS: - Stroke 01 - Left Body (Right Brain) (01.1) ACUTE NONHEMORRHAGIC CVA RIGHT NAHEED. EATING: Activity did not occur on this shift EATING - SCORE: 0-UNK GROOMING: Activity did not occur on this shift GROOMING - SCORE: 0-UNK BATHING: Activity did not occur on this shift BATHING - SCORE: 0-UNK DRESSING - UPPER BODY: T-shirt/pullover shirt (four steps) ARTICLES SCORE Total number of steps: 4 DRESSING - UPPER BODY - STEP 1: Does the patient require help from a person or device, or need extra time when dressing above the jaziel st? Yes. DRESSING - UPPER BODY - STEP 2: Does the patient require the assistance of a helper? Yes. DRESSING - UPPER BODY - STEP 3: Does the helper touch the patient while dressing? Yes. DRESSING - UPPER BODY - STEP 4: How many of the total steps does the patient complete on his/her own? 3 DRESSING - UPPER BODY - SCORE: 4-MIN DRESSING - LOWER BODY: Elastic waist pants (three steps) Slip-on shoe - Left foot (one step) Slip-on shoe - Right foot (one step) ARTICLES SCORE Total number of steps: 5 DRESSING - LOWER BODY - STEP 1: Does the patient require help from a person or device, or need extra time when dressing below the jaziel st? Yes. DRESSING - LOWER BODY - STEP 2: Does the patient require the assistance of a helper? Yes. DRESSING - LOWER BODY - STEP 3: Does the helper touch the patient while dressing? Yes. DRESSING - LOWER BODY - STEP 4: How many of the total steps does the patient complete on his/her own? 4 DRESSING - LOWER BODY - SCORE: 4-MIN TOILETING: Activity did not occur on this shift TOILETING - SCORE: 0-UNK BLADDER MANAGEMENT: Activity did not occur on this shift BLADDER MANAGEMENT - SCORE: 7-IND BOWEL MANAGEMENT: Activity did not occur on this shift BOWEL MANAGEMENT - SCORE: 7-IND TRANSFERS: BED, CHAIR, WHEELCHAIR: Activity did not occur on this shift TRANSFERS: BED, CHAIR, WHEELCHAIR - SCORE: 0-UNK TRANSFERS: TOILET: Activity did not occur on this shift TRANSFERS: TOILET - SCORE: 0-UNK TRANSFERS: SHOWER: Activity did not occur on this shift TRANSFERS: SHOWER - SCORE: 0-UNK TRANSFERS: TUB: Activity did not occur on this shift TRANSFERS: TUB - SCORE: 0-UNK LOCOMOTION: WALK: Activity did not occur on this shift LOCOMOTION: WALK - SCORE: 0-UNK LOCOMOTION: WHEELCHAIR: Activity did not occur on this shift LOCOMOTION: WHEELCHAIR - SCORE: 0-UNK LOCOMOTION: STAIRS: Activity did not occur on this shift LOCOMOTION: STAIRS - SCORE: 0-UNK COMPREHENSION: COMPREHENSION: TYPE: Both COMPREHENSION - STEP 1: Does the patient require help from a person or device, or need extra time to understand complex and a bstract ideas (such as current events, finances, discharge planning, medical issues, relationships, e tc)? Yes. COMPREHENSION - STEP 2: Does the patient require help to understand questions or statements about basic needs or ideas (such as hunger, thirst, sleep, safety, daily schedule, room location, or discomfort) half or more of the t kei? No. COMPREHENSION - STEP 3: How often does the patient need help to understand directions and conversation about basic needs? Les s than 10% of the time COMPREHENSION - SCORE: 5-SUP EXPRESSION EXPRESSION: TYPE: Vocal EXPRESSION - STEP 1: Does the patient require help from a person or device, or need extra time expressing complex and abst ract ideas (such as current events, finances, discharge planning, medical issues, relationships, etc) ? Yes. EXPRESSION - STEP 2: Does the patient require help to express basic necessities or ideas (such as hunger, thirst, sleep, s afety, daily schedule, room location, or discomfort) half or more of the time? No. EXPRESSION - STEP 3: How often does the patient need help to express directions and conversation about basic needs? Less t naidu 10% of the time EXPRESSION - SCORE: 5-SUP SOCIAL INTERACTION: SOCIAL INTERACTION - STEP 1: Does the patient require a helper to interact with others in social and therapeutic situations? No. SOCIAL INTERACTION - STEP 2: Does the patient need extra time in social situations, OR does s/he interact with staff, other patien ts, and family members ONLY in structured environments, OR does s/he require medication for social in teraction? No. SOCIAL INTERACTION - SCORE: 7-IND PROBLEM SOLVING: PROBLEM SOLVING - STEP 1: Does the patient need help from a person or device, or need extra time to solve complex problems such as managing a checking account or confronting interpersonal problems? Yes. PROBLEM SOLVING - STEP 2: Does the patient solve basic routine problems half or more of the time? Yes. PROBLEM SOLVING - STEP 3: How often does the patient need help to solve basic routine problems? Less than 10% of the time PROBLEM SOLVING - SCORE: 5-SUP MEMORY: MEMORY - STEP 1: Does the patient need help from a person or device, or need extra time to remember frequently encount ered people, daily routines, and executing requests? Yes. MEMORY - STEP 2: How often does the patient need help to remember frequently encountered people, daily routines, and e xecuting requests? Less than 10% of the time MEMORY - SCORE: 5-SUP SIGNATURE PANEL: The following modified sections: Eating - Score, Grooming - Score, Bathing - Score, Dressing - Upper Body - Score, Dressing - Lower Body - Score, Toileting - Score, Transfers: Bed, Chair, Wheelchair - S core, Transfers: Toilet - Score, Transfers: Shower - Score, Transfers: Tub - Score, Comprehension - S core, Expression - Score, Social Interaction - Score, Problem Solving - Score, Memory - Score were [e lectronically] signed by Sophia Cerda OT on Sat Aug 20 2018 16:11:13 GMT-0600 (Central Standard [facility])
[2018-08-20] MEDS: DOCUSATE NA/SENNA CONC 1 TAB PO SCH (20:42)
[2018-08-20] MEDS: DONEPEZIL HCL 5 MG TAB PO SCH (20:42)
[2018-08-20] MEDS: NETARSUDIL OPTH SCH (20:46)
[2018-08-21] MEDS: LEVOTHYROXINE SOD 0.025 MG TAB PO SCH (05:12)
[2018-08-21] MEDS: ENOXAPARIN 30 MG/0.3 ML SQ SCH (06:56)
[2018-08-21] MEDS: NYSTATIN PWDR 100000 UNIT/GM TOP SCH ×2 (06:56→19:46)
[2018-08-21] MEDS: OXYBUTYNIN CHLORIDE 5 MG TAB PO SCH ×2 (08:00→19:45)
[2018-08-21] MEDS: CRANBERRY FRUIT EXTRACT 200 MG CAP PO SCH ×2 (08:32→19:45)
[2018-08-21] MEDS: LISINOPRIL 20 MG TAB PO SCH (08:33)
[2018-08-21] MEDS: VENLAFAXINE HCL XR 75 MG CAP PO SCH (08:33)
[2018-08-21] MEDS: ASPIRIN EC 81 MG TAB PO SCH (08:34)
[2018-08-21] MEDS: PANTOPRAZOLE 40MG TABLET PO SCH (08:34)
[2018-08-21] MEDS: CLOPIDOGREL 75 MG TABLET PO SCH (08:35)
[2018-08-21] MEDS: AMLODIPINE 5 MG TAB PO SCH (10:54)
--- NOTE | 2018-08-21 11:36 | FAST ---
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 Avinash Read M.D. ADMISSION DIAGNOSIS: - Stroke 01 - Left Body (Right Brain) (01.1) ACUTE NONHEMORRHAGIC CVA RIGHT NAHEED. EATING: EATING - STEP 1: Does the patient require the assistance of a person or device, or need extra time when eating? Yes. EATING - STEP 2: Does the patient require the assistance of a helper? Yes. EATING - STEP 3: Does the patient perform half or more of the eating tasks? Yes. EATING - STEP 4: Does the patient need only supervision, cuing, coaxing OR help to apply an orthosis OR help to cut fo od, open containers, pour liquids, or butter bread? Yes. EATING - SCORE: 5-SUP GROOMING: Comb/brush hair Oral care GROOMING - STEP 1: Does the patient require the assistance of a person or device, or need extra time when grooming? Yes. GROOMING - STEP 2: Does the patient require the assistance of a helper? No. The patient only requires an assistive devic e, OR takes more than reasonable time to groom, OR there is a concern for safety as the patient groom s GROOMING - SCORE: 6-LIZZ BATHING: Activity did not occur on this shift BATHING - SCORE: 0-UNK DRESSING - UPPER BODY: T-shirt/pullover shirt (four steps) ARTICLES SCORE Total number of steps: 4 DRESSING - UPPER BODY - STEP 1: Does the patient require help from a person or device, or need extra time when dressing above the jaz[address] st? Yes. DRESSING - UPPER BODY - STEP 2: Does the patient require the assistance of a helper? Yes. DRESSING - UPPER BODY - STEP 3: Does the helper touch the patient while dressing? Yes. DRESSING - UPPER BODY - STEP 4: How many of the total steps does the patient complete on his/her own? 4 DRESSING - UPPER BODY - SCORE: 4-MIN DRESSING - LOWER BODY: ARTICLES SCORE Total number of steps: 8 DRESSING - LOWER BODY - STEP 1: Does the patient require help from a person or device, or need extra time when dressing below the jaz[address] st? Yes. DRESSING - LOWER BODY - STEP 2: Does the patient require the assistance of a helper? Yes. DRESSING - LOWER BODY - STEP 3: Does the helper touch the patient while dressing? Yes. DRESSING - LOWER BODY - STEP 4: How many of the total steps does the patient complete on his/her own? 4 DRESSING - LOWER BODY - SCORE: 3-MOD TOILETING: TOILETING - STEP 1: Does the patient require the assistance of a person or device, or need extra time with toileting? Yes . TOILETING - STEP 2: Does the patient require the assistance of a helper? Yes. TOILETING - STEP 3: How much assistance does the patient require from the helper? Hands-on assistance from the helper TOILETING - STEP 4: Of the 3 tasks: 1) Adjusting clothing prior to use, 2) Cleansing of perineal area, 3) Adjusting clot braulio after use; How many tasks does the patient perform WITHOUT assistance of the helper? Two tasks TOILETING - SCORE: 3-MOD BLADDER MANAGEMENT: BLADDER MANAGEMENT - STEP 1: Does the patient control the bladder completely and intentionally without equipment or devices or med ications, and is always continent? No. BLADDER MANAGEMENT - STEP 2: Does the patient require the assistance of a helper? No, patient requires and independently uses an a ssistive device, such as a urinal, bedpan, bedside commode, catheter, absorbent pad, or collecting de vice BLADDER MANAGEMENT - SCORE: 6-LIZZ BLADDER MANAGEMENT - FREQUENCY OF ACCIDENTS: BLADDER MANAGEMENT(FA) - STEP 1: How many accidents has the patient had during the current shift? 2 BOWEL MANAGEMENT: Activity did not occur on this shift BOWEL MANAGEMENT - SCORE: 7-IND TRANSFERS: BED, CHAIR, WHEELCHAIR: TRANSFERS: BED, CHAIR, WHEELCHAIR - STEP 1: Does the patient require assistance of a person or device, or need extra time with bed, chair, or whe elchair transfers? Yes. TRANSFERS: BED, CHAIR, WHEELCHAIR - STEP 2: Does the patient require the assistance of a helper? Yes. TRANSFERS: BED, CHAIR, WHEELCHAIR - STEP 3: How much assistance does the patient require from the helper? Steadying/guiding assistance TRANSFERS: BED, CHAIR, WHEELCHAIR - SCORE: 4-MIN TRANSFERS: TOILET: TRANSFERS: TOILET - STEP 1: Does the patient require the assistance of a person or device, or need extra time with toilet transfe rs? Yes. TRANSFERS: TOILET - STEP 2: Does the patient require the assistance of a helper? Yes. TRANSFERS: TOILET - STEP 3: How much assistance does the patient require from the helper? Patient performs half or more of the tr ansferring tasks TRANSFERS: TOILET - STEP 4: Does the patient need only incidental help such as contact guard or steadying during toilet transfer? Yes. TRANSFERS: TOILET - SCORE: 4-MIN TRANSFERS: SHOWER: Activity did not occur on this shift TRANSFERS: SHOWER - SCORE: 0-UNK TRANSFERS: TUB: Activity did not occur on this shift TRANSFERS: TUB - SCORE: 0-UNK LOCOMOTION: WALK: Activity did not occur on this shift LOCOMOTION: WALK - SCORE: 0-UNK LOCOMOTION: WHEELCHAIR: Activity did not occur on this shift LOCOMOTION: WHEELCHAIR - SCORE: 0-UNK COMPREHENSION: COMPREHENSION: TYPE: Both COMPREHENSION - STEP 1: Does the patient require help from a person or device, or need extra time to understand complex and a bstract ideas (such as current events, finances, discharge planning, medical issues, relationships, e tc)? No. COMPREHENSION - STEP 2: Does the patient need extra time, require an assistive device (such as glasses for visual comprehensi on or a hearing aid for auditory comprehension) or does s/he have mild difficulty understanding compl ex and abstract information? Yes. COMPREHENSION - SCORE: 6-LIZZ EXPRESSION EXPRESSION: TYPE: Both EXPRESSION - STEP 1: Does the patient require help from a person or device, or need extra time expressing complex and abst ract ideas (such as current events, finances, discharge planning, medical issues, relationships, etc) ? No. EXPRESSION - STEP 2: Does the patient need extra time, require an assistive device (such as augmentive communication syste m or a communication board), OR does s/he have mild difficulty expressing complex and abstract ideas (including mild dysarthria or mild word-find problems)? Yes. EXPRESSION - SCORE: 6-LIZZ SOCIAL INTERACTION: SOCIAL INTERACTION - STEP 1: Does the patient require a helper to interact with others in social and therapeutic situations? No. SOCIAL INTERACTION - STEP 2: Does the patient need extra time in social situations, OR does s/he interact with staff, other patien ts, and family members ONLY in structured environments, OR does s/he require medication for social in teraction? Yes, patient needs extra time SOCIAL INTERACTION - SCORE: 6-LIZZ PROBLEM SOLVING: PROBLEM SOLVING - STEP 1: Does the patient need help from a person or device, or need extra time to solve complex problems such as managing a checking account or confronting interpersonal problems? No. PROBLEM SOLVING - STEP 2: Does the patient require extra time to make decisions or solve problems, OR does s/he have slight dif ficulty reading, initiating, or self-correcting in unfamiliar situations? Yes, patient needs extra ti me. PROBLEM SOLVING - SCORE: 6-LIZZ MEMORY: MEMORY - STEP 1: Does the patient need help from a person or device, or need extra time to remember frequently encount ered people, daily routines, and executing requests? No. MEMORY - STEP 2: Does the patient have slight difficulty recognizing frequently encountered people, daily routines, or executing requests without the need for repetition or using self-initiated or environmental cues to remember? Yes. MEMORY - SCORE: 6-LIZZ SIGNATURE PANEL: The following modified sections: Eating - Score, Grooming - Score, Bathing - Score, Dressing - Upper Body - Score, Dressing - Lower Body - Score, Toileting - Score, Bladder Management - Score, Bowel Man agement - Score, Transfers: Bed, Chair, Wheelchair - Score, Transfers: Toilet - Score, Transfers: Olga wer - Score, Transfers: Tub - Score, Locomotion: Walk - Score, Locomotion: Wheelchair - Score, Compre hension - Score, Expression - Score, Social Interaction - Score, Problem Solving - Score, Memory - Sc ore were [electronically] signed by Roosevelt Velasquez on WedAug 21 2018 11:35:04 GMT-0600 (Central Standard Time)
[2018-08-21] MEDS ORDERED: DOCUSATE NA/SENNA CONC 1 TAB PO PRN (14:05)
[2018-08-21] MEDS: DONEPEZIL HCL 5 MG TAB PO SCH (19:45)
[2018-08-21] MEDS: NETARSUDIL OPTH SCH (19:47)
[2018-08-22] MEDS: ACETAMINOPHEN 500 MG TAB PO PRN ×2 (00:44→20:37)
[2018-08-22] MEDS: LEVOTHYROXINE SOD 0.025 MG TAB PO SCH (05:11)
[2018-08-22] MEDS: ENOXAPARIN 30 MG/0.3 ML SQ SCH (06:49)
[2018-08-22] MEDS: CRANBERRY FRUIT EXTRACT 200 MG CAP PO SCH ×2 (08:14→20:37)
[2018-08-22] MEDS: AMLODIPINE 5 MG TAB PO SCH (08:14)
[2018-08-22] MEDS: VENLAFAXINE HCL XR 75 MG CAP PO SCH (08:14)
[2018-08-22] MEDS: ASPIRIN EC 81 MG TAB PO SCH (08:15)
[2018-08-22] MEDS: NYSTATIN PWDR 100000 UNIT/GM TOP SCH ×2 (08:16→20:38)
[2018-08-22] MEDS: CLOPIDOGREL 75 MG TABLET PO SCH (08:16)
[2018-08-22] MEDS: OXYBUTYNIN CHLORIDE 5 MG TAB PO SCH ×2 (08:16→20:00)
[2018-08-22] MEDS: PANTOPRAZOLE 40MG TABLET PO SCH (08:16)
[2018-08-22] MEDS: LISINOPRIL 20 MG TAB PO SCH (10:40)
--- NOTE | 2018-08-22 11:26 | FAST ---
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 Avinash Read M.D. ADMISSION DIAGNOSIS: - Stroke 01 - Left Body (Right Brain) (01.1) ACUTE NONHEMORRHAGIC CVA RIGHT NAHEED. EATING: Activity did not occur on this shift EATING - SCORE: 0-UNK GROOMING: Comb/brush hair Wash, rinse, and dry face Wash, rinse, and dry hands GROOMING - STEP 1: Does the patient require the assistance of a person or device, or need extra time when grooming? Yes. GROOMING - STEP 2: Does the patient require the assistance of a helper? No. The patient only requires an assistive devic e, OR takes more than reasonable time to groom, OR there is a concern for safety as the patient groom s GROOMING - SCORE: 6-LIZZ BATHING: Abdomen Buttocks Chest Left arm Left lower leg and foot Left upper leg Perineal area Right arm Right lower leg and foot Right upper leg BATHING - STEP 1: Does the patient require the assistance of a person or device, or need extra time when bathing? Yes. BATHING - STEP 2: Does the patient require the assistance of a helper? Yes. BATHING - STEP 3: How much assistance does the patient require from the helper? Only incidental help such as placement of a wash cloth in his/her hand a few times as s/he bathes OR help to bathe just one or two areas of the body BATHING - SCORE: 4-MIN DRESSING - UPPER BODY: T-shirt/pullover shirt (four steps) ARTICLES SCORE Total number of steps: 4 DRESSING - UPPER BODY - STEP 1: Does the patient require help from a person or device, or need extra time when dressing above the jaz[address]? Yes. DRESSING - UPPER BODY - STEP 2: Does the patient require the assistance of a helper? Yes. DRESSING - UPPER BODY - STEP 3: Does the helper touch the patient while dressing? No. DRESSING - UPPER BODY - SCORE: 5-SUP DRESSING - LOWER BODY: Slip-on shoe - Left foot (one step) Slip-on shoe - Right foot (one step) Underwear (three steps) ARTICLES SCORE Total number of steps: 5 DRESSING - LOWER BODY - STEP 1: Does the patient require help from a person or device, or need extra time when dressing below the jaz[address] st? Yes. DRESSING - LOWER BODY - STEP 2: Does the patient require the assistance of a helper? Yes. DRESSING - LOWER BODY - STEP 3: Does the helper touch the patient while dressing? Yes. DRESSING - LOWER BODY - STEP 4: How many of the total steps does the patient complete on his/her own? 5 DRESSING - LOWER BODY - SCORE: 4-MIN TOILETING: Activity did not occur on this shift TOILETING - SCORE: 0-UNK BLADDER MANAGEMENT: Activity did not occur on this shift BLADDER MANAGEMENT - SCORE: 7-IND BOWEL MANAGEMENT: Activity did not occur on this shift BOWEL MANAGEMENT - SCORE: 7-IND TRANSFERS: BED, CHAIR, WHEELCHAIR: Activity did not occur on this shift TRANSFERS: BED, CHAIR, WHEELCHAIR - SCORE: 0-UNK TRANSFERS: TOILET: Activity did not occur on this shift TRANSFERS: TOILET - SCORE: 0-UNK TRANSFERS: SHOWER: TRANSFERS: SHOWER - STEP 1: Does the patient require the assistance of a person or device, or need extra time with shower transfe rs? Yes. TRANSFERS: SHOWER - STEP 2: Does the patient require the assistance of a helper? Yes. TRANSFERS: SHOWER - STEP 3: How much assistance does the patient require from the helper? Only incidental help such as contact gu arding or steadying during shower transfers, or help to lift one leg into the shower TRANSFERS: SHOWER - SCORE: 4-MIN TRANSFERS: TUB: Activity did not occur on this shift TRANSFERS: TUB - SCORE: 0-UNK LOCOMOTION: WALK: Activity did not occur on this shift LOCOMOTION: WALK - SCORE: 0-UNK LOCOMOTION: WHEELCHAIR: Activity did not occur on this shift LOCOMOTION: WHEELCHAIR - SCORE: 0-UNK LOCOMOTION: STAIRS: Activity did not occur on this shift LOCOMOTION: STAIRS - SCORE: 0-UNK COMPREHENSION: COMPREHENSION: TYPE: Visual COMPREHENSION - STEP 1: Does the patient require help from a person or device, or need extra time to understand complex and a bstract ideas (such as current events, finances, discharge planning, medical issues, relationships, e tc)? Yes. COMPREHENSION - STEP 2: Does the patient require help to understand questions or statements about basic needs or ideas (such as hunger, thirst, sleep, safety, daily schedule, room location, or discomfort) half or more of the t kei? No. COMPREHENSION - STEP 3: How often does the patient need help to understand directions and conversation about basic needs? Les s than 10% of the time COMPREHENSION - SCORE: 5-SUP EXPRESSION EXPRESSION: TYPE: Non-Vocal EXPRESSION - STEP 1: Does the patient require help from a person or device, or need extra time expressing complex and abst ract ideas (such as current events, finances, discharge planning, medical issues, relationships, etc) ? Yes. EXPRESSION - STEP 2: Does the patient require help to express basic necessities or ideas (such as hunger, thirst, sleep, s afety, daily schedule, room location, or discomfort) half or more of the time? No. EXPRESSION - STEP 3: How often does the patient need help to express directions and conversation about basic needs? Less t naidu 10% of the time EXPRESSION - SCORE: 5-SUP SOCIAL INTERACTION: SOCIAL INTERACTION - STEP 1: Does the patient require a helper to interact with others in social and therapeutic situations? No. SOCIAL INTERACTION - STEP 2: Does the patient need extra time in social situations, OR does s/he interact with staff, other patien ts, and family members ONLY in structured environments, OR does s/he require medication for social in teraction? No. SOCIAL INTERACTION - SCORE: 7-IND PROBLEM SOLVING: PROBLEM SOLVING - STEP 1: Does the patient need help from a person or device, or need extra time to solve complex problems such as managing a checking account or confronting interpersonal problems? Yes. PROBLEM SOLVING - STEP 2: Does the patient solve basic routine problems half or more of the time? Yes. PROBLEM SOLVING - STEP 3: How often does the patient need help to solve basic routine problems? Less than 10% of the time PROBLEM SOLVING - SCORE: 5-SUP MEMORY: MEMORY - STEP 1: Does the patient need help from a person or device, or need extra time to remember frequently encount ered people, daily routines, and executing requests? Yes. MEMORY - STEP 2: How often does the patient need help to remember frequently encountered people, daily routines, and e xecuting requests? Less than 10% of the time MEMORY - SCORE: 5-SUP SIGNATURE PANEL: The following modified sections: Eating - Score, Grooming - Score, Bathing - Score, Dressing - Upper Body - Score, Dressing - Lower Body - Score, Toileting - Score, Transfers: Bed, Chair, Wheelchair - S core, Transfers: Toilet - Score, Transfers: Shower - Score, Transfers: Tub - Score, Comprehension - S core, Expression - Score, Social Interaction - Score, Problem Solving - Score, Memory - Score were [e lectronically] signed by LEEANN Baldwin on WedAug 22 2018 11:25:47 T-0600 ([place] Time)
--- NOTE | 2018-08-22 14:36 | FAST ---
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 Avinash Read M.D. ADMISSION DIAGNOSIS: - Stroke 01 - Left Body (Right Brain) (01.1) ACUTE NONHEMORRHAGIC CVA RIGHT NAHEED. EATING: Activity did not occur on this shift EATING - SCORE: 0-UNK GROOMING: Activity did not occur on this shift GROOMING - SCORE: 0-UNK BATHING: Activity did not occur on this shift BATHING - SCORE: 0-UNK DRESSING - UPPER BODY: Activity did not occur on this shift Patient is not dressing in public clothing ARTICLES SCORE Total number of steps: 0 DRESSING - UPPER BODY - SCORE: 0-UNK DRESSING - LOWER BODY: Activity did not occur on this shift Patient is not dressing in public clothing ARTICLES SCORE Total number of steps: 0 DRESSING - LOWER BODY - SCORE: 0-UNK TOILETING: Activity did not occur on this shift TOILETING - SCORE: 0-UNK BLADDER MANAGEMENT: Activity did not occur on this shift BLADDER MANAGEMENT - SCORE: 7-IND BOWEL MANAGEMENT: Activity did not occur on this shift BOWEL MANAGEMENT - SCORE: 7-IND TRANSFERS: BED, CHAIR, WHEELCHAIR: TRANSFERS: BED, CHAIR, WHEELCHAIR - STEP 1: Does the patient require assistance of a person or device, or need extra time with bed, chair, or whe elchair transfers? Yes. TRANSFERS: BED, CHAIR, WHEELCHAIR - STEP 2: Does the patient require the assistance of a helper? Yes. TRANSFERS: BED, CHAIR, WHEELCHAIR - STEP 3: How much assistance does the patient require from the helper? Only supervision TRANSFERS: BED, CHAIR, WHEELCHAIR - SCORE: 5-SUP TRANSFERS: TOILET: Activity did not occur on this shift TRANSFERS: TOILET - SCORE: 0-UNK TRANSFERS: SHOWER: Activity did not occur on this shift TRANSFERS: SHOWER - SCORE: 0-UNK TRANSFERS: TUB: Activity did not occur on this shift TRANSFERS: TUB - SCORE: 0-UNK LOCOMOTION: WALK: LOCOMOTION: WALK - STEP 1: Does the patient need help from a person or device, or need extra time to walk 150 feet? Yes. LOCOMOTION: WALK - STEP 2: How much assistance does the patient require to walk a minimum of 150 feet? Only supervision, cuing, or coaxing LOCOMOTION: WALK - SCORE: 5-SUP LOCOMOTION: WHEELCHAIR: Activity did not occur on this shift LOCOMOTION: WHEELCHAIR - SCORE: 0-UNK LOCOMOTION: STAIRS: Activity did not occur on this shift LOCOMOTION: STAIRS - SCORE: 0-UNK COMPREHENSION: COMPREHENSION - SCORE: 0-UNK EXPRESSION EXPRESSION - SCORE: 0-UNK SOCIAL INTERACTION: SOCIAL INTERACTION - SCORE: 0-UNK PROBLEM SOLVING: PROBLEM SOLVING - SCORE: 0-UNK MEMORY: MEMORY - SCORE: 0-UNK SIGNATURE PANEL: The following modified sections: Transfers: Bed, Chair, Wheelchair - Score, Transfers: Toilet - Score , Locomotion: Walk - Score, Locomotion: Wheelchair - Score, Locomotion: Stairs - Score were [electron maisha] signed by Gerald Ibrahim PT on WedAug 22 2018 14:35:55 GMT-0600 (Central Standard Time)
--- NOTE | 2018-08-22 14:55 | FAST ---
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 Avinash Read M.D. ADMISSION DIAGNOSIS: - Stroke 01 - Left Body (Right Brain) (01.1) ACUTE NONHEMORRHAGIC CVA RIGHT NAHEED. EATING: EATING - STEP 1: Does the patient require the assistance of a person or device, or need extra time when eating? Yes. EATING - STEP 2: Does the patient require the assistance of a helper? No, patient only requires an assistive device, O R s/he takes more than reasonable time to eat, OR there is a safety concern, OR s/he requires modifie d food consistency EATING - SCORE: 6-LIZZ GROOMING: Comb/brush hair Wash, rinse, and dry face GROOMING - STEP 1: Does the patient require the assistance of a person or device, or need extra time when grooming? Yes. GROOMING - STEP 2: Does the patient require the assistance of a helper? No. The patient only requires an assistive devic e, OR takes more than reasonable time to groom, OR there is a concern for safety as the patient groom s GROOMING - SCORE: 6-LIZZ BATHING: Activity did not occur on this shift BATHING - SCORE: 0-UNK DRESSING - UPPER BODY: Activity did not occur on this shift ARTICLES SCORE Total number of steps: 0 DRESSING - UPPER BODY - STEP 1: Does the patient require help from a person or device, or need extra time when dressing above the jaziel st? Yes. DRESSING - UPPER BODY - STEP 2: Does the patient require the assistance of a helper? Yes. DRESSING - UPPER BODY - STEP 3: Does the helper touch the patient while dressing? No. DRESSING - UPPER BODY - SCORE: 5-SUP DRESSING - LOWER BODY: Slip-on shoe - Left foot (one step) Slip-on shoe - Right foot (one step) Underwear (three steps) ARTICLES SCORE Total number of steps: 5 DRESSING - LOWER BODY - STEP 1: Does the patient require help from a person or device, or need extra time when dressing below the jaziel st? Yes. DRESSING - LOWER BODY - STEP 2: Does the patient require the assistance of a helper? Yes. DRESSING - LOWER BODY - STEP 3: Does the helper touch the patient while dressing? Yes. DRESSING - LOWER BODY - STEP 4: How many of the total steps does the patient complete on his/her own? 3 DRESSING - LOWER BODY - SCORE: 3-MOD TOILETING: TOILETING - STEP 1: Does the patient require the assistance of a person or device, or need extra time with toileting? Yes . TOILETING - STEP 2: Does the patient require the assistance of a helper? Yes. TOILETING - STEP 3: How much assistance does the patient require from the helper? Hands-on assistance from the helper TOILETING - STEP 4: Of the 3 tasks: 1) Adjusting clothing prior to use, 2) Cleansing of perineal area, 3) Adjusting clot braulio after use; How many tasks does the patient perform WITHOUT assistance of the helper? No tasks; h elper performs all three tasks TOILETING - SCORE: 1-DEP BLADDER MANAGEMENT: [place] removes incontinent device (Depends, pull ups, etc.); cleans the patient after accident / inco ntinent episode; and, applies new incontinent device. BLADDER MANAGEMENT - SCORE: 1-DEP BLADDER MANAGEMENT - FREQUENCY OF ACCIDENTS: BLADDER MANAGEMENT(FA) - STEP 1: How many accidents has the patient had during the current shift? 2 BOWEL MANAGEMENT: Activity did not occur on this shift BOWEL MANAGEMENT - SCORE: 7-IND BOWEL MANAGEMENT - FREQUENCY OF ACCIDENTS: BOWEL MANAGEMENT(FA) - STEP 1: How many accidents has the patient had during the current shift? 0 TRANSFERS: BED, CHAIR, WHEELCHAIR: TRANSFERS: BED, CHAIR, WHEELCHAIR - STEP 1: Does the patient require assistance of a person or device, or need extra time with bed, chair, or whe elchair transfers? Yes. TRANSFERS: BED, CHAIR, WHEELCHAIR - STEP 2: Does the patient require the assistance of a helper? Yes. TRANSFERS: BED, CHAIR, WHEELCHAIR - STEP 3: How much assistance does the patient require from the helper? Lifting of the patient TRANSFERS: BED, CHAIR, WHEELCHAIR - STEP 4: Does the helper lift the patient ONLY up? ONLY down? Up AND Down? Up AND Down. TRANSFERS: BED, CHAIR, WHEELCHAIR - SCORE: 2-MAX TRANSFERS: TOILET: TRANSFERS: TOILET - STEP 1: Does the patient require the assistance of a person or device, or need extra time with toilet transfe rs? Yes. TRANSFERS: TOILET - STEP 2: Does the patient require the assistance of a helper? Yes. TRANSFERS: TOILET - STEP 3: How much assistance does the patient require from the helper? Patient performs less than half of the transferring tasks TRANSFERS: TOILET - STEP 4: Does the patient require total assistance for the toilet transfer such as the helper doing basically all the lifting? No. TRANSFERS: TOILET - SCORE: 2-MAX TRANSFERS: SHOWER: Activity did not occur on this shift TRANSFERS: SHOWER - SCORE: 0-UNK TRANSFERS: TUB: Activity did not occur on this shift TRANSFERS: TUB - SCORE: 0-UNK LOCOMOTION: WALK: Activity did not occur on this shift LOCOMOTION: WALK - SCORE: 0-UNK LOCOMOTION: WHEELCHAIR: Activity did not occur on this shift LOCOMOTION: WHEELCHAIR - SCORE: 0-UNK COMPREHENSION: COMPREHENSION: TYPE: Both COMPREHENSION - STEP 1: Does the patient require help from a person or device, or need extra time to understand complex and a bstract ideas (such as current events, finances, discharge planning, medical issues, relationships, e tc)? Yes. COMPREHENSION - STEP 2: Does the patient require help to understand questions or statements about basic needs or ideas (such as hunger, thirst, sleep, safety, daily schedule, room location, or discomfort) half or more of the t kei? No. COMPREHENSION - STEP 3: How often does the patient need help to understand directions and conversation about basic needs? Les s than 10% of the time COMPREHENSION - SCORE: 5-SUP EXPRESSION EXPRESSION: TYPE: Both EXPRESSION - STEP 1: Does the patient require help from a person or device, or need extra time expressing complex and abst ract ideas (such as current events, finances, discharge planning, medical issues, relationships, etc) ? Yes. EXPRESSION - STEP 2: Does the patient require help to express basic necessities or ideas (such as hunger, thirst, sleep, s afety, daily schedule, room location, or discomfort) half or more of the time? No. EXPRESSION - STEP 3: How often does the patient need help to express directions and conversation about basic needs? Less t naidu 10% of the time EXPRESSION - SCORE: 5-SUP SOCIAL INTERACTION: SOCIAL INTERACTION - STEP 1: Does the patient require a helper to interact with others in social and therapeutic situations? No. SOCIAL INTERACTION - STEP 2: Does the patient need extra time in social situations, OR does s/he interact with staff, other patien ts, and family members ONLY in structured environments, OR does s/he require medication for social in teraction? No. SOCIAL INTERACTION - SCORE: 7-IND PROBLEM SOLVING: PROBLEM SOLVING - STEP 1: Does the patient need help from a person or device, or need extra time to solve complex problems such as managing a checking account or confronting interpersonal problems? Yes. PROBLEM SOLVING - STEP 2: Does the patient solve basic routine problems half or more of the time? Yes. PROBLEM SOLVING - STEP 3: How often does the patient need help to solve basic routine problems? Less than 10% of the time PROBLEM SOLVING - SCORE: 5-SUP MEMORY: MEMORY - STEP 1: Does the patient need help from a person or device, or need extra time to remember frequently encount ered people, daily routines, and executing requests? Yes. MEMORY - STEP 2: How often does the patient need help to remember frequently encountered people, daily routines, and e xecuting requests? Less than 10% of the time MEMORY - SCORE: 5-SUP SIGNATURE PANEL: The following modified sections: Eating - Score, Grooming - Score, Bathing - Score, Dressing - Upper Body - Score, Dressing - Lower Body - Score, Toileting - Score, Bladder Management - Score, Bowel Man agement - Score, Transfers: Bed, Chair, Wheelchair - Score, Transfers: Toilet - Score, Transfers: Olga wer - Score, Transfers: Tub - Score, Locomotion: Walk - Score, Locomotion: Wheelchair - Score, Compre hension - Score, Expression - Score, Social Interaction - Score, Problem Solving - Score, Memory - Sc ore were [electronically] signed by Belkys Carrillo C.N.A. on WedAug 22 2018 14:54:52 GMT-0600 ([facility] Time)
[2018-08-22] MEDS: DONEPEZIL HCL 5 MG TAB PO SCH (20:37)
[2018-08-22] MEDS: NETARSUDIL OPTH SCH (20:39)
--- NOTE | 2018-08-23 01:12 | FAST ---
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 Avinash Read M.D. ADMISSION DIAGNOSIS: - Stroke 01 - Left Body (Right Brain) (01.1) ACUTE NONHEMORRHAGIC CVA RIGHT NAHEED. EATING: Activity did not occur on this shift EATING - SCORE: 0-UNK GROOMING: Activity did not occur on this shift GROOMING - SCORE: 0-UNK BATHING: Activity did not occur on this shift BATHING - SCORE: 0-UNK DRESSING - UPPER BODY: Patient is not dressing in public clothing ARTICLES SCORE Total number of steps: 0 DRESSING - UPPER BODY - SCORE: 0-UNK DRESSING - LOWER BODY: Patient is not dressing in public clothing ARTICLES SCORE Total number of steps: 0 DRESSING - LOWER BODY - SCORE: 0-UNK TOILETING: Activity did not occur on this shift TOILETING - SCORE: 0-UNK BLADDER MANAGEMENT: [place] removes incontinent device (Depends, pull ups, etc.); cleans the patient after accident / inco ntinent episode; and, applies new incontinent device. BLADDER MANAGEMENT - SCORE: 1-DEP BLADDER MANAGEMENT - FREQUENCY OF ACCIDENTS: BLADDER MANAGEMENT(FA) - STEP 1: How many accidents has the patient had during the current shift? 1 BOWEL MANAGEMENT: Activity did not occur on this shift BOWEL MANAGEMENT - SCORE: 7-IND TRANSFERS: BED, CHAIR, WHEELCHAIR: Activity did not occur on this shift TRANSFERS: BED, CHAIR, WHEELCHAIR - SCORE: 0-UNK TRANSFERS: TOILET: Activity did not occur on this shift TRANSFERS: TOILET - SCORE: 0-UNK TRANSFERS: SHOWER: Activity did not occur on this shift TRANSFERS: SHOWER - SCORE: 0-UNK TRANSFERS: TUB: Activity did not occur on this shift TRANSFERS: TUB - SCORE: 0-UNK LOCOMOTION: WALK: Activity did not occur on this shift LOCOMOTION: WALK - SCORE: 0-UNK LOCOMOTION: WHEELCHAIR: Activity did not occur on this shift LOCOMOTION: WHEELCHAIR - SCORE: 0-UNK COMPREHENSION: COMPREHENSION: TYPE: Both COMPREHENSION - STEP 1: Does the patient require help from a person or device, or need extra time to understand complex and a bstract ideas (such as current events, finances, discharge planning, medical issues, relationships, e tc)? No. COMPREHENSION - STEP 2: Does the patient need extra time, require an assistive device (such as glasses for visual comprehensi on or a hearing aid for auditory comprehension) or does s/he have mild difficulty understanding compl ex and abstract information? Yes. COMPREHENSION - SCORE: 6-LIZZ EXPRESSION EXPRESSION: TYPE: Both EXPRESSION - STEP 1: Does the patient require help from a person or device, or need extra time expressing complex and abst ract ideas (such as current events, finances, discharge planning, medical issues, relationships, etc) ? No. EXPRESSION - STEP 2: Does the patient need extra time, require an assistive device (such as augmentive communication syste m or a communication board), OR does s/he have mild difficulty expressing complex and abstract ideas (including mild dysarthria or mild word-find problems)? Yes. EXPRESSION - SCORE: 6-LIZZ SOCIAL INTERACTION: SOCIAL INTERACTION - STEP 1: Does the patient require a helper to interact with others in social and therapeutic situations? No. SOCIAL INTERACTION - STEP 2: Does the patient need extra time in social situations, OR does s/he interact with staff, other patien ts, and family members ONLY in structured environments, OR does s/he require medication for social in teraction? Yes, patient needs extra time SOCIAL INTERACTION - SCORE: 6-LIZZ PROBLEM SOLVING: PROBLEM SOLVING - STEP 1: Does the patient need help from a person or device, or need extra time to solve complex problems such as managing a checking account or confronting interpersonal problems? No. PROBLEM SOLVING - STEP 2: Does the patient require extra time to make decisions or solve problems, OR does s/he have slight dif ficulty reading, initiating, or self-correcting in unfamiliar situations? Yes, patient needs extra ti me. PROBLEM SOLVING - SCORE: 6-LIZZ MEMORY: MEMORY - STEP 1: Does the patient need help from a person or device, or need extra time to remember frequently encount ered people, daily routines, and executing requests? No. MEMORY - STEP 2: Does the patient have slight difficulty recognizing frequently encountered people, daily routines, or executing requests without the need for repetition or using self-initiated or environmental cues to remember? Yes. MEMORY - SCORE: 6-LIZZ SIGNATURE PANEL: The following modified sections: Eating - Score, Grooming - Score, Dressing - Upper Body - Score, [place] ssing - Lower Body - Score, Toileting - Score, Bladder Management - Score, Bowel Management - Score, Transfers: Bed, Chair, Wheelchair - Score, Transfers: Toilet - Score, Transfers: Shower - Score, [place] sfers: Tub - Score, Locomotion: Walk - Score, Locomotion: Wheelchair - Score, Comprehension - Score, Expression - Score, Social Interaction - Score, Problem Solving - Score, Memory - Score were [electro nically] signed by Nhung Corley CNA on WedAug 23 2018 01:11:24 GMT-0600 (Central Standard Time)
[2018-08-23] MEDS: LEVOTHYROXINE SOD 0.025 MG TAB PO SCH (05:18)
[2018-08-23] MEDS: ENOXAPARIN 30 MG/0.3 ML SQ SCH (07:10)
[2018-08-23] MEDS: OXYBUTYNIN CHLORIDE 5 MG TAB PO SCH ×2 (08:00→20:00)
[2018-08-23] MEDS: NYSTATIN PWDR 100000 UNIT/GM TOP SCH (08:36)
[2018-08-23] MEDS: VENLAFAXINE HCL XR 75 MG CAP PO SCH (08:37)
[2018-08-23] MEDS: LISINOPRIL 20 MG TAB PO SCH (08:37)
[2018-08-23] MEDS: ASPIRIN EC 81 MG TAB PO SCH (08:37)
[2018-08-23] MEDS: CLOPIDOGREL 75 MG TABLET PO SCH (08:37)
[2018-08-23] MEDS: CRANBERRY FRUIT EXTRACT 200 MG CAP PO SCH ×2 (08:37→20:30)
[2018-08-23] MEDS: PANTOPRAZOLE 40MG TABLET PO SCH (08:37)
[2018-08-23] MEDS: AMLODIPINE 5 MG TAB PO SCH (08:38)
--- NOTE | 2018-08-23 11:15 | FAST ---
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 Avinash Read M.D. ADMISSION DIAGNOSIS: - Stroke 01 - Left Body (Right Brain) (01.1) ACUTE NONHEMORRHAGIC CVA RIGHT NAHEED. EATING: Activity did not occur on this shift EATING - SCORE: 0-UNK GROOMING: Activity did not occur on this shift GROOMING - SCORE: 0-UNK BATHING: Activity did not occur on this shift BATHING - SCORE: 0-UNK DRESSING - UPPER BODY: Activity did not occur on this shift Patient is not dressing in public clothing ARTICLES SCORE Total number of steps: 0 DRESSING - UPPER BODY - SCORE: 0-UNK DRESSING - LOWER BODY: Activity did not occur on this shift Patient is not dressing in public clothing ARTICLES SCORE Total number of steps: 0 DRESSING - LOWER BODY - SCORE: 0-UNK TOILETING: Activity did not occur on this shift TOILETING - SCORE: 0-UNK BLADDER MANAGEMENT: Activity did not occur on this shift BLADDER MANAGEMENT - SCORE: 7-IND BOWEL MANAGEMENT: Activity did not occur on this shift BOWEL MANAGEMENT - SCORE: 7-IND TRANSFERS: BED, CHAIR, WHEELCHAIR: TRANSFERS: BED, CHAIR, WHEELCHAIR - STEP 1: Does the patient require assistance of a person or device, or need extra time with bed, chair, or whe elchair transfers? Yes. TRANSFERS: BED, CHAIR, WHEELCHAIR - STEP 2: Does the patient require the assistance of a helper? Yes. TRANSFERS: BED, CHAIR, WHEELCHAIR - STEP 3: How much assistance does the patient require from the helper? Only supervision TRANSFERS: BED, CHAIR, WHEELCHAIR - SCORE: 5-SUP TRANSFERS: TOILET: Activity did not occur on this shift TRANSFERS: TOILET - SCORE: 0-UNK TRANSFERS: SHOWER: Activity did not occur on this shift TRANSFERS: SHOWER - SCORE: 0-UNK TRANSFERS: TUB: Activity did not occur on this shift TRANSFERS: TUB - SCORE: 0-UNK LOCOMOTION: WALK: LOCOMOTION: WALK - STEP 1: Does the patient need help from a person or device, or need extra time to walk 150 feet? Yes. LOCOMOTION: WALK - STEP 2: How much assistance does the patient require to walk a minimum of 150 feet? Only supervision, cuing, or coaxing LOCOMOTION: WALK - SCORE: 5-SUP LOCOMOTION: WHEELCHAIR: Activity did not occur on this shift LOCOMOTION: WHEELCHAIR - SCORE: 0-UNK LOCOMOTION: STAIRS: Patient goes up and down less than 4 to 6 stairs LOCOMOTION: STAIRS - SCORE: 1-DEP COMPREHENSION: COMPREHENSION - SCORE: 0-UNK EXPRESSION EXPRESSION - SCORE: 0-UNK SOCIAL INTERACTION: SOCIAL INTERACTION - SCORE: 0-UNK PROBLEM SOLVING: PROBLEM SOLVING - SCORE: 0-UNK MEMORY: MEMORY - SCORE: 0-UNK SIGNATURE PANEL: The following modified sections: Transfers: Bed, Chair, Wheelchair - Score, Transfers: Toilet - Score , Locomotion: Walk - Score, Locomotion: Wheelchair - Score, Locomotion: Stairs - Score were [electron maisha] signed by Gerald Ibrahim PT on WedAug 23 2018 11:14:29 T-0600 (Central Standard Time)
[2018-08-23] MEDS ORDERED: MAGNESIUM HYDROXIDE 8% 30 ML PO PRN (11:50)
--- NOTE | 2018-08-23 11:52 | P.PN ---
Subjective Date of Service: 08/23/18 Chief Complaint: STABLE, NO CHANGES. Subjective: Improving WEAK NOT ABLE TO COMPLAIN MUCH. STILL VERY WEAK AND WILL NOT ABLE TO GO HOME. I RECOMMEND NH. SHE IS DOING LOT BETTER. SHE MAY IMPROVE ENOUGH FOR HOME. NO COMPLAINTS. SHE IS IN GOOD MOOD. DOING PT DAILY. DC ON Aug.\ FEELS WELL. NO ISSUES. NO PAIN DC DATE IS NEXT WEEK. SHE IS LOT BETTER. STILL ON PT AND OT. DOING WORK DAILY. Review of Systems 10-point ROS is otherwise unremarkable Physical Examination - Vital Signs Temperature: 97 F Blood Pressure: 169/69 Pulse: 79 Respirations: 16 Pulse Ox (%): 96 - Physical Exam General: Alert, In no apparent distress HEENT: Atraumatic, PERRLA, EOMI Neck: Supple, JVD not distended Respiratory: Clear to auscultation bilaterally, Normal air movement Cardiovascular: Regular rate/rhythm, Normal S1 S2 Gastrointestinal: Normal bowel sounds, No tenderness Musculoskeletal: No tenderness Integumentary: No rashes Neurological: Normal speech, Abnormal strength (BACK TO HER BASELINE. BILAT. 4/ 5 POWER. SOME BASELINE CONTRACTURES. WALKS WITH WALKER. ) Lymphatics: No axilla or inguinal lymphadenopathy - Studies Medications List Reviewed: Yes Assessment And Plan - Current Problems (Diagnosis) (1) CVA (cerebral vascular accident) Onset Date: 08/08/18 Current Visit: No Status: Acute Plan: PT NOT ABLE TO TAKE 3 HOURS OF THERAPY. NH ADVISED. RESUME PT SHE IS IMPROVING. RESUME ANTIPLATELET AGENTS. STABLE, NO NEW CHANGES. RESUME MEDS. CONT PT STABLE. DC ON . Qualifiers: Precerebral and cerebral artery: other cerebral artery (2) HTN (hypertension) Onset Date: 08/08/18 Current Visit: No Status: Chronic Plan: REDUCE NORVASC BP IS LOW NORMAL NOW. (3) Hypothyroid Current Visit: Yes Status: Acute Plan: SMALL DOSE OF LEVOXYL. (4) B12 deficiency Current Visit: Yes Status: Acute Plan: ONE INJECTON AND SHE CAN TAKE ONCE A MONTH.
[2018-08-23] MEDS ORDERED: NYSTATIN PWDR 100000 UNIT/GM TOP PRN (14:13)
[2018-08-23] MEDS: DONEPEZIL HCL 5 MG TAB PO SCH (20:30)
[2018-08-23] MEDS: NETARSUDIL OPTH SCH (20:32)
[2018-08-24] MEDS: LEVOTHYROXINE SOD 0.025 MG TAB PO SCH (05:20)
[2018-08-24] MEDS: ENOXAPARIN 30 MG/0.3 ML SQ SCH (07:06)
[2018-08-24] MEDS: OXYBUTYNIN CHLORIDE 5 MG TAB PO SCH ×2 (08:00→20:00)
[2018-08-24] MEDS: CRANBERRY FRUIT EXTRACT 200 MG CAP PO SCH ×2 (08:02→20:05)
[2018-08-24] MEDS: VENLAFAXINE HCL XR 75 MG CAP PO SCH (08:03)
[2018-08-24] MEDS: PANTOPRAZOLE 40MG TABLET PO SCH (08:03)
[2018-08-24] MEDS: ASPIRIN EC 81 MG TAB PO SCH (08:04)
[2018-08-24] MEDS: CLOPIDOGREL 75 MG TABLET PO SCH (08:04)
[2018-08-24] MEDS: AMLODIPINE 5 MG TAB PO SCH (08:06)
[2018-08-24] MEDS: LISINOPRIL 20 MG TAB PO SCH (08:06)
--- NOTE | 2018-08-24 15:17 | FAST ---
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 Avinash Read M.D. ADMISSION DIAGNOSIS: - Stroke 01 - Left Body (Right Brain) (01.1) ACUTE NONHEMORRHAGIC CVA RIGHT NAHEED. EATING: EATING - STEP 1: Does the patient require the assistance of a person or device, or need extra time when eating? Yes. EATING - STEP 2: Does the patient require the assistance of a helper? Yes. EATING - STEP 3: Does the patient perform half or more of the eating tasks? Yes. EATING - STEP 4: Does the patient need only supervision, cuing, coaxing OR help to apply an orthosis OR help to cut fo od, open containers, pour liquids, or butter bread? Yes. EATING - SCORE: 5-SUP GROOMING: Comb/brush hair Oral care GROOMING - STEP 1: Does the patient require the assistance of a person or device, or need extra time when grooming? Yes. GROOMING - STEP 2: Does the patient require the assistance of a helper? No. The patient only requires an assistive devic e, OR takes more than reasonable time to groom, OR there is a concern for safety as the patient groom s GROOMING - SCORE: 6-LIZZ BATHING: Activity did not occur on this shift BATHING - SCORE: 0-UNK DRESSING - UPPER BODY: T-shirt/pullover shirt (four steps) ARTICLES SCORE Total number of steps: 4 DRESSING - UPPER BODY - STEP 1: Does the patient require help from a person or device, or need extra time when dressing above the jaziel st? Yes. DRESSING - UPPER BODY - STEP 2: Does the patient require the assistance of a helper? Yes. DRESSING - UPPER BODY - STEP 3: Does the helper touch the patient while dressing? Yes. DRESSING - UPPER BODY - STEP 4: How many of the total steps does the patient complete on his/her own? 4 DRESSING - UPPER BODY - SCORE: 4-MIN DRESSING - LOWER BODY: ARTICLES SCORE Total number of steps: 6 DRESSING - LOWER BODY - STEP 1: Does the patient require help from a person or device, or need extra time when dressing below the jaziel st? Yes. DRESSING - LOWER BODY - STEP 2: Does the patient require the assistance of a helper? Yes. DRESSING - LOWER BODY - STEP 3: Does the helper touch the patient while dressing? Yes. DRESSING - LOWER BODY - STEP 4: How many of the total steps does the patient complete on his/her own? 4 DRESSING - LOWER BODY - SCORE: 3-MOD TOILETING: TOILETING - STEP 1: Does the patient require the assistance of a person or device, or need extra time with toileting? Yes . TOILETING - STEP 2: Does the patient require the assistance of a helper? Yes. TOILETING - STEP 3: How much assistance does the patient require from the helper? Only supervision TOILETING - SCORE: 5-SUP BLADDER MANAGEMENT: BLADDER MANAGEMENT - STEP 1: Does the patient control the bladder completely and intentionally without equipment or devices or med ications, and is always continent? No. BLADDER MANAGEMENT - STEP 2: Does the patient require the assistance of a helper? Yes. BLADDER MANAGEMENT - STEP 3: How much assistance does the patient require from the helper? Only set-up of equipment - such as plac ing it within reach of the patient or emptying a device - to maintain either satisfactory voiding pat tern or managing an external device, such as an absorbent pad, ileal device, or catheter BLADDER MANAGEMENT - SCORE: 5-SUP BOWEL MANAGEMENT: Activity did not occur on this shift BOWEL MANAGEMENT - SCORE: 7-IND TRANSFERS: BED, CHAIR, WHEELCHAIR: TRANSFERS: BED, CHAIR, WHEELCHAIR - STEP 1: Does the patient require assistance of a person or device, or need extra time with bed, chair, or whe elchair transfers? Yes. TRANSFERS: BED, CHAIR, WHEELCHAIR - STEP 2: Does the patient require the assistance of a helper? Yes. TRANSFERS: BED, CHAIR, WHEELCHAIR - STEP 3: How much assistance does the patient require from the helper? Steadying/guiding assistance TRANSFERS: BED, CHAIR, WHEELCHAIR - SCORE: 4-MIN TRANSFERS: TOILET: TRANSFERS: TOILET - STEP 1: Does the patient require the assistance of a person or device, or need extra time with toilet transfe rs? Yes. TRANSFERS: TOILET - STEP 2: Does the patient require the assistance of a helper? Yes. TRANSFERS: TOILET - STEP 3: How much assistance does the patient require from the helper? Patient performs half or more of the tr ansferring tasks TRANSFERS: TOILET - STEP 4: Does the patient need only incidental help such as contact guard or steadying during toilet transfer? No. Patient needs more than incidental help TRANSFERS: TOILET - SCORE: 3-MOD TRANSFERS: SHOWER: Activity did not occur on this shift TRANSFERS: SHOWER - SCORE: 0-UNK TRANSFERS: TUB: Activity did not occur on this shift TRANSFERS: TUB - SCORE: 0-UNK LOCOMOTION: WALK: Activity did not occur on this shift LOCOMOTION: WALK - SCORE: 0-UNK LOCOMOTION: WHEELCHAIR: Activity did not occur on this shift LOCOMOTION: WHEELCHAIR - SCORE: 0-UNK COMPREHENSION: COMPREHENSION: TYPE: Both COMPREHENSION - STEP 1: Does the patient require help from a person or device, or need extra time to understand complex and a bstract ideas (such as current events, finances, discharge planning, medical issues, relationships, e tc)? Yes. COMPREHENSION - STEP 2: Does the patient require help to understand questions or statements about basic needs or ideas (such as hunger, thirst, sleep, safety, daily schedule, room location, or discomfort) half or more of the t kei? No. COMPREHENSION - STEP 3: How often does the patient need help to understand directions and conversation about basic needs? Les s than 10% of the time COMPREHENSION - SCORE: 5-SUP EXPRESSION EXPRESSION: TYPE: Both EXPRESSION - STEP 1: Does the patient require help from a person or device, or need extra time expressing complex and abst ract ideas (such as current events, finances, discharge planning, medical issues, relationships, etc) ? Yes. EXPRESSION - STEP 2: Does the patient require help to express basic necessities or ideas (such as hunger, thirst, sleep, s afety, daily schedule, room location, or discomfort) half or more of the time? No. EXPRESSION - STEP 3: How often does the patient need help to express directions and conversation about basic needs? Less t naidu 10% of the time EXPRESSION - SCORE: 5-SUP SOCIAL INTERACTION: SOCIAL INTERACTION - STEP 1: Does the patient require a helper to interact with others in social and therapeutic situations? Yes. SOCIAL INTERACTION - STEP 2: Does the patient interact appropriately half or more of the time? Yes. SOCIAL INTERACTION - STEP 3: How often does the patient need help to interact appropriately? Less than 10% of the time SOCIAL INTERACTION - SCORE: 5-SUP PROBLEM SOLVING: PROBLEM SOLVING - STEP 1: Does the patient need help from a person or device, or need extra time to solve complex problems such as managing a checking account or confronting interpersonal problems? Yes. PROBLEM SOLVING - STEP 2: Does the patient solve basic routine problems half or more of the time? Yes. PROBLEM SOLVING - STEP 3: How often does the patient need help to solve basic routine problems? Less than 10% of the time PROBLEM SOLVING - SCORE: 5-SUP MEMORY: MEMORY - STEP 1: Does the patient need help from a person or device, or need extra time to remember frequently encount ered people, daily routines, and executing requests? Yes. MEMORY - STEP 2: How often does the patient need help to remember frequently encountered people, daily routines, and e xecuting requests? Less than 10% of the time MEMORY - SCORE: 5-SUP SIGNATURE PANEL: The following modified sections: Eating - Score, Grooming - Score, Bathing - Score, Dressing - Upper Body - Score, Dressing - Lower Body - Score, Toileting - Score, Bladder Management - Score, Bowel Man agement - Score, Transfers: Bed, Chair, Wheelchair - Score, Transfers: Toilet - Score, Transfers: Olga wer - Score, Transfers: Tub - Score, Locomotion: Walk - Score, Locomotion: Wheelchair - Score, Expres emmett - Score, Social Interaction - Score, Problem Solving - Score, Memory - Score, Comprehension - Sc ore were [electronically] signed by Roosevelt Velasquez on WedAug 24 2018 15:16:34 GMT-0600 (Central Standard Time)
--- NOTE | 2018-08-24 16:26 | FAST ---
ENCOUNTER DATE AND TIME: 08/24/2018 08:00 (FUNDER) NAME JAIDA RICHARD DATE OF : 1930 DATE OF ADMISSION: 08/09/2018 16:39 (FUNDER) PHONE: AGE: 87 SSN# [id number] GENDER: Female ENCOUNTER PHYSICIAN: Dr. Avinash Read M.D. ADMISSION DIAGNOSIS: - Stroke 01 - Left Body (Right Brain) (01.1) ACUTE NONHEMORRHAGIC CVA RIGHT NAHEED. EATING: Activity did not occur on this shift EATING - SCORE: 0-UNK GROOMING: Activity did not occur on this shift GROOMING - SCORE: 0-UNK BATHING: Activity did not occur on this shift BATHING - SCORE: 0-UNK DRESSING - UPPER BODY: Activity did not occur on this shift Patient is not dressing in public clothing ARTICLES SCORE Total number of steps: 0 DRESSING - UPPER BODY - SCORE: 0-UNK DRESSING - LOWER BODY: Activity did not occur on this shift Patient is not dressing in public clothing ARTICLES SCORE Total number of steps: 0 DRESSING - LOWER BODY - SCORE: 0-UNK TOILETING: Activity did not occur on this shift TOILETING - SCORE: 0-UNK BLADDER MANAGEMENT: Activity did not occur on this shift BLADDER MANAGEMENT - SCORE: 7-IND BOWEL MANAGEMENT: Activity did not occur on this shift BOWEL MANAGEMENT - SCORE: 7-IND TRANSFERS: BED, CHAIR, WHEELCHAIR: TRANSFERS: BED, CHAIR, WHEELCHAIR - STEP 1: Does the patient require assistance of a person or device, or need extra time with bed, chair, or whe elchair transfers? Yes. TRANSFERS: BED, CHAIR, WHEELCHAIR - STEP 2: Does the patient require the assistance of a helper? Yes. TRANSFERS: BED, CHAIR, WHEELCHAIR - STEP 3: How much assistance does the patient require from the helper? Only supervision TRANSFERS: BED, CHAIR, WHEELCHAIR - SCORE: 5-SUP TRANSFERS: TOILET: Activity did not occur on this shift TRANSFERS: TOILET - SCORE: 0-UNK TRANSFERS: SHOWER: Activity did not occur on this shift TRANSFERS: SHOWER - SCORE: 0-UNK TRANSFERS: TUB: Activity did not occur on this shift TRANSFERS: TUB - SCORE: 0-UNK LOCOMOTION: WALK: LOCOMOTION: WALK - STEP 1: Does the patient need help from a person or device, or need extra time to walk 150 feet? Yes. LOCOMOTION: WALK - STEP 2: How much assistance does the patient require to walk a minimum of 150 feet? Only supervision, cuing, or coaxing LOCOMOTION: WALK - SCORE: 5-SUP LOCOMOTION: WHEELCHAIR: Activity did not occur on this shift LOCOMOTION: WHEELCHAIR - SCORE: 0-UNK LOCOMOTION: STAIRS: Activity did not occur on this shift LOCOMOTION: STAIRS - SCORE: 0-UNK COMPREHENSION: COMPREHENSION - SCORE: 0-UNK EXPRESSION EXPRESSION - SCORE: 0-UNK SOCIAL INTERACTION: SOCIAL INTERACTION - SCORE: 0-UNK PROBLEM SOLVING: PROBLEM SOLVING - SCORE: 0-UNK MEMORY: MEMORY - SCORE: 0-UNK SIGNATURE PANEL: The following modified sections: Transfers: Bed, Chair, Wheelchair - Score, Transfers: Toilet - Score , Locomotion: Walk - Score, Locomotion: Wheelchair - Score, Locomotion: Stairs - Score were [electron maisha] signed by Gerald Ibrahim PT on WedAug 24 2018 16:25:23 GMT-0600 (Central Standard Time)
--- NOTE | 2018-08-24 17:39 | P.PN ---
Subjective Date of Service: 08/24/18 Chief Complaint: STABLE, NO CHANGES. Subjective: Improving WEAK NOT ABLE TO COMPLAIN MUCH. STILL VERY WEAK AND WILL NOT ABLE TO GO HOME. I RECOMMEND NH. SHE IS DOING LOT BETTER. SHE MAY IMPROVE ENOUGH FOR HOME. NO COMPLAINTS. SHE IS IN GOOD MOOD. DOING PT DAILY. DC ON Aug.\ FEELS WELL. NO ISSUES. NO PAIN DC DATE IS NEXT WEEK. SHE IS LOT BETTER. STILL ON PT AND OT. DOING WORK DAILY. HAPPY TO HAVE GOOD REPORT. Review of Systems 10-point ROS is otherwise unremarkable General: Weakness, Malaise Physical Examination - Vital Signs Temperature: 97.5 F Blood Pressure: 148/59 Pulse: 70 Respirations: 18 Pulse Ox (%): 98 - Physical Exam General: Mild distress HEENT: Atraumatic, PERRLA, EOMI Neck: Supple, JVD not distended Respiratory: Clear to auscultation bilaterally, Normal air movement Cardiovascular: Regular rate/rhythm, Normal S1 S2 Gastrointestinal: Normal bowel sounds, No tenderness Musculoskeletal: No tenderness Integumentary: No rashes Neurological: Abnormal strength (THEODORE 4/5. L SIDE IS SLIGHTLY MORE WEAK THAN R .) Lymphatics: No axilla or inguinal lymphadenopathy - Studies Medications List Reviewed: Yes Assessment And Plan - Current Problems (Diagnosis) (1) CVA (cerebral vascular accident) Onset Date: 08/08/18 Current Visit: No Status: Acute Plan: PT NOT ABLE TO TAKE 3 HOURS OF THERAPY. NH ADVISED. RESUME PT SHE IS IMPROVING. RESUME ANTIPLATELET AGENTS. STABLE, NO NEW CHANGES. RESUME MEDS. CONT PT STABLE. DC ON . CONT PT NO CHANGES. BP FU . Qualifiers: Precerebral and cerebral artery: other cerebral artery (2) HTN (hypertension) Onset Date: 08/08/18 Current Visit: No Status: Chronic Plan: REDUCE NORVASC BP IS LOW NORMAL NOW. (3) Hypothyroid Current Visit: Yes Status: Acute Plan: SMALL DOSE OF LEVOXYL. (4) B12 deficiency Current Visit: Yes Status: Acute Plan: ONE INJECTON AND SHE CAN TAKE ONCE A MONTH.
--- NOTE | 2018-08-24 18:14 | R.PN ---
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 Pt denied any Shortness of Breath. Ambulated 475' using rolling walker with standby assistance. Doing well with speech therapy. No new complaints. Her left sided strength and incoordination are improving well. VITAL SIGNS Temperature: 97.5 F SBP/DBP: 148/59 Pulse: 70 Resp: 16 MEDICATION ALLERGIES: Sulfa ENVIRONMENTAL ALLERGIES: Eggs - Substance Allergies None Known - Other Allergies None Known NURSING: - Shower allowing shower - Bladder care per protocol - Skin care per protocol PRECAUTIONS: - Weight Bearing Precaution WBAT left LE ACTIVITIES OOB only with supervision THERAPIES: - Occupational Therapy Evaluate and Treat. Visual Perceptual Training. Cognitive Retraining. - Speech Therapy Cognitive Training. Memory Strategies. Speech Intelligibility Training. Expressive Language Skills. R eceptive Language Skills. - Physical Therapy Evaluate and Treat. PHYSICAL EXAM - Gen Alert and awake Lying in bed No apparent distress Oriented to: person, time, and place - Skin No breakdown No numbness - Eyes No abnormalities - ENMT No abnormalities - Neck No abnormalities - CVS RRR - Chest No abnormalities - Abd + bowel sounds - GI Soft Deferred - No abnormalities - Ext No significant edema - MSK 4+/5 weakness in left upper and lower extremities. - Neuro 4+/5 weakness in left upper and lower extremities. - Psych No abnormalities ASSESSMENT: Pt. is a 87 yo Right-handed white female.On 08/08/2018 Pt. presented to [facility] with sudden onset of left-side weakness.On 08/08/2018 she was admitted to [facility] with diagnosis ACUTE NONHEMORRHAGIC CVA RIGHT HAYDER.Her impairment category is Stroke 01 - Left Body (Right Brain) (01.1).Pre-morbidly, Pt. was independent/mod-I in Sphincter Control, Transfe rs Control, Communication, Social Cognition, Self-Care, and Locomotion; and she had good Endurance, S phincter Control, Safety Awareness, and Balance.Currently, she has deficits of Transfers Control, Do f-Care, and Locomotion.Pt. is now referred to [facility] for acute in-patient rehabilitation in order to maximize patient's functional independence in activities of daily living, strength, ROM, and mobility.- Rehab Goal Patient has realistic goal of being discharged at assistance level 2-maxA to reside at Home with Fam catrachito/Relatives. MDM/PLAN: - Physical Therapy Gait dysfunction - to improve, our physical therapists will perform initial evaluation of pt's statu s upon admission and devise an individualized program for Gait Training, and Wheel Chair mobility Inability to transfer - to improve, our physical therapists will perform initial evaluation of pt's status upon admission and devise an individualized program for Bed mobility Need for home safety evaluation - to improve, our physical therapists will perform initial evaluatio n of pt's status upon admission and devise an individualized program for Home Evaluation Edema - to improve, our physical therapists will perform initial evaluation of pt's status upon admi ssion and devise an individualized program for Elevation Training, and Lymphedema Therapy Need in caregiver upon discharge - to improve, our physical therapists will perform initial evaluati on of pt's status upon admission and devise an individualized program for Caregiver Training New precaution - to improve, our physical therapists will perform initial evaluation of pt's status upon admission and devise an individualized program for Patient precaution education Achieving independence - to improve, our physical therapists will perform initial evaluation of pt's status upon admission and devise an individualized program for Community Reintegration Activities - Occupational Therapy ADL deficits - to improve, our occupation therapists will perform initial evaluation of pt's status upon admission and devise an individualized program for Bathing, Bed mobility, Community Reintegratio n, Cooking, Dressing, Eating, Fine Motor Skills, Grooming, Homemaking, Kitchen Mobility, Laundry, Pat ient Education, Safety Awareness, Splinting - Positioning, Transfers(Toilet, Tub, Shower), and Wheel Chair Management Need for careers counsellor - to improve, our occupation therapists will perform initial evaluation of pt's status upon admission and devise an individualized program for Caregiver Training - Diet Type Continue Regular - Diet - Liquid Texture Continue Regular - Tube Feed Continue N/A - Bladder care per protocol - Weight Bearing Precaution WBAT left LE - Skin care per protocol - Diet - Solid Texture Continue Mechanical Soft - Shower allowing shower for Dementia, TBI, Stroke, or others FUNCTIONAL STATUS: UPDATED AT WEEKLY TEAM CONFERENCE - Bladder Same accident frequency: 7-Ind - No accidents in the past 7 days - Bowel Same accident frequency: 7-Ind - No accidents in the past 7 days - Walking Same score based on distance walked: 0(N/A) - Wheelchair Same score based on distance traveled: 0(N/A) FUNCTIONAL STATUS: - Self-Care A. Eating sup B. Grooming Ind C. Bathing sup D. Dressing - Upper sup E. Dressing - Lower sup F. Toileting sup - Sphincter Control G: Bladder control Ind H: Bowel control Ind - Transfers Control I. Bed/Chair/Wheelchair maxA J. Toilet maxA K. Tub/Shower ADNO - Locomotion L. Walk/Wheelchair (C) maxA L. Walk/Wheelchair (W) maxA M. Stairs ADNO - Communication N. Comprehension (B) Ind O. Expression (B) Ind - Social Cognition P. Social Interaction Ind Q. Problem Solving Ind R. Memory Ind - Endurance Good - Balance Good - Safety Awareness Good CURRENT FUNC. DEFICITS: Transfers Control, Self-Care, and Locomotion SIGNATURE PANEL: ([facility])
[2018-08-24] MEDS: DONEPEZIL HCL 5 MG TAB PO SCH (20:05)
[2018-08-24] MEDS: NETARSUDIL OPTH SCH (20:09)
[2018-08-25] MEDS: LEVOTHYROXINE SOD 0.025 MG TAB PO SCH (05:18)
[2018-08-25] MEDS: ENOXAPARIN 30 MG/0.3 ML SQ SCH (07:07)
[2018-08-25] MEDS: OXYBUTYNIN CHLORIDE 5 MG TAB PO SCH ×2 (08:00→20:57)
[2018-08-25] MEDS: AMLODIPINE 5 MG TAB PO SCH (08:20)
[2018-08-25] MEDS: VENLAFAXINE HCL XR 75 MG CAP PO SCH (08:20)
[2018-08-25] MEDS: PANTOPRAZOLE 40MG TABLET PO SCH (08:20)
[2018-08-25] MEDS: ASPIRIN EC 81 MG TAB PO SCH (08:20)
[2018-08-25] MEDS: CLOPIDOGREL 75 MG TABLET PO SCH (08:20)
[2018-08-25] MEDS: CRANBERRY FRUIT EXTRACT 200 MG CAP PO SCH ×2 (08:20→20:58)
[2018-08-25] MEDS: LISINOPRIL 20 MG TAB PO SCH (08:21)
--- NOTE | 2018-08-25 10:30 | FAST ---
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 Avinash Read M.D. ADMISSION DIAGNOSIS: - Stroke 01 - Left Body (Right Brain) (01.1) ACUTE NONHEMORRHAGIC CVA RIGHT NAHEED. EATING: EATING - STEP 1: Does the patient require the assistance of a person or device, or need extra time when eating? Yes. EATING - STEP 2: Does the patient require the assistance of a helper? No, patient only requires an assistive device, O R s/he takes more than reasonable time to eat, OR there is a safety concern, OR s/he requires modifie d food consistency EATING - SCORE: 6-LIZZ GROOMING: Comb/brush hair Oral care GROOMING - STEP 1: Does the patient require the assistance of a person or device, or need extra time when grooming? Yes. GROOMING - STEP 2: Does the patient require the assistance of a helper? No. The patient only requires an assistive devic e, OR takes more than reasonable time to groom, OR there is a concern for safety as the patient groom s GROOMING - SCORE: 6-LIZZ BATHING: Activity did not occur on this shift BATHING - SCORE: 0-UNK DRESSING - UPPER BODY: T-shirt/pullover shirt (four steps) ARTICLES SCORE Total number of steps: 4 DRESSING - UPPER BODY - STEP 1: Does the patient require help from a person or device, or need extra time when dressing above the jaziel st? Yes. DRESSING - UPPER BODY - STEP 2: Does the patient require the assistance of a helper? Yes. DRESSING - UPPER BODY - STEP 3: Does the helper touch the patient while dressing? Yes. DRESSING - UPPER BODY - STEP 4: How many of the total steps does the patient complete on his/her own? 4 DRESSING - UPPER BODY - SCORE: 4-MIN DRESSING - LOWER BODY: ARTICLES SCORE Total number of steps: 3 DRESSING - LOWER BODY - STEP 1: Does the patient require help from a person or device, or need extra time when dressing below the jaziel st? Yes. DRESSING - LOWER BODY - STEP 2: Does the patient require the assistance of a helper? Yes. DRESSING - LOWER BODY - STEP 3: Does the helper touch the patient while dressing? Yes. DRESSING - LOWER BODY - STEP 4: How many of the total steps does the patient complete on his/her own? 3 DRESSING - LOWER BODY - SCORE: 4-MIN TOILETING: TOILETING - STEP 1: Does the patient require the assistance of a person or device, or need extra time with toileting? Yes . TOILETING - STEP 2: Does the patient require the assistance of a helper? Yes. TOILETING - STEP 3: How much assistance does the patient require from the helper? Hands-on assistance from the helper TOILETING - STEP 4: Of the 3 tasks: 1) Adjusting clothing prior to use, 2) Cleansing of perineal area, 3) Adjusting clot braulio after use; How many tasks does the patient perform WITHOUT assistance of the helper? Three tasks with steadying assistance from the helper TOILETING - SCORE: 4-MIN BLADDER MANAGEMENT: BLADDER MANAGEMENT - STEP 1: Does the patient control the bladder completely and intentionally without equipment or devices or med ications, and is always continent? No. BLADDER MANAGEMENT - STEP 2: Does the patient require the assistance of a helper? No, patient requires and independently uses an a ssistive device, such as a urinal, bedpan, bedside commode, catheter, absorbent pad, or collecting de vice BLADDER MANAGEMENT - SCORE: 6-LIZZ BOWEL MANAGEMENT: Activity did not occur on this shift BOWEL MANAGEMENT - SCORE: 7-IND TRANSFERS: BED, CHAIR, WHEELCHAIR: TRANSFERS: BED, CHAIR, WHEELCHAIR - STEP 1: Does the patient require assistance of a person or device, or need extra time with bed, chair, or whe elchair transfers? Yes. TRANSFERS: BED, CHAIR, WHEELCHAIR - STEP 2: Does the patient require the assistance of a helper? Yes. TRANSFERS: BED, CHAIR, WHEELCHAIR - STEP 3: How much assistance does the patient require from the helper? Steadying/guiding assistance TRANSFERS: BED, CHAIR, WHEELCHAIR - SCORE: 4-MIN TRANSFERS: TOILET: TRANSFERS: TOILET - STEP 1: Does the patient require the assistance of a person or device, or need extra time with toilet transfe rs? Yes. TRANSFERS: TOILET - STEP 2: Does the patient require the assistance of a helper? Yes. TRANSFERS: TOILET - STEP 3: How much assistance does the patient require from the helper? Patient performs half or more of the tr ansferring tasks TRANSFERS: TOILET - STEP 4: Does the patient need only incidental help such as contact guard or steadying during toilet transfer? Yes. TRANSFERS: TOILET - SCORE: 4-MIN TRANSFERS: SHOWER: Activity did not occur on this shift TRANSFERS: SHOWER - SCORE: 0-UNK TRANSFERS: TUB: Activity did not occur on this shift TRANSFERS: TUB - SCORE: 0-UNK LOCOMOTION: WALK: Activity did not occur on this shift LOCOMOTION: WALK - SCORE: 0-UNK LOCOMOTION: WHEELCHAIR: Activity did not occur on this shift LOCOMOTION: WHEELCHAIR - SCORE: 0-UNK COMPREHENSION: COMPREHENSION: TYPE: Both COMPREHENSION - STEP 1: Does the patient require help from a person or device, or need extra time to understand complex and a bstract ideas (such as current events, finances, discharge planning, medical issues, relationships, e tc)? Yes. COMPREHENSION - STEP 2: Does the patient require help to understand questions or statements about basic needs or ideas (such as hunger, thirst, sleep, safety, daily schedule, room location, or discomfort) half or more of the t kei? No. COMPREHENSION - STEP 3: How often does the patient need help to understand directions and conversation about basic needs? Les s than 10% of the time COMPREHENSION - SCORE: 5-SUP EXPRESSION EXPRESSION: TYPE: Both EXPRESSION - STEP 1: Does the patient require help from a person or device, or need extra time expressing complex and abst ract ideas (such as current events, finances, discharge planning, medical issues, relationships, etc) ? No. EXPRESSION - STEP 2: Does the patient need extra time, require an assistive device (such as augmentive communication syste m or a communication board), OR does s/he have mild difficulty expressing complex and abstract ideas (including mild dysarthria or mild word-find problems)? Yes. EXPRESSION - SCORE: 6-LIZZ SOCIAL INTERACTION: SOCIAL INTERACTION - STEP 1: Does the patient require a helper to interact with others in social and therapeutic situations? No. SOCIAL INTERACTION - STEP 2: Does the patient need extra time in social situations, OR does s/he interact with staff, other patien ts, and family members ONLY in structured environments, OR does s/he require medication for social in teraction? Yes, patient needs extra time SOCIAL INTERACTION - SCORE: 6-LIZZ PROBLEM SOLVING: PROBLEM SOLVING - STEP 1: Does the patient need help from a person or device, or need extra time to solve complex problems such as managing a checking account or confronting interpersonal problems? No. PROBLEM SOLVING - STEP 2: Does the patient require extra time to make decisions or solve problems, OR does s/he have slight dif ficulty reading, initiating, or self-correcting in unfamiliar situations? Yes, patient needs extra ti me. PROBLEM SOLVING - SCORE: 6-LIZZ MEMORY: MEMORY - STEP 1: Does the patient need help from a person or device, or need extra time to remember frequently encount ered people, daily routines, and executing requests? Yes. MEMORY - STEP 2: How often does the patient need help to remember frequently encountered people, daily routines, and e xecuting requests? Less than 10% of the time MEMORY - SCORE: 5-SUP SIGNATURE PANEL: The following modified sections: Eating - Score, Grooming - Score, Bathing - Score, Dressing - Upper Body - Score, Dressing - Lower Body - Score, Toileting - Score, Bladder Management - Score, Bowel Man agement - Score, Transfers: Bed, Chair, Wheelchair - Score, Transfers: Toilet - Score, Transfers: Olga wer - Score, Transfers: Tub - Score, Locomotion: Walk - Score, Locomotion: Wheelchair - Score, Compre hension - Score, Expression - Score, Social Interaction - Score, Problem Solving - Score, Memory - Sc ore were [electronically] signed by Roosevelt Velasquez on WedAug 25 2018 10:29:33 GMT-0600 (Central Standard Time)
--- NOTE | 2018-08-25 12:51 | P.PN ---
Subjective Date of Service: 08/25/18 Chief Complaint: STABLE, NO CHANGES. Subjective: Improving WEAK NOT ABLE TO COMPLAIN MUCH. STILL VERY WEAK AND WILL NOT ABLE TO GO HOME. I RECOMMEND NH. SHE IS DOING LOT BETTER. SHE MAY IMPROVE ENOUGH FOR HOME. NO COMPLAINTS. SHE IS IN GOOD MOOD. DOING PT DAILY. DC ON Aug.\ FEELS WELL. NO ISSUES. NO PAIN DC DATE IS NEXT WEEK. SHE IS LOT BETTER. STILL ON PT AND OT. DOING WORK DAILY. HAPPY TO HAVE GOOD REPORT. Review of Systems 10-point ROS is otherwise unremarkable Physical Examination - Vital Signs Temperature: 97.0 F Blood Pressure: 122/58 Pulse: 81 Respirations: 16 Pulse Ox (%): 99 - Physical Exam General: Alert, In no apparent distress HEENT: Atraumatic, PERRLA, EOMI Neck: Supple, JVD not distended Respiratory: Clear to auscultation bilaterally, Normal air movement Cardiovascular: Regular rate/rhythm, Normal S1 S2 Gastrointestinal: Normal bowel sounds, No tenderness Musculoskeletal: No tenderness Integumentary: No rashes Neurological: Abnormal strength (MILD L HEMIPARESIS) Lymphatics: No axilla or inguinal lymphadenopathy - Studies Medications List Reviewed: Yes Assessment And Plan - Current Problems (Diagnosis) (1) CVA (cerebral vascular accident) Onset Date: 08/08/18 Current Visit: No Status: Acute Plan: PT NOT ABLE TO TAKE 3 HOURS OF THERAPY. NH ADVISED. RESUME PT SHE IS IMPROVING. RESUME ANTIPLATELET AGENTS. STABLE, NO NEW CHANGES. RESUME MEDS. CONT PT STABLE. DC ON . CONT PT NO CHANGES. BP FU . Qualifiers: Precerebral and cerebral artery: other cerebral artery (2) HTN (hypertension) Onset Date: 08/08/18 Current Visit: No Status: Chronic Plan: REDUCE NORVASC BP IS LOW NORMAL NOW. (3) Hypothyroid Current Visit: Yes Status: Acute Plan: SMALL DOSE OF LEVOXYL. (4) B12 deficiency Current Visit: Yes Status: Acute Plan: ONE INJECTON AND SHE CAN TAKE ONCE A MONTH.
--- NOTE | 2018-08-25 14:25 | FAST ---
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 Avinash Read M.D. ADMISSION DIAGNOSIS: - Stroke 01 - Left Body (Right Brain) (01.1) ACUTE NONHEMORRHAGIC CVA RIGHT NAHEED. EATING: Activity did not occur on this shift EATING - SCORE: 0-UNK GROOMING: Comb/brush hair Wash, rinse, and dry face Wash, rinse, and dry hands GROOMING - STEP 1: Does the patient require the assistance of a person or device, or need extra time when grooming? No. GROOMING - SCORE: 7-IND BATHING: Abdomen Buttocks Chest Left arm Left lower leg and foot Left upper leg Perineal area Right arm Right lower leg and foot Right upper leg BATHING - STEP 1: Does the patient require the assistance of a person or device, or need extra time when bathing? Yes. BATHING - STEP 2: Does the patient require the assistance of a helper? Yes. BATHING - STEP 3: How much assistance does the patient require from the helper? Only supervision, cuing, coaxing, instr uctions, encouragement BATHING - SCORE: 5-SUP DRESSING - UPPER BODY: T-shirt/pullover shirt (four steps) ARTICLES SCORE Total number of steps: 4 DRESSING - UPPER BODY - STEP 1: Does the patient require help from a person or device, or need extra time when dressing above the jaziel st? Yes. DRESSING - UPPER BODY - STEP 2: Does the patient require the assistance of a helper? Yes. DRESSING - UPPER BODY - STEP 3: Does the helper touch the patient while dressing? No. DRESSING - UPPER BODY - SCORE: 5-SUP DRESSING - LOWER BODY: Elastic waist pants (three steps) Slip-on shoe - Left foot (one step) Slip-on shoe - Right foot (one step) Underwear (three steps) ARTICLES SCORE Total number of steps: 8 DRESSING - LOWER BODY - STEP 1: Does the patient require help from a person or device, or need extra time when dressing below the jaziel st? Yes. DRESSING - LOWER BODY - STEP 2: Does the patient require the assistance of a helper? Yes. DRESSING - LOWER BODY - STEP 3: Does the helper touch the patient while dressing? No. DRESSING - LOWER BODY - SCORE: 5-SUP TOILETING: Activity did not occur on this shift TOILETING - SCORE: 0-UNK BLADDER MANAGEMENT: Activity did not occur on this shift BLADDER MANAGEMENT - SCORE: 7-IND BOWEL MANAGEMENT: Activity did not occur on this shift BOWEL MANAGEMENT - SCORE: 7-IND TRANSFERS: BED, CHAIR, WHEELCHAIR: Activity did not occur on this shift TRANSFERS: BED, CHAIR, WHEELCHAIR - SCORE: 0-UNK TRANSFERS: TOILET: Activity did not occur on this shift TRANSFERS: TOILET - SCORE: 0-UNK TRANSFERS: SHOWER: TRANSFERS: SHOWER - STEP 1: Does the patient require the assistance of a person or device, or need extra time with shower transfe rs? Yes. TRANSFERS: SHOWER - STEP 2: Does the patient require the assistance of a helper? Yes. TRANSFERS: SHOWER - STEP 3: How much assistance does the patient require from the helper? Only supervision, cuing, coaxing, or he lp to set out transfer equipment or to lock brakes and/or lift foot rests TRANSFERS: SHOWER - SCORE: 5-SUP TRANSFERS: TUB: Activity did not occur on this shift TRANSFERS: TUB - SCORE: 0-UNK LOCOMOTION: WALK: Activity did not occur on this shift LOCOMOTION: WALK - SCORE: 0-UNK LOCOMOTION: WHEELCHAIR: Activity did not occur on this shift LOCOMOTION: WHEELCHAIR - SCORE: 0-UNK LOCOMOTION: STAIRS: Activity did not occur on this shift LOCOMOTION: STAIRS - SCORE: 0-UNK COMPREHENSION: COMPREHENSION: TYPE: Visual COMPREHENSION - STEP 1: Does the patient require help from a person or device, or need extra time to understand complex and a bstract ideas (such as current events, finances, discharge planning, medical issues, relationships, e tc)? No. COMPREHENSION - STEP 2: Does the patient need extra time, require an assistive device (such as glasses for visual comprehensi on or a hearing aid for auditory comprehension) or does s/he have mild difficulty understanding compl ex and abstract information? Yes. COMPREHENSION - SCORE: 6-LIZZ EXPRESSION EXPRESSION: TYPE: Non-Vocal EXPRESSION - STEP 1: Does the patient require help from a person or device, or need extra time expressing complex and abst ract ideas (such as current events, finances, discharge planning, medical issues, relationships, etc) ? No. EXPRESSION - STEP 2: Does the patient need extra time, require an assistive device (such as augmentive communication syste m or a communication board), OR does s/he have mild difficulty expressing complex and abstract ideas (including mild dysarthria or mild word-find problems)? No. EXPRESSION - SCORE: 7-IND SOCIAL INTERACTION: SOCIAL INTERACTION - STEP 1: Does the patient require a helper to interact with others in social and therapeutic situations? No. SOCIAL INTERACTION - STEP 2: Does the patient need extra time in social situations, OR does s/he interact with staff, other patien ts, and family members ONLY in structured environments, OR does s/he require medication for social in teraction? No. SOCIAL INTERACTION - SCORE: 7-IND PROBLEM SOLVING: PROBLEM SOLVING - STEP 1: Does the patient need help from a person or device, or need extra time to solve complex problems such as managing a checking account or confronting interpersonal problems? No. PROBLEM SOLVING - STEP 2: Does the patient require extra time to make decisions or solve problems, OR does s/he have slight dif ficulty reading, initiating, or self-correcting in unfamiliar situations? Yes, patient has slight dif ficulty reading, initiating, or self-correcting in unfamiliar situations. PROBLEM SOLVING - SCORE: 6-LIZZ MEMORY: MEMORY - STEP 1: Does the patient need help from a person or device, or need extra time to remember frequently encount ered people, daily routines, and executing requests? No. MEMORY - STEP 2: Does the patient have slight difficulty recognizing frequently encountered people, daily routines, or executing requests without the need for repetition or using self-initiated or environmental cues to remember? Yes. MEMORY - SCORE: 6-LIZZ SIGNATURE PANEL: The following modified sections: Eating - Score, Grooming - Score, Bathing - Score, Dressing - Upper Body - Score, Dressing - Lower Body - Score, Toileting - Score, Transfers: Bed, Chair, Wheelchair - S core, Transfers: Toilet - Score, Transfers: Shower - Score, Transfers: Tub - Score, Comprehension - S core, Expression - Score, Social Interaction - Score, Problem Solving - Score, Memory - Score were [e lectronically] signed by LEEANN Baldwin on WedAug 25 2018 14:24:24 T-0600 ([place] Time)
--- NOTE | 2018-08-25 14:54 | FAST ---
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 Avinash Read M.D. ADMISSION DIAGNOSIS: - Stroke 01 - Left Body (Right Brain) (01.1) ACUTE NONHEMORRHAGIC CVA RIGHT NAHEED. EATING: Activity did not occur on this shift EATING - SCORE: 0-UNK GROOMING: Activity did not occur on this shift GROOMING - SCORE: 0-UNK BATHING: Activity did not occur on this shift BATHING - SCORE: 0-UNK DRESSING - UPPER BODY: Activity did not occur on this shift Patient is not dressing in public clothing ARTICLES SCORE Total number of steps: 0 DRESSING - UPPER BODY - SCORE: 0-UNK DRESSING - LOWER BODY: Activity did not occur on this shift Patient is not dressing in public clothing ARTICLES SCORE Total number of steps: 0 DRESSING - LOWER BODY - SCORE: 0-UNK TOILETING: Activity did not occur on this shift TOILETING - SCORE: 0-UNK BLADDER MANAGEMENT: Activity did not occur on this shift BLADDER MANAGEMENT - SCORE: 7-IND BOWEL MANAGEMENT: Activity did not occur on this shift BOWEL MANAGEMENT - SCORE: 7-IND TRANSFERS: BED, CHAIR, WHEELCHAIR: TRANSFERS: BED, CHAIR, WHEELCHAIR - STEP 1: Does the patient require assistance of a person or device, or need extra time with bed, chair, or whe elchair transfers? Yes. TRANSFERS: BED, CHAIR, WHEELCHAIR - STEP 2: Does the patient require the assistance of a helper? Yes. TRANSFERS: BED, CHAIR, WHEELCHAIR - STEP 3: How much assistance does the patient require from the helper? Only supervision TRANSFERS: BED, CHAIR, WHEELCHAIR - SCORE: 5-SUP TRANSFERS: TOILET: Activity did not occur on this shift TRANSFERS: TOILET - SCORE: 0-UNK TRANSFERS: SHOWER: Activity did not occur on this shift TRANSFERS: SHOWER - SCORE: 0-UNK TRANSFERS: TUB: Activity did not occur on this shift TRANSFERS: TUB - SCORE: 0-UNK LOCOMOTION: WALK: LOCOMOTION: WALK - STEP 1: Does the patient need help from a person or device, or need extra time to walk 150 feet? Yes. LOCOMOTION: WALK - STEP 2: How much assistance does the patient require to walk a minimum of 150 feet? Only supervision, cuing, or coaxing LOCOMOTION: WALK - SCORE: 5-SUP LOCOMOTION: WHEELCHAIR: Activity did not occur on this shift LOCOMOTION: WHEELCHAIR - SCORE: 0-UNK LOCOMOTION: STAIRS: Activity did not occur on this shift LOCOMOTION: STAIRS - SCORE: 0-UNK COMPREHENSION: COMPREHENSION - SCORE: 0-UNK EXPRESSION EXPRESSION - SCORE: 0-UNK SOCIAL INTERACTION: SOCIAL INTERACTION - SCORE: 0-UNK PROBLEM SOLVING: PROBLEM SOLVING - SCORE: 0-UNK MEMORY: MEMORY - SCORE: 0-UNK SIGNATURE PANEL: The following modified sections: Transfers: Bed, Chair, Wheelchair - Score, Transfers: Toilet - Score , Locomotion: Walk - Score, Locomotion: Wheelchair - Score, Locomotion: Stairs - Score were [electron maisha] signed by Gerald Ibrahim PT on WedAug 25 2018 14:53:23 T-0600 (Central Standard Time)
--- NOTE | 2018-08-25 18:31 | R.PN ---
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 Pt denied any Shortness of Breath. Ambulated 725' using rolling walker with standby assistance. Doing well with speech therapy. No new complaints. Her left sided strength and incoordination are improving well. VITAL SIGNS Temperature: 97 F SBP/DBP: 122/58 Pulse: 81 Resp: 16 MEDICATION ALLERGIES: Sulfa ENVIRONMENTAL ALLERGIES: Eggs - Substance Allergies None Known - Other Allergies None Known NURSING: - Shower allowing shower - Bladder care per protocol - Skin care per protocol PRECAUTIONS: - Weight Bearing Precaution WBAT left LE ACTIVITIES OOB only with supervision THERAPIES: - Occupational Therapy Evaluate and Treat. Visual Perceptual Training. Cognitive Retraining. - Speech Therapy Cognitive Training. Memory Strategies. Speech Intelligibility Training. Expressive Language Skills. R eceptive Language Skills. - Physical Therapy Evaluate and Treat. PHYSICAL EXAM - Gen Alert and awake Lying in bed No apparent distress Oriented to: person, time, and place - Skin No breakdown No numbness - Eyes No abnormalities - ENMT No abnormalities - Neck No abnormalities - CVS RRR - Chest No abnormalities - Abd + bowel sounds - GI Soft Deferred - No abnormalities - Ext No significant edema - MSK 4+/5 weakness in left upper and lower extremities. - Neuro 4+/5 weakness in left upper and lower extremities. - Psych No abnormalities ASSESSMENT: Pt. is a 87 yo Right-handed white female.On 08/08/2018 Pt. presented to [facility] with sudden onset of left-side weakness.On 08/08/2018 she was admitted to [facility] with diagnosis ACUTE NONHEMORRHAGIC CVA RIGHT HAYDER.Her impairment category is Stroke 01 - Left Body (Right Brain) (01.1).Pre-morbidly, Pt. was independent/mod-I in Sphincter Control, Transfe rs Control, Communication, Social Cognition, Self-Care, and Locomotion; and she had good Endurance, S phincter Control, Safety Awareness, and Balance.Currently, she has deficits of Transfers Control, Do f-Care, and Locomotion.Pt. is now referred to [facility] for acute in-patient rehabilitation in order to maximize patient's functional independence in activities of daily living, strength, ROM, and mobility.- Rehab Goal Patient has realistic goal of being discharged at assistance level 2-maxA to reside at Home with Fam catrachito/Relatives. MDM/PLAN: - Physical Therapy Gait dysfunction - to improve, our physical therapists will perform initial evaluation of pt's statu s upon admission and devise an individualized program for Gait Training, and Wheel Chair mobility Inability to transfer - to improve, our physical therapists will perform initial evaluation of pt's status upon admission and devise an individualized program for Bed mobility Need for home safety evaluation - to improve, our physical therapists will perform initial evaluatio n of pt's status upon admission and devise an individualized program for Home Evaluation Edema - to improve, our physical therapists will perform initial evaluation of pt's status upon admi ssion and devise an individualized program for Elevation Training, and Lymphedema Therapy Need in caregiver upon discharge - to improve, our physical therapists will perform initial evaluati on of pt's status upon admission and devise an individualized program for Caregiver Training New precaution - to improve, our physical therapists will perform initial evaluation of pt's status upon admission and devise an individualized program for Patient precaution education Achieving independence - to improve, our physical therapists will perform initial evaluation of pt's status upon admission and devise an individualized program for Community Reintegration Activities - Occupational Therapy ADL deficits - to improve, our occupation therapists will perform initial evaluation of pt's status upon admission and devise an individualized program for Bathing, Bed mobility, Community Reintegratio n, Cooking, Dressing, Eating, Fine Motor Skills, Grooming, Homemaking, Kitchen Mobility, Laundry, Pat ient Education, Safety Awareness, Splinting - Positioning, Transfers(Toilet, Tub, Shower), and Wheel Chair Management Need for customer care specialist - to improve, our occupation therapists will perform initial evaluation of pt's status upon admission and devise an individualized program for Caregiver Training - Diet Type Continue Regular - Diet - Liquid Texture Continue Regular - Tube Feed Continue N/A - Bladder care per protocol - Weight Bearing Precaution WBAT left LE - Skin care per protocol - Diet - Solid Texture Continue Mechanical Soft - Shower allowing shower for Dementia, TBI, Stroke, or others FUNCTIONAL STATUS: UPDATED AT WEEKLY TEAM CONFERENCE - Bladder Same accident frequency: 7-Ind - No accidents in the past 7 days - Bowel Same accident frequency: 7-Ind - No accidents in the past 7 days - Walking Same score based on distance walked: 0(N/A) - Wheelchair Same score based on distance traveled: 0(N/A) FUNCTIONAL STATUS: - Self-Care A. Eating sup B. Grooming Ind C. Bathing sup D. Dressing - Upper sup E. Dressing - Lower sup F. Toileting sup - Sphincter Control G: Bladder control Ind H: Bowel control Ind - Transfers Control I. Bed/Chair/Wheelchair maxA J. Toilet maxA K. Tub/Shower ADNO - Locomotion L. Walk/Wheelchair (C) maxA L. Walk/Wheelchair (W) maxA M. Stairs ADNO - Communication N. Comprehension (B) Ind O. Expression (B) Ind - Social Cognition P. Social Interaction Ind Q. Problem Solving Ind R. Memory Ind - Endurance Good - Balance Good - Safety Awareness Good CURRENT FUNC. DEFICITS: Transfers Control, Self-Care, and Locomotion SIGNATURE PANEL: ([facility])
[2018-08-25] MEDS: NETARSUDIL OPTH SCH (20:58)
[2018-08-25] MEDS: DONEPEZIL HCL 5 MG TAB PO SCH (20:58)
[2018-08-26] MEDS: LEVOTHYROXINE SOD 0.025 MG TAB PO SCH (05:20)
[2018-08-26 06:57] LABS: Albumin 3.2 g/dL (3.4-5.0); Magnesium 2.6 mg/dL (1.8-2.4); Potassium 4.7 mmol/L (3.5-5.1); Prealbumin 24.3 mg/dL (20-40)
[2018-08-26 07:02] LABS: Absolute Lymphocytes (CBC) 1.7 K/uL (0.7-4.9); Absolute Monocytes 0.6 K/uL (0.1-1.3); Absolute Neutrophil 3.4 K/uL (1.8-8.0); Eosinophils % 3.1 % (0-4.4); Hematocrit 33.5 % (36.0-45.0); Lymphocytes % 28.8 % (15.3-44.8); MPV 7.9 fL (7.6-11.3); Monocytes % 10.1 % (3.3-12.3); RBC Red Blood Cell Count 3.79 M/uL (3.86-4.86)
[2018-08-26] MEDS: CRANBERRY FRUIT EXTRACT 200 MG CAP PO SCH ×2 (08:00→21:38)
[2018-08-26] MEDS: VENLAFAXINE HCL XR 75 MG CAP PO SCH (09:19)
[2018-08-26] MEDS: ENOXAPARIN 30 MG/0.3 ML SQ SCH (09:19)
[2018-08-26] MEDS: CLOPIDOGREL 75 MG TABLET PO SCH (09:19)
[2018-08-26] MEDS: PANTOPRAZOLE 40MG TABLET PO SCH (09:20)
[2018-08-26] MEDS: OXYBUTYNIN CHLORIDE 5 MG TAB PO SCH ×2 (09:20→21:38)
[2018-08-26] MEDS: ASPIRIN EC 81 MG TAB PO SCH (09:20)
[2018-08-26] MEDS: AMLODIPINE 5 MG TAB PO SCH (09:21)
[2018-08-26] MEDS: LISINOPRIL 20 MG TAB PO SCH (09:24)
--- NOTE | 2018-08-26 09:38 | P.RH.PN ---
Estimated Length of Stay: 20 Expected Discharge Date: 08/28/18 Discharge Disposition Plan: Home Family Support: Yes Senior Care Goal: Mobility, Transfers, Self Care Vital Signs: Last Vital Signs Temp 96.6 F L 08/25/18 22:08 Pulse 76 08/26/18 09:21 Resp 18 08/25/18 22:08 BP 154/67 H 08/26/18 09:21 Pulse Ox 95 08/25/18 22:08 Laboratory: Laboratory Last Values WBC 6.0 K/uL (4.3-10.9) 08/26/18 06:16 RBC 3.79 M/uL (3.86-4.86) L 08/26/18 06:16 Hgb 11.1 g/dL (12.0-15.0) L 08/26/18 06:16 Hct 33.5 % (36.0-45.0) L 08/26/18 06:16 MCV 88.3 fL (80-100) 08/26/18 06:16 MCH 29.3 pg (27.0-35.0) 08/26/18 06:16 MCHC 33.2 g/dL (32.0-36.0) 08/26/18 06:16 RDW 13.3 % (12.1-15.2) 08/26/18 06:16 Plt Count 352 K/uL (152-406) 08/26/18 06:16 MPV 7.9 fL (7.6-11.3) 08/26/18 06:16 Neutrophils % 57.0 % (41.7-73.7) 08/26/18 06:16 Lymphocytes % 28.8 % (15.3-44.8) 08/26/18 06:16 Monocytes % 10.1 % (3.3-12.3) 08/26/18 06:16 Eosinophils % 3.1 % (0-4.4) 08/26/18 06:16 Basophils % 1.0 % (0-1.3) 08/26/18 06:16 Absolute Neutrophils 3.4 K/uL (1.8-8.0) 08/26/18 06:16 Absolute Lymphocytes 1.7 K/uL (0.7-4.9) 08/26/18 06:16 Absolute Monocytes 0.6 K/uL (0.1-1.3) 08/26/18 06:16 Absolute Eosinophils 0.2 K/uL (0-0.5) 08/26/18 06:16 Absolute Basophils 0.1 K/uL (0-0.5) 08/26/18 06:16 ESR Westergren 38 mm/HR (0-30) H 08/11/18 21:56 Sodium 139 mmol/L (136-145) 08/26/18 06:16 Potassium 4.7 mmol/L (3.5-5.1) 08/26/18 06:16 Chloride 105 mmol/L (98-107) 08/26/18 06:16 Carbon Dioxide 27 mmol/L (21-32) 08/26/18 06:16 BUN 24 mg/dL (7-18) H 08/26/18 06:16 Creatinine 1.17 mg/dL (0.55-1.3) 08/26/18 06:16 Estimated GFR 44 mL/min (=/>90) L 08/26/18 06:16 Glucose 117 mg/dL (74-106) H 08/26/18 06:16 Calcium 8.6 mg/dL (8.5-10.1) 08/26/18 06:16 Magnesium 2.6 mg/dL (1.8-2.4) H D 08/26/18 06:16 Albumin 3.2 g/dL (3.4-5.0) L 08/26/18 06:16 Prealbumin 24.3 mg/dL (20-40) 08/26/18 06:16 Vitamin B12 313 pg/mL (193-986) 08/11/18 21:56 TSH 4.730 uIU/mL (0.360-3.740) H 08/11/18 21:56 Free T4 1.05 ng/dL (0.76-1.46) 08/11/18 21:56 Weight: 162 lb 4 oz Wound Present: No Closed Surgical Incision Present: No Negative Pressure Wound Therapy Present: No Physician Update: Labs have been reviewed and are stable. She is doing very well with speech, occupational and physical therapy. Swallowing well., She is standby assistance with rollator. She will be discharged home on Wednesday. Wheelchair and three in one is ordered. Medical Issues: Lovenox 30mg SQ Daily Pain Issues: Tylenol #3 Q4H PRN Functional Improvement: pt has demonstrated good progress with functional mobility. pt is able to ambulate well using her rollator. She has become SBA with functional transfers and ambulation. pt continues to require training to enhance her stability and safety to become Krystal using her rollator. Functional Improvement Occupational Therapy: Pt can benifit with further therapy cont to increase pt's UB strength/ROM for adl tasks. Cont to instruct and train pt on LB dressing for clothing mgmt for safety and for energy conservation. Cont to increase pt's static standing balance for clothing mgmt and cont to instruct for follow through for pulling up clothing for toileting and clothing mgmt. Cont increase pt's endurance for adl tasks. Speech Therapy Update: Patient has demonstrated significant gains in speech/ language therapy. She is currently MOD-I for auditory comprehension and social interaction and SUPV for verbal expression, problem solving, and memory. Patient demonstrates good safety awareness and can recall safety precautions. Pt is mildly forgetful but demonstrates excellent use of compensatory strategies. 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 Please see the Rehabilitation Signature page for all necessary signatures.
--- NOTE | 2018-08-26 13:12 | P.PN ---
Subjective Date of Service: 08/26/18 Chief Complaint: STABLE, NO CHANGES. Subjective: Improving WEAK NOT ABLE TO COMPLAIN MUCH. STILL VERY WEAK AND WILL NOT ABLE TO GO HOME. I RECOMMEND NH. SHE IS DOING LOT BETTER. SHE MAY IMPROVE ENOUGH FOR HOME. NO COMPLAINTS. SHE IS IN GOOD MOOD. DOING PT DAILY. DC ON Aug.\ FEELS WELL. NO ISSUES. NO PAIN DC DATE IS NEXT WEEK. SHE IS LOT BETTER. STILL ON PT AND OT. DOING WORK DAILY. HAPPY TO HAVE GOOD REPORT. GOOD ATTITUDE. 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 Review of Systems 10-point ROS is otherwise unremarkable Physical Examination - Vital Signs Temperature: 97.0 F Blood Pressure: 154/67 Pulse: 76 Respirations: 16 Pulse Ox (%): 97 - Physical Exam General: Mild distress HEENT: Atraumatic, PERRLA, EOMI Neck: Supple, JVD not distended Respiratory: Clear to auscultation bilaterally, Normal air movement Cardiovascular: Regular rate/rhythm, Normal S1 S2 Gastrointestinal: Normal bowel sounds, No tenderness Musculoskeletal: No tenderness Integumentary: No rashes Neurological: Abnormal strength (MILD L HEMIPARESIS UNSTEADY STILL. ) Lymphatics: No axilla or inguinal lymphadenopathy - Studies Laboratory Data (last 24 hrs) 08/26/18 06:16: Sodium 139, Potassium 4.7, BUN 24 H, Creatinine 1.17, Glucose 117 H, Magnesium 2.6 H D 08/26/18 06:16: WBC 6.0, Hgb 11.1 L, Hct 33.5 L, Plt Count 352 Medications List Reviewed: Yes Assessment And Plan - Current Problems (Diagnosis) (1) CVA (cerebral vascular accident) Onset Date: 08/08/18 Current Visit: No Status: Acute Plan: PT NOT ABLE TO TAKE 3 HOURS OF THERAPY. NH ADVISED. RESUME PT SHE IS IMPROVING. RESUME ANTIPLATELET AGENTS. STABLE, NO NEW CHANGES. RESUME MEDS. CONT PT STABLE. DC ON . CONT PT NO CHANGES. BP FU . Qualifiers: Precerebral and cerebral artery: other cerebral artery (2) HTN (hypertension) Onset Date: 08/08/18 Current Visit: No Status: Chronic Plan: REDUCE NORVASC BP IS LOW NORMAL NOW. (3) Hypothyroid Current Visit: Yes Status: Acute Plan: SMALL DOSE OF LEVOXYL. (4) B12 deficiency Current Visit: Yes Status: Acute Plan: ONE INJECTON AND SHE CAN TAKE ONCE A MONTH.
--- NOTE | 2018-08-26 14:16 | FAST ---
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 Avinash Read M.D. ADMISSION DIAGNOSIS: - Stroke 01 - Left Body (Right Brain) (01.1) ACUTE NONHEMORRHAGIC CVA RIGHT NAHEED. EATING: EATING - STEP 1: Does the patient require the assistance of a person or device, or need extra time when eating? No. EATING - SCORE: 7-IND GROOMING: Activity did not occur on this shift GROOMING - SCORE: 0-UNK BATHING: Activity did not occur on this shift BATHING - SCORE: 0-UNK DRESSING - UPPER BODY: Activity did not occur on this shift ARTICLES SCORE Total number of steps: 0 DRESSING - UPPER BODY - SCORE: 0-UNK DRESSING - LOWER BODY: Activity did not occur on this shift ARTICLES SCORE Total number of steps: 0 DRESSING - LOWER BODY - SCORE: 0-UNK TOILETING: TOILETING - STEP 1: Does the patient require the assistance of a person or device, or need extra time with toileting? Yes . TOILETING - STEP 2: Does the patient require the assistance of a helper? Yes. TOILETING - STEP 3: How much assistance does the patient require from the helper? Hands-on assistance from the helper TOILETING - STEP 4: Of the 3 tasks: 1) Adjusting clothing prior to use, 2) Cleansing of perineal area, 3) Adjusting clot braulio after use; How many tasks does the patient perform WITHOUT assistance of the helper? Three tasks with steadying assistance from the helper TOILETING - SCORE: 4-MIN BLADDER MANAGEMENT: [place] removes incontinent device (Depends, pull ups, etc.); cleans the patient after accident / inco ntinent episode; and, applies new incontinent device. BLADDER MANAGEMENT - SCORE: 1-DEP BLADDER MANAGEMENT - FREQUENCY OF ACCIDENTS: BLADDER MANAGEMENT(FA) - STEP 1: How many accidents has the patient had during the current shift? 2 BOWEL MANAGEMENT: [place] removes incontinent device (depends, pull ups, etc.); cleans the patient after accident / inco ntinent episode; and, applies new device (depends, pull-ups, padding, etc.). BOWEL MANAGEMENT - SCORE: 1-DEP BOWEL MANAGEMENT - FREQUENCY OF ACCIDENTS: BOWEL MANAGEMENT(FA) - STEP 1: How many accidents has the patient had during the current shift? 1 TRANSFERS: BED, CHAIR, WHEELCHAIR: TRANSFERS: BED, CHAIR, WHEELCHAIR - STEP 1: Does the patient require assistance of a person or device, or need extra time with bed, chair, or whe elchair transfers? Yes. TRANSFERS: BED, CHAIR, WHEELCHAIR - STEP 2: Does the patient require the assistance of a helper? Yes. TRANSFERS: BED, CHAIR, WHEELCHAIR - STEP 3: How much assistance does the patient require from the helper? Lifting of the legs TRANSFERS: BED, CHAIR, WHEELCHAIR - STEP 4: How many legs does the patient require the helper to lift? both legs TRANSFERS: BED, CHAIR, WHEELCHAIR - SCORE: 3-MOD TRANSFERS: TOILET: TRANSFERS: TOILET - STEP 1: Does the patient require the assistance of a person or device, or need extra time with toilet transfe rs? Yes. TRANSFERS: TOILET - STEP 2: Does the patient require the assistance of a helper? Yes. TRANSFERS: TOILET - STEP 3: How much assistance does the patient require from the helper? Patient performs half or more of the tr ansferring tasks TRANSFERS: TOILET - STEP 4: Does the patient need only incidental help such as contact guard or steadying during toilet transfer? No. Patient needs more than incidental help TRANSFERS: TOILET - SCORE: 3-MOD TRANSFERS: SHOWER: Activity did not occur on this shift TRANSFERS: SHOWER - SCORE: 0-UNK TRANSFERS: TUB: Activity did not occur on this shift TRANSFERS: TUB - SCORE: 0-UNK LOCOMOTION: WALK: Activity did not occur on this shift LOCOMOTION: WALK - SCORE: 0-UNK LOCOMOTION: WHEELCHAIR: Activity did not occur on this shift LOCOMOTION: WHEELCHAIR - SCORE: 0-UNK COMPREHENSION: COMPREHENSION - SCORE: 0-UNK EXPRESSION EXPRESSION - SCORE: 0-UNK SOCIAL INTERACTION: SOCIAL INTERACTION - SCORE: 0-UNK PROBLEM SOLVING: PROBLEM SOLVING - SCORE: 0-UNK MEMORY: MEMORY - SCORE: 0-UNK SIGNATURE PANEL: The following modified sections: Eating - Score, Grooming - Score, Bathing - Score, Dressing - Upper Body - Score, Dressing - Lower Body - Score, Toileting - Score, Bladder Management - Score, Bowel Man agement - Score, Transfers: Bed, Chair, Wheelchair - Score, Transfers: Toilet - Score, Transfers: Olga wer - Score, Transfers: Tub - Score, Locomotion: Walk - Score, Locomotion: Wheelchair - Score, Compre hension - Score, Expression - Score, Social Interaction - Score, Problem Solving - Score, Memory - Sc ore were [electronically] signed by Jessika Soares CNA on WedAug 26 2018 14:15:14 GMT-0600 ([place] Standard Time)
--- NOTE | 2018-08-26 14:24 | FAST ---
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 Avinahs Read M.D. ADMISSION DIAGNOSIS: - Stroke 01 - Left Body (Right Brain) (01.1) ACUTE NONHEMORRHAGIC CVA RIGHT NAHEED. EATING: Activity did not occur on this shift EATING - SCORE: 0-UNK GROOMING: Comb/brush hair Wash, rinse, and dry face Wash, rinse, and dry hands GROOMING - STEP 1: Does the patient require the assistance of a person or device, or need extra time when grooming? No. GROOMING - SCORE: 7-IND BATHING: Abdomen Buttocks Chest Left arm Left lower leg and foot Left upper leg Perineal area Right arm Right lower leg and foot Right upper leg BATHING - STEP 1: Does the patient require the assistance of a person or device, or need extra time when bathing? Yes. BATHING - STEP 2: Does the patient require the assistance of a helper? Yes. BATHING - STEP 3: How much assistance does the patient require from the helper? Only supervision, cuing, coaxing, instr uctions, encouragement BATHING - SCORE: 5-SUP DRESSING - UPPER BODY: T-shirt/pullover shirt (four steps) ARTICLES SCORE Total number of steps: 4 DRESSING - UPPER BODY - STEP 1: Does the patient require help from a person or device, or need extra time when dressing above the [address]? Yes. DRESSING - UPPER BODY - STEP 2: Does the patient require the assistance of a helper? Yes. DRESSING - UPPER BODY - STEP 3: Does the helper touch the patient while dressing? No. DRESSING - UPPER BODY - SCORE: 5-SUP DRESSING - LOWER BODY: Elastic waist pants (three steps) Slip-on shoe - Left foot (one step) Slip-on shoe - Right foot (one step) Underwear (three steps) ARTICLES SCORE Total number of steps: 8 DRESSING - LOWER BODY - STEP 1: Does the patient require help from a person or device, or need extra time when dressing below the [address]? Yes. DRESSING - LOWER BODY - STEP 2: Does the patient require the assistance of a helper? Yes. DRESSING - LOWER BODY - STEP 3: Does the helper touch the patient while dressing? No. DRESSING - LOWER BODY - SCORE: 5-SUP TOILETING: Activity did not occur on this shift TOILETING - SCORE: 0-UNK BLADDER MANAGEMENT: Activity did not occur on this shift BLADDER MANAGEMENT - SCORE: 7-IND BOWEL MANAGEMENT: Activity did not occur on this shift BOWEL MANAGEMENT - SCORE: 7-IND TRANSFERS: BED, CHAIR, WHEELCHAIR: Activity did not occur on this shift TRANSFERS: BED, CHAIR, WHEELCHAIR - SCORE: 0-UNK TRANSFERS: TOILET: Activity did not occur on this shift TRANSFERS: TOILET - SCORE: 0-UNK TRANSFERS: SHOWER: TRANSFERS: SHOWER - STEP 1: Does the patient require the assistance of a person or device, or need extra time with shower transfe rs? Yes. TRANSFERS: SHOWER - STEP 2: Does the patient require the assistance of a helper? Yes. TRANSFERS: SHOWER - STEP 3: How much assistance does the patient require from the helper? Only supervision, cuing, coaxing, or he lp to set out transfer equipment or to lock brakes and/or lift foot rests TRANSFERS: SHOWER - SCORE: 5-SUP TRANSFERS: TUB: Activity did not occur on this shift TRANSFERS: TUB - SCORE: 0-UNK LOCOMOTION: WALK: Activity did not occur on this shift LOCOMOTION: WALK - SCORE: 0-UNK LOCOMOTION: WHEELCHAIR: Activity did not occur on this shift LOCOMOTION: WHEELCHAIR - SCORE: 0-UNK LOCOMOTION: STAIRS: Activity did not occur on this shift LOCOMOTION: STAIRS - SCORE: 0-UNK COMPREHENSION: COMPREHENSION - SCORE: 0-UNK EXPRESSION EXPRESSION - SCORE: 0-UNK SOCIAL INTERACTION: SOCIAL INTERACTION - SCORE: 0-UNK PROBLEM SOLVING: PROBLEM SOLVING - SCORE: 0-UNK MEMORY: MEMORY - SCORE: 0-UNK SIGNATURE PANEL: The following modified sections: Eating - Score, Grooming - Score, Bathing - Score, Dressing - Upper Body - Score, Dressing - Lower Body - Score, Toileting - Score, Transfers: Bed, Chair, Wheelchair - S core, Transfers: Toilet - Score, Transfers: Shower - Score, Transfers: Tub - Score, Comprehension - S core, Expression - Score, Social Interaction - Score, Problem Solving - Score, Memory - Score were [e lectronically] signed by LEEANN Baldwin on WedAug 26 2018 14:23:58 T-0600 ([place] Time)
[2018-08-26] MEDS: DONEPEZIL HCL 5 MG TAB PO SCH (21:38)
[2018-08-26] MEDS: NETARSUDIL OPTH SCH (21:40)
--- NOTE | 2018-08-27 02:48 | FAST ---
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 Avinash Read M.D. ADMISSION DIAGNOSIS: - Stroke 01 - Left Body (Right Brain) (01.1) ACUTE NONHEMORRHAGIC CVA RIGHT NAHEED. EATING: Activity did not occur on this shift EATING - SCORE: 0-UNK GROOMING: Activity did not occur on this shift GROOMING - SCORE: 0-UNK BATHING: Activity did not occur on this shift BATHING - SCORE: 0-UNK DRESSING - UPPER BODY: Patient is not dressing in public clothing ARTICLES SCORE Total number of steps: 0 DRESSING - UPPER BODY - SCORE: 0-UNK DRESSING - LOWER BODY: Patient is not dressing in public clothing ARTICLES SCORE Total number of steps: 0 DRESSING - LOWER BODY - SCORE: 0-UNK TOILETING: Activity did not occur on this shift TOILETING - SCORE: 0-UNK BLADDER MANAGEMENT: [place] removes incontinent device (Depends, pull ups, etc.); cleans the patient after accident / inco ntinent episode; and, applies new incontinent device. BLADDER MANAGEMENT - SCORE: 1-DEP BOWEL MANAGEMENT: Activity did not occur on this shift BOWEL MANAGEMENT - SCORE: 7-IND TRANSFERS: BED, CHAIR, WHEELCHAIR: Activity did not occur on this shift TRANSFERS: BED, CHAIR, WHEELCHAIR - SCORE: 0-UNK TRANSFERS: TOILET: Activity did not occur on this shift TRANSFERS: TOILET - SCORE: 0-UNK TRANSFERS: SHOWER: Activity did not occur on this shift TRANSFERS: SHOWER - SCORE: 0-UNK TRANSFERS: TUB: Activity did not occur on this shift TRANSFERS: TUB - SCORE: 0-UNK LOCOMOTION: WALK: Activity did not occur on this shift LOCOMOTION: WALK - SCORE: 0-UNK LOCOMOTION: WHEELCHAIR: Activity did not occur on this shift LOCOMOTION: WHEELCHAIR - SCORE: 0-UNK COMPREHENSION: COMPREHENSION: TYPE: Both COMPREHENSION - STEP 1: Does the patient require help from a person or device, or need extra time to understand complex and a bstract ideas (such as current events, finances, discharge planning, medical issues, relationships, e tc)? No. COMPREHENSION - STEP 2: Does the patient need extra time, require an assistive device (such as glasses for visual comprehensi on or a hearing aid for auditory comprehension) or does s/he have mild difficulty understanding compl ex and abstract information? Yes. COMPREHENSION - SCORE: 6-LIZZ EXPRESSION EXPRESSION: TYPE: Both EXPRESSION - STEP 1: Does the patient require help from a person or device, or need extra time expressing complex and abst ract ideas (such as current events, finances, discharge planning, medical issues, relationships, etc) ? No. EXPRESSION - STEP 2: Does the patient need extra time, require an assistive device (such as augmentive communication syste m or a communication board), OR does s/he have mild difficulty expressing complex and abstract ideas (including mild dysarthria or mild word-find problems)? Yes. EXPRESSION - SCORE: 6-LIZZ SOCIAL INTERACTION: SOCIAL INTERACTION - STEP 1: Does the patient require a helper to interact with others in social and therapeutic situations? No. SOCIAL INTERACTION - STEP 2: Does the patient need extra time in social situations, OR does s/he interact with staff, other patien ts, and family members ONLY in structured environments, OR does s/he require medication for social in teraction? Yes, patient needs extra time SOCIAL INTERACTION - SCORE: 6-LIZZ PROBLEM SOLVING: PROBLEM SOLVING - STEP 1: Does the patient need help from a person or device, or need extra time to solve complex problems such as managing a checking account or confronting interpersonal problems? No. PROBLEM SOLVING - STEP 2: Does the patient require extra time to make decisions or solve problems, OR does s/he have slight dif ficulty reading, initiating, or self-correcting in unfamiliar situations? Yes, patient needs extra ti me. PROBLEM SOLVING - SCORE: 6-LIZZ MEMORY: MEMORY - STEP 1: Does the patient need help from a person or device, or need extra time to remember frequently encount ered people, daily routines, and executing requests? No. MEMORY - STEP 2: Does the patient have slight difficulty recognizing frequently encountered people, daily routines, or executing requests without the need for repetition or using self-initiated or environmental cues to remember? Yes. MEMORY - SCORE: 6-LIZZ
[2018-08-27] MEDS: LEVOTHYROXINE SOD 0.025 MG TAB PO SCH (05:02)
[2018-08-27] MEDS: ENOXAPARIN 30 MG/0.3 ML SQ SCH (07:20)
[2018-08-27] MEDS: CRANBERRY FRUIT EXTRACT 200 MG CAP PO SCH ×2 (08:29→20:33)
[2018-08-27] MEDS: VENLAFAXINE HCL XR 75 MG CAP PO SCH (08:30)
[2018-08-27] MEDS: CLOPIDOGREL 75 MG TABLET PO SCH (08:30)
[2018-08-27] MEDS: OXYBUTYNIN CHLORIDE 5 MG TAB PO SCH ×2 (08:30→20:34)
[2018-08-27] MEDS: AMLODIPINE 5 MG TAB PO SCH (08:30)
[2018-08-27] MEDS: LISINOPRIL 20 MG TAB PO SCH (08:30)
[2018-08-27] MEDS: PANTOPRAZOLE 40MG TABLET PO SCH (08:31)
[2018-08-27] MEDS: ASPIRIN EC 81 MG TAB PO SCH (08:31)
--- NOTE | 2018-08-27 10:06 | P.PN ---
Subjective Date of Service: 08/27/18 Chief Complaint: STABLE, NO CHANGES. Subjective: Improving WEAK NOT ABLE TO COMPLAIN MUCH. STILL VERY WEAK AND WILL NOT ABLE TO GO HOME. I RECOMMEND NH. SHE IS DOING LOT BETTER. SHE MAY IMPROVE ENOUGH FOR HOME. NO COMPLAINTS. SHE IS IN GOOD MOOD. DOING PT DAILY. DC ON Aug.\ FEELS WELL. NO ISSUES. NO PAIN DC DATE IS NEXT WEEK. SHE IS LOT BETTER. STILL ON PT AND OT. DOING WORK DAILY. HAPPY TO HAVE GOOD REPORT. GOOD ATTITUDE. 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 Review of Systems 10-point ROS is otherwise unremarkable Physical Examination - Vital Signs Temperature: 96.4 F Blood Pressure: 141/67 Pulse: 85 Respirations: 16 Pulse Ox (%): 97 - Physical Exam General: Alert, In no apparent distress HEENT: Atraumatic, PERRLA, EOMI Neck: Supple, JVD not distended Respiratory: Clear to auscultation bilaterally, Normal air movement Cardiovascular: Regular rate/rhythm, Normal S1 S2 Gastrointestinal: Normal bowel sounds, No tenderness Musculoskeletal: No tenderness Integumentary: No rashes Neurological: Normal speech, Abnormal strength (GRADUALLY IMPROVING POWER 4/5 L SIDE BODY) Lymphatics: No axilla or inguinal lymphadenopathy - Studies Medications List Reviewed: Yes Assessment And Plan - Current Problems (Diagnosis) (1) CVA (cerebral vascular accident) Onset Date: 08/08/18 Current Visit: No Status: Acute Plan: PT NOT ABLE TO TAKE 3 HOURS OF THERAPY. [facility] ADVISED. RESUME PT SHE IS IMPROVING. RESUME ANTIPLATELET AGENTS. STABLE, NO NEW CHANGES. RESUME MEDS. CONT PT STABLE. DC ON . CONT PT NO CHANGES. BP FU . Qualifiers: Precerebral and cerebral artery: other cerebral artery (2) HTN (hypertension) Onset Date: 08/08/18 Current Visit: No Status: Chronic Plan: REDUCE NORVASC BP IS LOW NORMAL NOW. (3) Hypothyroid Current Visit: Yes Status: Acute Plan: SMALL DOSE OF LEVOXYL. (4) B12 deficiency Current Visit: Yes Status: Acute Plan: ONE INJECTON AND SHE CAN TAKE ONCE A MONTH.
[2018-08-27] MEDS: DONEPEZIL HCL 5 MG TAB PO SCH (20:33)
[2018-08-27] MEDS: NETARSUDIL OPTH SCH (20:37)
--- NOTE | 2018-08-28 02:06 | FAST ---
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 Avinash Read M.D. ADMISSION DIAGNOSIS: - Stroke 01 - Left Body (Right Brain) (01.1) ACUTE NONHEMORRHAGIC CVA RIGHT NAHEED. EATING: Activity did not occur on this shift EATING - SCORE: 0-UNK GROOMING: Activity did not occur on this shift GROOMING - SCORE: 0-UNK BATHING: Activity did not occur on this shift BATHING - SCORE: 0-UNK DRESSING - UPPER BODY: Patient is not dressing in public clothing ARTICLES SCORE Total number of steps: 0 DRESSING - UPPER BODY - SCORE: 0-UNK DRESSING - LOWER BODY: Patient is not dressing in public clothing ARTICLES SCORE Total number of steps: 0 DRESSING - LOWER BODY - SCORE: 0-UNK TOILETING: Activity did not occur on this shift TOILETING - SCORE: 0-UNK BLADDER MANAGEMENT: [place] removes incontinent device (Depends, pull ups, etc.); cleans the patient after accident / inco ntinent episode; and, applies new incontinent device. BLADDER MANAGEMENT - SCORE: 1-DEP BLADDER MANAGEMENT - FREQUENCY OF ACCIDENTS: BLADDER MANAGEMENT(FA) - STEP 1: How many accidents has the patient had during the current shift? 1 BOWEL MANAGEMENT: Activity did not occur on this shift BOWEL MANAGEMENT - SCORE: 7-IND TRANSFERS: BED, CHAIR, WHEELCHAIR: Activity did not occur on this shift TRANSFERS: BED, CHAIR, WHEELCHAIR - SCORE: 0-UNK TRANSFERS: TOILET: Activity did not occur on this shift TRANSFERS: TOILET - SCORE: 0-UNK TRANSFERS: SHOWER: Activity did not occur on this shift TRANSFERS: SHOWER - SCORE: 0-UNK TRANSFERS: TUB: Activity did not occur on this shift TRANSFERS: TUB - SCORE: 0-UNK LOCOMOTION: WALK: Activity did not occur on this shift LOCOMOTION: WALK - SCORE: 0-UNK LOCOMOTION: WHEELCHAIR: Activity did not occur on this shift LOCOMOTION: WHEELCHAIR - SCORE: 0-UNK COMPREHENSION: COMPREHENSION: TYPE: Both COMPREHENSION - STEP 1: Does the patient require help from a person or device, or need extra time to understand complex and a bstract ideas (such as current events, finances, discharge planning, medical issues, relationships, e tc)? No. COMPREHENSION - STEP 2: Does the patient need extra time, require an assistive device (such as glasses for visual comprehensi on or a hearing aid for auditory comprehension) or does s/he have mild difficulty understanding compl ex and abstract information? Yes. COMPREHENSION - SCORE: 6-LIZZ EXPRESSION EXPRESSION: TYPE: Both EXPRESSION - STEP 1: Does the patient require help from a person or device, or need extra time expressing complex and abst ract ideas (such as current events, finances, discharge planning, medical issues, relationships, etc) ? No. EXPRESSION - STEP 2: Does the patient need extra time, require an assistive device (such as augmentive communication syste m or a communication board), OR does s/he have mild difficulty expressing complex and abstract ideas (including mild dysarthria or mild word-find problems)? Yes. EXPRESSION - SCORE: 6-LIZZ SOCIAL INTERACTION: SOCIAL INTERACTION - STEP 1: Does the patient require a helper to interact with others in social and therapeutic situations? No. SOCIAL INTERACTION - STEP 2: Does the patient need extra time in social situations, OR does s/he interact with staff, other patien ts, and family members ONLY in structured environments, OR does s/he require medication for social in teraction? Yes, patient needs extra time SOCIAL INTERACTION - SCORE: 6-LIZZ PROBLEM SOLVING: PROBLEM SOLVING - STEP 1: Does the patient need help from a person or device, or need extra time to solve complex problems such as managing a checking account or confronting interpersonal problems? Yes. PROBLEM SOLVING - STEP 2: Does the patient solve basic routine problems half or more of the time? Yes. PROBLEM SOLVING - STEP 3: How often does the patient need help to solve basic routine problems? 10%-24% of the time PROBLEM SOLVING - SCORE: 4-MIN MEMORY: MEMORY - STEP 1: Does the patient need help from a person or device, or need extra time to remember frequently encount ered people, daily routines, and executing requests? No. MEMORY - STEP 2: Does the patient have slight difficulty recognizing frequently encountered people, daily routines, or executing requests without the need for repetition or using self-initiated or environmental cues to remember? Yes. MEMORY - SCORE: 6-LIZZ SIGNATURE PANEL: The following modified sections: Eating - Score, Grooming - Score, Dressing - Upper Body - Score, [place]endo[place] ssing - Lower Body - Score, Toileting - Score, Bladder Management - Score, Bowel Management - Score, Transfers: Bed, Chair, Wheelchair - Score, Transfers: Toilet - Score, Transfers: Shower - Score, Alvarez sfers: Tub - Score, Locomotion: Walk - Score, Locomotion: Wheelchair - Score, Comprehension - Score, Expression - Score, Social Interaction - Score, Problem Solving - Score, Memory - Score were [electro nically] signed by Nhung Corley CNA on WedAug 28 2018 02:01:56 GMT-0600 (Central Standard Time)
[2018-08-28] MEDS: LEVOTHYROXINE SOD 0.025 MG TAB PO SCH (05:18)
[2018-08-28 07:07] VITALS: BP 143/58; TEMP 96.9
[2018-08-28] MEDS: VENLAFAXINE HCL XR 75 MG CAP PO SCH (08:17)
[2018-08-28] MEDS: ASPIRIN EC 81 MG TAB PO SCH (08:17)
[2018-08-28] MEDS: OXYBUTYNIN CHLORIDE 5 MG TAB PO SCH (08:18)
[2018-08-28] MEDS: CRANBERRY FRUIT EXTRACT 200 MG CAP PO SCH (08:18)
[2018-08-28] MEDS: AMLODIPINE 5 MG TAB PO SCH (08:18)
[2018-08-28] MEDS: ENOXAPARIN 30 MG/0.3 ML SQ SCH (08:18)
[2018-08-28] MEDS: CLOPIDOGREL 75 MG TABLET PO SCH (08:18)
[2018-08-28] MEDS: PANTOPRAZOLE 40MG TABLET PO SCH (08:18)
[2018-08-28] MEDS: LISINOPRIL 20 MG TAB PO SCH (08:21)
--- NOTE | 2018-08-28 09:51 | FAST ---
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 Avinash Read M.D. ADMISSION DIAGNOSIS: - Stroke 01 - Left Body (Right Brain) (01.1) ACUTE NONHEMORRHAGIC CVA RIGHT NAHEED. EATING: EATING - STEP 1: Does the patient require the assistance of a person or device, or need extra time when eating? Yes. EATING - STEP 2: Does the patient require the assistance of a helper? No, patient only requires an assistive device, O R s/he takes more than reasonable time to eat, OR there is a safety concern, OR s/he requires modifie d food consistency EATING - SCORE: 6-LIZZ GROOMING: Comb/brush hair GROOMING - STEP 1: Does the patient require the assistance of a person or device, or need extra time when grooming? Yes. GROOMING - STEP 2: Does the patient require the assistance of a helper? No. The patient only requires an assistive devic e, OR takes more than reasonable time to groom, OR there is a concern for safety as the patient groom s GROOMING - SCORE: 6-LIZZ BATHING: Activity did not occur on this shift BATHING - SCORE: 0-UNK DRESSING - UPPER BODY: T-shirt/pullover shirt (four steps) ARTICLES SCORE Total number of steps: 4 DRESSING - UPPER BODY - STEP 1: Does the patient require help from a person or device, or need extra time when dressing above the jaziel st? Yes. DRESSING - UPPER BODY - STEP 2: Does the patient require the assistance of a helper? Yes. DRESSING - UPPER BODY - STEP 3: Does the helper touch the patient while dressing? Yes. DRESSING - UPPER BODY - STEP 4: How many of the total steps does the patient complete on his/her own? 4 DRESSING - UPPER BODY - SCORE: 4-MIN DRESSING - LOWER BODY: Elastic waist pants (three steps) ARTICLES SCORE Total number of steps: 3 DRESSING - LOWER BODY - STEP 1: Does the patient require help from a person or device, or need extra time when dressing below the jaziel st? Yes. DRESSING - LOWER BODY - STEP 2: Does the patient require the assistance of a helper? Yes. DRESSING - LOWER BODY - STEP 3: Does the helper touch the patient while dressing? Yes. DRESSING - LOWER BODY - STEP 4: How many of the total steps does the patient complete on his/her own? 3 DRESSING - LOWER BODY - SCORE: 4-MIN TOILETING: TOILETING - STEP 1: Does the patient require the assistance of a person or device, or need extra time with toileting? Yes . TOILETING - STEP 2: Does the patient require the assistance of a helper? Yes. TOILETING - STEP 3: How much assistance does the patient require from the helper? Hands-on assistance from the helper TOILETING - STEP 4: Of the 3 tasks: 1) Adjusting clothing prior to use, 2) Cleansing of perineal area, 3) Adjusting clot brualio after use; How many tasks does the patient perform WITHOUT assistance of the helper? Two tasks TOILETING - SCORE: 3-MOD BLADDER MANAGEMENT: [place] removes incontinent device (Depends, pull ups, etc.); cleans the patient after accident / inco ntinent episode; and, applies new incontinent device. BLADDER MANAGEMENT - SCORE: 1-DEP BLADDER MANAGEMENT - FREQUENCY OF ACCIDENTS: BLADDER MANAGEMENT(FA) - STEP 1: How many accidents has the patient had during the current shift? 3 BOWEL MANAGEMENT: Activity did not occur on this shift BOWEL MANAGEMENT - SCORE: 7-IND BOWEL MANAGEMENT - FREQUENCY OF ACCIDENTS: BOWEL MANAGEMENT(FA) - STEP 1: How many accidents has the patient had during the current shift? 0 TRANSFERS: BED, CHAIR, WHEELCHAIR: TRANSFERS: BED, CHAIR, WHEELCHAIR - STEP 1: Does the patient require assistance of a person or device, or need extra time with bed, chair, or whe elchair transfers? Yes. TRANSFERS: BED, CHAIR, WHEELCHAIR - STEP 2: Does the patient require the assistance of a helper? Yes. TRANSFERS: BED, CHAIR, WHEELCHAIR - STEP 3: How much assistance does the patient require from the helper? Lifting of the patient TRANSFERS: BED, CHAIR, WHEELCHAIR - STEP 4: Does the helper lift the patient ONLY up? ONLY down? Up AND Down? Up AND Down. TRANSFERS: BED, CHAIR, WHEELCHAIR - SCORE: 2-MAX TRANSFERS: TOILET: TRANSFERS: TOILET - STEP 1: Does the patient require the assistance of a person or device, or need extra time with toilet transfe rs? Yes. TRANSFERS: TOILET - STEP 2: Does the patient require the assistance of a helper? Yes. TRANSFERS: TOILET - STEP 3: How much assistance does the patient require from the helper? Patient performs half or more of the tr ansferring tasks TRANSFERS: TOILET - STEP 4: Does the patient need only incidental help such as contact guard or steadying during toilet transfer? No. Patient needs more than incidental help TRANSFERS: TOILET - SCORE: 3-MOD TRANSFERS: SHOWER: Activity did not occur on this shift TRANSFERS: SHOWER - SCORE: 0-UNK TRANSFERS: TUB: Activity did not occur on this shift TRANSFERS: TUB - SCORE: 0-UNK LOCOMOTION: WALK: Activity did not occur on this shift LOCOMOTION: WALK - SCORE: 0-UNK LOCOMOTION: WHEELCHAIR: Activity did not occur on this shift LOCOMOTION: WHEELCHAIR - SCORE: 0-UNK COMPREHENSION: COMPREHENSION: TYPE: Both COMPREHENSION - STEP 1: Does the patient require help from a person or device, or need extra time to understand complex and a bstract ideas (such as current events, finances, discharge planning, medical issues, relationships, e tc)? Yes. COMPREHENSION - STEP 2: Does the patient require help to understand questions or statements about basic needs or ideas (such as hunger, thirst, sleep, safety, daily schedule, room location, or discomfort) half or more of the t kei? No. COMPREHENSION - STEP 3: How often does the patient need help to understand directions and conversation about basic needs? Les s than 10% of the time COMPREHENSION - SCORE: 5-SUP EXPRESSION EXPRESSION: TYPE: Both EXPRESSION - STEP 1: Does the patient require help from a person or device, or need extra time expressing complex and abst ract ideas (such as current events, finances, discharge planning, medical issues, relationships, etc) ? No. EXPRESSION - STEP 2: Does the patient need extra time, require an assistive device (such as augmentive communication syste m or a communication board), OR does s/he have mild difficulty expressing complex and abstract ideas (including mild dysarthria or mild word-find problems)? Yes. EXPRESSION - SCORE: 6-LIZZ SOCIAL INTERACTION: SOCIAL INTERACTION - STEP 1: Does the patient require a helper to interact with others in social and therapeutic situations? No. SOCIAL INTERACTION - STEP 2: Does the patient need extra time in social situations, OR does s/he interact with staff, other patien ts, and family members ONLY in structured environments, OR does s/he require medication for social in teraction? Yes, patient needs extra time SOCIAL INTERACTION - SCORE: 6-LIZZ PROBLEM SOLVING: PROBLEM SOLVING - STEP 1: Does the patient need help from a person or device, or need extra time to solve complex problems such as managing a checking account or confronting interpersonal problems? No. PROBLEM SOLVING - STEP 2: Does the patient require extra time to make decisions or solve problems, OR does s/he have slight dif ficulty reading, initiating, or self-correcting in unfamiliar situations? Yes, patient needs extra ti me. PROBLEM SOLVING - SCORE: 6-LIZZ MEMORY: MEMORY - STEP 1: Does the patient need help from a person or device, or need extra time to remember frequently encount ered people, daily routines, and executing requests? No. MEMORY - STEP 2: Does the patient have slight difficulty recognizing frequently encountered people, daily routines, or executing requests without the need for repetition or using self-initiated or environmental cues to remember? Yes. MEMORY - SCORE: 6-LIZZ SIGNATURE PANEL: The following modified sections: Eating - Score, Grooming - Score, Bathing - Score, Dressing - Upper Body - Score, Dressing - Lower Body - Score, Toileting - Score, Bladder Management - Score, Bowel Man agement - Score, Transfers: Bed, Chair, Wheelchair - Score, Transfers: Toilet - Score, Transfers: Olga wer - Score, Transfers: Tub - Score, Locomotion: Walk - Score, Locomotion: Wheelchair - Score, Expres emmett - Score, Social Interaction - Score, Problem Solving - Score, Memory - Score, Comprehension - Sc ore were [electronically] signed by Belkys Carrillo C.N.A. on WedAug 28 2018 09:49:59 GMT-0600 ([facility] Standard Time)
--- NOTE | 2018-08-28 10:05 | FAST ---
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 Avinash Read M.D. ADMISSION DIAGNOSIS: - Stroke 01 - Left Body (Right Brain) (01.1) ACUTE NONHEMORRHAGIC CVA RIGHT NAHEED. EATING: EATING - STEP 1: Does the patient require the assistance of a person or device, or need extra time when eating? Yes. EATING - STEP 2: Does the patient require the assistance of a helper? No, patient only requires an assistive device, O R s/he takes more than reasonable time to eat, OR there is a safety concern, OR s/he requires modifie d food consistency EATING - SCORE: 6-LIZZ GROOMING: Comb/brush hair Wash, rinse, and dry face Wash, rinse, and dry hands GROOMING - STEP 1: Does the patient require the assistance of a person or device, or need extra time when grooming? Yes. GROOMING - STEP 2: Does the patient require the assistance of a helper? No. The patient only requires an assistive devic e, OR takes more than reasonable time to groom, OR there is a concern for safety as the patient groom s GROOMING - SCORE: 6-LIZZ BATHING: Activity did not occur on this shift BATHING - SCORE: 0-UNK DRESSING - UPPER BODY: T-shirt/pullover shirt (four steps) ARTICLES SCORE Total number of steps: 4 DRESSING - UPPER BODY - STEP 1: Does the patient require help from a person or device, or need extra time when dressing above the jaziel st? Yes. DRESSING - UPPER BODY - STEP 2: Does the patient require the assistance of a helper? Yes. DRESSING - UPPER BODY - STEP 3: Does the helper touch the patient while dressing? Yes. DRESSING - UPPER BODY - STEP 4: How many of the total steps does the patient complete on his/her own? 4 DRESSING - UPPER BODY - SCORE: 4-MIN DRESSING - LOWER BODY: Elastic waist pants (three steps) ARTICLES SCORE Total number of steps: 3 DRESSING - LOWER BODY - STEP 1: Does the patient require help from a person or device, or need extra time when dressing below the jaziel st? Yes. DRESSING - LOWER BODY - STEP 2: Does the patient require the assistance of a helper? Yes. DRESSING - LOWER BODY - STEP 3: Does the helper touch the patient while dressing? Yes. DRESSING - LOWER BODY - STEP 4: How many of the total steps does the patient complete on his/her own? 3 DRESSING - LOWER BODY - SCORE: 4-MIN TOILETING: TOILETING - STEP 1: Does the patient require the assistance of a person or device, or need extra time with toileting? Yes . TOILETING - STEP 2: Does the patient require the assistance of a helper? Yes. TOILETING - STEP 3: How much assistance does the patient require from the helper? Hands-on assistance from the helper TOILETING - STEP 4: Of the 3 tasks: 1) Adjusting clothing prior to use, 2) Cleansing of perineal area, 3) Adjusting clot braulio after use; How many tasks does the patient perform WITHOUT assistance of the helper? Three tasks with steadying assistance from the helper TOILETING - SCORE: 4-MIN BLADDER MANAGEMENT: [place] removes incontinent device (Depends, pull ups, etc.); cleans the patient after accident / inco ntinent episode; and, applies new incontinent device. BLADDER MANAGEMENT - SCORE: 1-DEP BLADDER MANAGEMENT - FREQUENCY OF ACCIDENTS: BLADDER MANAGEMENT(FA) - STEP 1: How many accidents has the patient had during the current shift? 2 BOWEL MANAGEMENT: Activity did not occur on this shift BOWEL MANAGEMENT - SCORE: 7-IND BOWEL MANAGEMENT - FREQUENCY OF ACCIDENTS: BOWEL MANAGEMENT(FA) - STEP 1: How many accidents has the patient had during the current shift? 0 TRANSFERS: BED, CHAIR, WHEELCHAIR: TRANSFERS: BED, CHAIR, WHEELCHAIR - STEP 1: Does the patient require assistance of a person or device, or need extra time with bed, chair, or whe elchair transfers? Yes. TRANSFERS: BED, CHAIR, WHEELCHAIR - STEP 2: Does the patient require the assistance of a helper? Yes. TRANSFERS: BED, CHAIR, WHEELCHAIR - STEP 3: How much assistance does the patient require from the helper? Steadying/guiding assistance TRANSFERS: BED, CHAIR, WHEELCHAIR - SCORE: 4-MIN TRANSFERS: TOILET: TRANSFERS: TOILET - STEP 1: Does the patient require the assistance of a person or device, or need extra time with toilet transfe rs? Yes. TRANSFERS: TOILET - STEP 2: Does the patient require the assistance of a helper? Yes. TRANSFERS: TOILET - STEP 3: How much assistance does the patient require from the helper? Patient performs half or more of the tr ansferring tasks TRANSFERS: TOILET - STEP 4: Does the patient need only incidental help such as contact guard or steadying during toilet transfer? No. Patient needs more than incidental help TRANSFERS: TOILET - SCORE: 3-MOD TRANSFERS: SHOWER: Activity did not occur on this shift TRANSFERS: SHOWER - SCORE: 0-UNK TRANSFERS: TUB: Activity did not occur on this shift TRANSFERS: TUB - SCORE: 0-UNK LOCOMOTION: WALK: Activity did not occur on this shift LOCOMOTION: WALK - SCORE: 0-UNK LOCOMOTION: WHEELCHAIR: Activity did not occur on this shift LOCOMOTION: WHEELCHAIR - SCORE: 0-UNK COMPREHENSION: COMPREHENSION: TYPE: Both COMPREHENSION - STEP 1: Does the patient require help from a person or device, or need extra time to understand complex and a bstract ideas (such as current events, finances, discharge planning, medical issues, relationships, e tc)? Yes. COMPREHENSION - STEP 2: Does the patient require help to understand questions or statements about basic needs or ideas (such as hunger, thirst, sleep, safety, daily schedule, room location, or discomfort) half or more of the t kei? No. COMPREHENSION - STEP 3: How often does the patient need help to understand directions and conversation about basic needs? Les s than 10% of the time COMPREHENSION - SCORE: 5-SUP EXPRESSION EXPRESSION: TYPE: Both EXPRESSION - STEP 1: Does the patient require help from a person or device, or need extra time expressing complex and abst ract ideas (such as current events, finances, discharge planning, medical issues, relationships, etc) ? No. EXPRESSION - STEP 2: Does the patient need extra time, require an assistive device (such as augmentive communication syste m or a communication board), OR does s/he have mild difficulty expressing complex and abstract ideas (including mild dysarthria or mild word-find problems)? Yes. EXPRESSION - SCORE: 6-LIZZ SOCIAL INTERACTION: SOCIAL INTERACTION - STEP 1: Does the patient require a helper to interact with others in social and therapeutic situations? No. SOCIAL INTERACTION - STEP 2: Does the patient need extra time in social situations, OR does s/he interact with staff, other patien ts, and family members ONLY in structured environments, OR does s/he require medication for social in teraction? Yes, patient needs extra time SOCIAL INTERACTION - SCORE: 6-LIZZ PROBLEM SOLVING: PROBLEM SOLVING - STEP 1: Does the patient need help from a person or device, or need extra time to solve complex problems such as managing a checking account or confronting interpersonal problems? No. PROBLEM SOLVING - STEP 2: Does the patient require extra time to make decisions or solve problems, OR does s/he have slight dif ficulty reading, initiating, or self-correcting in unfamiliar situations? Yes, patient needs extra ti me. PROBLEM SOLVING - SCORE: 6-LIZZ MEMORY: MEMORY - STEP 1: Does the patient need help from a person or device, or need extra time to remember frequently encount ered people, daily routines, and executing requests? No. MEMORY - STEP 2: Does the patient have slight difficulty recognizing frequently encountered people, daily routines, or executing requests without the need for repetition or using self-initiated or environmental cues to remember? Yes. MEMORY - SCORE: 6-LIZZ SIGNATURE PANEL: The following modified sections: Eating - Score, Grooming - Score, Bathing - Score, Dressing - Upper Body - Score, Dressing - Lower Body - Score, Toileting - Score, Bladder Management - Score, Bowel Man agement - Score, Transfers: Bed, Chair, Wheelchair - Score, Transfers: Toilet - Score, Transfers: Olga wer - Score, Transfers: Tub - Score, Locomotion: Walk - Score, Locomotion: Wheelchair - Score, Compre hension - Score, Expression - Score, Social Interaction - Score, Problem Solving - Score, Memory - Sc ore were [electronically] signed by Belkys Carrillo C.N.A. on WedAug 28 2018 10:04:05 GMT-0600 ([facility] Standard Time)
--- NOTE | 2018-08-28 11:21 | P.PN ---
Subjective Date of Service: 08/28/18 Chief Complaint: STABLE, NO CHANGES. WEAK NOT ABLE TO COMPLAIN MUCH. STILL VERY WEAK AND WILL NOT ABLE TO GO HOME. I RECOMMEND NH. SHE IS DOING LOT BETTER. SHE MAY IMPROVE ENOUGH FOR HOME. NO COMPLAINTS. SHE IS IN GOOD MOOD. DOING PT DAILY. DC ON Aug.\ FEELS WELL. NO ISSUES. NO PAIN DC DATE IS NEXT WEEK. SHE IS LOT BETTER. STILL ON PT AND OT. DOING WORK DAILY. HAPPY TO HAVE GOOD REPORT. GOOD ATTITUDE. 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 JAIDA IS DOING GREAT. SHE IS STABLE FOR HOME. MEDS RX GIVEN. Physical Examination - Vital Signs Temperature: 96.9 F Blood Pressure: 143/58 Pulse: 71 Respirations: 16 Pulse Ox (%): 98 - Studies Medications List Reviewed: Yes Assessment And Plan - Current Problems (Diagnosis) (1) CVA (cerebral vascular accident) Onset Date: 08/08/18 Current Visit: No Status: Acute Plan: PT NOT ABLE TO TAKE 3 HOURS OF THERAPY. NH ADVISED. RESUME PT SHE IS IMPROVING. RESUME ANTIPLATELET AGENTS. STABLE, NO NEW CHANGES. RESUME MEDS. CONT PT STABLE. DC ON . CONT PT NO CHANGES. BP FU . Qualifiers: Precerebral and cerebral artery: other cerebral artery (2) HTN (hypertension) Onset Date: 08/08/18 Current Visit: No Status: Chronic Plan: REDUCE NORVASC BP IS LOW NORMAL NOW. (3) Hypothyroid Current Visit: Yes Status: Acute Plan: SMALL DOSE OF LEVOXYL. (4) B12 deficiency Current Visit: Yes Status: Acute Plan: ONE INJECTON AND SHE CAN TAKE ONCE A MONTH.
--- NOTE | 2018-08-30 11:56 | FAST ---
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 Avinash Read M.D. ADMISSION DIAGNOSIS: - Stroke 01 - Left Body (Right Brain) (01.1) ACUTE NONHEMORRHAGIC CVA RIGHT NAHEED. EATING: Activity did not occur on this shift EATING - SCORE: 0-UNK GROOMING: Activity did not occur on this shift GROOMING - SCORE: 0-UNK BATHING: Activity did not occur on this shift BATHING - SCORE: 0-UNK DRESSING - UPPER BODY: Activity did not occur on this shift Patient is not dressing in public clothing ARTICLES SCORE Total number of steps: 0 DRESSING - UPPER BODY - SCORE: 0-UNK DRESSING - LOWER BODY: Activity did not occur on this shift Patient is not dressing in public clothing ARTICLES SCORE Total number of steps: 0 DRESSING - LOWER BODY - SCORE: 0-UNK TOILETING: Activity did not occur on this shift TOILETING - SCORE: 0-UNK BLADDER MANAGEMENT: Activity did not occur on this shift BLADDER MANAGEMENT - SCORE: 7-IND BOWEL MANAGEMENT: Activity did not occur on this shift BOWEL MANAGEMENT - SCORE: 7-IND TRANSFERS: BED, CHAIR, WHEELCHAIR: TRANSFERS: BED, CHAIR, WHEELCHAIR - STEP 1: Does the patient require assistance of a person or device, or need extra time with bed, chair, or whe elchair transfers? Yes. TRANSFERS: BED, CHAIR, WHEELCHAIR - STEP 2: Does the patient require the assistance of a helper? Yes. TRANSFERS: BED, CHAIR, WHEELCHAIR - STEP 3: How much assistance does the patient require from the helper? Only supervision TRANSFERS: BED, CHAIR, WHEELCHAIR - SCORE: 5-SUP TRANSFERS: TOILET: Activity did not occur on this shift TRANSFERS: TOILET - SCORE: 0-UNK TRANSFERS: SHOWER: Activity did not occur on this shift TRANSFERS: SHOWER - SCORE: 0-UNK TRANSFERS: TUB: Activity did not occur on this shift TRANSFERS: TUB - SCORE: 0-UNK LOCOMOTION: WALK: LOCOMOTION: WALK - STEP 1: Does the patient need help from a person or device, or need extra time to walk 150 feet? Yes. LOCOMOTION: WALK - STEP 2: How much assistance does the patient require to walk a minimum of 150 feet? Only supervision, cuing, or coaxing LOCOMOTION: WALK - SCORE: 5-SUP LOCOMOTION: WHEELCHAIR: LOCOMOTION: WHEELCHAIR - STEP 1: Does the patient need help to go 150 feet in a wheelchair? Yes. LOCOMOTION: WHEELCHAIR - STEP 2: How much assistance does the patient need from the helper? Only supervision, cuing, or coaxing LOCOMOTION: WHEELCHAIR - SCORE: 5-SUP LOCOMOTION: STAIRS: LOCOMOTION: STAIRS - STEP 1: Does the patient need help to go up and down 12 to 14 stairs? Yes. LOCOMOTION: STAIRS - STEP 2: How much assistance does the patient need from the helper to go a minimum of 12 to 14 stairs? The pat ient goes less than 12 stairs, but at least 4 stairs LOCOMOTION: STAIRS - SCORE: 2-MAX COMPREHENSION: COMPREHENSION - SCORE: 0-UNK EXPRESSION EXPRESSION - SCORE: 0-UNK SOCIAL INTERACTION: SOCIAL INTERACTION - SCORE: 0-UNK PROBLEM SOLVING: PROBLEM SOLVING - SCORE: 0-UNK MEMORY: MEMORY - SCORE: 0-UNK SIGNATURE PANEL: The following modified sections: Transfers: Bed, Chair, Wheelchair - Score, Transfers: Toilet - Score , Locomotion: Walk - Score, Locomotion: Wheelchair - Score, Locomotion: Stairs - Score were [[email or web address] ferrera] signed by Bart Smith PTA on WedAug 30 2018 11:54:45 GMT-0600 (Central Standard Time)
== END 2018-08-28 11:00 | disposition home health service (06) | DRG 57 ==
LOC: 5TH 16:39
PROVIDERS: ADMIT Psychiatry & Neurology Neurology with Special Qualifications in Child Neurology; ATTEND Psychiatry & Neurology Neurology with Special Qualifications in Child Neurology
DX: I69.354 Hemiplegia and hemiparesis following cerebral infarction affecting left non-dominant side (principal); I10 Essential (primary) hypertension; G30.9 Alzheimer's disease, unspecified; F02.80 Dementia in other diseases classified elsewhere, unspecified severity, without behavioral disturbance, psychotic disturbance, mood disturbance, and anxiety; M19.90 Unspecified osteoarthritis, unspecified site; H54.8 Legal blindness, as defined in USA; E03.9 Hypothyroidism, unspecified; E53.8 Deficiency of other specified B group vitamins; Z86.73 Personal history of transient ischemic attack (TIA), and cerebral infarction without residual deficits
CPT/HCPCS: 36415; 80048; 82040; 82607; 83735; 84134; 84439; 84443; 85025; 85652; 92507; 92523; 92526; 92610; 97110; 97112; 97116; 97162; 97167; 97530; 97542; J1650; J3420

== ENCOUNTER 2018-11-29 10:45 | Observation (INO) | payer OTHER ==
--- NOTE | 2018-11-29 11:37 | RAD REPORT ---
EXAM DESCRIPTION: CT - Head Brain Wo Cont - 11/29/2018 11:27 am CLINICAL HISTORY: Aphasia COMPARISON: July 2018 CT head, July 2018 MRI TECHNIQUE: Axial 5 mm thick images of the head were obtained without IV contrast. All CT scans are performed using dose optimization technique as appropriate and may include automated exposure control or mA/KV adjustment according to patient size. FINDINGS: No intracranial hemorrhage, mass, edema or shift of mid-line structures. No acute infarcti on changes seen. No cortical edema or sulcal effacement. Moderate atrophy and advanced chronic ischem ic changes are present. 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 There is ill-defined diminish ed attenuation in the posterior aspect of the right cerebellum with calcifications present. No abnorm ality in this region on the July 2018 MRI study. Mastoid air cells and visualized portions of the paranasal sinuses are clear. No acute bony findings. IMPRESSION: No hemorrhage identified. No acute infarction changes seen. Patient has moderate atrophy and advanced chronic ischemic change similar to comparison. Decreased attenuation and calcifications in the posterior right cerebellum noted. Posterior fossa ass essment is inherently limited on CT imaging. An abnormality in this region is not likely to explain the patient's acute clinical presentation. A follow-up outpatient MRI study could be performed to bet ter assess the cerebellum.
[2018-11-29 12:10] LABS: Absolute Lymphocytes (CBC) 1.6 K/uL (0.7-4.9); Absolute Monocytes 0.8 K/uL (0.1-1.3); Absolute Neutrophil 5.1 K/uL (1.8-8.0); Eosinophils % 2.7 % (0-4.4); Hematocrit 35.4 % (36.0-45.0); MPV 7.2 fL (7.6-11.3); Monocytes % 9.7 % (3.3-12.3); RBC Red Blood Cell Count 4.21 M/uL (3.86-4.86)
[2018-11-29 12:16] LABS: Protime INR 1.01
[2018-11-29] MEDS ORDERED: NA CHLORIDE 0.9% 1,000 ML ONE (12:16)
--- NOTE | 2018-11-29 12:19 | RAD REPORT ---
EXAM DESCRIPTION: RAD - Chest Single View - 11/29/2018 12:14 pm CLINICAL HISTORY: Shortness of breath COMPARISON: July 2018 TECHNIQUE: AP portable chest image was obtained 1154 hour . FINDINGS: No peripheral mass or consolidation. Interstitial markings are prominent but not substanti ally different from comparison. Severity of chronic disease could mask earliest stages of interstitia l edema or infiltrate. Heart and vasculature are normal. No measurable pleural effusion and no pneumo thorax. No acute bony abnormality seen. No acute aortic findings suspected. IMPRESSION: Chronic interstitial lung disease similar to comparison. Chronic changes can mask early stages of edema or infiltrate.
[2018-11-29 12:29] LABS: Albumin 3.5 g/dL (3.4-5.0); Bilirubin Total 0.3 mg/dL (0.2-1.0); Potassium 4.1 mmol/L (3.5-5.1); Protein, Total 7.2 g/dL (6.4-8.2)
--- NOTE | 2018-11-29 12:37 | EDPHYS ---
Physician Documentation [facility] Name: Anel Gauthier Age: 88 yrs Sex: Female : 1930 Arrival Date: 11/29/2018 Time: 10:54 Bed 19 Private MD: ED Physician Maurice Hooks HPI: 11/29 11:10 This 88 yrs old Female presents to ER via EMS with complaints of speech ma2 abnormality . 11:10 The patient presents to the emergency department with a speech or higher order brain ma2 function problem, alexia. Onset: The symptoms/episode began/occurred gradually, 8 hour(s) ago. Associated signs and symptoms: Pertinent positives: This patient does not have any pertinent positives. Pertinent negatives: altered mental status, chills, dizziness, fever, headache, neck stiffness, seizure, syncope, near-syncope, double vision, visual field changes. Severity of symptoms: At their worst the symptoms were very mild in the emergency department the symptoms have resolved. Patient's baseline: Neuro: alert and fully oriented. Current symptoms: Currently, the patient is not experiencing any symptoms. Historical: - Allergies: 11:04 Eggs; bp 11:04 Sulfa (Sulfonamide Antibiotics); bp - Home Meds: 11:04 amlodipine 5 mg oral tab [Active]; losartan 100 mg oral tab 1 tab once daily [Active]; bp clopidogrel 75 mg oral tab 1 tab once daily [Active]; bimatoprost 0.03 % ophthalmic drop 1 drop once daily [Active]; brimonidine-timolol ophthalmic ophthalmic [Active]; omeprazole 20 mg Oral cpDR 1 cap once daily [Active]; venlafaxine 75 mg Oral cp24 1 cap once daily [Active]; - PMHx: 11:04 Alzheimers; Arthritis; Dementia; Hyperlipidemia; Hypertension; TIA; bp - Immunization history:: Adult Immunizations up to date. - Social history:: Smoking status: Patient/guardian denies using tobacco, Patient/guardian denies using alcohol, street drugs, The patient lives with family. - Ebola Screening: : Patient negative for fever greater than or equal to 101.5 degrees Fahrenheit, and additional compatible Ebola Virus Disease symptoms Patient denies exposure to infectious person Patient denies travel to an Ebola-affected area in the 21 days before illness onset No symptoms or risks identified at this time. - Family history:: not pertinent. ROS: 11:10 Constitutional: Negative for fever, chills, and weight loss. ma2 11:10 Neuro: Positive for speech changes, Negative for altered mental status, dizziness, gait disturbance, headache, hearing loss, loss of consciousness, numbness, seizure activity, syncope, near syncope, tingling, tinnitus, tremor, visual changes, weakness, acute changes. 11:10 All other systems are negative. Exam: 11:10 Constitutional: This is a well developed, well nourished patient who is awake, alert, ma2 and in no acute distress. Head/Face: Normocephalic, atraumatic. Eyes: Pupils equal round and reactive to light, extra-ocular motions intact. Lids and lashes normal. Conjunctiva and sclera are non-icteric and not injected. Cornea within normal limits. Periorbital areas with no swelling, redness, or edema. ENT: Nares patent. No nasal discharge, no septal abnormalities noted. Tympanic membranes are normal and external auditory canals are clear. Oropharynx with no redness, swelling, or masses, exudates, or evidence of obstruction, uvula midline. Mucous membranes moist. Chest/axilla: Normal chest wall appearance and motion. Nontender with no deformity. No lesions are appreciated. Cardiovascular: Regular rate and rhythm with a normal S1 and S2. No gallops, murmurs, or rubs. Normal PMI, no JVD. No pulse deficits. Respiratory: Lungs have equal breath sounds bilaterally, clear to auscultation and percussion. No rales, rhonchi or wheezes noted. No increased work of breathing, no retractions or nasal flaring. Abdomen/GI: Soft, non-tender, with normal bowel sounds. No distension or tympany. No guarding or rebound. No evidence of tenderness throughout. Back: No spinal tenderness. No costovertebral tenderness. Full range of motion. Skin: Warm, dry with normal turgor. Normal color with no rashes, no lesions, and no evidence of cellulitis. MS/ Extremity: Pulses equal, no cyanosis. Neurovascular intact. Full, normal range of motion. Neuro: Awake and alert, GCS 15, oriented to person, place, time, and situation. Cranial nerves II-XII grossly intact. Motor strength 5/5 in all extremities. Sensory grossly intact. Cerebellar exam normal. Normal gait. Vital Signs: 10:55 BP 120 / 57; Pulse 76; Resp 14; Temp 98; Pulse Ox 99% ; Weight 72.57 kg; Height 5 ft. 2 bp in. (157.48 cm); 12:00 BP 120 / 54; Pulse 78; Resp 14; Pulse Ox 96% ; bp 19:00 BP 140 / 52; Pulse 80; Resp 18; Pulse Ox 96% ; ea 20:13 BP 103 / 48; Pulse 70; Resp 18; Temp 97.8; Pulse Ox 97% on R/A; ea 10:55 Body Mass Index 29.26 (72.57 kg, 157.48 cm) bp MDM: 11:02 Patient medically screened. [facility] 12:34 Data reviewed: vital signs, nurses notes. Counseling: I had a detailed discussion with ma the patient and/or guardian regarding: the historical points, exam findings, and any diagnostic results supporting the discharge/admit diagnosis, the presence of at least one elevated blood pressure reading (>120/80) during this emergency department visit, the need for further work-up and treatment in the hospital. ED course: has no symptoms now, will admit for TIA workup discussed with dr. Eastman who agree and request MRI as inpatient . 11/29 11:09 Order name: CBC with Diff; Complete Time: 12:34 [facility] 11/29 11:09 Order name: CMP; Complete Time: 12:34 [facility] 11/29 11:09 Order name: PT-INR; Complete Time: 12:34 [facility] 11/29 11:09 Order name: Ptt, Activated; Complete Time: 12:34 [facility] 11/29 12:43 Order name: CKMB Creatine Kinase MB [facility] 11/29 12:43 Order name: CKMB Creatine Kinase MB [facility] 11/29 11:09 Order name: CT Head Brain wo Cont; Complete Time: 11:48 [facility] 11/29 12:43 Order name: Creatine Phosphokinase [facility] 11/29 12:43 Order name: Creatine Phosphokinase [facility] 11/29 12:43 Order name: Lipid Profile [facility] 11/29 12:43 Order name: Lipid Profile [facility] 11/29 12:43 Order name: Troponin I [facility] 11/29 12:43 Order name: Troponin I [facility] 11/29 16:47 Order name: Glucose, Ancillary Testing [facility] 11/29 11:09 Order name: EKG - Nurse/Tech; Complete Time: 11:19 [facility] 11/29 11:09 Order name: Chest Single View XRAY; Complete Time: 12:34 [facility] 11/29 12:44 Order name: Consistent Carb (ADA) [address] [facility] 11/29 12:45 Order name: Brain With Cont [facility] 11/29 12:46 Order name: EKG Electrocardiogram; Complete Time: 14:15 [facility] 11/29 15:01 Order name: MRI [facility] Administered Medications: 12:00 Drug: NS 0.9% 1000 ml Route: IV; Rate: 1 bolus; Site: right antecubital; bp Point of Care Testing: Blood Glucose: 16:00 Blood Glucose: 110 mg/dL; mh5 Ranges: Critical Glucose Levels:Adult <50 mg/dl or >400 mg/dl <40 mg/dl or >180 mg/dl Disposition: 11/29/18 12:36 Hospitalization ordered by Ned Eastman for Observation. 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 - Bed requested for Telemetry/MedSurg (observation). - Status is Observation. ea - Condition is Stable. - Problem is new. - Symptoms are resolved. UTI on Admission? No Signatures: Dispatcher [employer] [facility] Charu Guardado Irene, Karie Mantilla RN, RN RN ea Peltier, Brian, RN Maurice Ruvalcaba MD MD ma2 Corrections: (The following items were deleted from the chart) 14:37 12:36 Hospitalization Ordered by Ned Eastman MD for Observation. Preliminary diagnosis iw is Dysarthria following other cerebrovascular disease. Bed requested for Telemetry/MedSurg (observation). Status is Observation. Condition is Stable. Problem is new. Symptoms are resolved. UTI on Admission? No. ma2 18:45 14:37 11/29/2018 12:36 Hospitalization Ordered by Ned Eastman MD for Observation. 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 Bed requested for [facility] ER HOLD. Status is Observation. Condition is Stable. Problem is new. Symptoms are resolved. UTI on Admission? No. iw 20:50 18:45 11/29/2018 12:36 Hospitalization Ordered by Ned Eastman MD for Observation. 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 Bed requested for Telemetry/MedSurg (observation). Status is Observation. Condition is Stable. Problem is new. Symptoms are resolved. UTI on Admission? No. bd
--- NOTE | 2018-11-29 12:37 | ER ---
Nurse's Notes [facility] Name: Anel Gauthier Age: 88 yrs Sex: Female : 1930 Arrival Date: 11/29/2018 Time: 10:54 Bed 19 Private MD: Diagnosis: Dysarthria following other cerebrovascular disease Presentation: 11/29 10:55 Presenting complaint: EMS states: TREMORS SINCE LAST PM. Transition of care: patient bp was not received from another setting of care. Onset of symptoms is unknown. Risk Assessment: Do you want to hurt yourself or someone else? Patient reports no desire to harm self or others. Initial Sepsis Screen: Does the patient meet any 2 criteria? No. Patient's initial sepsis screen is negative. Does the patient have a suspected source of infection? No. Patient's initial sepsis screen is negative. Care prior to arrival: None. 10:55 Method Of Arrival: EMS: [facility] bp 10:55 Acuity: JAMES 3 bp Triage Assessment: 10:55 General: Appears in no apparent distress. comfortable, obese, Behavior is cooperative, bp appropriate for age, anxious. Pain: Denies pain. EENT: No deficits noted. Neuro: Level of Consciousness is awake, alert, obeys commands, Oriented to person, place, time, situation, Appropriate for age. Cardiovascular: No deficits noted. Respiratory: Airway is patent Respiratory effort is even, unlabored, Respiratory pattern is regular, symmetrical. GI: No signs and/or symptoms were reported involving the gastrointestinal system. : No signs and/or symptoms were reported regarding the genitourinary system. Derm: No deficits noted. Musculoskeletal: Circulation, motion, and sensation intact. Range of motion: intact in all extremities. Historical: - Allergies: 11:04 Eggs; bp 11:04 Sulfa (Sulfonamide Antibiotics); bp - Home Meds: 11:04 amlodipine 5 mg oral tab [Active]; losartan 100 mg oral tab 1 tab once daily [Active]; bp clopidogrel 75 mg oral tab 1 tab once daily [Active]; bimatoprost 0.03 % ophthalmic drop 1 drop once daily [Active]; brimonidine-timolol ophthalmic ophthalmic [Active]; omeprazole 20 mg Oral cpDR 1 cap once daily [Active]; venlafaxine 75 mg Oral cp24 1 cap once daily [Active]; - PMHx: 11:04 Alzheimers; Arthritis; Dementia; Hyperlipidemia; Hypertension; TIA; bp - Immunization history:: Adult Immunizations up to date. - Social history:: Smoking status: Patient/guardian denies using tobacco, Patient/guardian denies using alcohol, street drugs, The patient lives with family. - Ebola Screening: : Patient negative for fever greater than or equal to 101.5 degrees Fahrenheit, and additional compatible Ebola Virus Disease symptoms Patient denies exposure to infectious person Patient denies travel to an Ebola-affected area in the 21 days before illness onset No symptoms or risks identified at this time. - Family history:: not pertinent. Screenin:55 Abuse screen: Denies threats or abuse. Denies injuries from another. Nutritional bp screening: No deficits noted. Tuberculosis screening: No symptoms or risk factors identified. Fall Risk None identified. Secondary diagnosis (15 points) impaired mobility, Ambulatory Aid- Crutches/Cane/Walker (15 pts). Gait- Normal/Bed Rest/Wheelchair (0 pts) Mental Status- Oriented to own ability (0 pts). Total Puentes Fall Scale indicates. Assessment: 11:00 General: SEE TRIAGE NOTE. bp 19:00 General: Appears in no apparent distress. Behavior is calm, cooperative, appropriate ea for age. Pain: Denies pain. Neuro: Level of Consciousness is awake, alert, obeys commands, Oriented to person, place, time. Cardiovascular: Patient's skin is warm and dry. Respiratory: Airway is patent Respiratory effort is even, unlabored, Respiratory pattern is regular, symmetrical. Derm: Skin is pink, warm \T\ dry. 20:05 Reassessment: Report called to Brendan FRIAS ea Vital Signs: 10:55 BP 120 / 57; Pulse 76; Resp 14; Temp 98; Pulse Ox 99% ; Weight 72.57 kg; Height 5 ft. 2 bp in. (157.48 cm); 12:00 BP 120 / 54; Pulse 78; Resp 14; Pulse Ox 96% ; bp 19:00 BP 140 / 52; Pulse 80; Resp 18; Pulse Ox 96% ; ea 20:13 BP 103 / 48; Pulse 70; Resp 18; Temp 97.8; Pulse Ox 97% on R/A; ea 10:55 Body Mass Index 29.26 (72.57 kg, 157.48 cm) bp ED Course: 10:54 Patient arrived in ED. tw2 10:55 Arm band placed on. bp 10:59 Lamine Hunt, RN is Primary Nurse. bp 11:00 Triage completed. bp 11:00 Patient has correct armband on for positive identification. Bed in low position. Call bp light in reach. Side rails up X2. Adult w/ patient. 11:02 Maurice Hooks MD is Attending Physician. ma2 11:03 EKG done, by weatherization field technician. reviewed by Grupo Love MD. at1 11:27 CT Head Brain wo Cont In Process Unspecified. EDMS 12:00 Inserted saline lock: 20 gauge in right antecubital area, using aseptic technique. bp Blood collected. 12:14 Chest Single View XRAY In Process Unspecified. EDMS 12:36 Ned Eastman MD is Hospitalizing Provider. ma2 13:54 Patient moved to MRI via wheelchair. em2 15:52 No provider procedures requiring assistance completed. bp 19:46 Patient admitted, IV remains in place. ea Administered Medications: 12:00 Drug: NS 0.9% 1000 ml Route: IV; Rate: 1 bolus; Site: right antecubital; bp Point of Care Testing: Blood Glucose: 16:00 Blood Glucose: 110 mg/dL; mh5 Ranges: Outcome: 12:36 Decision to Hospitalize by Provider. ma2 19:45 Instructed on the need for admit. ea 20:06 Admitted to Med/surg accompanied by tech, room 222, Report called to Brendan GROVES ea 20:06 Condition: stable 20:50 Patient left the ED. ea Signatures: Dispatcher [employer] [facility] Malcolm Bowden em2 Dinora Yi, web site designer EKG Tat1 Destiny Ramos, RN RN tw2 Deanne Coleman mh5 Karie Oquendo RN RN ea Lamine Hunt, RN RN Maurice Mcadams MD MD ma2 Corrections: (The following items were deleted from the chart) 11:04 11:03 EKG done, by weatherization field technician. reviewed by Maurice Hooks MD at1 at1 14:52 10:55 BP 120 / 57; Pulse 76bpm; Resp 14bpm; Pulse Ox 99%; Temp 98F; 72.57 kg; Height 5 bp ft. 2 in.; BMI: 29.2; bp
--- NOTE | 2018-11-29 14:59 | RAD REPORT ---
EXAM DESCRIPTION: MRI - Brain W/Wo Cont - 11/29/2018 2:37 pm CLINICAL HISTORY: TIA Headache, drowsiness COMPARISON: Head Brain Wo Cont dated 11/29/2018 TECHNIQUE: Multi-sequence, multiplanar MR imaging of the brain was performed with contrast. FINDINGS: No intracranial hemorrhage, hydrocephalus, or extra-axial fluid collection.Moderate conflu ent T2/FLAIR hyperintensity in the periventricular and deep white matter is present compatible with c hronic microvascular ischemic changes. Gliosis is present in the left occipital lobe.. No intracrania l mass. DWI is negative for acute CVA. The midline structures are normally formed. Mastoid air cells and paranasal sinuses are clear. Post-contrast images show no abnormal enhancement to suggest tumor or infection. Prominent DVA is see n in the right cerebellar hemisphere. IMPRESSION: Negative for acute CVA or other acute intracranial abnormality. No pathologic post-contrast enhancement suspected.
[2018-11-29 15:52] VITALS: BMI 29.2
--- NOTE | 2018-11-29 16:28 | EKG ---
Test Date: 2018-11-29 Test Time: 10:59:49 [employer]: RUPERT-Cecile MEASUREMENT RESULTS: Intervals: Rate: 77 VT: 192 QRSD: 72 QT: 384 QTc: 434 [place]: P: 52 VT: 192 QRS: -40 T: 122 INTERPRETIVE STATEMENTS: Sinus rhythm with premature supraventricular complexes Left axis deviation Left ventricular hypertrophy with repolarization abnormality Cannot rule out Septal infarct, age undetermined Abnormal ECG Compared to ECG 08/06/2018 21:47:22 Atrial premature complex(es) now present Left ventricular hypertrophy now present First degree AV block no longer present Electronically Signed On 11-29-18 16:28:04 CDT by Ben Sharp
[2018-11-29] MEDS: INSULIN -REGULAR HUMAN 50 UNIT/0.5 ML ML SQ SCH ×2 (16:30→21:00)
--- NOTE | 2018-11-29 20:52 | P.HP ---
Certification for Inpatient Patient admitted to: Observation With expected LOS: <2 Midnights Practitioner: I am a practitioner with admitting privileges, knowledge of patient current condition, hospital course, and medical plan of care. Services: Services provided to patient in accordance with Admission requirements found in Title 42 Section 412.3 of the Code of Federal Regulations Patient History Date of Service: 11/29/18 Reason for admission: DYSARTHRIA PER ER MD. SHE DOES NOT KNOW WHY SHE IS HERE. History of Present Illness: MS. RICHARD HAS HAD MULTIPLE STROKES IN THE PAST WHILE ON PLAVIX. 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 DAUGHTER BROUGHT HER HERE SHE HAD DYSARTHRIA LAST NIGHT. SHE REALLY COULD NOT TELL WHY SHE IS HERE. Allergies egg Allergy (Unknown, Verified 08/17/18 14:26) UNKNOWN Sulfa (Sulfonamide Antibiotics) Allergy (Unknown, Verified 08/17/18 14:26) UNKNOWN Eggs Allergy (Uncoded 08/17/18 14:27) Unknown Home Medications: Acetaminophen with Codeine [Acetaminophen-Cod #4 Tablet] 1 tab PO BID 05/12/18 Loratadine 10 mg PO DAILY 05/12/18 Omeprazole 20 mg PO DAILY 05/12/18 Oxybutynin Chloride 5 mg PO BID 05/12/18 Venlafaxine HCl [Venlafaxine HCl ER] 1 tab PO DAILY 05/12/18 Clopidogrel Bisulfate [Plavix*] 75 mg PO DAILY #90 tablet 05/13/18 Bimatoprost [Lumigan] 1 drop EACH EYE BEDTIME 08/07/18 Brimonidine Tartrate/Timolol [Combigan 0.2%-0.5% Eye Drops] 1 drop EACH EYE BID 08/07/18 Brinzolamide [Azopt] 1 drop EACH EYE TID 08/07/18 Netarsudil Mesylate [Rhopressa] 1 drop EACH EYE BEDTIME 08/07/18 Cranberry Fruit Extract 400 mg PO BID #120 cap 08/26/18 Lisinopril [Prinivil*] 40 mg PO DAILY #60 tab 08/26/18 Amlodipine [Norvasc*] 5 mg PO DAILY #30 tab 08/28/18 - Past Medical/Surgical History Has patient received pneumonia vaccine in the past: Yes Diabetic: No -: htn -: TIA -: ALZ -: Dementia -: Arthritis -: HLD -: Glaucoma -: legally blind left eye -: hysterectomy -: colostomy 09/2012 -: appy -: colonscopy -: Kevin cataract removal - Family History Father -: Other (see notes) Notes: of aneurysm Mother -: Stroke - Social History Smoking Status: Current some day smoker Alcohol use: Yes CD- Drugs: No Caffeine use: Yes Review of Systems 10-point ROS is otherwise unremarkable General: Weakness, Malaise Neurological: Change in Speech Physical Examination - Vital Signs Temperature: 97.8 F Blood Pressure: 130/60 Pulse: 80 Respirations: 16 Pulse Ox (%): 95 - Physical Exam General: Alert, In no apparent distress, Obese HEENT: Atraumatic, PERRLA, Mucous membr. moist/pink, EOMI, Sclerae nonicteric Neck: Supple, 2+ carotid pulse no bruit, No LAD, Without JVD or thyroid abnormality Respiratory: Clear to auscultation bilaterally, Normal air movement Cardiovascular: Regular rate/rhythm, Normal S1 S2 Gastrointestinal: Normal bowel sounds, No tenderness Musculoskeletal: No tenderness Integumentary: No rashes Neurological: Normal speech, Abnormal strength (BUT AT BASELINE, SHE HAS NOT WALKED FOR LONG DURATION. POWER IS 3/5 BILAT.) Lymphatics: No axilla or inguinal lymphadenopathy - Studies Laboratory Data (last 24 hrs) 11/29/18 12:00: PT 11.9, INR 1.01, APTT 28.5 11/29/18 12:00: Sodium 142, Potassium 4.1, BUN 16, Creatinine 0.95, Glucose 120 H, Total Bilirubin 0.3, AST 14 L, ALT 20, Alkaline Phosphatase 109 11/29/18 12:00: WBC 7.8, Hgb 11.8 L, Hct 35.4 L, Plt Count 407 H Assessment and Plan - Problems (Diagnosis) (1) CVA (cerebral vascular accident) Onset Date: 08/08/18 Current Visit: No Status: Chronic Plan: SHE IS AT HER BASELINE. PLAVIX DAILY. STABLE. SHOULD BE IN NH AND FAMILY IS PLANNING FOR [place]. (2) HTN (hypertension) Onset Date: 08/08/18 Current Visit: No Status: Chronic Plan: WILL FU. Qualifiers: Hypertension type: essential hypertension Qualified Code(s): I10 - Essential (primary) hypertension - Advance Directives Does patient have a Living Will: No Does patient have a Durable POA for Healthcare: No
[2018-11-29] MEDS: Brimonidine Tartrate/Timolol (Combigan) 0.2%-0.5% Eye Drops EACH EYE SCH (21:00)
[2018-11-29] MEDS ORDERED: HOME MED 1 EA UNK (Netarsudil Mesylate [Rhopressa] 1 DROP) EACH EYE SCH (21:00)
[2018-11-29] MEDS: ACETAMINOPHEN WITH CODEINE PO SCH (21:00)
[2018-11-29] MEDS: BRINZOLAMIDE EYE OPTH SCH (21:00)
[2018-11-29] MEDS: OXYBUTYNIN CHLORIDE 5 MG TAB PO SCH (21:48)
[2018-11-30 07:06] LABS: CKMB Creatine Kinase MB 2.1 ng/mL (0.3-3.6); Creatine Phosphokinase 93 U/L (26-192); HDL Cholesterol 59 mg/dL (40-60); LDL Cholesterol, Calculated 171 (<130); Troponin I < 0.02 ng/mL (0.0-0.045)
[2018-11-30] MEDS: INSULIN -REGULAR HUMAN 50 UNIT/0.5 ML ML SQ SCH ×2 (07:30→11:30)
[2018-11-30] MEDS: OXYBUTYNIN CHLORIDE 5 MG TAB PO SCH (08:39)
[2018-11-30] MEDS: ACETAMINOPHEN WITH CODEINE PO SCH (08:41)
[2018-11-30] MEDS ORDERED: LORATADINE 10 MG TAB PO SCH (09:00)
[2018-11-30] MEDS ORDERED: AMLODIPINE 5 MG TAB PO SCH (09:00)
[2018-11-30] MEDS ORDERED: HOME MED 1 EA UNK (Omeprazole [Omeprazole] 20 MG) PO SCH (09:00)
[2018-11-30] MEDS ORDERED: HOME MED 1 EA UNK (Loratadine [Loratadine] 10 MG) PO SCH (09:00)
[2018-11-30] MEDS ORDERED: LISINOPRIL 20 MG TAB PO SCH (09:00)
[2018-11-30] MEDS ORDERED: CLOPIDOGREL 75 MG TABLET PO SCH (09:00)
[2018-11-30] MEDS ORDERED: PANTOPRAZOLE 40MG TABLET PO SCH (09:00)
[2018-11-30] MEDS ORDERED: VENLAFAXINE HCL XR 75 MG CAP PO SCH (09:00)
[2018-11-30 09:29] VITALS: O2SAT 97
[2018-11-30] MEDS: BRINZOLAMIDE EYE OPTH SCH (10:45)
[2018-11-30] MEDS: Brimonidine Tartrate/Timolol (Combigan) 0.2%-0.5% Eye Drops EACH EYE SCH (10:45)
[2018-11-30] MEDS ORDERED: GLUCAGON 1 MG/VIAL IM PRN (13:56)
[2018-11-30] MEDS ORDERED: D50W 25 GM/50 ML SYRINGE IV PRN (13:56)
[2018-11-30 14:02] VITALS: BP 137/63; TEMP 97.5
[2018-11-30] MEDS ORDERED: levETIRAcetam 500 MG TAB PO SCH (21:00)
--- NOTE | 2018-11-30 21:38 | P.DS ---
Admission Date: 11/29/18 Discharge Date: 11/30/18 Disposition: ROUTINE DISCHARGE Discharge Condition: SERIOUS Reason for Admission: DYSARTHRIA PER ER MD. SHE DOES NOT KNOW WHY SHE IS HERE. - Problems (1) CVA (cerebral vascular accident) Onset Date: 08/08/18 Status: Chronic (2) HTN (hypertension) Onset Date: 08/08/18 Status: Chronic Qualifiers: Hypertension type: essential hypertension Qualified Code(s): I10 - Essential (primary) hypertension Brief History of Present Illness: MS. RICHARD HAS HAD MULTIPLE STROKES IN THE PAST WHILE ON PLAVIX. 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 DAUGHTER BROUGHT HER HERE SHE HAD DYSARTHRIA LAST NIGHT. SHE REALLY COULD NOT TELL WHY SHE IS HERE. MS RICHARD IS AT BASELINE. DAUGHTER IS VERY ANXIOUS AND NOT ABLE TO TAKE CARE OF HER. SHE LIVES WITH MOTHER AT [facility]. I PLACED HER ON KEPPRA FOR POST STROKE LATE EFFECTS LIKE PARTIAL SEIZURES. Vital Signs/Physical Exam: Temp Pulse Resp BP Pulse Ox 97.5 F 74 18 137/63 95 11/30/18 12:00 11/30/18 12:00 11/30/18 12:00 11/30/18 12:00 11/30/18 12:00 Laboratory Data at Discharge: WBC 7.8 K/uL (4.3-10.9) 11/29/18 12:00 Hgb 11.8 g/dL (12.0-15.0) L 11/29/18 12:00 Hct 35.4 % (36.0-45.0) L 11/29/18 12:00 Plt Count 407 K/uL (152-406) H 11/29/18 12:00 PT 11.9 SECONDS (9.5-12.5) 11/29/18 12:00 INR 1.01 11/29/18 12:00 APTT 28.5 SECONDS (24.3-36.9) 11/29/18 12:00 Sodium 142 mmol/L (136-145) 11/29/18 12:00 Potassium 4.1 mmol/L (3.5-5.1) 11/29/18 12:00 BUN 16 mg/dL (7-18) 11/29/18 12:00 Creatinine 0.95 mg/dL (0.55-1.3) 11/29/18 12:00 Glucose 120 mg/dL (74-106) H 11/29/18 12:00 Total Bilirubin 0.3 mg/dL (0.2-1.0) 11/29/18 12:00 AST 14 U/L (15-37) L 11/29/18 12:00 ALT 20 U/L (12-78) 11/29/18 12:00 Alkaline Phosphatase 109 U/L (45-117) 11/29/18 12:00 Troponin I < 0.02 ng/mL (0.0-0.045) 11/30/18 06:11 Triglycerides 164 mg/dL (<150) H 11/30/18 06:11 Cholesterol 263 mg/dL (<200) H 11/30/18 06:11 HDL Cholesterol 59 mg/dL (40-60) 11/30/18 06:11 Cholesterol/HDL Ratio 4.46 11/30/18 06:11 Home Medications: Acetaminophen with Codeine [Acetaminophen-Cod #4 Tablet] 1 tab PO BID 05/12/18 Loratadine 10 mg PO DAILY 05/12/18 Omeprazole 20 mg PO DAILY 05/12/18 Oxybutynin Chloride 5 mg PO BID 05/12/18 Venlafaxine HCl [Venlafaxine HCl ER] 1 tab PO DAILY 05/12/18 Clopidogrel Bisulfate [Plavix*] 75 mg PO DAILY #90 tablet 05/13/18 Bimatoprost [Lumigan] 1 drop EACH EYE BEDTIME 08/07/18 Brimonidine Tartrate/Timolol [Combigan 0.2%-0.5% Eye Drops] 1 drop EACH EYE BID 08/07/18 Brinzolamide [Azopt] 1 drop EACH EYE TID 08/07/18 Netarsudil Mesylate [Rhopressa] 1 drop EACH EYE BEDTIME 08/07/18 Cranberry Fruit Extract 400 mg PO BID #120 cap 08/26/18 Lisinopril [Prinivil*] 40 mg PO DAILY #60 tab 08/26/18 Amlodipine [Norvasc*] 5 mg PO DAILY #30 tab 08/28/18 Clotrim/Betameth Cream [Lotrisone Cream*] 1 trino TOP BID 11/30/18 Levetiracetam [Keppra] 250 mg PO BID #60 tablet 11/30/18 Losartan Potassium 1 tab PO DAILY 11/30/18 New Medications: Levetiracetam [Keppra] 250 mg PO BID #60 tablet
== END 2018-11-30 14:05 | disposition home or self-care (01) ==
LOC: ER 10:45 → ERHOLD 12:40 → 2ND 20:05
PROVIDERS: ADMIT Internal Medicine; ATTEND Internal Medicine
DX: I63.9 Cerebral infarction, unspecified (principal); R47.1 Dysarthria and anarthria; I10 Essential (primary) hypertension; G30.9 Alzheimer's disease, unspecified; F02.81 Dementia in other diseases classified elsewhere, unspecified severity, with behavioral disturbance; H54.7 Unspecified visual loss; F17.210 Nicotine dependence, cigarettes, uncomplicated; Z88.2 Allergy status to sulfonamides; Z91.012 Allergy to eggs; Z86.73 Personal history of transient ischemic attack (TIA), and cerebral infarction without residual deficits
CPT/HCPCS: 93005; 85025; 36415; 82550; 85610; 80061; 82962 ×4; 85730; 84484; 82553; 80053; 70450; 71045; 70553; 97162; 94760 ×2; 99285; A9577; J7030; G0378 ×2

== ENCOUNTER 2021-01-20 00:39 | Emergency (ER) | payer OTHER ==
--- NOTE | 2021-01-20 02:28 | ER ---
Nurse's Notes [facility] Name: Anel Gauthier Age: 89 yrs Sex: Female : 1930 Arrival Date: 01/20/2021 Time: 00:36 Bed 2 Private MD: Diagnosis: Contusion of other part of head Presentation: 01/20 00:36 Chief complaint: EMS states: was standing at nurses station with walker, fell back hit iw head, hematoma to back of head, on plavix , unknown LOC, unwitnessed X 1 minute. Coronavirus screen: At this time, the client does not indicate any symptoms associated with coronavirus-19. Ebola Screen: Patient negative for fever greater than or equal to 101.5 degrees Fahrenheit, and additional compatible Ebola Virus Disease symptoms Patient denies exposure to infectious person. Patient denies travel to an Ebola-affected area in the 21 days before illness onset. No symptoms or risks identified at this time. Initial Sepsis Screen: Does the patient meet any 2 criteria? No. Patient's initial sepsis screen is negative. Does the patient have a suspected source of infection? No. Patient's initial sepsis screen is negative. Risk Assessment: Do you want to hurt yourself or someone else? Patient reports no desire to harm self or others. Onset of symptoms was January 20, 2021. 00:36 Method Of Arrival: EMS: [facility] iw 00:36 Acuity: JAMES 2 iw 00:40 Mechanism of Injury: Fall from standing position. Trauma event details: Injury occurred iw in the [facility], Injury occurred: Injury occurred: January 20, 2021. 00:50 Care prior to arrival: None. ea Trauma Activation: Alert Physician: ED Physician; Name: ; Notified At: ; Arrived At: Physician: General Surgeon; Name: ; Notified At: ; Arrived At: Physician: Radiology; Name: ; Notified At: ; Arrived At: Physician: Respiratory; Name: ; Notified At: ; Arrived At: Physician: Lab; Name: ; Notified At: ; Arrived At: Historical: - Allergies: 00:38 Eggs; iw 00:38 Sulfa (Sulfonamide Antibiotics); iw 00:38 Lisinopril; iw - PMHx: 00:38 Alzheimers; Arthritis; Dementia; Hyperlipidemia; Hypertension; TIA; Anemia; iw - Immunization history:: Adult Immunizations unknown. - Immunization history: Last tetanus immunization: unknown. - Social history:: Smoking status: unknown. Screenin:41 Abuse screen: Denies threats or abuse. Denies injuries from another. Tuberculosis iw screening: No symptoms or risk factors identified. 00:52 Nutritional screening: No deficits noted. Fall Risk Fall in past 12 months (25 points). ea Primary Survey: 00:44 NO uncontrolled hemorrhage observed. A: The patient is alert. Airway: patent. ea Breathing/Chest: Respiratory pattern: regular, Respiratory effort: spontaneous, unlabored. Circulation: Skin color: pink, Skin temperature: warm. Disability Alert. Exposure/Environment: A warming method has been applied: A warm blanket has been provided to the patient. 01:23 Reassessment Airway Airway Patent Breathing/Chest Respiratory pattern Regular ea Respiratory effort Spontaneous Unlabored Disability Alert. Assessment: 00:51 General: Appears uncomfortable, Behavior is appropriate for age. Pain: Complains of ea pain in left parietal area. Neuro: Level of Consciousness is awake, alert, obeys commands, Oriented to person. Respiratory: Airway is patent Respiratory effort is even, unlabored, Respiratory pattern is regular, symmetrical. Derm: Skin is pink, warm \T\ dry. Injury Description: Head injury sustained to left parietal area is closed, was sustained 30-60 minutes ago. 02:09 Reassessment: Patient and/or family updated on plan of care and expected duration. Pain ea level reassessed. Pt resting with eyes closed, respirations even and unlabored, chest expansions even and symmetrical. No s/s of pain or discomfort noted at this time. 02:48 Reassessment: Report called to receiving nurse at [facility]. ea Vital Signs: 00:47 BP 150 / 53; Pulse 63; Resp 18; Temp 97.2; Pulse Ox 98% ; Weight 45.36 kg; Height 5 ft. ea 1 in. (154.94 cm); 01:24 BP 138 / 59; Pulse 65; Resp 18; Pulse Ox 98% on R/A; ea 02:10 BP 133 / 43; Pulse 63; Resp 18; Pulse Ox 98% on R/A; ea 02:47 BP 130 / 46; Pulse 60; Resp 16; Temp 97.2; Pulse Ox 99% ; ea 03:27 BP 131 / 67; Pulse 60; Resp 18; Pulse Ox 99% ; ea 00:47 Body Mass Index 18.89 (45.36 kg, 154.94 cm) ea Rosie Coma Score: 00:47 Eye Response: spontaneous(4). Verbal Response: confused(4). Motor Response: obeys ea commands(6). Total: 14. 01:24 Eye Response: spontaneous(4). Verbal Response: confused(4). Motor Response: obeys ea commands(6). Total: 14. 02:11 Eye Response: spontaneous(4). Verbal Response: confused(4). Motor Response: obeys ea commands(6). Total: 14. 02:47 Eye Response: spontaneous(4). Verbal Response: confused(4). Motor Response: obeys ea commands(6). Total: 14. 03:27 Eye Response: spontaneous(4). Verbal Response: oriented(5). Motor Response: obeys ea commands(6). Total: 15. Trauma Score (Adult): 00:47 Eye Response: spontaneous(1); Verbal Response: confused(1); Motor Response: obeys ea commands(2); Systolic BP: > 89 mm Hg(4); Respiratory Rate: 10 to 29 per min(4); Rosie Score: 14; Trauma Score: 12 ED Course: 00:36 Patient arrived in ED. iw 00:38 Triage completed. iw 00:39 Arm band placed on. iw 00:40 Yong Wolfe MD is Attending Physician. tw4 00:44 Karie Oquendo, GERMAIN is Primary Nurse. ea 00:45 Patient maintains SpO2 saturation greater than 95% on room air. ea 00:46 Patient has correct armband on for positive identification. Bed in low position. ea 00:46 Thermoregulation: warm blanket given to patient. ea 01:31 CT Head C Spine In Process Unspecified. EDMS 02:46 No provider procedures requiring assistance completed. Patient did not have IV access ea during this emergency room visit. Administered Medications: No medications were administered Intake: 02:46 PO: 0ml; Total: 0ml. ea Outcome: 02:28 Discharge ordered by . tw4 02:46 Condition: stable ea 02:46 Patient's length of stay was not longer than 2 hours. 03:[address] Report called to Receiving nurse at [facility] ea Transfer form completed. 03:21 Discharge instructions given to EMS, Instructed on discharge instructions, follow up and referral plans. Demonstrated understanding of instructions. 03:28 Patient left the ED. ea Signatures: Dispatcher [employer] Jayne Mann, RN RN Karie Mayer RN RN Yong Dawson, MD ALTAMIR[place]O tw4 Corrections: (The following items were deleted from the chart) 00:41 00:36 Acuity: JAMES 3 iw iw 00:48 00:36 Chief complaint: EMS states: was standing at nurses station with walker, fell iw back hit head, hematoma to back of head and laceration, on plavix , unknown LOC, unwitnessed X 1 minute iw 01:24 00:51 Neuro: Level of Consciousness is awake, alert, obeys commands, Oriented to ea person, place, time, ea
--- NOTE | 2021-01-20 02:28 | EDPHYS ---
Physician Documentation [facility] Name: Anel Gauthier Age: 89 yrs Sex: Female : 1930 Arrival Date: 01/20/2021 Time: 00:36 Bed 2 Private MD: ED Physician Yong Wolfe HPI: 01/20 06:26 This 89 yrs old Female presents to ER via EMS with complaints of Fall Injury, tw4 Head Injury-Adult. 06:26 Details of fall: The patient fell from an upright position, while standing. Onset: The tw4 symptoms/episode began/occurred today. Associated injuries: The patient sustained injury to the head. Severity of symptoms: At their worst the symptoms were mild, in the emergency department the symptoms are unchanged. The patient has not experienced similar symptoms in the past. Historical: - Allergies: 00:38 Eggs; iw 00:38 Sulfa (Sulfonamide Antibiotics); iw 00:38 Lisinopril; iw - PMHx: 00:38 Alzheimers; Arthritis; Dementia; Hyperlipidemia; Hypertension; TIA; Anemia; iw - Immunization history:: Adult Immunizations unknown. - Immunization history: Last tetanus immunization: unknown. - Social history:: Smoking status: unknown. ROS: 06:26 Constitutional: Negative for fever, chills, and weight loss, Eyes: Negative for injury, tw4 pain, redness, and discharge, Cardiovascular: Negative for chest pain, palpitations, and edema, Respiratory: Negative for shortness of breath, cough, wheezing, and pleuritic chest pain, Abdomen/GI: Negative for abdominal pain, nausea, vomiting, diarrhea, and constipation, Back: Negative for injury and pain, MS/Extremity: Negative for injury and deformity, Skin: Negative for injury, rash, and discoloration, Neuro: Negative for headache, weakness, numbness, tingling, and seizure. Exam: 06:26 Constitutional: This is a well developed, well nourished patient who is awake, alert, tw4 and in no acute distress. Head/Face: Normocephalic, atraumatic. Chest/axilla: Normal chest wall appearance and motion. Nontender with no deformity. No lesions are appreciated. Cardiovascular: Regular rate and rhythm with a normal S1 and S2. No gallops, murmurs, or rubs. Normal PMI, no JVD. No pulse deficits. Respiratory: Lungs have equal breath sounds bilaterally, clear to auscultation and percussion. No rales, rhonchi or wheezes noted. No increased work of breathing, no retractions or nasal flaring. Abdomen/GI: Soft, non-tender, with normal bowel sounds. No distension or tympany. No guarding or rebound. No evidence of tenderness throughout. Back: No spinal tenderness. No costovertebral tenderness. Full range of motion. Skin: Warm, dry with normal turgor. Normal color with no rashes, no lesions, and no evidence of cellulitis. MS/ Extremity: Pulses equal, no cyanosis. Neurovascular intact. Full, normal range of motion. Neuro: Awake and alert, GCS 15, oriented to person, place, time, and situation. Cranial nerves II-XII grossly intact. Motor strength 5/5 in all extremities. Sensory grossly intact. Cerebellar exam normal. Normal gait. Vital Signs: 00:47 BP 150 / 53; Pulse 63; Resp 18; Temp 97.2; Pulse Ox 98% ; Weight 45.36 kg; Height 5 ft. ea 1 in. (154.94 cm); 01:24 BP 138 / 59; Pulse 65; Resp 18; Pulse Ox 98% on R/A; ea 02:10 BP 133 / 43; Pulse 63; Resp 18; Pulse Ox 98% on R/A; ea 02:47 BP 130 / 46; Pulse 60; Resp 16; Temp 97.2; Pulse Ox 99% ; ea 03:27 BP 131 / 67; Pulse 60; Resp 18; Pulse Ox 99% ; ea 00:47 Body Mass Index 18.89 (45.36 kg, 154.94 cm) ea Rosie Coma Score: 00:47 Eye Response: spontaneous(4). Verbal Response: confused(4). Motor Response: obeys ea commands(6). Total: 14. 01:24 Eye Response: spontaneous(4). Verbal Response: confused(4). Motor Response: obeys ea commands(6). Total: 14. 02:11 Eye Response: spontaneous(4). Verbal Response: confused(4). Motor Response: obeys ea commands(6). Total: 14. 02:47 Eye Response: spontaneous(4). Verbal Response: confused(4). Motor Response: obeys ea commands(6). Total: 14. 03:27 Eye Response: spontaneous(4). Verbal Response: oriented(5). Motor Response: obeys ea commands(6). Total: 15. Trauma Score (Adult): 00:47 Eye Response: spontaneous(1); Verbal Response: confused(1); Motor Response: obeys ea commands(2); Systolic BP: > 89 mm Hg(4); Respiratory Rate: 10 to 29 per min(4); Rosie Score: 14; Trauma Score: 12 MDM: 00:40 Patient medically screened. tw4 06:26 Data reviewed: vital signs, nurses notes. Data interpreted: Pulse oximetry: tw4 Interpretation: normal. Counseling: I had a detailed discussion with the patient and/or guardian regarding: the historical points, exam findings, and any diagnostic results supporting the discharge/admit diagnosis. Special discussion: Based on the patient's history, exam and DX evaluation, there is no indication for emergent intervention or inpatient TX. It is understood by the patient/guardian that if the SXs persist or worsen they need to return immediately for re-evaluation. I discussed with the patient/guardian in detail that at this point there is no indication for admission to the hospital. It is understood, however, that if the symptoms persist or worsen the patient needs to return immediately for re-evaluation. 01/20 00:41 Order name: CT Head C Spine tw4 Administered Medications: No medications were administered Disposition: 01/20/21 02:28 Discharged to Home. Impression: Contusion of other part of head. - Condition is Stable. - Discharge Instructions: Contusion, Head Injury, Adult, [id number]. - Medication Reconciliation Form, Thank You Letter, Antibiotic Education, Prescription Opioid Use form. - Follow up: Private Physician; When: Upon discharge from the Emergency Department; Reason: Recheck today's complaints, Continuance of care, Re-evaluation by your physician. - Problem is new. - Symptoms are unchanged. Signatures: Dispatcher [employer] Jayne Mann, RN Karie Mantilla RN RN ea Wadley, Terrence, MD MD tw4 Corrections: (The following items were deleted from the chart) 03:28 02:28 01/20/2021 02:28 Discharged to Home. Impression: Contusion of other part of head. ea Condition is Stable. Forms are Medication Reconciliation Form, Thank You Letter, Antibiotic Education, Prescription Opioid Use. Follow up: Private Physician; When: Upon discharge from the Emergency Department; Reason: Recheck today's complaints, Continuance of care, Re-evaluation by your physician. Problem is new. Symptoms are unchanged. tw4
[2021-01-20 03:34] VITALS: TEMP 97.2
[2021-01-20 03:38] VITALS: O2SAT 99
[2021-01-20 03:40] VITALS: BP 131/67
--- NOTE | 2021-01-20 13:50 | RAD REPORT ---
EXAM DESCRIPTION: CT - Head C Spine Mpr Wo Con - 01/20/2021 4:59 am COMPARISON: CT head November 29, 2018 CLINICAL HISTORY: [facility] MAIN trauma TECHNIQUE: Axial images were obtained from skull base to vertex without intravenous contrast. Imag es viewed on bone and brain windows. Multiplanar reformats were performed. Automated exposure contr ol was utilized on this examination as a dose lowering technique. FINDINGS: Brain parenchyma, ventricles, dura, meninges, and extra-axial spaces: Moderate generalized cerebral and cerebellar volume loss is present. Chronic left parieto-occipital infarct. Moderate hyp odensities in the subcortical white matter of both hemispheres are nonspecific but likely relate to c hronic small vessel disease. No acute intracranial hemorrhage or abnormal extra-axial fluid collectio ns. Stable right cerebellar calcifications. Vascular structures: Intracranial atherosclerosis is present. Calvarium, mastoid air cells, paranasal sinuses and orbits: The calvarium is normal. A posterior left scalp hematoma measures 8 mm in thickness. The mastoid air cells are clear. Visualized paranasal sin uses are unremarkable. Orbital structures are unremarkable. IMPRESSION: 1. No acute intracranial abnormality. 2. Posterior left scalp hematoma. 3. Chronic left parieto-occipital infarct. 4. Moderate senescent changes. EXAM DESCRIPTION: CT Cervical Spine COMPARISON: None. CLINICAL HISTORY: [facility] MAIN trauma TECHNIQUE: Axial CT images were obtained through the entire cervical spine without contrast. Sagit cristian and coronal reconstructions are provided. Automated exposure control was utilized on this examina tion as a dose lowering technique. FINDINGS: Vertebrae: There is 2 mm anterolisthesis C3 on C4 and C4 on C5. No acute fracture, dislo cation or destructive osseous process is present. Spinal canal, foramina, and facet joints: Greatest spinal canal stenoses are mild at C3-C4 and C5-C6 due to disc osteophyte complexes. Greatest foraminal stenoses are severe at bilateral C3, left C4, left C5, and left C6 due to uncovertebral an d facet hypertrophy. Paraspinous soft-tissues: Normal. Thyroid: Normal. Other Findings: Carotid atherosclerosis. IMPRESSION: 1. No acute fracture or subluxation. 2. Cervical spondylosis. Electronically signed by: Tim Evans MD 01/20/2021 1:46 AM CDT Due to temporary technical issues with the PACS/Fluency reporting system, reports are being signed by the in house radiologists without review as a courtesy to insure prompt reporting. The interpreting radiologist is fully responsible for the content of the report.
== END 2021-01-20 03:28 | disposition home or self-care (01) ==
LOC: ER 00:39
DX: S00.83XA Contusion of other part of head, initial encounter (principal); W18.30XA Fall on same level, unspecified, initial encounter; I10 Essential (primary) hypertension; G30.9 Alzheimer's disease, unspecified; F02.80 Dementia in other diseases classified elsewhere, unspecified severity, without behavioral disturbance, psychotic disturbance, mood disturbance, and anxiety; Z88.2 Allergy status to sulfonamides; Z88.8 Allergy status to other drugs, medicaments and biological substances; Z91.012 Allergy to eggs
CPT/HCPCS: 70450; 72125; 99284; G0390